=== PATIENT | female | born 1965 | race African-American/Black ===

== ENCOUNTER 2016-07-21 04:23 | Emergency (ER) | payer MEDICAID ==
[2016-07-21 05:51] LABS: VENOUS BLOOD BASE EXCESS 5.7 mmol/L; VENOUS BLOOD HCO3 33.1 mmol/L (20-32); VENOUS BLOOD PCO2 62.7 mmHg (35-63); VENOUS BLOOD PH 7.34 (7.30-7.42)
[2016-07-21 05:55] LABS: ABSOLUTE EOSINOPHILS # (AUTO) 0.2 10^3/uL (0.0-0.6); ABSOLUTE LYMPHOCYTES (AUTO) 1.7 10^3/uL (0.5-4.7); ABSOLUTE MONOCYTES (AUTO) 0.6 10^3/uL (0.1-1.4); ABSOLUTE NEUT (AUTO) 2.7 10^3/uL (1.7-8.2); BASOPHILS % (AUTO) 0.8 % (0-2); EOSINOPHILS % (AUTO) 3.5 % (0-6); HEMATOCRIT 35.4 % (36.0-47.0); HEMOGLOBIN 11.4 g/dL (12.0-15.5); HGB HCT DIFFERENCE -1.2; LYMPHOCYTES % (AUTO) 32.8 % (13-45); MEAN CORPUSCULAR HGB CONC 32.1 g/dL (32.0-36.0); MEAN CORPUSCULAR VOLUME 87 fl (80-97); RED BLOOD COUNT 4.05 10^6/uL (3.72-5.28); RED CELL DISTRIBUTION WIDTH 15.8 % (11.5-14.0); SEGMENTED NEUTROPHILS % (AUTO) 50.9 % (42-78); WHITE BLOOD COUNT 5.3 10^3/uL (4.0-10.5)
[2016-07-21 05:58] LABS: ALANINE AMINOTRANSFERASE 16 U/L (9-52); ALBUMIN 3.9 g/dL (3.5-5.0); ALKALINE PHOSPHATASE 55 U/L (38-126); ANION GAP 12 (5-19); ASPARTATE AMINO TRANSFERASE 29 U/L (14-36); BILIRUBIN,TOTAL 0.4 mg/dL (0.2-1.3); BLOOD UREA NITROGEN 21 mg/dL (7-20); CALCIUM 10.3 mg/dL (8.4-10.2); CARBON DIOXIDE 34 mmol/L (22-30); CHLORIDE 97 mmol/L (98-107); CREATININE RESULT 1.01 mg/dL (0.52-1.25); GLUCOSE 150 mg/dL (75-110); SODIUM 142.6 mmol/L (137-145); TOTAL PROTEIN 7.6 g/dL (6.3-8.2)
[2016-07-21 06:00] LABS: PROTHROMBIN TIME 12.1 SEC (11.4-15.4)
[2016-07-21] MEDS ORDERED: METHYLPREDNISOLONE INJ 125 MG/2 ML SDV IV ONE (06:52)
--- NOTE | 2016-07-21 06:52 | ER Document Report ---
ED Respiratory Problem - General Mode of Arrival: Medic Information source: Patient TRAVEL OUTSIDE OF THE [place] IN LAST 30 DAYS: No - HPI Patient complains to provider of: Cough Associated symptoms: Other - See above <MARCIO STEPHENS - Last Filed: 07/21/16 07:07> <SARITA SCHUMACHER - Last Filed: 07/21/16 09:56> - General Chief Complaint: Cough Stated Complaint: COUGH Notes: Patient is a 51 year old female, with a past medical history including COPD, who presents to the emergency department via EMS complaining of a cough. Patient reports the cough is productive with yellow and green sputum. Patient was seen at this facility around the Holidays and has been on Prednisone, 5mg, which she began tapering last week. Patient also complains of nasal congestion. Patient was given DuoNeb en route. (MARCIO STEPHENS) - Related Data Allergies/Adverse Reactions: codeine [Codeine] Allergy (Severe, Verified 06/23/16 22:20) reacts with invega Penicillins Allergy (Severe, Verified 06/23/16 22:20) Hives Past Medical History - General Information source: Patient - Social History Smoking Status: Unknown if Ever Smoked Family History: Reviewed & Not Pertinent - Past Medical History Cardiac Medical History: Reports: Hx Congestive Heart Failure, Hx Hypercholesterolemia, Hx Hypertension Pulmonary Medical History: Reports: Hx Asthma, Hx COPD, Hx Pneumonia, Hx Sleep Apnea - CPAP of 16. Endocrine Medical History: Reports: Hx Diabetes Mellitus Type 1, Hx Diabetes Mellitus Type 2 GI Medical History: Reports: Hx Gastroesophageal Reflux Disease Musculoskeltal Medical History: Reports Hx Arthritis - rt knee Psychiatric Medical History: Reports: Hx Anxiety, Hx Bipolar Disorder, Hx Depression, Hx Schizoaffective Disorder, Hx Schizophrenia Past Surgical History: Reports: Hx Section - 3, Hx Tubal Ligation - Immunizations Immunizations up to date: Yes Hx Diphtheria, Pertussis, Tetanus Vaccination: Yes Hx Pneumococcal Vaccination: 04/30/14 <MARCIO STEPHENS - Last Filed: 07/21/16 07:07> Review of Systems - Review of Systems Constitutional: No symptoms reported EENT: See HPI, Nose congestion Cardiovascular: No symptoms reported Respiratory: See HPI, Cough Gastrointestinal: No symptoms reported Genitourinary: No symptoms reported Female Genitourinary: No symptoms reported Musculoskeletal: No symptoms reported Skin: No symptoms reported Hematologic/Lymphatic: No symptoms reported Neurological/Psychological: No symptoms reported -: Yes All other systems reviewed and negative <MARCIO STEPHENS - Last Filed: 07/21/16 07:07> Physical Exam - Vital signs Interpretation: Normal - General General appearance: Appears well, Alert - HEENT Head: Normocephalic, Atraumatic Nasal: Other - congested - Respiratory Respiratory status: No respiratory distress Chest status: Nontender Breath sounds: Wheezing - Diffuse expiratory and inspiratory Chest palpation: Normal - Cardiovascular Rhythm: Regular Heart sounds: Normal auscultation Murmur: No - Abdominal Inspection: Morbidly Obese Distension: No distension Bowel sounds: Normal Tenderness: Nontender Organomegaly: No organomegaly - Back Back: Normal, Nontender - Extremities General upper extremity: Normal inspection General lower extremity: Normal inspection - Neurological Neuro grossly intact: Yes Cognition: Normal Orientation: AAOx4 Derrick Coma Scale Eye Opening: Spontaneous Derrick Coma Scale Verbal: Oriented Derrick Coma Scale Motor: Obeys Commands Derrick Coma Scale Total: 15 Speech: Normal - Psychological Associated symptoms: Normal affect, Normal mood - Skin Skin Temperature: Warm Skin Moisture: Dry Skin Color: Normal <MARCIO STEPHENS - Last Filed: 07/21/16 07:07> Course - Laboratory Result Diagrams: 07/21/16 05:25 07/21/16 05:25 <MARCIO STEPHENS - Last Filed: 07/21/16 07:07> - Laboratory Result Diagrams: 07/21/16 05:25 07/21/16 05:25 - Diagnostic Test Radiology reviewed: Image reviewed, Reports reviewed <SARITA SCHUMACHER - Last Filed: 07/21/16 09:56> - Re-evaluation Re-evalutation: 07/21/16 09:52 Patient's wheezes have almost cleared up. She does feel quite better. She is comfortable with going up on the steroid dosing and following up with her pulmonary medicine doctor this week. (SARITA SCHUMACHER) - Vital Signs Vital signs: Temp Pulse Resp BP Pulse Ox 98.9 F 11 L 131/68 H 97 07/21/16 04:51 07/21/16 07:38 07/21/16 08:01 07/21/16 08:01 (MARCIO STEPHENS) (SARITA SCHUMACHER) - Laboratory Laboratory results interpreted by me: 07/21/16 07/21/16 07/21/16 05:25 05:25 05:25 Hgb 11.4 L Hct 35.4 L RDW 15.8 H VBG HCO3 Chloride 97 L Carbon Dioxide 34 H BUN 21 H Est GFR (Non-Af Amer) 58 L Glucose 150 H Lactic Acid 2.6 H Calcium 10.3 H Urine Ketones 07/21/16 07/21/16 05:25 08:49 Hgb Hct RDW VBG HCO3 33.1 H Chloride Carbon Dioxide BUN Est GFR (Non-Af Amer) Glucose Lactic Acid Calcium Urine Ketones TRACE H (MARCIO STEPHENS) (SARITA SCHUMACHER) Discharge <MARCIO STEPHENS - Last Filed: 07/21/16 07:07> <SARITA SCHUMACHER - Last Filed: 07/21/16 09:56> - Discharge Clinical Impression: Viral URI Acute asthma exacerbation Qualifiers: Asthma severity: moderate persistent Qualified Code(s): J45.41 - Moderate persistent asthma with (acute) exacerbation Condition: Stable Disposition: HOME, SELF-CARE Additional Instructions: Increase her prednisone as prescribed. Follow-up with your pulmonary medicine doctor this week. Continue using your nebulizer every 4 hours as needed for wheezing. RETURN TO THE EMERGENCY ROOM IF ANY NEW OR WORSENING SYMPTOMS. Prescriptions: Prednisone [Deltasone 10 mg Tablet] 10 mg PO ASDIR PRN #21 tablet PRN Reason: Scribe Attestation: 07/21/16 09:56 I personally performed the services described in the documentation, reviewed and edited the documentation which was dictated to the scribe in my presence, and it accurately records my words and actions. (SARITA SCHUMACHER) Scribe Documentation - Scribe Written by Elias:: elias Sadler, 07/21/16, 07 acting as scribe for :: Joan <MARCIO STEPHENS - Last Filed: 07/21/16 07:07>
[2016-07-21] MEDS ORDERED: KETOROLAC TROMETHAMINE INJ/PF 30 MG/1 ML SDV IV ONE (07:16)
[2016-07-21] MEDS ORDERED: ACETAMINOPHEN 325 MG TABLET PO ONE (07:16)
[2016-07-21] MEDS ORDERED: ALBUTEROL SULFATE 0.083% NEB 2.5 MG/3 ML AMPUL NEB ONE (07:17)
[2016-07-21 09:39] LABS: APPEARANCE,URINE CLEAR; BILIRUBIN,URINE NEGATIVE (NEGATIVE); GLUCOSE, URINE NEGATIVE (NEGATIVE); KETONES,URINE TRACE mg/dL (NEGATIVE); LEUKOCYTE ESTERASE,URINE NEGATIVE (NEGATIVE); NITRITE,URINE NEGATIVE (NEGATIVE); PROTEIN,URINE NEGATIVE (NEGATIVE); UROBILINOGEN,URINE NEGATIVE mg/dL (<2.0)
[2016-07-21] MEDS ORDERED: PREDNISONE 20 MG TABLET PO ONE (09:56)
[2016-07-21 10:03] VITALS: BP 150/83
--- NOTE | 2016-07-21 10:08 | EKG REPORT ---
SEVERITY:- BORDERLINE ECG - SINUS RHYTHM NONSPECIFIC ST-T CHANGES LATERAL LEADS. : Confirmed by: Reji Casarez MD 21-Jul-2016 10:07:38
== END 2016-07-21 10:07 | disposition home or self-care (01) ==
LOC: ER 04:23
DX: J45.41 Moderate persistent asthma with (acute) exacerbation (principal); J44.9 Chronic obstructive pulmonary disease, unspecified; R05 Cough; R09.81 Nasal congestion; E11.9 Type 2 diabetes mellitus without complications; I10 Essential (primary) hypertension; Z79.52 Long term (current) use of systemic steroids; Z88.0 Allergy status to penicillin; Z88.5 Allergy status to narcotic agent; Z87.01 Personal history of pneumonia (recurrent)
CPT/HCPCS: 93005; 94640; 99284; 96374; 96375; 36415; 87040; 87086; 85025; 85610; 80053; 81001; 82803; 83605; 71020; 93010; J3490; J2930; J1885; J7512

== ENCOUNTER 2016-07-23 15:52 | Inpatient (IN) | payer MEDICAID ==
[2016-07-23] MEDS ORDERED: IPRATROPIUM/ALBUTEROL 0.5-2.5 MG/3 ML AMPUL NEB ONE (16:13)
[2016-07-23] MEDS: ALBUTEROL SULFATE 0.083% NEB 2.5 MG/3 ML AMPUL NEB SCH ×2 (16:25→16:27)
[2016-07-23] MEDS ORDERED: METHYLPREDNISOLONE INJ 125 MG/2 ML SDV IV ONE (16:41)
--- NOTE | 2016-07-23 16:55 | ER Document Report ---
ED Respiratory Problem - General Chief Complaint: Shortness Of Breath Stated Complaint: DIFFICULTY BREATHING Notes: Patient is a 51-year-old female presents emergency Department complaining of suppressant and wheezing. He was seen on Friday for asthma exacerbation and sent home on oral steroids and DuoNeb's. She states that she's been doing DuoNeb nebulizers every 6 hours taking her prednisone 10 mg as prescribed and Symbicort twice a day. She states that she still had wheezing and dyspnea on exertion and shortness of breath for the past 2 days. She does wear oxygen at home 3 L 20/01. Upon EMS assessment she was at 87%. Past medical history significant for diabetes, CHF, COPD/asthma, hypertension, obstructive sleep apnea with home CPAP, bipolar, schizophrenia, depression Past surgical history significant for 3 Social history significant for 20 pack years no longer current smoker, denies any alcohol or drug use Allergies to penicillin she develops a rash, codeine she is no longer allowed to take she's on Invega TRAVEL OUTSIDE OF THE [place] IN LAST 30 DAYS: No - Related Data Allergies/Adverse Reactions: codeine [Codeine] Allergy (Severe, Verified 06/23/16 22:20) reacts with invega Penicillins Allergy (Severe, Verified 06/23/16 22:20) Hives Past Medical History - Social History Smoking Status: Former Smoker Family History: Reviewed & Not Pertinent - Past Medical History Cardiac Medical History: Reports: Hx Congestive Heart Failure, Hx Hypercholesterolemia, Hx Hypertension Denies: Hx DVT, Hx Heart Attack, Hx Pulmonary Embolism Pulmonary Medical History: Reports: Hx Asthma, Hx COPD, Hx Pneumonia, Hx Sleep Apnea - CPAP of 16. Neurological Medical History: Denies: Hx Seizures Endocrine Medical History: Reports: Hx Diabetes Mellitus Type 1, Hx Diabetes Mellitus Type 2. Denies: Hx Hyperthyroidism, Hx Hypothyroidism GI Medical History: Reports: Hx Gastroesophageal Reflux Disease. Denies: Hx Cirrhosis, Hx Hepatitis Musculoskeltal Medical History: Reports Hx Arthritis - rt knee Psychiatric Medical History: Reports: Hx Anxiety, Hx Bipolar Disorder, Hx Depression, Hx Schizoaffective Disorder, Hx Schizophrenia Infectious Medical History: Denies: Hx Hepatitis Past Surgical History: Reports: Hx Section - 3, Hx Tubal Ligation - Immunizations Immunizations up to date: Yes Hx Diphtheria, Pertussis, Tetanus Vaccination: Yes Hx Pneumococcal Vaccination: 04/30/14 Review of Systems - Review of Systems Constitutional: No symptoms reported EENT: No symptoms reported Cardiovascular: No symptoms reported Respiratory: See HPI Gastrointestinal: No symptoms reported Genitourinary: No symptoms reported Female Genitourinary: No symptoms reported Musculoskeletal: No symptoms reported Skin: No symptoms reported Hematologic/Lymphatic: No symptoms reported Neurological/Psychological: No symptoms reported Physical Exam - Vital signs Vitals: Temp Pulse Resp BP Pulse Ox 98.4 F 82 24 H 148/84 H 89 L 07/23/16 15:52 07/23/16 15:52 07/23/16 15:52 07/23/16 15:52 07/23/16 15:52 - Notes Notes: PHYSICAL EXAM GENERAL: Alert, interacts well. HEAD: Normocephalic, atraumatic. EYES: Pupils equal, round, and reactive to light. Extraocular movements intact. ENT: Oral mucosa moist, tongue midline. NECK: Full range of motion. Supple. Trachea midline. LUNGS: audible wheezes and rhonchi. No respiratory distress. able to speak with full sentences but visibly dyspneic HEART: Regular rate and rhythm. No murmurs, gallops, or rubs. ABDOMEN: Soft, nondistended, nontender. No guarding, rebound, or rigidity.. Bowel sounds present in all 4 quadrants. EXTREMITIES: Moves all 4 extremities spontaneously. No edema, radial and dorsalis pedis pulses 2/4 bilaterally. No cyanosis. NEUROLOGICAL: Alert and oriented x3. Normal speech. PSYCH: Normal affect, normal mood. SKIN: Warm, dry, normal turgor. No rashes or lesions noted. Course - Re-evaluation Re-evalutation: 07/23/16 18:30 Patient is a 51-year-old female who presents emergency Department complaining of 5 days of wheezing, productive cough and shortness of breath. She was recently seen here on Friday and discharged home with acute asthma exacerbation. She has been taking her do nebs every 6 hours, prednisone to milligrams and Symbicort twice a day. She states that over the past 2 days she is still had wheezing and shortness of breath that has not improved with any of these modalities. Patient has failed outpatient treatment for COPD exacerbation. Currently she is hemodynamically stable, no acute distress and afebrile. After multiple nebulizer she still has wheezing but improving. Chest x-ray shows evidence of low lung volumes. No evidence of leukocytosis or anemia. Chem panel stable. VBG tests shows elevated HC0# which is consistent with her history. Otherwise patient resting comfortably. Case with hospitalist Dr. Isaias Schulz is been accepted for hypoxemia secondary to COPD exacerbation. She'll be admitted to telemetry. Plan was discussed with patient she is agreeable - Vital Signs Vital signs: Temp Pulse Resp BP Pulse Ox 98.4 F 82 20 156/90 H 98 07/23/16 15:52 07/23/16 15:52 07/23/16 18:01 07/23/16 18:01 07/23/16 18:01 - Laboratory Result Diagrams: 07/23/16 16:45 07/23/16 16:45 Laboratory results interpreted by me: 07/23/16 07/23/16 07/23/16 16:45 16:45 16:45 Hgb 10.9 L Hct 34.2 L MCHC 31.7 L RDW 16.1 H VBG HCO3 32.1 H Chloride 97 L Carbon Dioxide 34 H BUN 23 H Est GFR (Non-Af Amer) 54 L Calcium 10.5 H - Diagnostic Test Radiology reviewed: Image reviewed, Reports reviewed - EKG Interpretation by Me EKG shows normal: Sinus rhythm Rate: Normal Rhythm: NSR When compared to previous EKG there are: No significant change - Consults Dr. Isaias schulz Reason for consultation: 07/23/16 18:53 hospital admission Consulted provider: will come to ER Discharge - Discharge Clinical Impression: COPD exacerbation, Hypoxemia Condition: Stable Disposition: ADMITTED INPATIENT Admitting Provider: Hospitalist - Dr. Isaias Schulz Unit Admitted: Telemetry Referrals: PAULINA FLORES TRANSFER OPERATOR [Primary Care Provider] - Follow up as needed
[2016-07-23 17:00] LABS: VENOUS BLOOD BASE EXCESS 5.9 mmol/L; VENOUS BLOOD HCO3 32.1 mmol/L (20-32); VENOUS BLOOD PCO2 54.7 mmHg (35-63); VENOUS BLOOD PH 7.39 (7.30-7.42)
[2016-07-23 17:04] LABS: ABSOLUTE EOSINOPHILS # (AUTO) 0.1 10^3/uL (0.0-0.6); ABSOLUTE LYMPHOCYTES (AUTO) 2.6 10^3/uL (0.5-4.7); ABSOLUTE MONOCYTES (AUTO) 0.7 10^3/uL (0.1-1.4); ABSOLUTE NEUT (AUTO) 3.7 10^3/uL (1.7-8.2); BASOPHILS % (AUTO) 0.4 % (0-2); EOSINOPHILS % (AUTO) 1.7 % (0-6); HEMATOCRIT 34.2 % (36.0-47.0); HEMOGLOBIN 10.9 g/dL (12.0-15.5); HGB HCT DIFFERENCE -1.5; LYMPHOCYTES % (AUTO) 36.3 % (13-45); MEAN CORPUSCULAR HEMOGLOBIN 27.6 pg (27.0-33.4); MEAN CORPUSCULAR HGB CONC 31.7 g/dL (32.0-36.0); MEAN CORPUSCULAR VOLUME 87 fl (80-97); MONOCYTES % (AUTO) 9.9 % (3-13); RED BLOOD COUNT 3.93 10^6/uL (3.72-5.28); RED CELL DISTRIBUTION WIDTH 16.1 % (11.5-14.0); SEGMENTED NEUTROPHILS % (AUTO) 51.7 % (42-78); WHITE BLOOD COUNT 7.1 10^3/uL (4.0-10.5)
[2016-07-23 17:21] LABS: ALANINE AMINOTRANSFERASE 28 U/L (9-52); ALBUMIN 3.8 g/dL (3.5-5.0); ALKALINE PHOSPHATASE 54 U/L (38-126); ANION GAP 11 (5-19); ASPARTATE AMINO TRANSFERASE 22 U/L (14-36); BILIRUBIN,TOTAL 0.3 mg/dL (0.2-1.3); BLOOD UREA NITROGEN 23 mg/dL (7-20); CALCIUM 10.5 mg/dL (8.4-10.2); CARBON DIOXIDE 34 mmol/L (22-30); CHLORIDE 97 mmol/L (98-107); CREATININE RESULT 1.08 mg/dL (0.52-1.25); GLUCOSE 106 mg/dL (75-110); POTASSIUM 4.1 mmol/L (3.6-5.0); SODIUM 142.2 mmol/L (137-145)
[2016-07-23] MEDS ORDERED: ALBUTEROL SULFATE 0.083% NEB 2.5 MG/3 ML AMPUL NEB PRN (18:34)
[2016-07-23] MEDS ORDERED: DEXTROSE 40% GEL 15 GM TUBE PO PRN ×2 (18:35)
[2016-07-23] MEDS ORDERED: DEXTROSE 50%-WATER 25 GM/50 ML DISP.SYRIN IV PRN ×2 (18:35)
[2016-07-23] MEDS ORDERED: GLUCAGON,HUMAN RECOMB 1 MG INJ IM PRN (18:35)
[2016-07-23] MEDS ORDERED: HYDRALAZINE HCL INJ/PF 20 MG/1 ML SDV IV PRN (18:36)
--- NOTE | 2016-07-23 18:42 | EKG REPORT ---
SEVERITY:- NORMAL ECG - SINUS RHYTHM : Confirmed by: Brisa Cohn MD 23-Jul-2016 18:42:07
--- NOTE | 2016-07-23 18:45 | PDOC H&P ---
History of Present Illness Admission Date/PCP: PALUINA FLORES Patient complains of: Shortness of breath History of Present Illness: LILI HA is a 51 year old female with past medical history of oxygen dependent COPD, obstructive sleep apnea, hypertension, CHF/LVDD presents with several days history of worsening shortness of breath. Patient was recently seen in the emergency department and diagnosed with COPD exacerbation. She was started on prednisone but has Progressively worse. She denies fevers or chills. As mentioned above she is home oxygen dependent on 3 L nasal cannula at baseline. She also uses BiPAP at night. She is followed by Dr. Huber of pulmonary medicine as an outpatient. Medications listed below have not been verified at the time of this documentation. Past Medical History Cardiac Medical History: Reports: Congestive Heart Failure, Hyperlipidema, Hypertension Denies: DVT, Myocardial Infarction, Pulmonary Embolism Pulmonary Medical History: Reports: Asthma, Chronic Obstructive Pulmonary Disease (COPD), Pneumonia, Sleep Apnea - CPAP of 16. Neurological Medical History: Denies: Seizures Endocrine Medical History: Reports: Diabetes Mellitus Type 2 Denies: Hyperthyroidism, Hypothyroidism GI Medical History: Reports: Gastroesophageal Reflux Disease Denies: Cirrhosis, Hepatitis Musculoskeltal Medical History: Reports: Arthritis - rt knee Psychiatric Medical History: Reports: Bipolar Disorder, Depression, Schizoaffective Disorder Hematology: Denies: Anemia Past Surgical History Past Surgical History: Reports: Section - 3, Tubal Ligation Social History Information Source: Patient Lives with: Spouse/Significant other Smoking Status: Former Smoker Frequency of Alcohol Use: None Hx Recreational Drug Use: No Drugs: None Hx Prescription Drug Abuse: No - Advance Directive Resuscitation Status: Full Code Surrogate healthcare decision maker:: Family History Family History: CAD, Other - Asthma Parental Family History Reviewed: Yes Children Family History Reviewed: Yes Sibling(s) Family History Reviewed.: Yes Medication/Allergy Home Medications: Insulin Detemir [Levemir Insulin 100 units/mL] 32 units SQ QPM 04/29/14 Metformin HCl [Glucophage] 1 tab PO BID 04/29/14 Metoprolol Tartrate [Lopressor 25 mg Tablet] 1 tab PO BID 04/29/14 Mirabegron [Myrbetriq] 1 tab PO DAILY 04/29/14 Theophylline Anhydrous 1 tab PO Q12H 04/29/14 Aspirin [Ecotrin 81 mg EC Tablet] 81 mg PO DAILY #0 tabec 04/30/14 Magnesium Oxide [Mag-Ox 400 mg Tablet] 400 mg PO QHS #30 tablet 04/30/14 Cholecalciferol (Vitamin D3) [Vitamin D3] 1 tab PO DAILY 05/13/14 Cyanocobalamin (Vitamin B-12) [Vitamin B-12] 1 tab PO DAILY 05/13/14 Divalproex Sodium [Divalproex Sodium ER] 4 tab PO QHS 05/13/14 Sertraline HCl 2 tab PO DAILY 05/13/14 Paliperidone [Invega 6 mg Tab.er] 6 mg PO DAILY #7 tab.er.24 11/04/14 Diltiazem HCl [Cardizem Cd 180 mg Capsule] 1 cap.sr PO Q12 03/13/15 Lisinopril [Zestril] 20 mg PO BID 03/13/15 Oxycodone HCl/Acetaminophen [Percocet 5-325 mg Tablet] 1 - 2 tab PO Q4H PRN #15 tablet 09/05/15 Carisoprodol [Soma] 250 mg PO PRN PRN 02/11/16 Gabapentin 300 mg PO BID 02/11/16 Ranitidine HCl [Zantac 150 mg Tablet] 150 mg PO BID 02/11/16 Insulin Detemir [Levemir Insulin 100 units/mL] 40 unit SUBCUT QPM #10 insuln.pen 05/23/16 Prednisone [Deltasone 20 mg Tablet] 20 mg PO BID #10 tablet 05/23/16 Prednisone 40 mg PO DAILY #8 tablet 06/24/16 Prednisone [Deltasone 10 mg Tablet] 10 mg PO ASDIR PRN #21 tablet 07/21/16 Allergies/Adverse Reactions: codeine [Codeine] Allergy (Severe, Verified 06/23/16 22:20) reacts with invega Penicillins Allergy (Severe, Verified 06/23/16 22:20) Hives Review of Systems Constitutional: ABSENT: chills, fever(s), headache(s), weight gain, weight loss Eyes: ABSENT: visual disturbances Ears: ABSENT: hearing changes Cardiovascular: PRESENT: dyspnea on exertion. ABSENT: chest pain, edema, orthropnea, palpitations Respiratory: PRESENT: cough, dyspnea. ABSENT: hemoptysis Gastrointestinal: ABSENT: abdominal pain, constipation, diarrhea, hematemesis, hematochezia, nausea, vomiting Genitourinary: ABSENT: dysuria, hematuria Musculoskeletal: ABSENT: joint swelling Integumentary: ABSENT: rash, wounds Neurological: ABSENT: abnormal gait, abnormal speech, confusion, dizziness, focal weakness, syncope Psychiatric: ABSENT: anxiety, depression, homidical ideation, suicidal ideation Endocrine: ABSENT: cold intolerance, heat intolerance, polydipsia, polyuria Hematologic/Lymphatic: ABSENT: easy bleeding, easy bruising Physical Exam Vital Signs: Temp Pulse Resp BP Pulse Ox 98.4 F 82 20 156/90 H 98 07/23/16 15:52 07/23/16 15:52 07/23/16 18:01 07/23/16 18:01 07/23/16 18:01 Intake & Output 07/22/16 07/23/16 07/24/16 06:59 06:59 06:59 Weight 176.901 kg PHYSICAL EXAM: GENERAL: Appears well, no acute distress, morbidly obese HEENT: Normocephalic, no scleral icterus, conjunctiva clear, EOEM intact, PERRLA , moist mucous membranes NECK: trachea midline, no thyromegally RESPIRATORY: Bilateral inspiratory/expiratory wheezes, diminished air excursion CARDIAC: Regular rate and rhythm, no murmur/lenore/rub ABDOMEN: Soft, no distension, no tenderness, no guarding, normal bowel sounds, negative Topete sign RECTAL: deferred : deferred EXTREMITIES: No edema, cyanosis, clubbing MUSCULOSKELETAL: No joint swelling or deformity VASCULAR: normal peripheral pulses NEUROLOGIC: Alert, oriented to person/place/time, normal speech, cranial nerves grossly intact, 5/5 strength in all extremities, tactile sensation intact in all extremities SKIN: No rash, no wounds, no worrisome skin lesions PSYCHIATRIC: Normal mood, normal affect Results Laboratory Results: 07/23/16 16:45 07/23/16 16:45 07/23/16 07/23/16 07/23/16 16:45 16:45 16:45 WBC 7.1 RBC 3.93 Hgb 10.9 L Hct 34.2 L MCV 87 MCH 27.6 MCHC 31.7 L RDW 16.1 H Plt Count 257 Seg Neutrophils % 51.7 Lymphocytes % 36.3 Monocytes % 9.9 Eosinophils % 1.7 Basophils % 0.4 Absolute Neutrophils 3.7 Absolute Lymphocytes 2.6 Absolute Monocytes 0.7 Absolute Eosinophils 0.1 Absolute Basophils 0.0 VBG pH 7.39 VBG pCO2 54.7 VBG HCO3 32.1 H VBG Base Excess 5.9 Sodium 142.2 Potassium 4.1 Chloride 97 L Carbon Dioxide 34 H Anion Gap 11 BUN 23 H Creatinine 1.08 Est GFR ( Amer) > 60 Est GFR (Non-Af Amer) 54 L Glucose 106 Calcium 10.5 H Total Bilirubin 0.3 AST 22 ALT 28 Alkaline Phosphatase 54 Total Protein 7.0 Albumin 3.8 Impressions: Chest X-Ray 07/23/16 00:00 IMPRESSION: NO ACUTE CARDIOPULMONARY PROCESS. NO SIGNIFICANT CHANGE FROM PRIOR STUDY. Assessment & Plan - Diagnosis (1) Acute on chronic respiratory failure with hypoxemia Is this a current diagnosis for this admission?: YesPlan: Continue oxygen supplementation during the daytime and BiPAP nocturnally. Patient is followed by Dr. Huber of pulmonary medicine as an outpatient. She is chronically on 3 L nasal cannula oxygen during the daytime and home BiPAP at night. (2) COPD exacerbation Is this a current diagnosis for this admission?: YesPlan: Start IV Solu-Medrol, IV Levaquin. Scheduled and when necessary albuterol nebulizer treatments. (3) Chronic congestive heart failure with left ventricular diastolic dysfunction Is this a current diagnosis for this admission?: YesPlan: Clinically compensated at this time. Verify home medications and resume. Medications listed above have not been verified at time of this dictation. (4) HTN (hypertension) Qualifiers: Hypertension type: essential hypertension Qualified Code(s): I10 - Essential (primary) hypertension Is this a current diagnosis for this admission?: YesPlan: Verify home medications and resume. When necessary IV hydralazine. (5) Controlled diabetes mellitus type II without complication Qualifiers: Diabetes mellitus oysterman insulin use: with half-way use Qualified Code(s): E11.9 - Type 2 diabetes mellitus without complications Is this a current diagnosis for this admission?: YesPlan: Verify home medications and resume. Cover with sliding scale insulin for now. (6) LORENA (obstructive sleep apnea) Is this a current diagnosis for this admission?: Yes (7) Schizo-affective schizophrenia Is this a current diagnosis for this admission?: Yes - Time Time Spent: Greater than 70 Minutes Anticipated discharge: Home - Inpatient Certification Medical Necessity: Need Close Monitoring Due to Risk of Patient Decompensation, Need For Continuous Telemetry Monitoring, Need for Nebulizer Therapy and Monitoring of Response
[2016-07-23] MEDS ORDERED: LEVOFLOXACIN 750 MG/D5W RTU 750 MG/150 ML RTUPB IV ONE (19:30)
[2016-07-23] MEDS ORDERED: ALBUTEROL SULFATE 0.083% NEB 2.5 MG/3 ML AMPUL NEB SCH (20:00)
[2016-07-23] MEDS ORDERED: METHYLPREDNISOLONE INJ 40 MG/1 ML SDV IV SCH (22:00)
[2016-07-24 00:52] LABS: VENOUS BLOOD BASE EXCESS 3.5 mmol/L; VENOUS BLOOD HCO3 31.2 mmol/L (20-32); VENOUS BLOOD PCO2 62.5 mmHg (35-63); VENOUS BLOOD PH 7.32 (7.30-7.42)
[2016-07-24] MEDS ORDERED: METHYLPREDNISOLONE ACETATE INJ 80 MG/1 ML VIAL IM SCH (02:00)
[2016-07-24] MEDS: METHYLPREDNISOLONE INJ 40 MG/1 ML SDV IV SCH ×3 (02:50→17:25)
[2016-07-24 05:01] LABS: VENOUS BLOOD BASE EXCESS 3.9 mmol/L; VENOUS BLOOD HCO3 32.4 mmol/L (20-32); VENOUS BLOOD PH 7.29 (7.30-7.42)
[2016-07-24 05:05] LABS: VENOUS BLOOD PCO2 69.4 mmHg (35-63)
[2016-07-24] MEDS ORDERED: ALBUTEROL SULFATE 0.083% NEB 2.5 MG/3 ML AMPUL NEB PRN (06:08)
[2016-07-24] MEDS: IPRATROPIUM/ALBUTEROL 0.5-2.5 MG/3 ML AMPUL NEB SCH ×3 (08:56→20:25)
[2016-07-24] MEDS ORDERED: ACETAMINOPHEN 325 MG TABLET PO PRN (10:53)
[2016-07-24] MEDS: LEVOFLOXACIN 750 MG/D5W RTU 750 MG/150 ML RTUPB IV SCH (11:22)
[2016-07-24] MEDS ORDERED: ENOXAPARIN SODIUM INJ 40 MG/0.4 ML DISP.SYRIN SUBCUT ONE (12:00)
--- NOTE | 2016-07-24 14:30 | PDOC PROGRESS REPORT ---
Subjective Progress Note for:: 07/24/16 Subjective:: Patient shortness of breath is much improved today. Patient denies fever, chills , headache, new focal weakness, chest pain, abdominal pain, nausea, vomiting, diarrhea, constipation. Physical Exam Vital Signs: Temp Pulse Resp BP Pulse Ox 97.7 F 84 18 145/94 H 89 L 07/24/16 04:41 07/24/16 08:56 07/24/16 08:56 07/24/16 04:41 07/24/16 04:41 Intake & Output 07/23/16 07/24/16 07/25/16 06:59 06:59 06:59 Intake Total 5 Balance 5 GENERAL: No acute distress, morbidly obese HEENT: Conjunctiva clear, nonicteric, moist mucous membranes, no JVD, midline trachea RESPIRATORY: Faint bilateral wheezes, good air excursion CARDIAC: Regular rate and rhythm, no murmurs/gallops/rubs ABDOMEN: Soft, nondistended, nontender, positive bowel sounds, no rebound, no guarding EXTREMETIES: No edema, cyanosis, clubbing NEUROLOGIC: Alert, oriented to person/place/time, CN's grossly intact, no focal deficits SKIN: No rash, wounds PSYCH: Normal mood, normal affect Results Laboratory Results: 07/24/16 07/24/16 00:42 04:46 VBG pH 7.32 7.29 L VBG pCO2 62.5 69.4 H* VBG HCO3 31.2 32.4 H VBG Base Excess 3.5 3.9 Impressions: Chest X-Ray 07/23/16 00:00 IMPRESSION: NO ACUTE CARDIOPULMONARY PROCESS. NO SIGNIFICANT CHANGE FROM PRIOR STUDY. Assessment & Plan - Diagnosis (1) Acute on chronic respiratory failure with hypoxemia Is this a current diagnosis for this admission?: YesPlan: Continue oxygen supplementation during the daytime and BiPAP nocturnally. Patient is followed by Dr. Huber of pulmonary medicine as an outpatient. She is chronically on 3 L nasal cannula oxygen during the daytime and home BiPAP at night. (2) COPD exacerbation Is this a current diagnosis for this admission?: YesPlan: Continue IV Solu-Medrol, IV Levaquin. Scheduled and when necessary albuterol nebulizer treatments. Continue home medications which include theophylline. (3) Chronic congestive heart failure with left ventricular diastolic dysfunction Is this a current diagnosis for this admission?: YesPlan: Clinically compensated at this time. Continue metoprolol. (4) HTN (hypertension) Qualifiers: Hypertension type: essential hypertension Qualified Code(s): I10 - Essential (primary) hypertension Is this a current diagnosis for this admission?: YesPlan: Continue lisinopril 20 mg twice daily, diltiazem 180 mg twice daily, metoprolol 25 mg twice daily. When necessary IV hydralazine. (5) Controlled diabetes mellitus type II without complication Qualifiers: Diabetes mellitus mcfp insulin use: with mcfp use Qualified Code(s): E11.9 - Type 2 diabetes mellitus without complications Is this a current diagnosis for this admission?: YesPlan: Continue Lantus 40 units subcutaneous nightly. Sliding scale insulin. Patient has some degree of steroid-induced hyperglycemia. (6) LORENA (obstructive sleep apnea) Is this a current diagnosis for this admission?: Yes (7) Schizo-affective schizophrenia Is this a current diagnosis for this admission?: Yes (8) Morbid obesity Qualifiers: Obesity type: due to excess calories Qualified Code(s): E66.01 - Morbid (severe) obesity due to excess calories Is this a current diagnosis for this admission?: YesPlan: Patient has morbid obesity with BMI of 64.9kg/m2. This is certainly contributing to multiple comorbid conditions to include chronic respiratory failure, hypertension, diabetes. - Time Time Spent with patient: 35 or more minutes
[2016-07-24] MEDS: METFORMIN HCL 500 MG TABLET PO SCH (17:24)
[2016-07-24] MEDS: INSULIN LISPRO 100 UNIT/ML 3 ML VIAL SUBCUT PRN ×2 (17:26→21:27)
[2016-07-24] MEDS: OXYCODONE-ACETAMINOPHEN 5-325 MG TABLET PO SCH (17:32)
[2016-07-24] MEDS: FAMOTIDINE 20 MG TABLET PO SCH (17:34)
[2016-07-24] MEDS ORDERED: (PENDING PHARMACY ID) (Lisinopril [Prinivil] 20 MG) PO SCH (18:00)
[2016-07-24] MEDS ORDERED: (PENDING PHARMACY ID) (Ranitidine Hcl [Zantac 150 Mg Tablet] 150 MG) PO SCH (18:00)
[2016-07-24] MEDS ORDERED: (PENDING PHARMACY ID) (Carisoprodol [Soma] 250 MG) PO SCH (18:00)
[2016-07-24] MEDS: DILTIAZEM HCL 180 MG CAPSULE.CR PO SCH (21:10)
[2016-07-24] MEDS: DIVALPROEX SODIUM 500 MG TAB.SR.24H PO SCH (21:10)
[2016-07-24] MEDS: GABAPENTIN 300 MG CAPSULE PO SCH (21:11)
[2016-07-24] MEDS: METOPROLOL TARTRATE 25 MG TABLET PO SCH (21:11)
[2016-07-24] MEDS: MAGNESIUM OXIDE 400 MG TABLET PO SCH (21:11)
[2016-07-24] MEDS: THEOPHYLLINE ANHYDROUS 300 MG TAB.SR.12H PO SCH (21:12)
[2016-07-24] MEDS: INSULIN DETEMIR 100 UNIT/ML 3 ML PEN SUBCUT SCH (21:27)
[2016-07-24] MEDS ORDERED: LISINOPRIL 10 MG TABLET PO SCH ×2 (22:00)
[2016-07-24] MEDS ORDERED: FAMOTIDINE 20 MG TABLET PO SCH (22:00)
[2016-07-25] MEDS: METHYLPREDNISOLONE INJ 40 MG/1 ML SDV IV SCH ×2 (02:47→11:16)
[2016-07-25 05:48] LABS: ABSOLUTE LYMPHOCYTES (AUTO) 1.4 10^3/uL (0.5-4.7); ABSOLUTE MONOCYTES (AUTO) 0.6 10^3/uL (0.1-1.4); ABSOLUTE NEUT (AUTO) 7.8 10^3/uL (1.7-8.2); BASOPHILS % (AUTO) 0.1 % (0-2); HEMATOCRIT 35.4 % (36.0-47.0); HEMOGLOBIN 11.2 g/dL (12.0-15.5); HGB HCT DIFFERENCE -1.8; LYMPHOCYTES % (AUTO) 14.6 % (13-45); MEAN CORPUSCULAR HEMOGLOBIN 27.7 pg (27.0-33.4); MEAN CORPUSCULAR HGB CONC 31.6 g/dL (32.0-36.0); MEAN CORPUSCULAR VOLUME 88 fl (80-97); MONOCYTES % (AUTO) 6.2 % (3-13); RED BLOOD COUNT 4.04 10^6/uL (3.72-5.28); RED CELL DISTRIBUTION WIDTH 16.1 % (11.5-14.0); SEGMENTED NEUTROPHILS % (AUTO) 79.1 % (42-78); WHITE BLOOD COUNT 9.8 10^3/uL (4.0-10.5)
[2016-07-25 06:05] LABS: ANION GAP 11 (5-19); BLOOD UREA NITROGEN 23 mg/dL (7-20); CALCIUM 10.9 mg/dL (8.4-10.2); CARBON DIOXIDE 34 mmol/L (22-30); CHLORIDE 93 mmol/L (98-107); CREATININE RESULT 1.03 mg/dL (0.52-1.25); GLUCOSE 283 mg/dL (75-110); POTASSIUM 5.6 mmol/L (3.6-5.0); SODIUM 137.5 mmol/L (137-145)
[2016-07-25] MEDS: GABAPENTIN 300 MG CAPSULE PO SCH ×3 (06:13→21:43)
[2016-07-25] MEDS: IPRATROPIUM/ALBUTEROL 0.5-2.5 MG/3 ML AMPUL NEB SCH ×3 (07:34→20:06)
[2016-07-25] MEDS: ENOXAPARIN SODIUM INJ 40 MG/0.4 ML DISP.SYRIN SUBCUT SCH (08:00)
[2016-07-25] MEDS: INSULIN LISPRO 100 UNIT/ML 3 ML VIAL SUBCUT PRN ×4 (08:00→21:43)
[2016-07-25] MEDS ORDERED: SERTRALINE HCL 50 MG TABLET PO SCH (10:00)
[2016-07-25] MEDS ORDERED: (PENDING PHARMACY ID) (Mirabegron [Myrbetriq] 50 MG) PO SCH (10:00)
[2016-07-25] MEDS ORDERED: (PENDING PHARMACY ID) (Cholecalciferol (Vitamin D3) [Vitamin D3 2000 Unit Tablet] 2,000 UN PO SCH (10:00)
[2016-07-25] MEDS ORDERED: CHOLECALCIFEROL (D3) 1,000 UNIT TABLET PO SCH (10:00)
[2016-07-25] MEDS ORDERED: (PENDING PHARMACY ID) (Sertraline Hcl [Zoloft] 200 MG) PO SCH (10:00)
[2016-07-25] MEDS: METFORMIN HCL 500 MG TABLET PO SCH ×2 (11:05→17:49)
[2016-07-25] MEDS: ASPIRIN 81 MG TABLET, ENT COATED PO SCH (11:06)
[2016-07-25] MEDS: CYANOCOBALAMIN (VITAMIN B-12) 1,000 MCG TABLET PO SCH (11:07)
[2016-07-25] MEDS: OXYCODONE-ACETAMINOPHEN 5-325 MG TABLET PO SCH ×2 (11:08→17:50)
[2016-07-25] MEDS: FUROSEMIDE 20 MG TABLET PO SCH (11:09)
[2016-07-25] MEDS: METOPROLOL TARTRATE 25 MG TABLET PO SCH ×2 (11:11→21:43)
[2016-07-25] MEDS: SERTRALINE HCL 50 MG TABLET PO SCH (11:11)
[2016-07-25] MEDS: DILTIAZEM HCL 180 MG CAPSULE.CR PO SCH ×2 (11:11→21:43)
[2016-07-25] MEDS: THEOPHYLLINE ANHYDROUS 300 MG TAB.SR.12H PO SCH ×2 (11:12→21:43)
[2016-07-25] MEDS: LEVOFLOXACIN 750 MG/D5W RTU 750 MG/150 ML RTUPB IV SCH (11:12)
[2016-07-25] MEDS: FAMOTIDINE 20 MG TABLET PO SCH ×2 (11:15→17:50)
[2016-07-25] MEDS: CHOLECALCIFEROL (D3) 1,000 UNIT TABLET PO SCH (11:18)
[2016-07-25] MEDS ORDERED: PALIPERIDONE 6 MG TAB.ER.24 PO ONE (12:30)
[2016-07-25] MEDS ORDERED: PREDNISONE 20 MG TABLET PO ONE (12:30)
--- NOTE | 2016-07-25 15:08 | Physician Advisory Note ---
Physician Advisor ProgressNote .: [facility] medical record for this patient. Physician Advisor Statement: Excellent documentation of Chronic Hypoxemic REspiratory Failure with chronic need for 3L O2 24/7 & home BiPAP for LORENA at night. Possible documentation opportunities if attending agrees: 1. "Ac on Chronic Resp Failure with labored breathing/accessory muscle use/ tachypnea/hypoxemia in ED" [info per ED Nsg Assessment] - Were increased work of breathing & hypoxemia both present while on her usual 3L O2, or just when on RA? - Please document this info. 2. "Ac Exac COPD with suspected possible Acute Bronchitis" - Attending ordered IV abx, therefore likely suspecting bacterial infxn. COPD acute exacerbation can involve acute bronchitis or accompany acute PNA, but can also occur due to non-infectious stimuli such as exposure to inhaled chemicals. COPD exacerbation is not in & of itself, at least in the minds of payers, a reason for abx. As always, please document each day the potential clinical problems you are concerned could occur if pt not kept in hospital for tx at this time. Thanks for your help with documentation accuracy/specificity improvement! JOHNATHAN
--- NOTE | 2016-07-25 17:51 | PDOC PROGRESS REPORT ---
Subjective Progress Note for:: 07/25/16 Subjective:: Patient shortness of breath is much improved today. Patient denies fever, chills , headache, new focal weakness, chest pain, abdominal pain, nausea, vomiting, diarrhea, constipation. Physical Exam Vital Signs: Temp Pulse Resp BP Pulse Ox 98.8 F 65 20 120/75 100 07/25/16 15:44 07/25/16 15:44 07/25/16 15:44 07/25/16 15:44 07/25/16 15:44 Intake & Output 07/24/16 07/25/16 07/26/16 06:59 06:59 06:59 Intake Total 5 115 Output Total 700 Balance 5 -585 Weight 178.3 kg 178.3 kg GENERAL: No acute distress, morbidly obese HEENT: Conjunctiva clear, nonicteric, moist mucous membranes, no JVD, midline trachea RESPIRATORY: Clear to auscultation bilaterally CARDIAC: Regular rate and rhythm, no murmurs/gallops/rubs ABDOMEN: Soft, nondistended, nontender, positive bowel sounds, no rebound, no guarding EXTREMETIES: No edema, cyanosis, clubbing NEUROLOGIC: Alert, oriented to person/place/time, CN's grossly intact, no focal deficits SKIN: No rash, wounds PSYCH: Normal mood, normal affect Results Laboratory Results: 07/25/16 05:19 07/25/16 05:19 07/25/16 07/25/16 05:19 05:19 WBC 9.8 RBC 4.04 Hgb 11.2 L Hct 35.4 L MCV 88 MCH 27.7 MCHC 31.6 L RDW 16.1 H Plt Count 264 Seg Neutrophils % 79.1 H Lymphocytes % 14.6 Monocytes % 6.2 Eosinophils % 0.0 Basophils % 0.1 Absolute Neutrophils 7.8 Absolute Lymphocytes 1.4 Absolute Monocytes 0.6 Absolute Eosinophils 0.0 Absolute Basophils 0.0 Sodium 137.5 Potassium 5.6 H Chloride 93 L Carbon Dioxide 34 H Anion Gap 11 BUN 23 H Creatinine 1.03 Est GFR ( Amer) > 60 Est GFR (Non-Af Amer) 57 L Glucose 283 H Calcium 10.9 H Impressions: Chest X-Ray 07/23/16 00:00 IMPRESSION: NO ACUTE CARDIOPULMONARY PROCESS. NO SIGNIFICANT CHANGE FROM PRIOR STUDY. Assessment & Plan - Diagnosis (1) Acute on chronic respiratory failure with hypoxemia Is this a current diagnosis for this admission?: YesPlan: Continue oxygen supplementation during the daytime and BiPAP nocturnally. Patient is followed by Dr. Huber of pulmonary medicine as an outpatient. She is chronically on 3 L nasal cannula oxygen during the daytime and home BiPAP at night. (2) COPD exacerbation Is this a current diagnosis for this admission?: YesPlan: Discontinue IV Solu-Medrol and start prednisone. Continue IV Levaquin. Scheduled and when necessary albuterol nebulizer treatments. Continue home medications which include theophylline. (3) Chronic congestive heart failure with left ventricular diastolic dysfunction Is this a current diagnosis for this admission?: YesPlan: Clinically compensated at this time. Continue metoprolol. Start Lasix 20 mg daily. (4) HTN (hypertension) Qualifiers: Hypertension type: essential hypertension Qualified Code(s): I10 - Essential (primary) hypertension Is this a current diagnosis for this admission?: YesPlan: Discontinue lisinopril secondary to hyperkalemia. Continue Diltiazem 180 mg twice daily, metoprolol 25 mg twice daily. When necessary IV hydralazine. 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 Sliding scale insulin. Patient has some degree of steroid-induced hyperglycemia. (6) LORENA (obstructive sleep apnea) Is this a current diagnosis for this admission?: YesPlan: Patient has home BiPAP in place. (7) Schizo-affective schizophrenia Is this a current diagnosis for this admission?: Yes (8) Morbid obesity Qualifiers: Obesity type: due to excess calories Qualified Code(s): E66.01 - Morbid (severe) obesity due to excess calories Is this a current diagnosis for this admission?: YesPlan: Patient has morbid obesity with BMI of 64.9kg/m2. This is certainly contributing to multiple comorbid conditions to include chronic respiratory failure, hypertension, diabetes. (9) Hyperkalemia Is this a current diagnosis for this admission?: YesPlan: Discontinue lisinopril. Start Lasix 20 mg daily for this as well as CHF. - Time Time Spent with patient: 35 or more minutes Anticipated discharge: Home Within: within 24 hours
[2016-07-25] MEDS: PALIPERIDONE 6 MG TAB.ER.24 PO SCH (20:35)
[2016-07-25] MEDS: DIVALPROEX SODIUM 500 MG TAB.SR.24H PO SCH (21:43)
[2016-07-25] MEDS: INSULIN DETEMIR 100 UNIT/ML 3 ML PEN SUBCUT SCH (21:43)
[2016-07-25] MEDS: FLUTICASONE NASAL SPRAY 50 MCG/SPRY 120 SPRAY/16 GM NASL SCH (21:43)
[2016-07-25] MEDS: MAGNESIUM OXIDE 400 MG TABLET PO SCH (21:43)
[2016-07-26 04:54] LABS: ABSOLUTE BASOPHILS # (AUTO) 0.1 10^3/uL (0.0-0.2); ABSOLUTE LYMPHOCYTES (AUTO) 3.1 10^3/uL (0.5-4.7); ABSOLUTE MONOCYTES (AUTO) 0.7 10^3/uL (0.1-1.4); BASOPHILS % (AUTO) 0.9 % (0-2); EOSINOPHILS % (AUTO) 0.1 % (0-6); HEMATOCRIT 35.4 % (36.0-47.0); HEMOGLOBIN 11.3 g/dL (12.0-15.5); HGB HCT DIFFERENCE -1.5; LYMPHOCYTES % (AUTO) 31.3 % (13-45); MEAN CORPUSCULAR HEMOGLOBIN 27.7 pg (27.0-33.4); MEAN CORPUSCULAR HGB CONC 31.8 g/dL (32.0-36.0); MEAN CORPUSCULAR VOLUME 87 fl (80-97); MONOCYTES % (AUTO) 7.1 % (3-13); RED BLOOD COUNT 4.07 10^6/uL (3.72-5.28); RED CELL DISTRIBUTION WIDTH 15.8 % (11.5-14.0); SEGMENTED NEUTROPHILS % (AUTO) 60.6 % (42-78); WHITE BLOOD COUNT 9.9 10^3/uL (4.0-10.5)
[2016-07-26 05:22] LABS: ANION GAP 9 (5-19); BLOOD UREA NITROGEN 28 mg/dL (7-20); CALCIUM 10.6 mg/dL (8.4-10.2); CARBON DIOXIDE 37 mmol/L (22-30); CHLORIDE 93 mmol/L (98-107); CREATININE RESULT 1.01 mg/dL (0.52-1.25); GLUCOSE 156 mg/dL (75-110); SODIUM 139.4 mmol/L (137-145)
[2016-07-26 05:40] LABS: POTASSIUM 4.5 mmol/L (3.6-5.0)
[2016-07-26] MEDS: GABAPENTIN 300 MG CAPSULE PO SCH (06:52)
[2016-07-26] MEDS: ENOXAPARIN SODIUM INJ 40 MG/0.4 ML DISP.SYRIN SUBCUT SCH (08:13)
[2016-07-26] MEDS: IPRATROPIUM/ALBUTEROL 0.5-2.5 MG/3 ML AMPUL NEB SCH (08:21)
[2016-07-26] MEDS: ASPIRIN 81 MG TABLET, ENT COATED PO SCH (09:30)
[2016-07-26] MEDS: PALIPERIDONE 6 MG TAB.ER.24 PO SCH (09:30)
[2016-07-26] MEDS: THEOPHYLLINE ANHYDROUS 300 MG TAB.SR.12H PO SCH (09:30)
[2016-07-26] MEDS: OXYCODONE-ACETAMINOPHEN 5-325 MG TABLET PO SCH (09:30)
[2016-07-26] MEDS: FAMOTIDINE 20 MG TABLET PO SCH (09:30)
[2016-07-26] MEDS: CYANOCOBALAMIN (VITAMIN B-12) 1,000 MCG TABLET PO SCH (09:31)
[2016-07-26] MEDS: SERTRALINE HCL 50 MG TABLET PO SCH (09:31)
[2016-07-26] MEDS: METFORMIN HCL 500 MG TABLET PO SCH (09:31)
[2016-07-26] MEDS: CHOLECALCIFEROL (D3) 1,000 UNIT TABLET PO SCH (09:32)
[2016-07-26] MEDS: FUROSEMIDE 20 MG TABLET PO SCH (09:32)
[2016-07-26] MEDS: DILTIAZEM HCL 180 MG CAPSULE.CR PO SCH (09:32)
[2016-07-26] MEDS: METOPROLOL TARTRATE 25 MG TABLET PO SCH (09:32)
[2016-07-26] MEDS: FLUTICASONE NASAL SPRAY 50 MCG/SPRY 120 SPRAY/16 GM NASL SCH (09:33)
[2016-07-26] MEDS ORDERED: PREDNISONE 20 MG TABLET PO SCH (10:00)
[2016-07-26] MEDS ORDERED: LEVOFLOXACIN 750 MG TABLET PO SCH (10:00)
[2016-07-26] MEDS: INSULIN LISPRO 100 UNIT/ML 3 ML VIAL SUBCUT PRN (12:07)
[2016-07-26 12:30] VITALS: BP 125/66
--- NOTE | 2016-07-26 15:59 | PDOC DISCHARGE SUMMARY ---
General - Admit/Disc Date/PCP Admission Date/Primary Care Provider: 07/23/16 19:49 PAULINA FLORES NP Discharge Date: 07/26/16 - Discharge Diagnosis (1) Acute on chronic respiratory failure with hypoxemia Is this a current diagnosis for this admission?: Yes (2) COPD exacerbation Is this a current diagnosis for this admission?: Yes (3) Chronic congestive heart failure with left ventricular diastolic dysfunction Is this a current diagnosis for this admission?: Yes (4) HTN (hypertension) Is this a current diagnosis for this admission?: Yes (5) Controlled diabetes mellitus type II without complication Is this a current diagnosis for this admission?: Yes (6) LORENA (obstructive sleep apnea) Is this a current diagnosis for this admission?: Yes (7) Schizo-affective schizophrenia Is this a current diagnosis for this admission?: Yes (8) Morbid obesity Is this a current diagnosis for this admission?: Yes (9) Hyperkalemia Is this a current diagnosis for this admission?: Yes - Additional Information Resuscitation Status: Full Code Discharge Diet: Cardiac, Diabetic Discharge Activity: Activity As Tolerated, Balance Activity w/Rest, Slowly Increase Activity Home Medications: Aspirin [Aspirin EC] 81 mg PO DAILY 07/23/16 Carisoprodol [Soma] 250 mg PO BID 07/23/16 Cholecalciferol (Vitamin D3) [Vitamin D3 2000 unit Tablet] 2,000 unit PO DAILY 07/23/16 Cyanocobalamin (Vitamin B-12) [Vitamin B-12 1000 mcg Tablet] 1 tab PO DAILY Diltiazem HCl [Cardizem Cd 180 mg Capsule] 180 mg PO Q12 07/23/16 Divalproex Sodium [Divalproex Sodium ER] 2,000 mg PO QHS 07/23/16 Gabapentin [Neurontin 300 mg Capsule] 300 mg PO Q8 07/23/16 Insulin Detemir [Levemir Insulin 100 units/mL] 40 unit SUBCUT QHS 07/23/16 Magnesium Oxide [Mag-Ox 400 mg Tablet] 400 mg PO QHS 07/23/16 Metformin HCl [Glucophage] 500 mg PO BID 07/23/16 Metoprolol Tartrate [Lopressor 25 mg Tablet] 25 mg PO Q12 07/23/16 Mirabegron [Myrbetriq] 50 mg PO DAILY 07/23/16 Oxycodone HCl/Acetaminophen [Percocet 5-325 mg Tablet] 1 tab PO BID 07/23/16 Paliperidone [Paliperidone ER] 6 mg PO DAILY 07/23/16 Ranitidine HCl [Zantac 150 mg Tablet] 150 mg PO BID 07/23/16 Sertraline HCl [Zoloft] 200 mg PO DAILY 07/23/16 Theophylline Anhydrous 300 mg PO Q12 07/23/16 Acetaminophen [Tylenol 325 mg Tablet] 650 mg PO Q4HP PRN tablet 07/24/16 Albuterol Sulfate [Ventolin 0.083% Neb 2.5 mg/3 mL Ampul] 2.5 mg NEB RTQ4HP PRN vial.neb 07/24/16 Fluticasone Propionate [Flonase Nasal [place] 50 Mcg/[place] 16 gm] 1 spray NASL Q12 #1 spray.pump 07/26/16 Furosemide [Lasix 20 mg Tablet] 20 mg PO DAILY #30 tablet 07/26/16 Levofloxacin [Levaquin 750 mg Tablet] 750 mg PO DAILY #5 tablet 07/26/16 Prednisone [Deltasone 20 mg Tablet] 40 mg PO DAILY #7 tablet 07/26/16 History of Present Illness Patient complains of: Shortness of breath History of Present Illness: LILI HA is a 51 year old female with past medical history of oxygen dependent COPD, obstructive sleep apnea, hypertension, CHF/LVDD presents with several days history of worsening shortness of breath. Patient was recently seen in the emergency department and diagnosed with COPD exacerbation. She was started on prednisone but has Progressively worse. She denies fevers or chills. As mentioned above she is home oxygen dependent on 3 L nasal cannula at baseline. She also uses BiPAP at night. She is followed by Dr. Huber of pulmonary medicine as an outpatient. Hospital Course Hospital Course: Patient was admitted for acute on chronic hypoxemic respiratory failure as a result of COPD exacerbation. She was treated with IVs a Medrol and IV Levaquin as well as bronchodilators. Her condition improved rather quickly. She has been transitioned to oral prednisone and oral Levaquin. She is discharged home stable on these medications. She is on chronic home oxygen at baseline. She is on chronic nocturnal BiPAP at baseline. She is followed by Dr. Huber of pulmonary medicine as an outpatient. Patient was noted to have hyperkalemia so she was taken off of her DANYA inhibitor. Physical Exam Vital Signs: Temp Pulse Resp BP Pulse Ox 99.1 F 77 18 125/66 99 07/26/16 12:24 07/26/16 12:24 07/26/16 12:24 07/26/16 12:24 07/26/16 12:24 Intake & Output 07/25/16 07/26/16 07/27/16 06:59 06:59 06:59 Intake Total 115 1138 Output Total 700 2600 Balance -585 -1462 Weight 178.3 kg 179.4 kg GENERAL: No acute distress, morbidly obese HEENT: Conjunctiva clear, nonicteric, moist mucous membranes, no JVD, midline trachea RESPIRATORY: Clear to auscultation bilaterally CARDIAC: Regular rate and rhythm, no murmurs/gallops/rubs ABDOMEN: Soft, nondistended, nontender, positive bowel sounds, no rebound, no guarding EXTREMETIES: No edema, cyanosis, clubbing NEUROLOGIC: Alert, oriented to person/place/time, CN's grossly intact, no focal deficits SKIN: No rash, wounds PSYCH: Normal mood, normal affect Results Laboratory Results: 07/26/16 04:11 07/26/16 04:11 07/26/16 07/26/16 04:11 04:11 WBC 9.9 RBC 4.07 Hgb 11.3 L Hct 35.4 L MCV 87 MCH 27.7 MCHC 31.8 L RDW 15.8 H Plt Count 189 Seg Neutrophils % 60.6 Lymphocytes % 31.3 Monocytes % 7.1 Eosinophils % 0.1 Basophils % 0.9 Absolute Neutrophils 6.0 Absolute Lymphocytes 3.1 Absolute Monocytes 0.7 Absolute Eosinophils 0.0 Absolute Basophils 0.1 Sodium 139.4 Potassium 4.5 D Chloride 93 L Carbon Dioxide 37 H Anion Gap 9 BUN 28 H Creatinine 1.01 Est GFR ( Amer) > 60 Est GFR (Non-Af Amer) 58 L Glucose 156 H Calcium 10.6 H Impressions: Chest X-Ray 07/23/16 00:00 IMPRESSION: NO ACUTE CARDIOPULMONARY PROCESS. NO SIGNIFICANT CHANGE FROM PRIOR STUDY. Qualifiers PATEINT BEING DISCHARGED WITH ANY OF THE FOLLOWING DIAGNOSIS?: No Plan Discharge Plan: Follow-up with primary care provider. Follow-up with Dr. Huber of pulmonary medicine. Time Spent: Less than 30 Minutes
== END 2016-07-26 13:19 | disposition home or self-care (01) | DRG 190 ==
LOC: ER 15:52 → EH 19:49 → 4N 07-24 15:46
PROVIDERS: ADMIT Family Medicine; ATTEND Family Medicine
PROC: 5A09457 Assistance with Respiratory Ventilation, 24-96 Consecutive Hours, Continuous Positive Airway Pressure (ICD-10-PCS; principal; 2016-07-23)
DX: J44.1 Chronic obstructive pulmonary disease with (acute) exacerbation (principal); J96.21 Acute and chronic respiratory failure with hypoxia; I50.32 Chronic diastolic (congestive) heart failure; Z68.44 Body mass index [BMI] 60.0-69.9, adult; E78.5 Hyperlipidemia, unspecified; J45.909 Unspecified asthma, uncomplicated; E11.9 Type 2 diabetes mellitus without complications; K21.9 Gastro-esophageal reflux disease without esophagitis; I11.0 Hypertensive heart disease with heart failure; F31.9 Bipolar disorder, unspecified; G47.33 Obstructive sleep apnea (adult) (pediatric); E66.01 Morbid (severe) obesity due to excess calories; E87.5 Hyperkalemia; F25.9 Schizoaffective disorder, unspecified; Z98.51 Tubal ligation status; M17.11 Unilateral primary osteoarthritis, right knee; Z87.891 Personal history of nicotine dependence; Z99.81 Dependence on supplemental oxygen; Z79.4 Long term (current) use of insulin; Z79.899 Other long term (current) drug therapy; Z82.49 Family history of ischemic heart disease and other diseases of the circulatory system; Z88.6 Allergy status to analgesic agent; Z88.0 Allergy status to penicillin; Z79.82 Long term (current) use of aspirin; Z79.52 Long term (current) use of systemic steroids
CPT/HCPCS: 36415; 71020; 80048; 80053; 82803; 82962; 85025; 93005; 93010; 94640; 94660; 96374; 99285; J1650; J1815; J1956; J2920; J2930; J3490; J7512; J7620

== ENCOUNTER 2016-08-16 22:09 | Emergency (ER) | payer MEDICAID | END 2016-08-16 22:32 | disposition left against medical advice (07) | LOC: ER 22:09 | DX: Z53.21 Procedure and treatment not carried out due to patient leaving prior to being seen by health care provider (principal) ==

== ENCOUNTER 2016-08-21 11:04 | Emergency (ER) | payer MEDICAID ==
--- NOTE | 2016-08-21 11:14 | ER Document Report ---
ED Medical Screen (RME) - General Stated Complaint: SINUS PAIN Notes: 51 yo female c/o sinus infection, left ear pain x 2 days. Sat 98% TRAVEL OUTSIDE OF THE [place] IN LAST 30 DAYS: No - Related Data Allergies/Adverse Reactions: codeine [Codeine] Allergy (Severe, Verified 08/21/16 11:10) reacts with invega Penicillins Allergy (Severe, Verified 08/21/16 11:10) Hives Past Medical History - Past Medical History Cardiac Medical History: Reports: Hx Congestive Heart Failure, Hx Hypercholesterolemia, Hx Hypertension Denies: Hx DVT, Hx Heart Attack, Hx Pulmonary Embolism Pulmonary Medical History: Reports: Hx Asthma, Hx COPD, Hx Pneumonia, Hx Sleep Apnea - CPAP of 16. Neurological Medical History: Denies: Hx Seizures Endocrine Medical History: Reports: Hx Diabetes Mellitus Type 1, Hx Diabetes Mellitus Type 2. Denies: Hx Hyperthyroidism, Hx Hypothyroidism GI Medical History: Reports: Hx Gastroesophageal Reflux Disease. Denies: Hx Cirrhosis, Hx Hepatitis Musculoskeltal Medical History: Reports Hx Arthritis - rt knee Psychiatric Medical History: Reports: Hx Anxiety, Hx Bipolar Disorder, Hx Depression, Hx Schizoaffective Disorder, Hx Schizophrenia Infectious Medical History: Denies: Hx Hepatitis Past Surgical History: Reports: Hx Section - 3, Hx Tubal Ligation - Immunizations Immunizations up to date: Yes Hx Diphtheria, Pertussis, Tetanus Vaccination: Yes
[2016-08-21 11:15] VITALS: BP 148/86
--- NOTE | 2016-08-21 12:58 | ER Document Report ---
ED ENT - General Chief Complaint: Nasal Drainage Stated Complaint: SINUS PAIN Mode of Arrival: Medic Information source: Patient Notes: 51 y/o F presents to ED c/o 3 day hx sinus congestion and increasingly worsening left ear pain. Reports pressure to left sinus area but states pain to left ear is worse. Pt has hx of COPD and CHF on 3L home O2 but denies any sob or difficulty breathing. Denies fever, purulent nasal drainage, left ear drainage, chest pain or sob. TRAVEL OUTSIDE OF THE [place] IN LAST 30 DAYS: No - HPI Patient complains to provider of: Ear problem, Nose problem Onset/Duration: Gradual Quality of pain: Achy Severity: Moderate Pain Level: 3 Context: Recent Illness Location of pain: Ears Similar symptoms previously: Yes Recently seen / treated by doctor: No - Related Data Allergies/Adverse Reactions: codeine [Codeine] Allergy (Severe, Verified 08/21/16 11:10) reacts with invega Penicillins Allergy (Severe, Verified 08/21/16 11:10) Hives Past Medical History - General Information source: Patient - Social History Smoking Status: Never Smoker Chew tobacco use (# tins/day): No Frequency of alcohol use: None Drug Abuse: None Lives with: Family Family History: Reviewed & Not Pertinent Patient has suicidal ideation: No Patient has homicidal ideation: No - Past Medical History Cardiac Medical History: Reports: Hx Congestive Heart Failure, Hx Hypercholesterolemia, Hx Hypertension Denies: Hx DVT, Hx Heart Attack, Hx Pulmonary Embolism Pulmonary Medical History: Reports: Hx Asthma, Hx COPD, Hx Pneumonia, Hx Sleep Apnea - CPAP of 16. Neurological Medical History: Denies: Hx Seizures Endocrine Medical History: Reports: Hx Diabetes Mellitus Type 2. Denies: Hx Hyperthyroidism, Hx Hypothyroidism Renal/ Medical History: Denies: Hx Peritoneal Dialysis GI Medical History: Reports: Hx Gastroesophageal Reflux Disease. Denies: Hx Cirrhosis, Hx Hepatitis Musculoskeltal Medical History: Reports Hx Arthritis - rt knee Psychiatric Medical History: Reports: Hx Anxiety, Hx Bipolar Disorder, Hx Depression, Hx Schizoaffective Disorder, Hx Schizophrenia Infectious Medical History: Denies: Hx Hepatitis Past Surgical History: Reports: Hx Section - 3, Hx Tubal Ligation - Immunizations Immunizations up to date: Yes Hx Diphtheria, Pertussis, Tetanus Vaccination: Yes Hx Pneumococcal Vaccination: 04/30/14 Review of Systems - Review of Systems Constitutional: No symptoms reported EENT: See HPI Cardiovascular: No symptoms reported Respiratory: No symptoms reported Gastrointestinal: No symptoms reported Genitourinary: No symptoms reported Female Genitourinary: No symptoms reported Musculoskeletal: No symptoms reported Skin: No symptoms reported Hematologic/Lymphatic: No symptoms reported Neurological/Psychological: No symptoms reported -: Yes All other systems reviewed and negative Physical Exam - Vital signs Vitals: Temp Pulse Resp BP Pulse Ox 97.5 F 85 20 148/86 H 98 08/21/16 11:10 08/21/16 11:10 08/21/16 11:10 08/21/16 11:10 08/21/16 11:10 - General General appearance: Appears well, Alert In distress: None - HEENT Head: Normocephalic, Atraumatic Eyes: Normal Pupils: PERRL Ears: Normal. No: Pinna tenderness, Tragus tenderness External canal: No: Foreign body, Swollen Tympanic membrane: Injected - left, Purulent effusion - left. No: Hemotympanum , Perforation Sinus: Normal. No: Tenderness Nasal: Normal. No: Purulent discharge Mouth/Lips: Normal Mucous membranes: Normal, Moist Pharynx: Normal. No: Blood in hypopharynx, Erythema, Exudate, Peritonsillar abscess, Post nasal drainage, Retropharyngeal abscess, Tonsillar hypertrophy, Uvular edema, Potential airway comprom., Other Neck: Normal. No: Anterior cervical chain, Posterior cervical chain, Lymphadenopathy, Meningismus, Subcutaneous emphysema - Respiratory Respiratory status: No respiratory distress Chest status: Nontender Breath sounds: Normal Chest palpation: Normal - Cardiovascular Rhythm: Regular Pulses: Normal: Radial Normal capillary refill: Yes - Abdominal Inspection: Morbidly Obese Distension: No distension Bowel sounds: Normal Tenderness: Nontender Organomegaly: No organomegaly Course - Re-evaluation Re-evalutation: 08/21/16 12:51 Patient hemodynamically stable, in no distress, afebrile, and appears well- hydrated. Presentation and physical exam findings suggestive of uncomplicated left otitis media at this time without suggestion of of acute bacterial sinusitis. Will prescribe course of azithromycin due to reported allergy to penicillins. Patient appears stable for discharge and agrees with home care, follow-up with PCP, and ED return precautions. - Vital Signs Vital signs: Temp Pulse Resp BP Pulse Ox 97.5 F 86 18 148/86 H 97 08/21/16 11:14 08/21/16 11:14 08/21/16 11:14 08/21/16 11:14 08/21/16 11:14 Discharge - Discharge Clinical Impression: Otitis media Qualifiers: Otitis media type: unspecified Laterality: left Chronicity: acute Condition: Stable Disposition: HOME, SELF-CARE Additional Instructions: OTITIS MEDIA: You have a middle ear infection (otitis media). This is usually a complication of a cold or sore throat. The middle ear cavity becomes filled with infection. Pressure and stretching of the ear drum cause pain. Antibiotics are required. A 10 day course is usually prescribed. A decongestant may be recommended if you have a "runny nose." You may need anesthetic drops or other pain medication. A follow-up exam may be recommended to make sure the infection has completely cleared. If the ear begins to drain, it means the ear drum has ruptured. This will usually heal spontaneously. However, it means you should keep the ear dry until re-examined by a doctor. Call the physician or return for examination at once if there is severe headache, stiff neck, confusion, increasing fever, or dizziness. You should improve significantly within two days. If you're not better, call the doctor. AZITHROMYCIN: Azithromycin (Zithromax) is a broad spectrum antibiotic in the same class as erythromycin. It can treat a variety of bacterial infections, but is most frequently used for respiratory infections. Azithromycin is extremely long-lasting. It accumulates in body tissues and continues to kill bacteria for many days. In order to improve absorption, Azithromycin should be taken at least one hour before or two hours after a meal. It does not have the same strong tendency to upset the stomach as erythromycin and is usually very well tolerated. Patients who have had a rash or other true allergic reactions to erythromycin should not take this medication. Call if you develop gastrointestinal distress, severe diarrhea, rash, hives, itching, or shortness of breath. USE OF ACETAMINOPHEN (Tylenol): Acetaminophen may be taken for pain relief or fever control. It's much safer than aspirin, offering a wider range of "safe" dosages. It is safe during . Some brand names are Tylenol, Panadol, Datril, Anacin 3, Tempra, and Liquiprin. Acetaminophen can be repeated every four hours. The following are maximum recommended dosages: WEIGHT Dose Drops Elixir Chewable( 80mg) (LBS.) drprs=droppers tsp=teaspoon 6 40 mg 0.4 ml (1/2) 6-11 80 mg 0.8 ml (full) tsp 1 tab 12-16 120 mg 1 1/2 drprs 3/4 tsp 1 1/2 tabs 17-23 160 mg 2 drprs 1 tsp 2 tabs 24-30 240 mg 3 drprs 1 1/2 tsp 3 tabs 30-35 320 mg 2 tsp 4 tabs 36-41 360 mg 2 1/4 tsp 4 1/2 tabs 42-47 400 mg 2 1/2 tsp 5 tabs 48-53 480 mg 3 tsp 6 tabs 54-59 520 mg 3 1/4 tsp 6 1/2 tabs 60-64 560 mg 3 1/2 tsp 7 tabs 65-70 600 mg 3 3/4 tsp 7 1/2 tabs 71-76 640 mg 4 tsp 8 tabs 77-82 720 mg 4 1/2 tsp 9 tabs 83-88 800 mg 5 tsp 10 tabs >89 pounds or adults 650 mg to 900 mg Acetaminophen can be repeated every four hours. Maximum dose not to exceed 4000 mg a day. These maximum recommended dosages are slightly higher than the dosages written on the product container, but these dosages are very safe and below the toxic dosage for acetaminophen. Home self care: -Rest, hydration (6-10 glasses/day) -Steamy shower -Apply warm facial packs -Nasal saline irrigation lavage -Sleep with head elevated -Avoid cigarette smoke -Use of humidifier/vaporizer -Balanced nutrition FOLLOW-UP CARE: Follow-up with your primary care provider in the next 1-2 days as discussed. Return to the emergency department for any worsening symptoms or concerns. Prescriptions: Azithromycin [Zithromax 250 mg Tablet] 250 mg PO ASDIR PRN #6 tablet PRN Reason: Forms: Elevated Blood Pressure Referrals: PAULINA FLORES NP [Primary Care Provider] - Follow up tomorrow
== END 2016-08-21 13:11 | disposition home or self-care (01) ==
LOC: ER 11:04
DX: H66.92 Otitis media, unspecified, left ear (principal); H92.02 Otalgia, left ear; E66.01 Morbid (severe) obesity due to excess calories; J44.9 Chronic obstructive pulmonary disease, unspecified; E78.00 Pure hypercholesterolemia, unspecified; I11.0 Hypertensive heart disease with heart failure; I50.9 Heart failure, unspecified; E11.9 Type 2 diabetes mellitus without complications; Z88.6 Allergy status to analgesic agent; Z88.0 Allergy status to penicillin; Z99.81 Dependence on supplemental oxygen; Z98.51 Tubal ligation status
CPT/HCPCS: 99282

== ENCOUNTER 2016-08-25 17:43 | Emergency (ER) | payer MEDICAID ==
--- NOTE | 2016-08-25 18:13 | ER Document Report ---
ED Medical Screen (RME) - General Stated Complaint: ABSCESS Mode of Arrival: Wheelchair Information source: Patient Notes: pt presents to the ED with c/o right breast abscess. ttp. Hx DM1, COPD, CHF, HTN. on home 02, bipolar. Denies breast cancer. Reports some diarrhea denies fever vomiting. I have greeted and performed a rapid initial assessment of this patient. A comprehensive ED assessment and evaluation of the patient, analysis of test results and completion of the medical decision making process will be conducted by additional ED providers. TRAVEL OUTSIDE OF THE [place] IN LAST 30 DAYS: No - Related Data Allergies/Adverse Reactions: codeine [Codeine] Allergy (Severe, Verified 08/21/16 11:10) reacts with invega Penicillins Allergy (Severe, Verified 08/21/16 11:10) Hives Past Medical History - Past Medical History Cardiac Medical History: Reports: Hx Congestive Heart Failure, Hx Hypercholesterolemia, Hx Hypertension Denies: Hx DVT, Hx Heart Attack, Hx Pulmonary Embolism Pulmonary Medical History: Reports: Hx Asthma, Hx COPD, Hx Pneumonia, Hx Sleep Apnea - CPAP of 16. Neurological Medical History: Denies: Hx Seizures Endocrine Medical History: Reports: Hx Diabetes Mellitus Type 1, Hx Diabetes Mellitus Type 2. Denies: Hx Hyperthyroidism, Hx Hypothyroidism Renal/ Medical History: Denies: Hx Peritoneal Dialysis GI Medical History: Reports: Hx Gastroesophageal Reflux Disease. Denies: Hx Cirrhosis, Hx Hepatitis Musculoskeltal Medical History: Reports Hx Arthritis - rt knee Psychiatric Medical History: Reports: Hx Anxiety, Hx Bipolar Disorder, Hx Depression, Hx Schizoaffective Disorder, Hx Schizophrenia Infectious Medical History: Denies: Hx Hepatitis Past Surgical History: Reports: Hx Section - 3, Hx Tubal Ligation - Immunizations Immunizations up to date: Yes Hx Diphtheria, Pertussis, Tetanus Vaccination: Yes
--- NOTE | 2016-08-25 20:07 | ER Document Report ---
ED Skin Rash/Insect Bite/Abscs - General Chief Complaint: Abscess Stated Complaint: ABSCESS Mode of Arrival: Wheelchair Information source: Patient Notes: 51 y/o F presents to ED c/o area of redness and tenderness to right breast. Pt reports 2 days ago noted small area of redness to base of medial right breast which appeared like a small blackhead. States squeezed blackhead out but area of redness and tenderness has increased. Denies fever or drainage, nipple skin changes or discharge. TRAVEL OUTSIDE OF THE [place] IN LAST 30 DAYS: No - HPI Patient complains to provider of: Skin rash/lesion Onset/Duration: Gradual Quality of pain: Achy Severity: Mild Pain Level: 2 Skin Character: Erythema, Tenderness Skin Temperature: Warm Similar symptoms previously: No Recently seen / treated by doctor: No - Related Data Allergies/Adverse Reactions: codeine [Codeine] Allergy (Severe, Verified 08/25/16 18:12) reacts with invega Penicillins Allergy (Severe, Verified 08/25/16 18:12) Hives Past Medical History - General Information source: Patient - Social History Smoking Status: Never Smoker Chew tobacco use (# tins/day): No Frequency of alcohol use: None Drug Abuse: None Lives with: Family Family History: Reviewed & Not Pertinent Patient has suicidal ideation: No Patient has homicidal ideation: No - Past Medical History Cardiac Medical History: Reports: Hx Congestive Heart Failure, Hx Hypercholesterolemia, Hx Hypertension Denies: Hx DVT, Hx Heart Attack, Hx Pulmonary Embolism Pulmonary Medical History: Reports: Hx Asthma, Hx COPD, Hx Pneumonia, Hx Sleep Apnea - CPAP of 16. Neurological Medical History: Denies: Hx Seizures Endocrine Medical History: Reports: Hx Diabetes Mellitus Type 2. Denies: Hx Hyperthyroidism, Hx Hypothyroidism Renal/ Medical History: Denies: Hx Peritoneal Dialysis GI Medical History: Reports: Hx Gastroesophageal Reflux Disease. Denies: Hx Cirrhosis, Hx Hepatitis Musculoskeltal Medical History: Reports Hx Arthritis - rt knee Psychiatric Medical History: Reports: Hx Anxiety, Hx Bipolar Disorder, Hx Depression, Hx Schizoaffective Disorder, Hx Schizophrenia Infectious Medical History: Denies: Hx Hepatitis Past Surgical History: Reports: Hx Section - 3, Hx Tubal Ligation - Immunizations Immunizations up to date: Yes Hx Diphtheria, Pertussis, Tetanus Vaccination: Yes Hx Pneumococcal Vaccination: 04/30/14 Review of Systems - Review of Systems Constitutional: No symptoms reported EENT: No symptoms reported Cardiovascular: No symptoms reported Respiratory: No symptoms reported Gastrointestinal: No symptoms reported Genitourinary: No symptoms reported Female Genitourinary: No symptoms reported Musculoskeletal: No symptoms reported Skin: See HPI Hematologic/Lymphatic: No symptoms reported Neurological/Psychological: No symptoms reported -: Yes All other systems reviewed and negative Physical Exam - Vital signs Vitals: Temp Pulse BP Pulse Ox 98.4 F 79 133/78 H 96 08/25/16 20:23 08/25/16 20:23 08/25/16 20:23 08/25/16 20:23 Interpretation: Normal - General General appearance: Appears well, Alert In distress: None - HEENT Head: Normocephalic, Atraumatic Eyes: Normal Pupils: PERRL - Respiratory Respiratory status: No respiratory distress Chest status: Nontender Breath sounds: Normal Chest palpation: Normal - Cardiovascular Rhythm: Regular Heart sounds: Normal auscultation Murmur: No Pulses: Normal: Radial Normal capillary refill: Yes - Abdominal Inspection: Morbidly Obese Distension: No distension Bowel sounds: Normal Tenderness: Nontender Organomegaly: No organomegaly - Back Back: Normal, Nontender - Extremities General upper extremity: Normal inspection, Nontender, Normal color, Normal ROM , Normal temperature. No: Tender, Edema General lower extremity: Normal inspection, Nontender, Normal color, Normal temperature. No: Tender, Edema - Neurological Neuro grossly intact: Yes Cognition: Normal Orientation: AAOx4 [place] Coma Scale Eye Opening: Spontaneous [place] Coma Scale Verbal: Oriented [place] Coma Scale Motor: Obeys Commands [place] Coma Scale Total: 15 Speech: Normal Motor strength normal: LUE, RUE, LLE, RLE Sensory: Normal - Psychological Associated symptoms: Normal affect, Normal mood - Skin Skin Temperature: Warm Skin Moisture: Dry Skin Color: Normal Skin irregularity: Erythema, Tender indurated area - approximately 2 cm diameter are of erythema, mild induration, and tenderness to upper medial aspect of right breast. no central fluctuance or drainge. Course - Re-evaluation Re-evalutation: 08/25/16 20:06 Pt hemodynamically stable, in no distress, afebrile. Will treat for mild cellulitis with no suggestion of abscess at this time. Will prescribe course of Clindamycin as patient reports allergy to penicillins. Pt appears stable for discharge and agrees with home care, follow-up with pcp, and ED return precautions. - Vital Signs Vital signs: Temp Pulse Resp BP Pulse Ox 98.4 F 79 133/78 H 96 08/25/16 20:23 08/25/16 20:23 08/25/16 20:23 08/25/16 20:23 Discharge - Discharge Clinical Impression: Cellulitis Qualifiers: Site of cellulitis: other site Qualified Code(s): L03.818 - Cellulitis of other sites Condition: Stable Disposition: HOME, SELF-CARE Additional Instructions: CELLULITIS: You have an infection of your skin and underlying soft tissues called cellulitis. This is due to bacteria, which can enter through any break in the skin, or even through an irritated hair follicle. Untreated, cellulitis will usually worsen. Antibiotics are required. Usually, warm packs or warm soaks, and elevation of the infected area are recommended. You should start getting better within 24 to 36 hours. Most infections respond quickly to the right medication. Follow-up care is important, however, to check for abscess (boil) formation, unsuspected foreign body, or resistant infection. If you develop fever, chills, or if the area of infection is becoming rapidly more swollen or painful, call the doctor at once. ANTIBIOTIC THERAPY: You have been given an antibiotic prescription. It's important that you take all the medication, unless instructed otherwise by your physician. Failure to complete the entire course can result in relapse of your condition. Common side effects of antibiotics include nausea, intestinal cramping, or diarrhea. Women may develop vaginal yeast infections, and babies can get yeast (thrush) in the mouth following the use of antibiotics. Contact your physician if you develop significant side effects from this medication. Allergy to this antibiotic can result in hives, wheezing, faintness, or itching. If symptoms of allergy occur, stop the medication and call the doctor. CLINDAMYCIN: You have been given a prescription for the antibiotic clindamycin. It is often prescribed for infections in the mouth, such as dental infections or abscesses, and for skin infections due to MRSA. It's important that you take all the medication, unless instructed otherwise by your physician. Failure to complete the entire course can result in relapse of your condition. Common side effects of antibiotics include nausea, intestinal cramping, or diarrhea. Women may develop vaginal yeast infections, and babies can get yeast (thrush) in the mouth following the use of antibiotics. Contact your physician if you develop significant side effects from this medication. Allergy to this antibiotic can result in hives, wheezing, faintness, or itching. If symptoms of allergy occur, stop the medication and call the doctor. Acetaminophen Acetaminophen may be taken for pain relief or fever control. It's much safer than aspirin, offering a wider range of "safe" dosages. It is safe during . Some brand names are Tylenol, Panadol, Datril, Anacin 3, Tempra, and Liquiprin. Acetaminophen can be repeated every four hours. The following are maximum recommended dosages: WEIGHT Dose Drops Elixir Chewable( 80mg) (LBS.) drprs=droppers tsp=teaspoon 6 40 mg .4 ml (1/2) 6-11 80 mg .8 ml (full) 1/2 tsp 1 tab 12-16 120 mg 1 1/2 drprs 3/4 tsp 1 1/2 tabs 17-23 160 mg 2 drprs 1 tsp 2 tabs 24-30 240 mg 3 drprs 1 1/2 tsp 3 tabs 30-35 320 mg 2 tsp 4 tabs 36-41 360 mg 2 1/4 tsp 4 1 /2 tabs 42-47 400 mg 2 1/2 tsp 5 tabs 48-53 480 mg 3 tsp 6 tabs 54-59 520 mg 3 1/4 tsp 6 1 /2 tabs 60-64 560 mg 3 1/2 tsp 7 tabs 65-70 600 mg 3 3/4 tsp 7 1 /2 tabs 71-76 640 mg 4 tsp 8 tabs 77-82 720 mg 4 1/2 tsp 9 tabs 83-88 800 mg 5 tsp 10 tabs >89 pounds or adults 650 mg to 900 mg Acetaminophen can be repeated every four hours. Maximum daily dose not to exceed 4000 mg. These maximum recommended dosages are slightly higher than the dosages written on the product container, but these dosages are very safe and well below the toxic dosage for acetaminophen. FOLLOW-UP CARE: Follow-up with your primary care provider in 24-48 hours as discussed. If you experience worsening or a significant change in your symptoms, notify the physician immediately or return to the Emergency Department at any time for re-evaluation. Prescriptions: Clindamycin HCl 300 mg PO Q6H #20 capsule Referrals: PAULINA FLORES NP [[facility]ED STAFF] - Follow up tomorrow
[2016-08-25 20:26] VITALS: BP 133/78
== END 2016-08-25 20:26 | disposition home or self-care (01) ==
LOC: ER 17:43
DX: L03.818 Cellulitis of other sites (principal); N64.4 Mastodynia; I50.9 Heart failure, unspecified; E78.00 Pure hypercholesterolemia, unspecified; I11.0 Hypertensive heart disease with heart failure; J44.9 Chronic obstructive pulmonary disease, unspecified; E11.9 Type 2 diabetes mellitus without complications; K21.9 Gastro-esophageal reflux disease without esophagitis; Z98.51 Tubal ligation status; Z88.6 Allergy status to analgesic agent; Z88.0 Allergy status to penicillin
CPT/HCPCS: 99283

== ENCOUNTER 2016-08-28 14:08 | Emergency (ER) | payer MEDICAID ==
--- NOTE | 2016-08-28 14:23 | ER Document Report ---
ED Medical Screen (RME) - General Stated Complaint: ABSCESS Notes: 51 yo female c/o tender swollen area to anterior chest, possible abscess. taking antibiotic for cellulitis. + hx/o IDDM no fever TRAVEL OUTSIDE OF THE [place] IN LAST 30 DAYS: No - Related Data Allergies/Adverse Reactions: codeine [Codeine] Allergy (Severe, Verified 08/25/16 18:12) reacts with invega Penicillins Allergy (Severe, Verified 08/25/16 18:12) Hives Past Medical History - Past Medical History Cardiac Medical History: Reports: Hx Congestive Heart Failure, Hx Hypercholesterolemia, Hx Hypertension Denies: Hx DVT, Hx Heart Attack, Hx Pulmonary Embolism Pulmonary Medical History: Reports: Hx Asthma, Hx COPD, Hx Pneumonia, Hx Sleep Apnea - CPAP of 16. Neurological Medical History: Denies: Hx Seizures Endocrine Medical History: Reports: Hx Diabetes Mellitus Type 1, Hx Diabetes Mellitus Type 2. Denies: Hx Hyperthyroidism, Hx Hypothyroidism Renal/ Medical History: Denies: Hx Peritoneal Dialysis GI Medical History: Reports: Hx Gastroesophageal Reflux Disease. Denies: Hx Cirrhosis, Hx Hepatitis Musculoskeltal Medical History: Reports Hx Arthritis - rt knee Psychiatric Medical History: Reports: Hx Anxiety, Hx Bipolar Disorder, Hx Depression, Hx Schizoaffective Disorder, Hx Schizophrenia Infectious Medical History: Denies: Hx Hepatitis Past Surgical History: Reports: Hx Section - 3, Hx Tubal Ligation - Immunizations Immunizations up to date: Yes Hx Diphtheria, Pertussis, Tetanus Vaccination: Yes Physical Exam - Vital signs Vitals: Temp Pulse Resp BP Pulse Ox 98.0 F 97 24 H 154/91 H 96 08/28/16 14:13 08/28/16 14:13 08/28/16 14:13 08/28/16 14:13 08/28/16 14:13 Course - Vital Signs Vital signs: Temp Pulse Resp BP Pulse Ox 98.0 F 97 24 H 154/91 H 96 08/28/16 14:13 08/28/16 14:13 08/28/16 14:13 08/28/16 14:13 08/28/16 14:13
[2016-08-28] MEDS ORDERED: OXYCODONE-ACETAMINOPHEN 5-325 MG TABLET PO ONE (17:24)
[2016-08-28] MEDS ORDERED: LIDOCAINE 1% INJ-PF (10 MG/ML) 30 ML SDV INJ ONE (17:25)
--- NOTE | 2016-08-28 18:31 | ER Document Report ---
ED Skin Rash/Insect Bite/Abscs - General Chief Complaint: Abscess Stated Complaint: ABSCESS Notes: Patient is a 51-year-old female who was sent to the emergency department by her primary care doctor for evaluation for questionable abscess. Patient was seen here on August 25 and sent home on by mouth antibiotics for cellulitis of an anterior chest swelling. She's been taking her antibiotics as prescribed. The swelling and erythema has grown in size and severity of pain. She went to her PCP who referred her over here today for I&D. She denies any fevers or chills states she has pain to the area with drainage from the small hole that is present from where she had previously popped of blackout out of. Past medical history significant for hypertension, hyperlipidemia, diabetes, COPD TRAVEL OUTSIDE OF THE [place] IN LAST 30 DAYS: No - Related Data Allergies/Adverse Reactions: codeine [Codeine] Allergy (Severe, Verified 08/28/16 14:21) reacts with invega Penicillins Allergy (Severe, Verified 08/28/16 14:21) Hives Past Medical History - Social History Smoking Status: Never Smoker Chew tobacco use (# tins/day): No Frequency of alcohol use: None Drug Abuse: None Family History: Reviewed & Not Pertinent Patient has suicidal ideation: No Patient has homicidal ideation: No - Past Medical History Cardiac Medical History: Reports: Hx Congestive Heart Failure, Hx Hypercholesterolemia, Hx Hypertension Denies: Hx DVT, Hx Heart Attack, Hx Pulmonary Embolism Pulmonary Medical History: Reports: Hx Asthma, Hx COPD, Hx Pneumonia, Hx Sleep Apnea - CPAP of 16. Neurological Medical History: Denies: Hx Seizures Endocrine Medical History: Reports: Hx Diabetes Mellitus Type 1, Hx Diabetes Mellitus Type 2. Denies: Hx Hyperthyroidism, Hx Hypothyroidism Renal/ Medical History: Denies: Hx Peritoneal Dialysis GI Medical History: Reports: Hx Gastroesophageal Reflux Disease. Denies: Hx Cirrhosis, Hx Hepatitis Musculoskeltal Medical History: Reports Hx Arthritis - rt knee Psychiatric Medical History: Reports: Hx Anxiety, Hx Bipolar Disorder, Hx Depression, Hx Schizoaffective Disorder, Hx Schizophrenia Infectious Medical History: Denies: Hx Hepatitis Past Surgical History: Reports: Hx Section - 3, Hx Tubal Ligation - Immunizations Immunizations up to date: Yes Hx Diphtheria, Pertussis, Tetanus Vaccination: Yes Hx Pneumococcal Vaccination: 04/30/14 Review of Systems - Review of Systems Constitutional: No symptoms reported EENT: No symptoms reported Cardiovascular: No symptoms reported Respiratory: No symptoms reported Gastrointestinal: No symptoms reported Genitourinary: No symptoms reported Female Genitourinary: No symptoms reported Musculoskeletal: No symptoms reported Skin: See HPI Hematologic/Lymphatic: No symptoms reported Neurological/Psychological: No symptoms reported Physical Exam - Vital signs Vitals: Temp Pulse Resp BP Pulse Ox 98.0 F 97 24 H 154/91 H 96 08/28/16 14:13 08/28/16 14:13 08/28/16 14:13 08/28/16 14:13 08/28/16 14:13 - General General appearance: Appears well, Alert In distress: None - Respiratory Respiratory status: No respiratory distress Chest status: Nontender Breath sounds: Normal Chest palpation: Normal - Cardiovascular Rhythm: Regular Heart sounds: Normal auscultation, S1 appreciated, S2 appreciated Gallop: None auscultated Pulses: Normal: Radial - Neurological Neuro grossly intact: Yes Cognition: Normal Orientation: AAOx4 Early Coma Scale Eye Opening: Spontaneous Early Coma Scale Verbal: Oriented Early Coma Scale Motor: Obeys Commands Early Coma Scale Total: 15 - Skin Skin Temperature: Warm Skin Moisture: Dry Skin Color: Normal Skin Turgor: Elastic Skin irregularity: Abscess Location of irregularity: Chest Character of irregularity: Erythematous Irregularity with: Swelling, Tenderness, Warmth, Induration Course - Re-evaluation Re-evalutation: 08/28/16 18:34 Patient is a 51-year-old female who presents with cellulitis with concern for abscess. Physical exam does reveal a 4 cm x 3 cm area of induration with central fluctuance. This was drained at the bedside and wound culture sent to the lab. Patient tolerated the procedure well will discharge home on by mouth pain medications and continue to take her prescribed antibiotic. The site was packed and is instructed to return either here or her primary care office on Friday for reevaluation - Vital Signs Vital signs: Temp Pulse Resp BP Pulse Ox 98.0 F 97 24 H 154/91 H 96 08/28/16 14:13 08/28/16 14:13 08/28/16 14:13 08/28/16 14:13 08/28/16 14:13 Procedures - Incision and Drainage Chest Type: Simple Anesthetic type: 1% Lidocaine mL's of anesthetic: 10 Blade size: 11 I&D procedure: Betadine prep applied Incision Method: Incision made by scalpel Amount/type of drainage: 10 Notes: 08/28/16 18:36 Purulent drainage with odor Adult Front & Back picture: 1 - abscess Discharge - Discharge Clinical Impression: Abscess Condition: Good Disposition: HOME, SELF-CARE Instructions: Abscess ([facility]), Oral Narcotic Medication ([facility]), Post Incision and Drainage Additional Instructions: Please continue to take your previous antibiotic as prescribed. He'll need to follow up for wound evaluation on Friday with your primary care provider or emergency department Prescriptions: Oxycodone HCl/Acetaminophen [Percocet 5-325 mg Tablet] 1 - 2 tab PO Q4HP PRN # 25 tablet PRN Reason: Referrals: JASMEET CASTILLO DO [Primary Care Provider] - Follow up in 3-5 days (Friday )
[2016-08-28 18:59] VITALS: BP 154/87
== END 2016-08-28 19:00 | disposition home or self-care (01) ==
LOC: ER 14:08
PROC: 0H95XZZ Drainage of Chest Skin, External Approach (ICD-10-PCS; principal; 2016-08-28)
DX: J86.9 Pyothorax without fistula (principal)
CPT/HCPCS: 99283; 87070; 87205; 87075; 87077; 10060; J3490

== ENCOUNTER 2016-08-30 11:13 | Emergency (ER) | payer MEDICAID ==
--- NOTE | 2016-08-30 11:23 | ER Document Report ---
ED Medical Screen (RME) - General Stated Complaint: BREAST PAIN Time seen by provider: 11:21 Notes: Patient here for recheck on right breast abscess. States it is doing better, the redness has gone down. Patient is diabetic. I have greeted and performed a rapid initial assessment of this patient. A comprehensive ED assessment and evaluation of the patient, analysis of test results and completion of the medical decision making process will be conducted by additional ED providers. TRAVEL OUTSIDE OF THE [place] IN LAST 30 DAYS: No - Related Data Allergies/Adverse Reactions: codeine [Codeine] Allergy (Severe, Verified 08/28/16 14:21) reacts with invega Penicillins Allergy (Severe, Verified 08/28/16 14:21) Hives Past Medical History - Past Medical History Cardiac Medical History: Reports: Hx Congestive Heart Failure, Hx Hypercholesterolemia, Hx Hypertension Denies: Hx DVT, Hx Heart Attack, Hx Pulmonary Embolism Pulmonary Medical History: Reports: Hx Asthma, Hx COPD, Hx Pneumonia, Hx Sleep Apnea - CPAP of 16. Neurological Medical History: Denies: Hx Seizures Endocrine Medical History: Reports: Hx Diabetes Mellitus Type 1, Hx Diabetes Mellitus Type 2. Denies: Hx Hyperthyroidism, Hx Hypothyroidism Renal/ Medical History: Denies: Hx Peritoneal Dialysis GI Medical History: Reports: Hx Gastroesophageal Reflux Disease. Denies: Hx Cirrhosis, Hx Hepatitis Musculoskeltal Medical History: Reports Hx Arthritis - rt knee Psychiatric Medical History: Reports: Hx Anxiety, Hx Bipolar Disorder, Hx Depression, Hx Schizoaffective Disorder, Hx Schizophrenia Infectious Medical History: Denies: Hx Hepatitis Past Surgical History: Reports: Hx Section - 3, Hx Tubal Ligation - Immunizations Immunizations up to date: Yes Hx Diphtheria, Pertussis, Tetanus Vaccination: Yes Physical Exam - Skin Notes: Outer marking of previous redness to breast noted. Redness is much decreased. No drainage noted to dressing.
[2016-08-30] MEDS ORDERED: LIDOCAINE 2% INJ (20 MG/ML) 20 ML MDV INJ ONE (11:34)
[2016-08-30] MEDS ORDERED: BUPIVACAINE HCL 0.5 % INJ/PF 30 ML SDV INJ ONE (11:34)
--- NOTE | 2016-08-30 12:36 | ER Document Report ---
ED General - General Chief Complaint: Wound Recheck Stated Complaint: BREAST PAIN TRAVEL OUTSIDE OF THE [place] IN LAST 30 DAYS: No - HPI Patient complains to provider of: wound evaluation Notes: Patient was seen recently for breast abscess underwent IND is on antibiotics at extensive saline as that time. Patient was told to come back for wound check. Denies fevers chills nausea vomiting states the wound has greatly improved since last being seen here in the ER. States that she has been compliant with her medications. Evaluate patient no obvious distress - Related Data Allergies/Adverse Reactions: codeine [Codeine] Allergy (Severe, Verified 08/30/16 11:21) reacts with invega Penicillins Allergy (Severe, Verified 08/30/16 11:21) Hives Past Medical History - Social History Smoking Status: Unknown if Ever Smoked Chew tobacco use (# tins/day): No Frequency of alcohol use: None Drug Abuse: None Family History: Reviewed & Not Pertinent Patient has suicidal ideation: No Patient has homicidal ideation: No - Past Medical History Cardiac Medical History: Reports: Hx Congestive Heart Failure, Hx Hypercholesterolemia, Hx Hypertension Denies: Hx DVT, Hx Heart Attack, Hx Pulmonary Embolism Pulmonary Medical History: Reports: Hx Asthma, Hx COPD, Hx Pneumonia, Hx Sleep Apnea - CPAP of 16. Neurological Medical History: Denies: Hx Seizures Endocrine Medical History: Reports: Hx Diabetes Mellitus Type 1, Hx Diabetes Mellitus Type 2. Denies: Hx Hyperthyroidism, Hx Hypothyroidism Renal/ Medical History: Denies: Hx Peritoneal Dialysis GI Medical History: Reports: Hx Gastroesophageal Reflux Disease. Denies: Hx Cirrhosis, Hx Hepatitis Musculoskeltal Medical History: Reports Hx Arthritis - rt knee Psychiatric Medical History: Reports: Hx Anxiety, Hx Bipolar Disorder, Hx Depression, Hx Schizoaffective Disorder, Hx Schizophrenia Infectious Medical History: Denies: Hx Hepatitis Past Surgical History: Reports: Hx Section - 3, Hx Tubal Ligation - Immunizations Immunizations up to date: Yes Hx Diphtheria, Pertussis, Tetanus Vaccination: Yes Hx Pneumococcal Vaccination: 04/30/14 Review of Systems - Review of Systems Constitutional: No symptoms reported EENT: No symptoms reported Cardiovascular: No symptoms reported Respiratory: No symptoms reported Gastrointestinal: No symptoms reported Genitourinary: No symptoms reported Female Genitourinary: No symptoms reported Musculoskeletal: No symptoms reported Skin: Other - Wound care Hematologic/Lymphatic: No symptoms reported Neurological/Psychological: No symptoms reported Physical Exam - Vital signs Vitals: Temp Pulse Resp BP Pulse Ox 99.2 F 87 20 137/75 H 93 08/30/16 11:19 08/30/16 11:19 08/30/16 11:19 08/30/16 11:19 08/30/16 11:19 Interpretation: Normal - General General appearance: Appears well, Alert - HEENT Head: Normocephalic, Atraumatic Eyes: Normal Pupils: PERRL - Respiratory Respiratory status: No respiratory distress Chest status: Other - Evaluation the patient's chest shows skin marker from previous I and D and marking the cellulitis erythema has greatly decreased from last visit on localized erythema around the I and D site. Patient does have packing in place that was removed approximate 12 inches the packing did have some purulent drainage on it. The wound was irrigated with approximately 30 mL of normal saline plus to clear initially there was low but appear material and bloody material expressed from the wound. Approximate no 12 inches of packing were a was reestablished within the wound cavity. Breath sounds: Normal Chest palpation: Normal - Cardiovascular Rhythm: Regular Heart sounds: Normal auscultation Murmur: No - Abdominal Inspection: Normal Distension: No distension Bowel sounds: Normal Tenderness: Nontender Organomegaly: No organomegaly - Back Back: Normal, Nontender - Extremities General upper extremity: Normal inspection, Nontender, Normal color, Normal ROM , Normal temperature General lower extremity: Normal inspection, Nontender, Normal color, Normal ROM , Normal temperature, Normal weight bearing. No: Marianne's sign - Neurological Neuro grossly intact: Yes Cognition: Normal Orientation: AAOx4 [place] Coma Scale Eye Opening: Spontaneous [place] Coma Scale Verbal: Oriented Derrick Coma Scale Motor: Obeys Commands Derrick Coma Scale Total: 15 Speech: Normal Motor strength normal: LUE, RUE, LLE, RLE Sensory: Normal - Psychological Associated symptoms: Normal affect, Normal mood - Skin Skin Temperature: Warm Skin Moisture: Dry Skin Color: Normal Course - Re-evaluation Re-evalutation: 08/30/16 17:11 Wound was redressed patient was encouraged follow-up in the ER her PCP or the surgical clinic for further evaluation. Microbiology was examined no growth at this time no need to change antibiotics - Vital Signs Vital signs: Temp Pulse Resp BP Pulse Ox 98.4 F 89 16 158/96 H 94 08/30/16 12:50 08/30/16 12:50 08/30/16 12:50 08/30/16 12:50 08/30/16 12:50 Discharge - Discharge Clinical Impression: Wound check, abscess Condition: Good Disposition: HOME, SELF-CARE Additional Instructions: We were able to repack her wound today. Please keep the wound dressed. Please monitor any feeds start noticing any increased redness please return to the ER or see her physician. Please continue your antibiotics. You can follow-up with your primary care physician on Friday next week return to the ER or call the wound clinic today to schedule an appointment for next week. Referrals: W[facility] Care [Provider Group] - Follow up as needed
[2016-08-30 12:51] VITALS: BP 158/96
== END 2016-08-30 12:50 | disposition home or self-care (01) ==
LOC: ER 11:13
DX: N61.1 Abscess of the breast and nipple (principal); E78.00 Pure hypercholesterolemia, unspecified; I50.9 Heart failure, unspecified; I11.0 Hypertensive heart disease with heart failure; J44.9 Chronic obstructive pulmonary disease, unspecified; E11.9 Type 2 diabetes mellitus without complications; K21.9 Gastro-esophageal reflux disease without esophagitis; Z98.51 Tubal ligation status; Z88.0 Allergy status to penicillin; Z88.6 Allergy status to analgesic agent
CPT/HCPCS: 99282; J3490

== ENCOUNTER 2016-09-02 07:44 | Emergency (ER) | payer MEDICAID ==
[2016-09-02] MEDS ORDERED: NORMAL SALINE 500 ML IV ONE (08:36)
[2016-09-02] MEDS ORDERED: ONDANSETRON HCL INJ/PF 4 MG/2 ML SDV IV ONE (08:37)
--- NOTE | 2016-09-02 09:00 | ER Document Report ---
ED GI/ - General Chief Complaint: Nausea/Vomiting/Diarrhea Stated Complaint: CRAMPING AND VOMITING Notes: patient is a 51 year old female who presents c/o vomiting, diarrhea for the past 2 days. She admits to stomach cramping that improves with emesis. No hematochezia or hematemesis. States shes having diarrhea approximately twice and hour that became this frequent last evening. She denies any BRBPR or black stools. Denies any lower abdominal pain. She has been taking clindamycin since for cellulitis of the chest which developed into an abscess. Was drained on 08/28 and packed. She returned on 08/30, which showed that it was healing well and repacked. She states she has noticied some draiange and odor but much less pain. Taking her abx as prescribed PMH: HTN, DM, COPD on 2L O2 PSH:c section PCP: Elvira Vicente TRAVEL OUTSIDE OF THE [place] IN LAST 30 DAYS: No - Related Data Allergies/Adverse Reactions: codeine [Codeine] Allergy (Severe, Verified 09/02/16 07:54) reacts with invega Penicillins Allergy (Severe, Verified 09/02/16 07:54) Hives Past Medical History - Social History Smoking Status: Former Smoker Chew tobacco use (# tins/day): No Frequency of alcohol use: None Drug Abuse: None Family History: Reviewed & Not Pertinent Patient has suicidal ideation: No Patient has homicidal ideation: No - Past Medical History Cardiac Medical History: Reports: Hx Congestive Heart Failure, Hx Hypercholesterolemia, Hx Hypertension Denies: Hx DVT, Hx Heart Attack, Hx Pulmonary Embolism Pulmonary Medical History: Reports: Hx Asthma, Hx COPD, Hx Pneumonia, Hx Sleep Apnea - CPAP of 16. Neurological Medical History: Denies: Hx Seizures Endocrine Medical History: Reports: Hx Diabetes Mellitus Type 1, Hx Diabetes Mellitus Type 2. Denies: Hx Hyperthyroidism, Hx Hypothyroidism Renal/ Medical History: Denies: Hx Peritoneal Dialysis GI Medical History: Reports: Hx Gastroesophageal Reflux Disease. Denies: Hx Cirrhosis, Hx Hepatitis Musculoskeltal Medical History: Reports Hx Arthritis - rt knee Psychiatric Medical History: Reports: Hx Anxiety, Hx Bipolar Disorder, Hx Depression, Hx Schizoaffective Disorder, Hx Schizophrenia Infectious Medical History: Denies: Hx Hepatitis Past Surgical History: Reports: Hx Section - 3, Hx Tubal Ligation - Immunizations Immunizations up to date: Yes Hx Diphtheria, Pertussis, Tetanus Vaccination: Yes Hx Pneumococcal Vaccination: 04/30/14 Review of Systems - Review of Systems Constitutional: No symptoms reported EENT: No symptoms reported Cardiovascular: No symptoms reported Respiratory: No symptoms reported Gastrointestinal: See HPI Genitourinary: No symptoms reported Female Genitourinary: No symptoms reported Musculoskeletal: No symptoms reported Skin: See HPI Hematologic/Lymphatic: No symptoms reported Neurological/Psychological: No symptoms reported Physical Exam - Vital signs Vitals: Temp Pulse Resp BP Pulse Ox 99.1 F 113 H 20 165/79 H 95 09/02/16 07:52 09/02/16 07:52 09/02/16 07:52 09/02/16 07:52 09/02/16 07:52 - Notes Notes: PHYSICAL EXAM GENERAL: Alert, interacts well. HEAD: Normocephalic, atraumatic. EYES: Pupils equal, round, and reactive to light. Extraocular movements intact. ENT: Oral mucosa moist, tongue midline. NECK: Full range of motion. Supple. Trachea midline. LUNGS: Clear to auscultation bilaterally, no wheezes, rales, or rhonchi. No respiratory distress. HEART: Regular rate and rhythm. No murmurs, gallops, or rubs. ABDOMEN: Soft, nondistended, nontender. No guarding, rebound, or rigidity.. Bowel sounds present in all 4 quadrants. EXTREMITIES: Moves all 4 extremities spontaneously. No edema, radial and dorsalis pedis pulses 2/4 bilaterally. No cyanosis. NEUROLOGICAL: Alert and oriented x3. Normal speech. PSYCH: Normal affect, normal mood. SKIN: Warm, dry, normal turgor. No rashes or lesions noted. Area on chest is healing well. No visible erythema surrounding incision. Approx. 10 inches packing removed with some blood and drainage with odor. Cavity was irrigated with 20cc normal saline without pus or material. Repacked with 10inches 1/4" packing and DSD applied. Still evidence of induration around the incision Course - Re-evaluation Re-evalutation: 09/02/16 14:53 patient is a 51 year old female presents complaing of epigastric discomfort and to have her wound evaluated. CBC and CMP WNL, no concern for infection, anemia, electrolyte abnl, altered liver or pancreas function. UA clean. Epigastric discomfort resolved with GI cocktail. Dressing has been changed and healing well. D/c home with GERD medications and instruction to continue abx and f/u with PCP on friday for dressing change - Vital Signs Vital signs: Temp Pulse Resp BP Pulse Ox 98.3 F 102 H 22 H 141/95 H 93 09/02/16 12:55 09/02/16 12:55 09/02/16 12:55 09/02/16 12:55 09/02/16 12:55 - Laboratory Result Diagrams: 09/02/16 09:40 09/02/16 09:40 Laboratory results interpreted by me: 09/02/16 09/02/16 09:40 09:40 Hgb 11.6 L Hct 35.6 L RDW 15.2 H Chloride 93 L Carbon Dioxide 36 H Est GFR (Non-Af Amer) 50 L Calcium 10.4 H Discharge - Discharge Clinical Impression: Encounter for evaluation of wound GERD (gastroesophageal reflux disease) Qualifiers: Esophagitis presence: esophagitis presence not specified Qualified Code(s): K21.9 - Gastro-esophageal reflux disease without esophagitis Condition: Good Disposition: HOME, SELF-CARE Additional Instructions: Esophagitis Your evaluation has resulted in a diagnosis of esophagitis. This is an inflammation of the lower esophagus due to stomach acid. It causes symptoms such as chest pain, heartburn, or food "sticking." This is common in persons with a hiatal hernia. Certain foods, alcohol, and aspirin contribute to esophagitis. Treatment depends on the severity. Usually, antacids or acid-suppressing medicines are used. The physician will often prescribe membrane-protective drugs (such as Carafate). Some patients benefit from medication that tightens the valve at the top of the stomach (such as Reglan). Avoid alcohol, aspirin, caffeine, tobacco, and foods that cause heartburn ( such as chocolate). Elevate the head of your bed about four inches. Call the doctor if you develop severe chest pain, inability to swallow fluids, fever, or worsening symptoms. Prescriptions: Ondansetron [Zofran Odt 4 mg Tablet] 1 - 2 tab PO Q4H PRN #15 tab.rapdis PRN Reason: For Nausea/Vomiting Pantoprazole Sodium [Protonix] 20 mg PO DAILY #30 tablet.dr Forms: Elevated Blood Pressure Referrals: ELVIRA VICENTE NP [Primary Care Provider] - Follow up in 3-5 days
[2016-09-02 09:16] LABS: APPEARANCE,URINE CLEAR; BILIRUBIN,URINE NEGATIVE (NEGATIVE); GLUCOSE, URINE NEGATIVE (NEGATIVE); KETONES,URINE NEGATIVE (NEGATIVE); LEUKOCYTE ESTERASE,URINE NEGATIVE (NEGATIVE); NITRITE,URINE NEGATIVE (NEGATIVE); PROTEIN,URINE NEGATIVE (NEGATIVE); URINE SPECIFIC GRAVITY 1.026; UROBILINOGEN,URINE NEGATIVE mg/dL (<2.0)
[2016-09-02 09:56] LABS: ABSOLUTE EOSINOPHILS # (AUTO) 0.1 10^3/uL (0.0-0.6); ABSOLUTE LYMPHOCYTES (AUTO) 0.9 10^3/uL (0.5-4.7); ABSOLUTE MONOCYTES (AUTO) 0.5 10^3/uL (0.1-1.4); ABSOLUTE NEUT (AUTO) 3.7 10^3/uL (1.7-8.2); BASOPHILS % (AUTO) 0.4 % (0-2); EOSINOPHILS % (AUTO) 1.6 % (0-6); HEMATOCRIT 35.6 % (36.0-47.0); HEMOGLOBIN 11.6 g/dL (12.0-15.5); HGB HCT DIFFERENCE -0.8; LYMPHOCYTES % (AUTO) 17.3 % (13-45); MEAN CORPUSCULAR HEMOGLOBIN 28.5 pg (27.0-33.4); MEAN CORPUSCULAR HGB CONC 32.6 g/dL (32.0-36.0); MEAN CORPUSCULAR VOLUME 88 fl (80-97); MONOCYTES % (AUTO) 9.1 % (3-13); RED BLOOD COUNT 4.07 10^6/uL (3.72-5.28); RED CELL DISTRIBUTION WIDTH 15.2 % (11.5-14.0); SEGMENTED NEUTROPHILS % (AUTO) 71.6 % (42-78); WHITE BLOOD COUNT 5.2 10^3/uL (4.0-10.5)
[2016-09-02 10:17] LABS: ALANINE AMINOTRANSFERASE 24 U/L (9-52); ALBUMIN 3.9 g/dL (3.5-5.0); ALKALINE PHOSPHATASE 56 U/L (38-126); ANION GAP 10 (5-19); ASPARTATE AMINO TRANSFERASE 17 U/L (14-36); BILIRUBIN,TOTAL 0.5 mg/dL (0.2-1.3); BLOOD UREA NITROGEN 19 mg/dL (7-20); CALCIUM 10.4 mg/dL (8.4-10.2); CARBON DIOXIDE 36 mmol/L (22-30); CHLORIDE 93 mmol/L (98-107); CREATININE RESULT 1.14 mg/dL (0.52-1.25); GLUCOSE 105 mg/dL (75-110); LIPASE 42.8 U/L (23-300); POTASSIUM 4.6 mmol/L (3.6-5.0); SODIUM 139.4 mmol/L (137-145)
[2016-09-02] MEDS ORDERED: LIDOCAINE 2% VISCOUS SOLN 20 ML UDCUP PO ONE (11:14)
[2016-09-02] MEDS ORDERED: MAG HYDROX/AL HYDROX/SIMETH SUSP 30 ML UDCUP PO ONE (11:14)
[2016-09-02] MEDS ORDERED: METOCLOPRAMIDE HCL 10 MG TABLET PO ONE (11:14)
[2016-09-02 13:12] VITALS: BP 141/95
== END 2016-09-02 13:12 | disposition home or self-care (01) ==
LOC: ER 07:44
DX: L02.213 Cutaneous abscess of chest wall (principal); K21.9 Gastro-esophageal reflux disease without esophagitis; R11.2 Nausea with vomiting, unspecified; R19.7 Diarrhea, unspecified; I11.0 Hypertensive heart disease with heart failure; I50.9 Heart failure, unspecified; E11.9 Type 2 diabetes mellitus without complications; J44.9 Chronic obstructive pulmonary disease, unspecified; J45.909 Unspecified asthma, uncomplicated; Z98.51 Tubal ligation status
CPT/HCPCS: 99284; 96374; 36415; 83690; 85025; 81025; 80053; 81001; 74022; J3490 ×3; J2405; J7040

== ENCOUNTER 2016-10-18 19:08 | Emergency (ER) | payer MEDICAID ==
[2016-10-18 19:27] VITALS: BP 132/75
--- NOTE | 2016-10-18 22:42 | ER Document Report ---
ED Medical Screen (RME) - General Chief Complaint: Leg Swelling Stated Complaint: LEG SWELLING Mode of Arrival: Wheelchair Information source: Patient Notes: Patient presents complaining of bilateral calf pain and swelling for the past 4 days. Patient does have a history of CHF. Patient does report shortness of breath with exertion for the past week. Patient reports an episode of mild chest pain earlier but states that it is currently resolved. hx: Asthma, hypertension, depression, bipolar, sleep apnea, CHF, diabetes, COPD TRAVEL OUTSIDE OF THE [place] IN LAST 30 DAYS: No - Related Data Allergies/Adverse Reactions: codeine [Codeine] Allergy (Severe, Verified 09/02/16 07:54) reacts with invega Penicillins Allergy (Severe, Verified 09/02/16 07:54) Hives Past Medical History - Past Medical History Cardiac Medical History: Reports: Hx Congestive Heart Failure, Hx Hypercholesterolemia, Hx Hypertension Denies: Hx DVT, Hx Heart Attack, Hx Pulmonary Embolism Pulmonary Medical History: Reports: Hx Asthma, Hx COPD, Hx Pneumonia, Hx Sleep Apnea - CPAP of 16. Neurological Medical History: Denies: Hx Seizures Endocrine Medical History: Reports: Hx Diabetes Mellitus Type 1, Hx Diabetes Mellitus Type 2. Denies: Hx Hyperthyroidism, Hx Hypothyroidism Renal/ Medical History: Denies: Hx Peritoneal Dialysis GI Medical History: Reports: Hx Gastroesophageal Reflux Disease. Denies: Hx Cirrhosis, Hx Hepatitis Musculoskeltal Medical History: Reports Hx Arthritis - rt knee Psychiatric Medical History: Reports: Hx Anxiety, Hx Bipolar Disorder, Hx Depression, Hx Schizoaffective Disorder, Hx Schizophrenia Infectious Medical History: Denies: Hx Hepatitis Past Surgical History: Reports: Hx Section - 3, Hx Tubal Ligation - Immunizations Immunizations up to date: Yes Hx Diphtheria, Pertussis, Tetanus Vaccination: Yes Physical Exam - Vital signs Vitals: Temp Pulse Resp BP Pulse Ox 98.6 F 76 20 132/75 H 95 10/18/16 19:22 10/18/16 19:22 10/18/16 19:22 10/18/16 19:22 10/18/16 19:22 - Respiratory Respiratory status: No respiratory distress Breath sounds: Other - Diminished bilateral bases - Extremities General lower extremity: Edema - Peripheral 1-2+ Course - Vital Signs Vital signs: Temp Pulse Resp BP Pulse Ox 98.6 F 76 20 132/75 H 95 10/18/16 19:22 10/18/16 19:22 10/18/16 19:22 10/18/16 19:22 10/18/16 19:22
[2016-10-18 23:33] LABS: APPEARANCE,URINE SLIGHTLY-CLOUDY; BILIRUBIN,URINE NEGATIVE (NEGATIVE); GLUCOSE, URINE NEGATIVE (NEGATIVE); KETONES,URINE TRACE mg/dL (NEGATIVE); LEUKOCYTE ESTERASE,URINE NEGATIVE (NEGATIVE); NITRITE,URINE NEGATIVE (NEGATIVE); PROTEIN,URINE NEGATIVE (NEGATIVE); UROBILINOGEN,URINE NEGATIVE mg/dL (<2.0)
[2016-10-18 23:38] LABS: ABSOLUTE EOSINOPHILS # (AUTO) 0.1 10^3/uL (0.0-0.6); ABSOLUTE LYMPHOCYTES (AUTO) 2.6 10^3/uL (0.5-4.7); ABSOLUTE MONOCYTES (AUTO) 0.5 10^3/uL (0.1-1.4); ABSOLUTE NEUT (AUTO) 2.7 10^3/uL (1.7-8.2); BASOPHILS % (AUTO) 0.4 % (0-2); EOSINOPHILS % (AUTO) 1.5 % (0-6); HEMATOCRIT 35.8 % (36.0-47.0); HEMOGLOBIN 11.6 g/dL (12.0-15.5); MEAN CORPUSCULAR HEMOGLOBIN 28.8 pg (27.0-33.4); MEAN CORPUSCULAR HGB CONC 32.5 g/dL (32.0-36.0); MEAN CORPUSCULAR VOLUME 89 fl (80-97); MONOCYTES % (AUTO) 8.6 % (3-13); RED BLOOD COUNT 4.03 10^6/uL (3.72-5.28); RED CELL DISTRIBUTION WIDTH 14.1 % (11.5-14.0); SEGMENTED NEUTROPHILS % (AUTO) 45.5 % (42-78); WHITE BLOOD COUNT 5.9 10^3/uL (4.0-10.5)
[2016-10-18 23:47] LABS: ALANINE AMINOTRANSFERASE 31 U/L (9-52); ALBUMIN 4.3 g/dL (3.5-5.0); ALKALINE PHOSPHATASE 58 U/L (38-126); ANION GAP 14 (5-19); ASPARTATE AMINO TRANSFERASE 25 U/L (14-36); BILIRUBIN,DIRECT 0.2 mg/dL (0.0-0.4); BILIRUBIN,TOTAL 0.3 mg/dL (0.2-1.3); BLOOD UREA NITROGEN 11 mg/dL (7-20); CALCIUM 10.8 mg/dL (8.4-10.2); CARBON DIOXIDE 35 mmol/L (22-30); CHLORIDE 92 mmol/L (98-107); CREATINE KINASE 421 U/L (30-135); CREATININE RESULT 1.02 mg/dL (0.52-1.25); GLUCOSE 118 mg/dL (75-110); MAGNESIUM 1.7 mg/dL (1.6-2.3); POTASSIUM 4.1 mmol/L (3.6-5.0); SODIUM 140.9 mmol/L (137-145); TOTAL PROTEIN 7.5 g/dL (6.3-8.2)
[2016-10-18 23:57] LABS: CREATINE KINASE MB 2.22 ng/mL (<4.55)
[2016-10-18 23:58] LABS: TROPONIN I < 0.012 ng/mL
--- NOTE | 2016-10-19 01:04 | ER Document Report ---
ED General - General Chief Complaint: Leg Swelling Stated Complaint: LEG SWELLING Mode of Arrival: Wheelchair Notes: Patient is a 51-year-old female who presents with concerns of bilateral lower extremity edema has been present for the past several weeks but it has not improved after her furosemide was increased to 20 mg daily to 40 mg daily. She has seen her primary care doctor and this medication change was made due to her complaints. Says she has intermittent shortness of breath but that she chronically has the same amount of shortness of breath and nothing is new or different today. Denies any chest pain although in triage she had made a comment that she had an episode of chest pain approximately 24 hours ago. She denies any ongoing chest pain at this time. She has not noted anything symptoms improve or worsen her symptoms. She has not worn compression stockings. Patient is morbidly obese over 400 pounds and does admit to minimal ambulation. TRAVEL OUTSIDE OF THE [place] IN LAST 30 DAYS: No - Related Data Allergies/Adverse Reactions: codeine [Codeine] Allergy (Severe, Verified 09/02/16 07:54) reacts with invega Penicillins Allergy (Severe, Verified 09/02/16 07:54) Hives Past Medical History - General Information source: Patient - Social History Smoking Status: Never Smoker Frequency of alcohol use: None Drug Abuse: None Lives with: Spouse/Significant other Family History: Reviewed & Not Pertinent Patient has suicidal ideation: No Patient has homicidal ideation: No - Past Medical History Cardiac Medical History: Reports: Hx Congestive Heart Failure, Hx Hypercholesterolemia, Hx Hypertension Denies: Hx DVT, Hx Heart Attack, Hx Pulmonary Embolism Pulmonary Medical History: Reports: Hx Asthma, Hx COPD, Hx Pneumonia, Hx Sleep Apnea - CPAP of 16. Neurological Medical History: Denies: Hx Seizures Endocrine Medical History: Reports: Hx Diabetes Mellitus Type 1, Hx Diabetes Mellitus Type 2. Denies: Hx Hyperthyroidism, Hx Hypothyroidism Renal/ Medical History: Denies: Hx Peritoneal Dialysis GI Medical History: Reports: Hx Gastroesophageal Reflux Disease. Denies: Hx Cirrhosis, Hx Hepatitis Musculoskeltal Medical History: Reports Hx Arthritis - rt knee Psychiatric Medical History: Reports: Hx Anxiety, Hx Bipolar Disorder, Hx Depression, Hx Schizoaffective Disorder, Hx Schizophrenia Infectious Medical History: Denies: Hx Hepatitis Past Surgical History: Reports: Hx Section - 3, Hx Tubal Ligation - Immunizations Immunizations up to date: Yes Hx Diphtheria, Pertussis, Tetanus Vaccination: Yes Hx Pneumococcal Vaccination: 04/30/14 Review of Systems - Review of Systems Notes: Constitutional: Negative for fever. HENT: Negative for sore throat. Eyes: Negative for visual changes. Cardiovascular: Negative for chest pain. Respiratory: Positive for intermittent shortness of breath Gastrointestinal: Negative for abdominal pain, vomiting or diarrhea. Genitourinary: Negative for dysuria. Musculoskeletal: Positive for bilateral lower extremity edema Skin: Negative for rash. Neurological: Negative for headaches, weakness or numbness. 10 point ROS negative except as marked above and in HPI. Physical Exam - Vital signs Vitals: Temp Pulse Resp BP Pulse Ox 98.6 F 76 20 132/75 H 95 10/18/16 19:22 10/18/16 19:22 10/18/16 19:22 10/18/16 19:22 10/18/16 19:22 Interpretation: Normal Notes: PHYSICAL EXAMINATION: GENERAL: Morbidly obese female in no distress. Well-appearing, well-nourished and in no acute distress. HEAD: Atraumatic, normocephalic. EYES: Pupils equal round and reactive to light, extraocular movements intact, sclera anicteric, conjunctiva are normal. ENT: nares patent, oropharynx clear without exudates. Moist mucous membranes. NECK: Normal range of motion, supple without lymphadenopathy LUNGS: Breath sounds clear to auscultation bilaterally and equal. No wheezes rales or rhonchi. HEART: Regular rate and rhythm without murmurs ABDOMEN: The obese abdomen. Soft, nontender, normoactive bowel sounds. No guarding, no rebound. No masses appreciated. EXTREMITIES: Normal range of motion, 4+ pitting edema in the bilateral lower extremities. NEUROLOGICAL: No focal neurological deficits. Moves all extremities spontaneously and on command. PSYCH: Normal mood, normal affect. SKIN: Warm, Dry, normal turgor, no rashes or lesions noted. Course - Re-evaluation Re-evalutation: 10/19/16 01:02 Patient presents bilateral lower extremity edema without any other additional concerning findings on exam or labs. Lungs are clear, chest x-ray with vascular congestion without evidence of overt pulmonary edema. She is not hypoxemic or tachypneic at time of my assessment. She does have 4+ pitting edema in the bilateral lower extremities is equal and symmetric and I do not suspect an acute DVT as the etiology of her swelling today. Will start on compression stockings and recommend close outpatient follow-up. Patient apparently in triage complain of some mild chest pain shortness of breath but denies this at the time of my assessment. Again EKG is without ischemic changes , chest x-ray without pneumothorax or overt pulmonary edema, and a troponin is negative. She has not had chest pain for over 24 hours at time of my assessment per her own report. Will therefore not pursue serial troponins at this time as I do not suspect acute ACS and she has not had pain for more than 24 hours at this time. At this time will discharge with return precautions and follow-up recommendations. Verbal discharge instructions given a the bedside and opportunity for questions given. Medication warnings reviewed. Patient is in agreement with this plan and has verbalized understanding of return precautions and the need for primary care follow-up in the next 24-72 hours. - Vital Signs Vital signs: Temp Pulse Resp BP Pulse Ox 98.6 F 76 20 132/75 H 95 10/18/16 19:22 10/18/16 19:22 10/18/16 19:22 10/18/16 19:22 10/18/16 19:22 - Laboratory Result Diagrams: 10/18/16 22:58 10/18/16 22:58 Laboratory results interpreted by me: 10/18/16 10/18/16 10/18/16 22:58 22:58 22:58 Hgb 11.6 L Hct 35.8 L RDW 14.1 H Chloride 92 L Carbon Dioxide 35 H Est GFR (Non-Af Amer) 57 L Glucose 118 H Calcium 10.8 H Creatine Kinase 421 H Urine Ketones TRACE H - Diagnostic Test Radiology reviewed: Image reviewed, Reports reviewed Radiology results interpreted by me: 10/19/16 01:03 Chest x-ray: Vascular congestion without pulmonary edema - EKG Interpretation by Me Additional EKG results interpreted by me: 10/19/16 03:29 Normal sinus rhythm. Rate 72. No ST elevations or depressions. QTC is 416. Discharge - Discharge Clinical Impression: Bilateral lower extremity edema Condition: Good Disposition: HOME, SELF-CARE Additional Instructions: Please wear compression stockings every day. Follow up with your primary care doctor for additional concerns and possible adjustments of your furosemide dosing. Return if you develop chest pain, shortness of breath, persistent vomiting, or any other symptoms that are worrisome to you. Referrals: PAULINA FLORES NP [Primary Care Provider] - Follow up as needed
--- NOTE | 2016-10-20 17:11 | EKG REPORT ---
SEVERITY:- NORMAL ECG - SINUS RHYTHM : Confirmed by: Brisa Cohn MD 20-Oct-2016 17:10:09
== END 2016-10-19 01:39 | disposition home or self-care (01) ==
LOC: ER 19:08
DX: R60.9 Edema, unspecified (principal); R06.02 Shortness of breath; E66.01 Morbid (severe) obesity due to excess calories; I50.9 Heart failure, unspecified; E78.00 Pure hypercholesterolemia, unspecified; I11.0 Hypertensive heart disease with heart failure; Z88.6 Allergy status to analgesic agent; Z88.0 Allergy status to penicillin; Z98.51 Tubal ligation status
CPT/HCPCS: 36415; 71010; 80053; 81001; 82550; 82553; 83735; 83880; 84484; 85025; 93005; 93010; 99284

== ENCOUNTER 2016-10-23 20:35 | Emergency (ER) | payer MEDICAID ==
[2016-10-23] MEDS ORDERED: ASPIRIN 81 MG TABLET, CHEWABLE PO ONE (20:53)
--- NOTE | 2016-10-23 20:56 | ER Document Report ---
ED General - General Chief Complaint: Shortness Of Breath Stated Complaint: DIFFICULTY BREATHING Time seen by provider: 20:50 Notes: Patient is a 51-year-old female that comes emergency department for chief complaint of an episode tonight where she was lying flat and she suddenly felt short of breath, a vague tightness in her chest, she states she broke out into a sweat as she was hustling to the bathroom where she had an episode of diarrhea. She states that afterwards symptoms completely resolved. Patient does state that she has also been having increased swelling in her lower extremities and increased intermittent shortness of breath from usual, increased over the past couple of weeks, she had her Lasix increased from 20 mg to 40 mg over the weekend, she was evaluated for this about 5 days ago. She states her legs are painful and keeping her from sleeping. Past medical history of COPD, O2 dependence, LORENA using BiPAP at night, hypertension, CHF, type II diabetes, morbid obesity. TRAVEL OUTSIDE OF THE [place] IN LAST 30 DAYS: No - Related Data Allergies/Adverse Reactions: codeine [Codeine] Allergy (Severe, Verified 09/02/16 07:54) reacts with invega Penicillins Allergy (Severe, Verified 09/02/16 07:54) Hives Past Medical History - General Information source: Patient - Social History Smoking Status: Former Smoker Frequency of alcohol use: None Drug Abuse: None Lives with: Family Family History: Reviewed & Not Pertinent - Past Medical History Cardiac Medical History: Reports: Hx Congestive Heart Failure, Hx Hypercholesterolemia, Hx Hypertension Denies: Hx DVT, Hx Heart Attack, Hx Pulmonary Embolism Pulmonary Medical History: Reports: Hx Asthma, Hx COPD, Hx Pneumonia, Hx Sleep Apnea - CPAP of 16. Neurological Medical History: Denies: Hx Seizures Endocrine Medical History: Reports: Hx Diabetes Mellitus Type 2. Denies: Hx Hyperthyroidism, Hx Hypothyroidism Renal/ Medical History: Denies: Hx Peritoneal Dialysis GI Medical History: Reports: Hx Gastroesophageal Reflux Disease. Denies: Hx Cirrhosis, Hx Hepatitis Musculoskeltal Medical History: Reports Hx Arthritis - rt knee Psychiatric Medical History: Reports: Hx Anxiety, Hx Bipolar Disorder, Hx Depression, Hx Schizoaffective Disorder, Hx Schizophrenia Infectious Medical History: Denies: Hx Hepatitis Past Surgical History: Reports: Hx Section - 3, Hx Tubal Ligation - Immunizations Immunizations up to date: Yes Hx Diphtheria, Pertussis, Tetanus Vaccination: Yes Hx Pneumococcal Vaccination: 04/30/14 Review of Systems - Review of Systems Constitutional: No symptoms reported EENT: No symptoms reported Cardiovascular: See HPI Respiratory: See HPI Gastrointestinal: See HPI Genitourinary: No symptoms reported Female Genitourinary: No symptoms reported Musculoskeletal: See HPI Skin: No symptoms reported Hematologic/Lymphatic: No symptoms reported Neurological/Psychological: No symptoms reported Physical Exam - Vital signs Vitals: Resp Pulse Ox 21 H 97 10/23/16 21:25 10/23/16 21:25 Interpretation: Normal - General General appearance: Appears well, Alert - HEENT Head: Normocephalic, Atraumatic Eyes: Normal Pupils: PERRL - Respiratory Respiratory status: No respiratory distress Chest status: Nontender Breath sounds: Normal Chest palpation: Normal - Cardiovascular Rhythm: Regular Heart sounds: Normal auscultation Murmur: No - Abdominal Inspection: Normal Distension: No distension Bowel sounds: Normal Tenderness: Nontender Organomegaly: No organomegaly - Back Back: Normal, Nontender - Extremities General upper extremity: Normal inspection, Nontender, Normal color, Normal ROM , Normal temperature General lower extremity: Normal inspection, Nontender, Edema - 2+ edema bilaterally, stockings in place, Normal color, Normal ROM, Normal temperature, Normal weight bearing. No: Marianne's sign - Neurological Neuro grossly intact: Yes Cognition: Normal Orientation: AAOx4 [place] Coma Scale Eye Opening: Spontaneous [place] Coma Scale Verbal: Oriented [place] Coma Scale Motor: Obeys Commands Derrick Coma Scale Total: 15 Speech: Normal Motor strength normal: LUE, RUE, LLE, RLE Sensory: Normal - Psychological Associated symptoms: Normal affect, Normal mood - Skin Skin Temperature: Warm Skin Moisture: Dry Skin Color: Normal Course - Re-evaluation Re-evalutation: Patient has bilateral swollen lower extremities with stockings in place, reports these are painful in keeping her from sleeping, she states this is her only current complaint. Vague symptoms of shortness of breath and chest tightness that she heard the bathroom, this completely resolved, EKG with no acute abnormalities or changes compared to prior. Chest x-ray is clear, lungs clear to auscultation, BNP is normal. Cardiac enzymes cycled and negative. CBC and chemistry generally unremarkable otherwise. Patient was given pain medication for her legs, after this patient slept, when she woke she was smiling and states she feels "amazing". She is asking to go home now. Patient does agree to follow-up with cardiology for additional management of her symptoms and lower extremity swelling along with adjustment of her medications, she agrees to return if she develops any shortness breath, chest pain, or any other concerning symptoms. Low suspicion of PE or ACS based on presentation and workup. I did agree to provide patient with symptom management for her swollen legs to help her sleep. - Vital Signs Vital signs: Temp Pulse Resp BP Pulse Ox 21 H 111/68 96 10/23/16 21:36 10/23/16 21:36 10/23/16 21:36 - Laboratory Result Diagrams: 10/23/16 21:34 10/23/16 21:34 Laboratory results interpreted by me: 10/23/16 10/23/16 21:34 21:34 Hgb 10.9 L Hct 33.6 L Chloride 94 L Carbon Dioxide 38 H Est GFR (Non-Af Amer) 58 L Glucose 120 H Calcium 10.6 H Creatine Kinase 258 H Discharge - Discharge Clinical Impression: Swelling of lower extremity, Chest tightness, Shortness of breath Lower extremity pain Qualifiers: Laterality: bilateral Qualified Code(s): M79.604 - Pain in right leg Condition: Stable Disposition: HOME, SELF-CARE Additional Instructions: The workup today shows no acute abnormalities. Please follow-up with the cardiology referral closely for additional management including for swelling of the lower extremities. Continue to elevate your feet and wear the compression stockings. Take the pain medication if needed for your legs especially to help you sleep. Return to emergency department for any concerning or worsening symptoms including chest pain, difficulty breathing, or any other concerning symptoms. Prescriptions: Oxycodone HCl/Acetaminophen [Percocet 5-325 mg Tablet] 1 - 2 tab PO Q4H PRN #15 tablet PRN Reason: Referrals: GERARDO GARRIDO MD [ACTIVE STAFF] - 10/25/16 WHITNEY PARIKH MD [ACTIVE STAFF] - 10/25/16
--- NOTE | 2016-10-23 21:18 | EKG REPORT ---
SEVERITY:- BORDERLINE ECG - SINUS RHYTHM CONSIDER ANTERIOR INFARCT : Confirmed by: Travis Marie 23-Oct-2016 21:17:50
[2016-10-23 21:46] LABS: ABSOLUTE EOSINOPHILS # (AUTO) 0.1 10^3/uL (0.0-0.6); ABSOLUTE LYMPHOCYTES (AUTO) 2.1 10^3/uL (0.5-4.7); ABSOLUTE MONOCYTES (AUTO) 0.5 10^3/uL (0.1-1.4); ABSOLUTE NEUT (AUTO) 2.8 10^3/uL (1.7-8.2); BASOPHILS % (AUTO) 0.4 % (0-2); EOSINOPHILS % (AUTO) 1.1 % (0-6); HEMATOCRIT 33.6 % (36.0-47.0); HEMOGLOBIN 10.9 g/dL (12.0-15.5); HGB HCT DIFFERENCE -0.9; LYMPHOCYTES % (AUTO) 38.5 % (13-45); MEAN CORPUSCULAR HEMOGLOBIN 28.5 pg (27.0-33.4); MEAN CORPUSCULAR HGB CONC 32.5 g/dL (32.0-36.0); MEAN CORPUSCULAR VOLUME 88 fl (80-97); MONOCYTES % (AUTO) 9.3 % (3-13); RED BLOOD COUNT 3.83 10^6/uL (3.72-5.28); RED CELL DISTRIBUTION WIDTH 13.9 % (11.5-14.0); SEGMENTED NEUTROPHILS % (AUTO) 50.7 % (42-78); WHITE BLOOD COUNT 5.4 10^3/uL (4.0-10.5)
[2016-10-23 22:06] LABS: ALANINE AMINOTRANSFERASE 27 U/L (9-52); ALBUMIN 3.8 g/dL (3.5-5.0); ALKALINE PHOSPHATASE 50 U/L (38-126); ANION GAP 10 (5-19); ASPARTATE AMINO TRANSFERASE 24 U/L (14-36); BILIRUBIN,DIRECT 0.4 mg/dL (0.0-0.4); BILIRUBIN,TOTAL 0.5 mg/dL (0.2-1.3); BLOOD UREA NITROGEN 15 mg/dL (7-20); CALCIUM 10.6 mg/dL (8.4-10.2); CARBON DIOXIDE 38 mmol/L (22-30); CHLORIDE 94 mmol/L (98-107); CREATINE KINASE 258 U/L (30-135); CREATININE RESULT 1.01 mg/dL (0.52-1.25); GLUCOSE 120 mg/dL (75-110); POTASSIUM 4.3 mmol/L (3.6-5.0); SODIUM 141.7 mmol/L (137-145); TOTAL PROTEIN 7.4 g/dL (6.3-8.2)
[2016-10-23 22:15] LABS: CREATINE KINASE MB 1.71 ng/mL (<4.55); TROPONIN I < 0.012 ng/mL
[2016-10-23] MEDS ORDERED: OXYCODONE-ACETAMINOPHEN 5-325 MG TABLET PO ONE (22:32)
[2016-10-23] MEDS ORDERED: MORPHINE SULFATE 10 MG/ML INJ IV ONE (22:38)
[2016-10-24] MEDS ORDERED: OXYCODONE-ACETAMINOPHEN 5-325 MG TABLET PO ONE (02:24)
[2016-10-24 03:35] VITALS: BP 124/82
== END 2016-10-24 03:30 | disposition home or self-care (01) ==
LOC: ER 20:35
DX: M79.604 Pain in right leg (principal); R06.02 Shortness of breath; R06.00 Dyspnea, unspecified; R22.43 Localized swelling, mass and lump, lower limb, bilateral; Z88.6 Allergy status to analgesic agent; Z88.0 Allergy status to penicillin; Z87.891 Personal history of nicotine dependence
CPT/HCPCS: 93005; 99285; 96374; 36415; 82553; 82550; 85025; 80053; 84484; 83880; 71010; 93010; J2270

== ENCOUNTER 2016-10-28 12:39 | Emergency (ER) | payer MEDICAID ==
--- NOTE | 2016-10-28 13:36 | EKG REPORT ---
SEVERITY:- BORDERLINE ECG - SINUS RHYTHM BORDERLINE R WAVE PROGRESSION, ANTERIOR LEADS : Confirmed by: Reji Casarez MD 28-Oct-2016 13:35:25
[2016-10-28 14:19] LABS: ABSOLUTE EOSINOPHILS # (AUTO) 0.1 10^3/uL (0.0-0.6); ABSOLUTE LYMPHOCYTES (AUTO) 1.8 10^3/uL (0.5-4.7); ABSOLUTE MONOCYTES (AUTO) 0.5 10^3/uL (0.1-1.4); ABSOLUTE NEUT (AUTO) 2.6 10^3/uL (1.7-8.2); BASOPHILS % (AUTO) 0.3 % (0-2); EOSINOPHILS % (AUTO) 1.1 % (0-6); HEMATOCRIT 34.8 % (36.0-47.0); HEMOGLOBIN 11.3 g/dL (12.0-15.5); HGB HCT DIFFERENCE -0.9; LYMPHOCYTES % (AUTO) 36.1 % (13-45); MEAN CORPUSCULAR HEMOGLOBIN 28.3 pg (27.0-33.4); MEAN CORPUSCULAR HGB CONC 32.4 g/dL (32.0-36.0); MEAN CORPUSCULAR VOLUME 87 fl (80-97); RED BLOOD COUNT 3.98 10^6/uL (3.72-5.28); RED CELL DISTRIBUTION WIDTH 14.1 % (11.5-14.0); SEGMENTED NEUTROPHILS % (AUTO) 52.5 % (42-78); WHITE BLOOD COUNT 4.9 10^3/uL (4.0-10.5)
[2016-10-28 14:22] LABS: APPEARANCE,URINE CLEAR; BILIRUBIN,URINE NEGATIVE (NEGATIVE); GLUCOSE, URINE NEGATIVE (NEGATIVE); KETONES,URINE TRACE mg/dL (NEGATIVE); LEUKOCYTE ESTERASE,URINE NEGATIVE (NEGATIVE); NITRITE,URINE NEGATIVE (NEGATIVE); PROTEIN,URINE NEGATIVE (NEGATIVE); UROBILINOGEN,URINE NEGATIVE mg/dL (<2.0)
[2016-10-28 14:46] LABS: ALANINE AMINOTRANSFERASE 28 U/L (9-52); ALBUMIN 4.1 g/dL (3.5-5.0); ALKALINE PHOSPHATASE 54 U/L (38-126); ANION GAP 12 (5-19); ASPARTATE AMINO TRANSFERASE 24 U/L (14-36); BILIRUBIN,DIRECT 0.2 mg/dL (0.0-0.4); BILIRUBIN,TOTAL 0.5 mg/dL (0.2-1.3); BLOOD UREA NITROGEN 11 mg/dL (7-20); CALCIUM 10.5 mg/dL (8.4-10.2); CARBON DIOXIDE 35 mmol/L (22-30); CHLORIDE 95 mmol/L (98-107); GLUCOSE 108 mg/dL (75-110); POTASSIUM 4.4 mmol/L (3.6-5.0); SODIUM 142.1 mmol/L (137-145); TOTAL PROTEIN 7.5 g/dL (6.3-8.2)
--- NOTE | 2016-10-28 15:06 | ER Document Report ---
ED General - General Mode of Arrival: Medic Information source: Patient TRAVEL OUTSIDE OF THE [place] IN LAST 30 DAYS: No - HPI Patient complains to provider of: Bilateral leg swelling Onset: Other - 3 weeks ago Associated symptoms: Other - see notes above <TIMOTEO BLAS - Last Filed: 10/28/16 20:06> <SINAI LÓPEZ - Last Filed: 10/28/16 20:36> - General Chief Complaint: Shortness Of Breath Stated Complaint: SHORTNESS OF BREATH Notes: 51-year-old female with history of CHF, COPD (3L oxygen dependent), and asthma presents to the ED complaining of bilateral leg swelling which started 3 weeks ago. Patient reports that she first noticed the leg swelling 3 weeks ago and was concerned because she has been taking 20 mg of Lasix daily for 20 years. Patient proceeded to keep an eye on the leg swelling for a week, but noticed that it was still swollen the second week so she came to the ED (10/18/2016). Patient reports that her primary care provider was informed of the leg swelling and her Lasix was doubled to 40 mg. Patient reports that despite the increase in her medication she was still urinating at her normal frequency. Patient again came to the ED on 10/24/2016 complaining of bilateral leg swelling and was told to follow-up with her primary care provider, Elvira Vicente. Patient reports that she was taken off of Lasix and put on Demadex. Patient additionally complains of a decreased appetite, abdominal swelling, chest heaviness, diarrhea, urinary urgency (past 3 days), and shortness of breath ( increased oxygen from 3L to 3.5L). (TIMOTEO BLAS) - Related Data Allergies/Adverse Reactions: codeine [Codeine] Allergy (Severe, Verified 09/02/16 07:54) reacts with invega Penicillins Allergy (Severe, Verified 09/02/16 07:54) Hives Past Medical History - General Information source: Patient - Social History Smoking Status: Never Smoker Chew tobacco use (# tins/day): No Frequency of alcohol use: None Drug Abuse: None Family History: Reviewed & Not Pertinent - Past Medical History Cardiac Medical History: Reports: Hx Congestive Heart Failure, Hx Hypercholesterolemia, Hx Hypertension Pulmonary Medical History: Reports: Hx Asthma, Hx COPD, Hx Pneumonia, Hx Sleep Apnea - CPAP of 16. Endocrine Medical History: Reports: Hx Diabetes Mellitus Type 2 GI Medical History: Reports: Hx Gastroesophageal Reflux Disease Musculoskeltal Medical History: Reports Hx Arthritis - rt knee Psychiatric Medical History: Reports: Hx Anxiety, Hx Bipolar Disorder, Hx Depression, Hx Schizoaffective Disorder, Hx Schizophrenia Past Surgical History: Reports: Hx Section - 3, Hx Tubal Ligation - Immunizations Immunizations up to date: Yes Hx Diphtheria, Pertussis, Tetanus Vaccination: Yes Hx Pneumococcal Vaccination: 04/30/14 <TIMOTEO BLAS - Last Filed: 10/28/16 20:06> Review of Systems - Review of Systems Constitutional: No symptoms reported EENT: No symptoms reported Cardiovascular: See HPI, Chest pain - "Chest heaviness" Respiratory: See HPI, Short of breath Gastrointestinal: See HPI, Diarrhea, Poor appetite, Other - Abdominal swelling Genitourinary: See HPI, Urgency Female Genitourinary: No symptoms reported Musculoskeletal: See HPI, Leg swelling - Bilateral Skin: No symptoms reported Hematologic/Lymphatic: No symptoms reported Neurological/Psychological: No symptoms reported -: Yes All other systems reviewed and negative <TIMOTEO BLAS - Last Filed: 10/28/16 20:06> Physical Exam <TIMOTEO BLAS - Last Filed: 10/28/16 20:06> <SINAI LÓPEZ - Last Filed: 10/28/16 20:36> - Vital signs Vitals: Pulse Ox 99 10/28/16 13:21 Temp Pulse Resp BP Pulse Ox 100 10/28/16 18:00 Temp Pulse Resp BP Pulse Ox 100 10/28/16 18:00 10/28/16 15:00 Pulse: 84 bpm (TIMOTEO BLAS) - Notes Notes: GENERAL: Alert, interacts well. No acute distress. HEAD: Normocephalic, atraumatic. EYES: Pupils equal, round, and reactive to light. Extraocular movements intact. ENT: Oral mucosa moist, tongue midline. NECK: Full range of motion. Supple. Trachea midline. LUNGS: Left lower lobe trace crackles, otherwise clear to auscultation bilaterally, no wheezes, rales, or rhonchi. She is short of breath with minimal exertion. HEART: Regular rate and rhythm. No murmurs, gallops, or rubs. ABDOMEN: Soft, non-tender. Non-distended. Bowel sounds present in all 4 quadrants. Morbidly obese. EXTREMITIES: Moves all 4 extremities spontaneously. Dorsalis pedis pulses 2/4 bilaterally. No cyanosis. 1+ pitting edema to the level of the thigh bilaterally. NEUROLOGICAL: Alert and oriented x3. Normal speech. Patellar DTRs 2+ bilaterally. PSYCH: Normal affect, normal mood. SKIN: Warm, dry, normal turgor. No rashes or lesions noted. (TIMOTEO BLAS) Course - Laboratory Result Diagrams: 10/28/16 14:08 10/28/16 14:08 - Diagnostic Test Radiology reviewed: Image reviewed, Reports reviewed - Chest x-ray impression: No acute radiographic finding in the chest. - EKG Interpretation by [facility] EKG shows normal: Sinus rhythm, [place], Intervals, ST-T Waves - No ST elevation or depression or T-wave inversion.. abnormal: QRS Complexes - No significant Q waves. Poor R-wave progression. Rate: Normal - 77 bpm <TIMOTEO BLAS - Last Filed: 10/28/16 20:06> - Laboratory Result Diagrams: 10/28/16 14:08 10/28/16 14:08 <SINAI LÓPEZ - Last Filed: 10/28/16 20:36> - Re-evaluation Re-evalutation: 10/28/16 19:08 Patient was continuing complaints of intermittent chest heaviness as well as swelling that has been going on for the past week. Chest heaviness has not worsened. Patient's cardiac enzymes continue to be negative, EKG continues to show no ischemic changes and is unchanged from prior EKGs. Cardiac enzymes are negative again, BNP is normal, chest x-ray does not show any signs of congestive heart failure. Patient has trace ketones, no signs DKA. There is absolute no evidence of congestive heart failure or acute coronary syndrome. 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 Patient will be given a dose of Lasix here, informed that if IV Lasix does not improve her symptoms whatsoever that the etiology of her symptoms is not congestive heart failure. Patient understands and will follow up with her primary care physician as an outpatient. (SINAI LÓPEZ) - Vital Signs Vital signs: Temp Pulse Resp BP Pulse Ox 100 10/28/16 18:00 - Laboratory Laboratory results interpreted by me: 10/28/16 10/28/16 10/28/16 14:00 14:08 14:08 Hgb 11.3 L Hct 34.8 L RDW 14.1 H Chloride 95 L Carbon Dioxide 35 H Est GFR (Non-Af Amer) 59 L Calcium 10.5 H Creatine Kinase Urine Ketones TRACE H 10/28/16 16:04 Hgb Hct RDW Chloride Carbon Dioxide Est GFR (Non-Af Amer) Calcium Creatine Kinase 311 H Urine Ketones Discharge <TIMOTEO BLAS - Last Filed: 10/28/16 20:06> <SINAI LÓPEZ - Last Filed: 10/28/16 20:36> - Discharge Clinical Impression: Swelling of lower extremity, LORENA (obstructive sleep apnea) Morbid obesity Qualifiers: Obesity type: due to excess calories Qualified Code(s): E66.01 - Morbid (severe ) obesity due to excess calories Controlled diabetes mellitus type II without complication Qualifiers: Diabetes mellitus prison insulin use: with prison use Qualified Code(s): E11.9 - Type 2 diabetes mellitus without complications Condition: Stable Disposition: HOME, SELF-CARE Additional Instructions: Please follow up with her solar photovoltaic systems engineer as an outpatient. Today we have not seen any signs of worsening congestive heart failure. Please continue to follow up with her primary care physician as well. Anishaibe Attestation: 10/28/16 20:36 I personally performed the services described in the documentation, reviewed and edited the documentation which was dictated to the scribe in my presence, and it accurately records my words and actions. (SINAI LÓPEZ) Scribe Documentation - Scribe Written by Mer:: Mer Townsend, 10/28/2016 1722 acting as scribe for :: Parth <TIMOTEO BLAS - Last Filed: 10/28/16 20:06>
[2016-10-28 17:19] LABS: TROPONIN I < 0.012 ng/mL
[2016-10-28] MEDS ORDERED: FUROSEMIDE INJ/PF 40 MG/4 ML SDV IV ONE (18:38)
[2016-10-28] MEDS ORDERED: OXYCODONE-ACETAMINOPHEN 5-325 MG TABLET PO ONE (18:49)
[2016-10-28 20:46] VITALS: BP 153/81
== END 2016-10-28 20:00 | disposition home or self-care (01) ==
LOC: ER 12:39
DX: M79.89 Other specified soft tissue disorders (principal); R60.0 Localized edema; G47.33 Obstructive sleep apnea (adult) (pediatric); E11.9 Type 2 diabetes mellitus without complications; J44.9 Chronic obstructive pulmonary disease, unspecified; Z99.81 Dependence on supplemental oxygen; E66.01 Morbid (severe) obesity due to excess calories; R63.0 Anorexia; R19.7 Diarrhea, unspecified; R39.15 Urgency of urination; R09.89 Other specified symptoms and signs involving the circulatory and respiratory systems; I10 Essential (primary) hypertension; Z79.899 Other long term (current) drug therapy; Z88.5 Allergy status to narcotic agent; Z88.0 Allergy status to penicillin; Z87.01 Personal history of pneumonia (recurrent)
CPT/HCPCS: 93005; 99285; 96374; 36415; 82553; 82550; 85025; 80053; 81001; 84484; 83880; 71010; 93010; J1940

== ENCOUNTER 2016-11-24 17:14 | Emergency (ER) | payer MEDICAID ==
[2016-11-24 17:26] VITALS: BP 144/85
--- NOTE | 2016-11-24 19:16 | RADIOLOGY REPORT (SQ) ---
EXAM DESCRIPTION: KNEE LEFT 3 VIEWS COMPLETED DATE/TIME: 11/24/2016 7:00 pm REASON FOR STUDY: pain COMPARISON: None. NUMBER OF VIEWS: Three views TECHNIQUE: AP, lateral, and sunrise patella radiographic images acquired of the left knee. LIMITATIONS: None. FINDINGS: MINERALIZATION: Normal. BONES: No acute fracture or dislocation. No worrisome bone lesions. JOINT: No effusion. SOFT TISSUES: No soft tissue swelling. No radio-opaque foreign body. OTHER: No other significant finding. IMPRESSION: NEGATIVE STUDY OF THE LEFT KNEE. NO RADIOGRAPHIC EVIDENCE OF ACUTE INJURY. TECHNICAL DOCUMENTATION: JOB ID: [id number] [employer]- All Rights Reserved
--- NOTE | 2016-11-24 19:17 | RADIOLOGY REPORT (SQ) ---
EXAM DESCRIPTION: ANKLE LEFT AP/LATERAL COMPLETED DATE/TIME: 11/24/2016 7:00 pm REASON FOR STUDY: pain COMPARISON: None. NUMBER OF VIEWS: Two views TECHNIQUE: AP and lateral radiographic images acquired of the left ankle. LIMITATIONS: None. FINDINGS: MINERALIZATION: Normal. BONES: No acute fracture or dislocation. No worrisome bone lesions. JOINTS: No effusions. SOFT TISSUES: Soft tissue swelling is identified. OTHER: Osteophytic lipping is identified at the level of the distal talus. IMPRESSION: Soft tissue swelling without evidence for fracture. Other findings as noted above TECHNICAL DOCUMENTATION: JOB ID: [id number] [employer]- All Rights Reserved
--- NOTE | 2016-11-24 19:28 | ER Document Report ---
ED Fall - General Chief Complaint: Fall Stated Complaint: FALL KNEE PAIN Time Seen by Provider: 11/24/16 18:01 Mode of Arrival: Ambulatory Information source: Patient TRAVEL OUTSIDE OF THE [place] IN LAST 30 DAYS: No - HPI Occurred: Just prior to arrival Where: Home Context: Tripped - This is a 51-year-old morbidly obese female presented to the emergency room today stating that she fell has discomfort to her left knee and left ankle. - Related data Allergies/Adverse Reactions: codeine [Codeine] Allergy (Severe, Verified 09/02/16 07:54) reacts with invega Penicillins Allergy (Severe, Verified 09/02/16 07:54) Hives Past Medical History - General Information source: Patient - Social History Smoking Status: Unknown if Ever Smoked Family History: Reviewed & Not Pertinent - Past Medical History Cardiac Medical History: Reports: Hx Congestive Heart Failure, Hx Hypercholesterolemia, Hx Hypertension Denies: Hx DVT, Hx Heart Attack, Hx Pulmonary Embolism Pulmonary Medical History: Reports: Hx Asthma, Hx COPD, Hx Pneumonia, Hx Sleep Apnea - CPAP of 16. Neurological Medical History: Denies: Hx Seizures Endocrine Medical History: Reports: Hx Diabetes Mellitus Type 1, Hx Diabetes Mellitus Type 2. Denies: Hx Hyperthyroidism, Hx Hypothyroidism Renal/ Medical History: Denies: Hx Peritoneal Dialysis GI Medical History: Reports: Hx Gastroesophageal Reflux Disease. Denies: Hx Cirrhosis, Hx Hepatitis Musculoskeltal Medical History: Reports Hx Arthritis - rt knee Psychiatric Medical History: Reports: Hx Anxiety, Hx Bipolar Disorder, Hx Depression, Hx Schizoaffective Disorder, Hx Schizophrenia Infectious Medical History: Denies: Hx Hepatitis Past Surgical History: Reports: Hx Section - 3, Hx Tubal Ligation - Immunizations Immunizations up to date: Yes Hx Diphtheria, Pertussis, Tetanus Vaccination: Yes Hx Pneumococcal Vaccination: 04/30/14 Review of Systems - Review of Systems Constitutional: No symptoms reported EENT: No symptoms reported Cardiovascular: No symptoms reported Respiratory: No symptoms reported Gastrointestinal: No symptoms reported Genitourinary: No symptoms reported Female Genitourinary: No symptoms reported Musculoskeletal: No symptoms reported Skin: No symptoms reported Hematologic/Lymphatic: No symptoms reported Neurological/Psychological: No symptoms reported Physical Exam - Vital signs Vitals: Temp Pulse Resp BP Pulse Ox 98.4 F 81 20 144/85 H 99 11/24/16 17:24 11/24/16 17:24 11/24/16 17:24 11/24/16 17:24 11/24/16 17:24 Interpretation: Normal - General General appearance: Appears well, Alert - HEENT Head: Normocephalic, Atraumatic Eyes: Normal Pupils: PERRL - Respiratory Respiratory status: No respiratory distress Chest status: Nontender Breath sounds: Normal Chest palpation: Normal - Cardiovascular Rhythm: Regular Heart sounds: Normal auscultation Murmur: No - Abdominal Inspection: Normal Distension: No distension Bowel sounds: Normal Tenderness: Nontender Organomegaly: No organomegaly - Back Back: Normal, Nontender - Extremities General upper extremity: Normal inspection, Nontender, Normal color, Normal ROM , Normal temperature General lower extremity: Normal inspection, Nontender, Normal color, Normal ROM , Normal temperature, Normal weight bearing. No: Marianne's sign - Neurological Neuro grossly intact: Yes Cognition: Normal Orientation: AAOx4 Derrick Coma Scale Eye Opening: Spontaneous [place] Coma Scale Verbal: Oriented [place] Coma Scale Motor: Obeys Commands Derrick Coma Scale Total: 15 Speech: Normal Motor strength normal: LUE, RUE, LLE, RLE Sensory: Normal - Psychological Associated symptoms: Normal affect, Normal mood - Skin Skin Temperature: Warm Skin Moisture: Dry Skin Color: Normal Course - Re-evaluation Re-evalutation: 11/24/16 19:24 Left knee left ankle no abrasion no contusion no ballottement neurovascular status distal to the affected area intact. - Vital Signs Vital signs: Temp Pulse Resp BP Pulse Ox 98.4 F 81 20 144/85 H 99 11/24/16 17:24 11/24/16 17:24 11/24/16 17:24 11/24/16 17:24 11/24/16 17:24 - Diagnostic Test Radiology reviewed: Image reviewed, Reports reviewed Discharge - Discharge Clinical Impression: Strain of left knee, HTN (hypertension) Disposition: HOME, SELF-CARE Instructions: Sprained Knee ([facility]) Additional Instructions: Knee Effusion You have a fluid collection in the knee joint, called an effusion. This fluid build up can occur from irritation of the synovial membrane lining the knee joint or from a more serious injury to the knee. Irritation of the membrane can occur from excessive, repetitive knee activitiy, like kneeling or squatting for extended periods or even just excessive walking, jogging, or skiing. Effusions also can occur with infections in the joint and with some arthritic conditions, especially gout. Fluid collections in these situations are usually yellow in color and either clear or cloudy in appearance. Significant injury to the knee can result in fluid collection which is partly or entirely blood and this condition is known as a hemarthrosis of the knee joint. If the fluid collection is not too large and/or painful, it can be managed conservatively with rest, ice packs, and anti-inflammatory and pain medications as needed. If the fluid collection is large and very painful, the knee joint can be drained (aspirated) by a relatively minor procedure of inserting a needle in the joint and removing some or all of the fluid present. If your knee was aspirated, you should rest it as much as possible for a few days, keep a pressure dressing around the knee and apply ice packs for at least 48 - 72 hours. If there are signs of developing infection such as heat and redness of the knee, fever, etc. you should return immediately for a recheck. Prescriptions: Tramadol HCl [Ultram 50 mg Tablet] 50 mg PO Q4HP PRN #60 tab PRN Reason:
[2016-11-24] MEDS ORDERED: HYDROCODONE/ACETAMINOPHEN 5-325 MG TABLET PO ONE (19:39)
== END 2016-11-24 19:58 | disposition home or self-care (01) ==
LOC: ER 17:14
DX: S86.812A Strain of other muscle(s) and tendon(s) at lower leg level, left leg, initial encounter (principal); I11.0 Hypertensive heart disease with heart failure; W19.XXXA Unspecified fall, initial encounter; E66.01 Morbid (severe) obesity due to excess calories; Z68.45 Body mass index [BMI] 70 or greater, adult; I50.9 Heart failure, unspecified; E78.00 Pure hypercholesterolemia, unspecified; E11.9 Type 2 diabetes mellitus without complications; J44.9 Chronic obstructive pulmonary disease, unspecified; K21.9 Gastro-esophageal reflux disease without esophagitis; Z88.6 Allergy status to analgesic agent; Z88.0 Allergy status to penicillin; Z98.51 Tubal ligation status
CPT/HCPCS: 99283

== ENCOUNTER 2017-02-04 20:31 | Emergency (ER) | payer MEDICAID ==
--- NOTE | 2017-02-04 21:51 | RADIOLOGY REPORT (SQ) ---
EXAM DESCRIPTION: CHEST PA/LAT COMPLETED DATE/TIME: 02/04/2017 9:41 pm REASON FOR STUDY: cough and congestion COMPARISON: 07/23/2016 EXAM PARAMETERS: NUMBER OF VIEWS: two views TECHNIQUE: Digital Frontal and Lateral radiographic views of the chest acquired. RADIATION DOSE: NA LIMITATIONS: none FINDINGS: LUNGS AND PLEURA: No opacities, masses or pneumothorax. No pleural effusion. MEDIASTINUM AND HILAR STRUCTURES: No masses or contour abnormalities. HEART AND VASCULAR STRUCTURES: Heart normal size. No evidence for failure. BONES: No acute findings. HARDWARE: None in the chest. OTHER: No other significant finding. IMPRESSION: NO SIGNIFICANT RADIOGRAPHIC FINDING IN THE CHEST. TECHNICAL DOCUMENTATION: JOB ID: [id number]- All Rights Reserved
[2017-02-04] MEDS ORDERED: ACETAMINOPHEN 325 MG TABLET PO ONE (21:56)
--- NOTE | 2017-02-04 22:00 | ER Document Report ---
ED Respiratory Problem - General Mode of Arrival: Wheelchair Information source: Patient TRAVEL OUTSIDE OF THE [place] IN LAST 30 DAYS: No - HPI Patient complains to provider of: Asthma, CHF, COPD, Cough Onset: Yesterday Duration: Continuous Initiating Event: URI Quality of pain: Achy - Body aches Severity: Mild Pain Level: 1 Cough: Productive Sputum amount: Small Sputum color: Green - Same color is her nasal drainage At home treatment: Oxygen Associated symptoms: Chills, Congestion, Cough, PND, Runny nose, Other - Body aches Similar symptoms previously: Yes Recently seen / treated by doctor: No - General Chief Complaint: Cough Stated Complaint: COUGH Time Seen by Provider: 02/04/17 21:28 Notes: 52-year-old female presents to ED for cough and cold since yesterday with a sore throat. Patient is on 3 L nasal cannula continuously as she has CHF and COPD. She also has a history of diabetes type 1 high blood pressure asthma bipolar and anxiety. ([place]) - Related Data Allergies/Adverse Reactions: codeine [Codeine] Allergy (Severe, Verified 09/02/16 07:54) reacts with invega Penicillins Allergy (Severe, Verified 09/02/16 07:54) Hives Past Medical History - General Information source: Patient - Social History Smoking Status: Former Smoker Cigarette use (# per day): No Chew tobacco use (# tins/day): No Smoking Education Provided: No Frequency of alcohol use: None Drug Abuse: None Lives with: Family Family History: Arthritis, CAD, CVA, DM, Hyperlipidemia, Hypertension, Malignancy Patient has suicidal ideation: No Patient has homicidal ideation: No - Past Medical History Cardiac Medical History: Reports: Hx Congestive Heart Failure, Hx Hypercholesterolemia, Hx Hypertension Pulmonary Medical History: Reports: Hx Asthma, Hx COPD, Hx Pneumonia, Hx Sleep Apnea - CPAP of 16. EENT Medical History: Reports: None Neurological Medical History: Reports: None Endocrine Medical History: Reports: Hx Diabetes Mellitus Type 1 Renal/ Medical History: Reports: None Malignancy Medical History: Reports: None GI Medical History: Reports: Hx Gastroesophageal Reflux Disease Musculoskeltal Medical History: Reports Hx Arthritis - rt knee, Reports Hx Musculoskeletal Trauma Skin Medical History: Reports None Psychiatric Medical History: Reports: Hx Anxiety, Hx Bipolar Disorder, Hx Depression, Hx Schizoaffective Disorder, Hx Schizophrenia Traumatic Medical History: Reports: Hx Fractures - Ankle right Infectious Medical History: Reports: None Past Surgical History: Reports: Hx Section - 3, Hx Tubal Ligation - Immunizations Immunizations up to date: Yes Hx Diphtheria, Pertussis, Tetanus Vaccination: Yes Hx Pneumococcal Vaccination: 04/30/14 Review of Systems - Review of Systems Constitutional: Recent illness EENT: Nose discharge, Sinus discharge, Throat pain Cardiovascular: No symptoms reported Respiratory: Cough, Sputum Gastrointestinal: No symptoms reported Genitourinary: No symptoms reported Female Genitourinary: No symptoms reported Musculoskeletal: No symptoms reported Skin: No symptoms reported Hematologic/Lymphatic: No symptoms reported Neurological/Psychological: No symptoms reported Physical Exam - Vital signs Interpretation: Normal - General General appearance: Appears well, Alert - HEENT Head: Normocephalic, Atraumatic Eyes: Normal Pupils: PERRL Ears: Normal External canal: Normal Tympanic membrane: Normal Nasal: Purulent discharge, Swelling Mouth/Lips: Normal Mucous membranes: Normal Pharynx: Post nasal drainage Neck: Normal - Respiratory Respiratory status: No respiratory distress Chest status: Nontender Breath sounds: Productive cough Chest palpation: Normal - Cardiovascular Rhythm: Regular Heart sounds: Normal auscultation Murmur: No - Abdominal Inspection: Normal Distension: No distension Bowel sounds: Normal Tenderness: Nontender Organomegaly: No organomegaly - Back Back: Normal, Nontender - Extremities General upper extremity: Normal inspection, Nontender, Normal color, Normal ROM , Normal temperature General lower extremity: Normal inspection, Nontender, Normal color, Normal ROM , Normal temperature, Normal weight bearing. No: Marianne's sign - Neurological Neuro grossly intact: Yes Cognition: Normal Orientation: AAOx4 Derrick Coma Scale Eye Opening: Spontaneous [place] Coma Scale Verbal: Oriented [place] Coma Scale Motor: Obeys Commands [place] Coma Scale Total: 15 Speech: Normal Motor strength normal: LUE, RUE, LLE, RLE Sensory: Normal - Psychological Associated symptoms: Normal affect, Normal mood - Skin Skin Temperature: Warm Skin Moisture: Dry Skin Color: Normal Course - Diagnostic Test Radiology reviewed: Image reviewed, Reports reviewed - Re-evaluation Re-evalutation: 02/04/17 22:05 Chest x-ray with patient and family and written report given to patient to follow-up with her primary doctor. Assessment consistent with upper respiratory infection. Lungs are clear no wheezing, rales, or rhonchi noted. ( [place],TATE) - Vital Signs Vital signs: Temp Pulse Resp BP Pulse Ox 98.8 F 82 17 162/84 H 100 02/04/17 22:42 02/04/17 22:42 02/04/17 22:42 02/04/17 22:42 02/04/17 22:42 Discharge - Discharge Clinical Impression: URI (upper respiratory infection) Qualifiers: URI type: unspecified URI Qualified Code(s): J06.9 - Acute upper respiratory infection, unspecified Condition: Stable Disposition: HOME, SELF-CARE Additional Instructions: UPPER RESPIRATORY ILLNESS: You have a viral infection of the respiratory passages -- a "cold." This common infection causes nasal congestion, drainage, and often sore throat and cough. It is highly contagious. The disease usually lasts about 10 to 14 days. There is no "cure" for the viral infection -- it must run its course. If there is a complication, such as bacterial infection in the nose, sinuses, middle ear, or bronchial tubes, antibiotics may be required. The antibiotics won't affect the virus. Drink plenty of fluids. A humidifier may help. An expectorant medication or decongestant may make you more comfortable. Use acetaminophen or ibuprofen for fever or aches. See the doctor if fever persists over two days, if there is any significant worsening of your symptoms, or if you simply fail to improve as expected. COUGH-SUPPRESSANT & EXPECTORANT MEDICATION: You are to use a cough medication as needed for relief of symptoms. This medicine is a combination of an expectorant (to make the mucous thinner and more easily "coughed up") and a cough suppressant (to reduce the frequency of coughing). The cough-suppressant medicine is related to narcotics. You may experience mild nausea and sleepiness. Some patients who are very sensitive to narcotics may have stomach pain from this medicine. Taking the medicine with food reduces these side effects. Do not drive or work with machinery until you know how this medicine affects you. The expectorant should have no side effects. Iodine-containing expectorants (such as organidin) should not be taken by persons with active thyroid disease unless approved by your doctor. Call the doctor if you develop shortness of breath, hives, rash, itching, lightheadedness, or severe nausea and vomiting. USE OF ACETAMINOPHEN (Tylenol): Acetaminophen may be taken for pain relief or fever control. It's much safer than aspirin, offering a wider range of "safe" dosages. It is safe during . Some brand names are Tylenol, Panadol, Datril, Anacin 3, Tempra, and Liquiprin. Acetaminophen can be repeated every four hours. The following are maximum recommended dosages: >89 pounds or adults 650 mg to 900 mg Acetaminophen can be repeated every four hours. Maximum dose not to exceed 4000 mg a day. FOLLOW-UP CARE: If you have been referred to a physician for follow-up care, call the physician s office for an appointment as you were instructed or within the next two days. If you experience worsening or a significant change in your symptoms, notify the physician immediately or return to the Emergency Department at any time for re-evaluation. Forms: Elevated Blood Pressure Referrals: PAULINA FLORES NP [Primary Care Provider] - Follow up as needed
[2017-02-04 22:45] VITALS: BP 162/84
== END 2017-02-04 22:42 | disposition home or self-care (01) ==
LOC: ER 20:31
DX: J06.9 Acute upper respiratory infection, unspecified (principal); I50.9 Heart failure, unspecified; E78.00 Pure hypercholesterolemia, unspecified; I11.0 Hypertensive heart disease with heart failure; E10.9 Type 1 diabetes mellitus without complications; K21.9 Gastro-esophageal reflux disease without esophagitis; Z87.891 Personal history of nicotine dependence; Z98.51 Tubal ligation status
CPT/HCPCS: 99283; 71020; J3490

== ENCOUNTER 2017-02-16 19:08 | Inpatient (IN) | payer MEDICAID ==
[2017-02-16] MEDS ORDERED: METHYLPREDNISOLONE INJ 125 MG/2 ML SDV IV ONE (20:30)
[2017-02-16] MEDS ORDERED: IPRATROPIUM/ALBUTEROL 0.5-2.5 MG/3 ML AMPUL NEB ONE (20:30)
[2017-02-16] MEDS ORDERED: LEVOFLOXACIN 750 MG/D5W RTU 750 MG/150 ML RTUPB IV ONE (20:30)
--- NOTE | 2017-02-16 20:32 | ER Document Report ---
ED General - General Chief Complaint: Cold Symptoms Stated Complaint: COLD/FLU SYMPTOMS Time Seen by Provider: 02/16/17 20:05 Mode of Arrival: Stretcher Information source: Patient Notes: This is a 52-year-old female with multiple medical problems including COPD (3 L) , obstructive sleep apnea (CPAP), CHF, insulin requiring diabetes, hypertension , morbid obesity. The patient presents to the emergency room with progressively worsening shortness of breath over the past week. Patient was initially seen for URI in the beginning of the month. She was started on doxycycline by her primary care physician 5 days ago. She states that she is progressively gotten worse and shortening of breath. TRAVEL OUTSIDE OF THE [place] IN LAST 30 DAYS: No - HPI Onset: Last week Onset/Duration: Gradual Quality of pain: Achy Severity: Moderate Pain Level: 2 Associated symptoms: Chills, Fever, Shortness of breath Exacerbated by: Denies Relieved by: Denies Similar symptoms previously: Yes Recently seen / treated by doctor: Yes - Related Data Allergies/Adverse Reactions: codeine [Codeine] Allergy (Severe, Verified 09/02/16 07:54) reacts with invega Penicillins Allergy (Severe, Verified 09/02/16 07:54) Hives Past Medical History - General Information source: Patient - Social History Smoking Status: Former Smoker Cigarette use (# per day): No Chew tobacco use (# tins/day): No Frequency of alcohol use: None Drug Abuse: None Lives with: Family Family History: Arthritis, CAD, CVA, DM, Hyperlipidemia, Hypertension, Malignancy Patient has suicidal ideation: No Patient has homicidal ideation: No - Past Medical History Cardiac Medical History: Reports: Hx Congestive Heart Failure, Hx Hypercholesterolemia, Hx Hypertension Denies: Hx DVT, Hx Heart Attack, Hx Pulmonary Embolism Pulmonary Medical History: Reports: Hx Asthma, Hx COPD, Hx Pneumonia, Hx Sleep Apnea - CPAP of 16. Neurological Medical History: Denies: Hx Seizures Endocrine Medical History: Reports: Hx Diabetes Mellitus Type 1, Hx Diabetes Mellitus Type 2. Denies: Hx Hyperthyroidism, Hx Hypothyroidism Renal/ Medical History: Denies: Hx Peritoneal Dialysis GI Medical History: Reports: Hx Gastroesophageal Reflux Disease. Denies: Hx Cirrhosis, Hx Hepatitis Musculoskeltal Medical History: Reports Hx Arthritis - rt knee, Reports Hx Musculoskeletal Trauma Psychiatric Medical History: Reports: Hx Anxiety, Hx Bipolar Disorder, Hx Depression, Hx Schizoaffective Disorder, Hx Schizophrenia Traumatic Medical History: Reports: Hx Fractures - Ankle right Infectious Medical History: Denies: Hx Hepatitis Past Surgical History: Reports: Hx Section - 3, Hx Tubal Ligation - Immunizations Immunizations up to date: Yes Hx Diphtheria, Pertussis, Tetanus Vaccination: Yes Hx Pneumococcal Vaccination: 04/30/14 Review of Systems - Review of Systems Constitutional: denies: Chills, Fever EENT: No symptoms reported Cardiovascular: No symptoms reported Respiratory: See HPI Gastrointestinal: No symptoms reported Genitourinary: No symptoms reported Female Genitourinary: No symptoms reported Musculoskeletal: No symptoms reported Skin: No symptoms reported Hematologic/Lymphatic: No symptoms reported Neurological/Psychological: No symptoms reported Physical Exam - Vital signs Vitals: Temp Pulse Resp BP Pulse Ox 98.0 F 72 14 112/60 97 02/16/17 19:38 02/16/17 19:38 02/16/17 19:38 02/16/17 19:38 02/16/17 19:38 Notes: Physical exam: GENERAL: 52-year-old female, alert and oriented 3, tachypneic HEAD: Atraumatic, normocephalic. EYES: Pupils equal round and reactive to light, extraocular movements intact, sclera anicteric, conjunctiva are normal. ENT: TMs normal, nares patent, oropharynx clear without exudates. Moist mucous membranes. NECK: Normal range of motion, supple without lymphadenopathy or JVD. LUNGS: Diffuse wheezing bilaterally HEART: Regular rate and rhythm without murmurs, rubs or gallops. ABDOMEN: Soft, normoactive bowel sounds. No tenderness to palpation. No guarding, no rebound. No masses appreciated. EXTREMITIES: Normal range of motion, no pitting or edema. No clubbing or cyanosis. NEUROLOGICAL: Cranial nerves II through XII grossly intact. Normal speech, normal gait. PSYCH: Normal mood, normal affect. SKIN: Warm, Dry, normal turgor, no rashes or lesions noted. Course - Vital Signs Vital signs: Temp Pulse Resp BP Pulse Ox 98.0 F 72 14 112/60 94 02/16/17 19:38 02/16/17 19:38 02/16/17 19:38 02/16/17 19:38 02/16/17 21:21 - Laboratory Result Diagrams: 02/16/17 21:14 02/16/17 21:14 Laboratory results interpreted by me: 02/16/17 02/16/17 02/16/17 21:14 21:14 21:46 RBC 3.68 L Hgb 10.4 L Hct 31.8 L RDW 14.5 H Lymphocytes % 45.2 H VBG pCO2 74.8 H* VBG HCO3 38.2 H Chloride 93 L Carbon Dioxide 37 H Glucose 122 H Calcium 10.8 H Direct Bilirubin 0.5 H Creatine Kinase 236 H - Diagnostic Test Radiology reviewed: Image reviewed, Reports reviewed - Chest x-ray shows some atelectasis in the right mid lung, no obvious infiltrate. - EKG Interpretation by Me Rate: Normal Rhythm: NSR - EKG shows normal sinus rhythm with a ventricular rate of 71, no acute ST-T wave changes Critical Care Note - Critical Care Note Total time excluding time spent on procedures (mins): 90 Discharge - Discharge Clinical Impression: COPD exacerbation Condition: Stable Disposition: ADMITTED INPATIENT Admitting Provider: Hospitalist - Dr. Stern Unit Admitted: Telemetry
--- NOTE | 2017-02-16 21:14 | EKG REPORT ---
SEVERITY:- BORDERLINE ECG - SINUS RHYTHM BORDERLINE T WAVE ABNORMALITIES : Confirmed by: Reji Casarez MD 16-Feb-2017 21:13:36
[2017-02-16 21:29] LABS: ABSOLUTE EOSINOPHILS # (AUTO) 0.1 10^3/uL (0.0-0.6); ABSOLUTE LYMPHOCYTES (AUTO) 2.8 10^3/uL (0.5-4.7); ABSOLUTE MONOCYTES (AUTO) 0.3 10^3/uL (0.1-1.4); ABSOLUTE NEUT (AUTO) 2.9 10^3/uL (1.7-8.2); BASOPHILS % (AUTO) 0.4 % (0-2); EOSINOPHILS % (AUTO) 1.6 % (0-6); HEMATOCRIT 31.8 % (36.0-47.0); HEMOGLOBIN 10.4 g/dL (12.0-15.5); HGB HCT DIFFERENCE -0.6; LYMPHOCYTES % (AUTO) 45.2 % (13-45); MEAN CORPUSCULAR HEMOGLOBIN 28.3 pg (27.0-33.4); MEAN CORPUSCULAR HGB CONC 32.8 g/dL (32.0-36.0); MEAN CORPUSCULAR VOLUME 86 fl (80-97); MONOCYTES % (AUTO) 5.5 % (3-13); RED BLOOD COUNT 3.68 10^6/uL (3.72-5.28); RED CELL DISTRIBUTION WIDTH 14.5 % (11.5-14.0); SEGMENTED NEUTROPHILS % (AUTO) 47.3 % (42-78); WHITE BLOOD COUNT 6.1 10^3/uL (4.0-10.5)
[2017-02-16 21:38] LABS: ALANINE AMINOTRANSFERASE 20 U/L (9-52); ALBUMIN 3.9 g/dL (3.5-5.0); ALKALINE PHOSPHATASE 51 U/L (38-126); ANION GAP 10 (5-19); ASPARTATE AMINO TRANSFERASE 15 U/L (14-36); BILIRUBIN,DIRECT 0.5 mg/dL (0.0-0.4); BILIRUBIN,TOTAL 0.5 mg/dL (0.2-1.3); BLOOD UREA NITROGEN 12 mg/dL (7-20); CALCIUM 10.8 mg/dL (8.4-10.2); CARBON DIOXIDE 37 mmol/L (22-30); CHLORIDE 93 mmol/L (98-107); CREATINE KINASE 236 U/L (30-135); CREATININE RESULT 0.94 mg/dL (0.52-1.25); GLUCOSE 122 mg/dL (75-110); POTASSIUM 4.3 mmol/L (3.6-5.0); SODIUM 139.9 mmol/L (137-145); TOTAL PROTEIN 7.4 g/dL (6.3-8.2)
[2017-02-16] MEDS ORDERED: OXYCODONE-ACETAMINOPHEN 5-325 MG TABLET PO ONE (21:48)
[2017-02-16] MEDS ORDERED: ALBUTEROL SULFATE 0.083% NEB 2.5 MG/3 ML AMPUL NEB ONE ×2 (21:48→21:52)
[2017-02-16 21:49] LABS: CREATINE KINASE MB 1.92 ng/mL (<4.55); TROPONIN I < 0.012 ng/mL
[2017-02-16 22:02] LABS: VENOUS BLOOD BASE EXCESS 9.6 mmol/L; VENOUS BLOOD HCO3 38.2 mmol/L (20-32); VENOUS BLOOD PH 7.33 (7.30-7.42)
[2017-02-16 22:10] LABS: VENOUS BLOOD PCO2 74.8 mmHg (35-63)
[2017-02-16] MEDS ORDERED: ACETAMINOPHEN 325 MG TABLET PO PRN (23:32)
[2017-02-16] MEDS ORDERED: CHLORPHENIRAMINE MALEATE 4 MG TABLET PO ONE (23:35)
[2017-02-16] MEDS ORDERED: DEXTROSE 50%-WATER 25 GM/50 ML DISP.SYRIN IV PRN ×2 (23:40)
[2017-02-16] MEDS ORDERED: DEXTROSE 40% GEL 15 GM TUBE PO PRN ×2 (23:40)
[2017-02-16] MEDS ORDERED: GLUCAGON,HUMAN RECOMB 1 MG INJ IM PRN (23:40)
[2017-02-16] MEDS ORDERED: DILTIAZEM HCL 180 MG CAPSULE.CR PO SCH (23:45)
--- NOTE | 2017-02-17 01:00 | RADIOLOGY REPORT (SQ) ---
EXAM DESCRIPTION: CHEST SINGLE VIEW COMPLETED DATE/TIME: 02/17/2017 12:01 am REASON FOR STUDY: sob COMPARISON: 8.8.17 EXAM PARAMETERS: NUMBER OF VIEWS: One view. TECHNIQUE: Single frontal radiographic view of the chest acquired. RADIATION DOSE: NA LIMITATIONS: None. FINDINGS: LUNGS AND PLEURA: No opacities, masses or pneumothorax. No pleural effusion. Prominent in terstitium, chronic. MEDIASTINUM AND HILAR STRUCTURES: No masses. Contour normal. HEART AND VASCULAR STRUCTURES: Heart normal in size. Normal vasculature. BONES: No acute findings. HARDWARE: None in the chest. OTHER: No other significant finding. IMPRESSION: No acute cardiopulmonary findings. TECHNICAL DOCUMENTATION: JOB ID: [id number]
[2017-02-17] MEDS ORDERED: CHLORPHENIRAMINE MALEATE 4 MG TABLET ONE (01:08)
[2017-02-17] MEDS ORDERED: INSULIN DETEMIR 100 UNIT/ML 3 ML PEN SUBCUT ONE (01:08)
--- NOTE | 2017-02-17 02:02 | PDOC H&P ---
History of Present Illness Admission Date/PCP: 02/16/17 23:35 PAULINA FLORES NP Patient complains of: Shortness of breath, uncontrolled GERD. History of Present Illness: LILI HA is a 52 year old female with a past medical history of severe morbid obesity with a BMI of 64, obstructive sleep apnea, GERD, diabetes and oxygen dependent COPD. Patient been her usual state of health until approximately 4 days ago with symptoms of upper respiratory infection rhinorrhea postnasal drip and a nonproductive cough. She was treated with doxycycline without significant improvement. In addition she has had exceptional uncontrolled GERD over the last 3-4 days. In the emergency room she is found to be short of breath with hypoxia, global wheeze and tachypnea. Labs suggest chronic hypercapnia with a bicarb of 38. She started on empiric antibiotics, albuterol and Atrovent and BiPAP referred to the hospitalist for admission. Past Medical History Cardiac Medical History: Reports: Congestive Heart Failure, Hyperlipidema, Hypertension Denies: DVT, Myocardial Infarction, Pulmonary Embolism Pulmonary Medical History: Reports: Asthma, Chronic Obstructive Pulmonary Disease (COPD), Pneumonia, Sleep Apnea - CPAP of 16. Neurological Medical History: Denies: Seizures Endocrine Medical History: Reports: Diabetes Mellitus Type 1, Diabetes Mellitus Type 2 Denies: Hyperthyroidism, Hypothyroidism GI Medical History: Reports: Gastroesophageal Reflux Disease Denies: Cirrhosis, Hepatitis Musculoskeltal Medical History: Reports: Arthritis - rt knee Psychiatric Medical History: Reports: Bipolar Disorder, Depression, Schizoaffective Disorder Hematology: Denies: Anemia Past Surgical History Past Surgical History: Reports: Section - 3, Tubal Ligation Social History Information Source: Patient Lives with: Family Smoking Status: Former Smoker Frequency of Alcohol Use: None Hx Recreational Drug Use: No Drugs: None Hx Prescription Drug Abuse: No - Advance Directive Resuscitation Status: Full Code Family History Family History: Arthritis, CAD, CVA, DM, Hyperlipidemia, Hypertension, Malignancy Parental Family History Reviewed: Yes Children Family History Reviewed: Yes Sibling(s) Family History Reviewed.: Yes Medication/Allergy Home Medications: Aspirin [Aspirin EC] 81 mg PO DAILY 07/23/16 Carisoprodol [Soma] 250 mg PO BID 07/23/16 Cholecalciferol (Vitamin D3) [Vitamin D3 2000 unit Tablet] 2,000 unit PO DAILY 07/23/16 Cyanocobalamin (Vitamin B-12) [Vitamin B-12 1000 mcg Tablet] 1 tab PO DAILY Diltiazem HCl [Cardizem Cd 180 mg Capsule] 180 mg PO Q12 07/23/16 Divalproex Sodium [Divalproex Sodium ER] 2,000 mg PO QHS 07/23/16 Gabapentin [Neurontin 300 mg Capsule] 300 mg PO Q8 07/23/16 Insulin Detemir [Levemir Insulin 100 units/mL] 40 unit SUBCUT QHS 07/23/16 Magnesium Oxide [Mag-Ox 400 mg Tablet] 400 mg PO QHS 07/23/16 Metformin HCl [Glucophage] 500 mg PO BID 07/23/16 Metoprolol Tartrate [Lopressor 25 mg Tablet] 25 mg PO Q12 07/23/16 Mirabegron [Myrbetriq] 50 mg PO DAILY 07/23/16 Oxycodone HCl/Acetaminophen [Percocet 5-325 mg Tablet] 1 tab PO BID 07/23/16 Paliperidone [Paliperidone ER] 6 mg PO DAILY 07/23/16 Ranitidine HCl [Zantac 150 mg Tablet] 150 mg PO BID 07/23/16 Sertraline HCl [Zoloft] 200 mg PO DAILY 07/23/16 Theophylline Anhydrous 300 mg PO Q12 07/23/16 Acetaminophen [Tylenol 325 mg Tablet] 650 mg PO Q4HP PRN tablet 07/24/16 Albuterol Sulfate [Ventolin 0.083% Neb 2.5 mg/3 mL Ampul] 2.5 mg NEB RTQ4HP PRN vial.neb 07/24/16 Fluticasone Propionate [Flonase Nasal [place] 50 Mcg/[place] 16 gm] 1 spray NASL Q12 #1 spray.pump 07/26/16 Furosemide [Lasix 20 mg Tablet] 20 mg PO DAILY #30 tablet 07/26/16 Levofloxacin [Levaquin 750 mg Tablet] 750 mg PO DAILY #5 tablet 07/26/16 Prednisone [Deltasone 20 mg Tablet] 40 mg PO DAILY #7 tablet 07/26/16 Azithromycin [Zithromax 250 mg Tablet] 250 mg PO ASDIR PRN #6 tablet 08/21/16 Clindamycin HCl 300 mg PO Q6H #20 capsule 08/25/16 Oxycodone HCl/Acetaminophen [Percocet 5-325 mg Tablet] 1 - 2 tab PO Q4HP PRN # 25 tablet 08/28/16 Ondansetron [Zofran Odt 4 mg Tablet] 1 - 2 tab PO Q4H PRN #15 tab.neil Pantoprazole Sodium [Protonix] 20 mg PO DAILY #30 tablet. 09/02/16 Oxycodone HCl/Acetaminophen [Percocet 5-325 mg Tablet] 1 - 2 tab PO Q4H PRN #15 tablet 10/24/16 Tramadol HCl [Ultram 50 mg Tablet] 50 mg PO Q4HP PRN #60 tab 11/24/16 Allergies/Adverse Reactions: codeine [Codeine] Allergy (Severe, Verified 09/02/16 07:54) reacts with invega Penicillins Allergy (Severe, Verified 09/02/16 07:54) Hives Review of Systems Constitutional: PRESENT: as per HPI, fatigue. ABSENT: anorexia, chills, fever(s ) Eyes: ABSENT: visual disturbances Ears: ABSENT: hearing changes Cardiovascular: ABSENT: chest pain, dyspnea on exertion, edema, orthropnea, palpitations Respiratory: PRESENT: cough, dyspnea. ABSENT: hemoptysis, sputum Gastrointestinal: PRESENT: heartburn, nausea. ABSENT: abdominal pain, constipation, diarrhea, hematemesis, hematochezia, vomiting Genitourinary: ABSENT: dysuria, hematuria Musculoskeletal: ABSENT: joint swelling Integumentary: ABSENT: rash, wounds Neurological: ABSENT: abnormal gait, abnormal speech, confusion, dizziness, focal weakness, syncope Psychiatric: ABSENT: anxiety, depression, homidical ideation, suicidal ideation Endocrine: ABSENT: cold intolerance, heat intolerance, polydipsia, polyuria Hematologic/Lymphatic: ABSENT: easy bleeding, easy bruising Physical Exam Vital Signs: Temp Pulse Resp BP Pulse Ox 98.0 F 72 31 H 112/60 93 02/16/17 19:38 02/16/17 19:38 02/17/17 00:17 02/16/17 19:38 02/17/17 00:17 General appearance: PRESENT: cooperative, morbidly obese, severe distress Head exam: PRESENT: atraumatic, normocephalic Eye exam: PRESENT: conjunctival injection, EOMI, PERRLA. ABSENT: nystagmus, periorbital swelling Ear exam: PRESENT: normal external ear exam Mouth exam: PRESENT: moist, tongue midline Neck exam: ABSENT: carotid bruit, JVD, lymphadenopathy, thyromegaly Respiratory exam: PRESENT: accessory muscle use, crackles, decreased breath sounds, prolonged expiratory phas, rales, rhonchi, symmetrical, tachypnea, wheezes. ABSENT: chest wall tenderness, clear to auscultation jacek Cardiovascular exam: PRESENT: RRR. ABSENT: diastolic murmur, rubs, systolic murmur Pulses: PRESENT: normal dorsalis pedis pul Vascular exam: PRESENT: normal capillary refill GI/Abdominal exam: PRESENT: normal bowel sounds, soft. ABSENT: distended, guarding, mass, organolmegaly, rebound, tenderness Rectal exam: PRESENT: deferred Extremities exam: PRESENT: full ROM. ABSENT: calf tenderness, clubbing, pedal edema Neurological exam: PRESENT: alert, awake, oriented to person, oriented to place , oriented to time, oriented to situation, CN II-XII grossly intact. ABSENT: motor sensory deficit Psychiatric exam: PRESENT: appropriate affect, normal mood. ABSENT: homicidal ideation, suicidal ideation Skin exam: PRESENT: dry, intact, warm. ABSENT: cyanosis, rash Results Impressions: Chest X-Ray 02/16/17 23:20 IMPRESSION: No acute cardiopulmonary findings. Assessment & Plan - Diagnosis (1) Acute on chronic respiratory failure with hypoxemia Is this a current diagnosis for this admission?: Yes Plan: Acute on chronic respiratory failure with hypoxia and hypercapnia secondary to multifactorial issues including URI and GERD, She is admitted with a pneumonia care set empiric antibiotics, albuterol and Atrovent, Flonase, chlorpheniramine, Pepcid and BiPAP support (2) Bronchitis Is this a current diagnosis for this admission?: Yes Plan: Empiric antibiotics, Flonase and supplemental oxygen. (3) GERD (gastroesophageal reflux disease) Is this a current diagnosis for this admission?: Yes Plan: Prevacid twice daily (4) Diabetes Is this a current diagnosis for this admission?: Yes Plan: Home regiment in addition to sliding scale insulin. (5) Schizo-affective schizophrenia Is this a current diagnosis for this admission?: Yes Plan: Avoid sedating meds reducing respiratory drive. - Time Time Spent: 50 to 70 Minutes - Inpatient Certification Medical Necessity: Need Close Monitoring Due to Risk of Patient Decompensation
[2017-02-17] MEDS: IPRATROPIUM/ALBUTEROL 0.5-2.5 MG/3 ML AMPUL NEB SCH ×4 (02:34→19:39)
[2017-02-17] MEDS: HEPARIN SOD (PORCINE) 5,000 UNIT/ML 1 ML SYRINGE SUBCUT SCH ×3 (06:20→22:57)
[2017-02-17] MEDS: GABAPENTIN 300 MG CAPSULE PO SCH ×3 (06:20→22:57)
[2017-02-17 06:45] LABS: ABSOLUTE LYMPHOCYTES (AUTO) 1.4 10^3/uL (0.5-4.7); ABSOLUTE MONOCYTES (AUTO) 0.1 10^3/uL (0.1-1.4); ABSOLUTE NEUT (AUTO) 5.2 10^3/uL (1.7-8.2); BASOPHILS % (AUTO) 0.2 % (0-2); EOSINOPHILS % (AUTO) 0.2 % (0-6); HEMATOCRIT 34.3 % (36.0-47.0); HEMOGLOBIN 11.2 g/dL (12.0-15.5); HGB HCT DIFFERENCE -0.7; LYMPHOCYTES % (AUTO) 20.6 % (13-45); MEAN CORPUSCULAR HEMOGLOBIN 27.9 pg (27.0-33.4); MEAN CORPUSCULAR HGB CONC 32.8 g/dL (32.0-36.0); MEAN CORPUSCULAR VOLUME 85 fl (80-97); MONOCYTES % (AUTO) 1.4 % (3-13); RED BLOOD COUNT 4.03 10^6/uL (3.72-5.28); RED CELL DISTRIBUTION WIDTH 14.6 % (11.5-14.0); SEGMENTED NEUTROPHILS % (AUTO) 77.6 % (42-78); WHITE BLOOD COUNT 6.8 10^3/uL (4.0-10.5)
[2017-02-17 07:07] LABS: ANION GAP 17 (5-19); BLOOD UREA NITROGEN 12 mg/dL (7-20); CALCIUM 10.6 mg/dL (8.4-10.2); CARBON DIOXIDE 30 mmol/L (22-30); CHLORIDE 93 mmol/L (98-107); CREATININE RESULT 0.83 mg/dL (0.52-1.25); GLUCOSE 249 mg/dL (75-110); POTASSIUM 4.3 mmol/L (3.6-5.0); SODIUM 139.8 mmol/L (137-145)
[2017-02-17] MEDS ORDERED: (PENDING PHARMACY ID) (Pantoprazole Sodium [Protonix] 20 MG) PO SCH (10:00)
[2017-02-17] MEDS: CYANOCOBALAMIN (VITAMIN B-12) 1,000 MCG TABLET PO SCH (10:17)
[2017-02-17] MEDS: CHOLECALCIFEROL (D3) 1,000 UNIT TABLET PO SCH (10:18)
[2017-02-17] MEDS: ASPIRIN 81 MG TABLET, ENT COATED PO SCH (10:19)
[2017-02-17] MEDS: METOPROLOL TARTRATE 25 MG TABLET PO SCH ×2 (10:19→22:56)
[2017-02-17] MEDS: DILTIAZEM HCL 180 MG CAPSULE.CR PO SCH ×2 (10:20→22:56)
[2017-02-17] MEDS: LANSOPRAZOLE 15 MG TAB.RAP.DR PO SCH (10:21)
[2017-02-17] MEDS: FUROSEMIDE 20 MG TABLET PO SCH (10:22)
[2017-02-17] MEDS: FLUTICASONE NASAL SPRAY 50 MCG/SPRY 120 SPRAY/16 GM NASL SCH ×2 (11:54→22:57)
--- NOTE | 2017-02-17 13:03 | PDOC PROGRESS REPORT ---
Subjective Progress Note for:: 02/17/17 Subjective:: Patient reports that her breathing is doing better. Physical Exam Vital Signs: Temp Pulse Resp BP Pulse Ox 98.7 F 106 H 20 147/78 H 90 L 02/17/17 11:04 02/17/17 11:04 02/17/17 11:04 02/17/17 11:04 02/17/17 11:04 Intake & Output 02/16/17 02/17/17 02/18/17 06:59 06:59 06:59 Intake Total 700 Balance 700 Weight 175.3 kg General appearance: PRESENT: no acute distress, morbidly obese Eye exam: PRESENT: conjunctiva pink. ABSENT: scleral icterus Ear exam: PRESENT: normal external ear exam Mouth exam: PRESENT: moist, tongue midline Neck exam: ABSENT: JVD Respiratory exam: PRESENT: wheezes - Few scattered expiratory wheezes on the left. ABSENT: rales, rhonchi Cardiovascular exam: PRESENT: RRR. ABSENT: diastolic murmur, rubs, systolic murmur Vascular exam: PRESENT: normal capillary refill GI/Abdominal exam: PRESENT: normal bowel sounds, soft. ABSENT: distended, guarding, mass, organolmegaly, rebound, tenderness Extremities exam: ABSENT: calf tenderness, clubbing, pedal edema Neurological exam: PRESENT: alert, awake, oriented to person, oriented to place , oriented to time, oriented to situation, CN II-XII grossly intact. ABSENT: motor sensory deficit Psychiatric exam: PRESENT: appropriate affect Skin exam: PRESENT: dry, intact, warm. ABSENT: cyanosis, rash Results Laboratory Results: 02/17/17 06:30 02/17/17 06:30 02/17/17 02/17/17 06:30 06:30 WBC 6.8 RBC 4.03 Hgb 11.2 L Hct 34.3 L MCV 85 MCH 27.9 MCHC 32.8 RDW 14.6 H Plt Count 273 Seg Neutrophils % 77.6 Lymphocytes % 20.6 Monocytes % 1.4 L Eosinophils % 0.2 Basophils % 0.2 Absolute Neutrophils 5.2 Absolute Lymphocytes 1.4 Absolute Monocytes 0.1 Absolute Eosinophils 0.0 Absolute Basophils 0.0 Sodium 139.8 Potassium 4.3 Chloride 93 L Carbon Dioxide 30 Anion Gap 17 BUN 12 Creatinine 0.83 Est GFR ( Amer) > 60 Est GFR (Non-Af Amer) > 60 Glucose 249 H Calcium 10.6 H Impressions: Chest X-Ray 02/16/17 23:20 IMPRESSION: No acute cardiopulmonary findings. Assessment & Plan - Diagnosis (1) Acute on chronic respiratory failure with hypoxemia Is this a current diagnosis for this admission?: Yes Plan: This is secondary to the COPD and bronchitis. Will treat with IV steroids, IV antibiotics, nebulizers. (2) COPD exacerbation Is this a current diagnosis for this admission?: Yes Plan: We will continue with IV steroids and nebulizers. (3) Bronchitis Is this a current diagnosis for this admission?: Yes Plan: Continue with Levaquin. (4) Diabetes Is this a current diagnosis for this admission?: Yes Plan: Continue with Levemir and sliding scale insulin. (5) GERD (gastroesophageal reflux disease) Is this a current diagnosis for this admission?: Yes (6) Diastolic dysfunction Is this a current diagnosis for this admission?: Yes (7) Schizo-affective schizophrenia Is this a current diagnosis for this admission?: Yes Plan: Continue invega, Zoloft, Depakote (8) Chronic congestive heart failure with left ventricular diastolic dysfunction Is this a current diagnosis for this admission?: Yes Plan: Continue with Lasix and antihypertensives. (9) Hypertension Is this a current diagnosis for this admission?: Yes Plan: Continue with Lopressor and diltiazem. - Time Time Spent with patient: 25-34 minutes - Inpatient Certification Medical Necessity: Need Close Monitoring Due to Risk of Patient Decompensation, Need for IV Antibiotics
[2017-02-17] MEDS ORDERED: SERTRALINE HCL 50 MG TABLET PO ONE ×2 (14:00→17:30)
[2017-02-17] MEDS: METHYLPREDNISOLONE INJ 40 MG/1 ML SDV IV SCH ×2 (14:33→22:56)
[2017-02-17] MEDS: OXYCODONE HCL IR 5 MG TABLET PO PRN ×2 (14:35→23:08)
[2017-02-17] MEDS: INSULIN LISPRO 100 UNIT/ML 3 ML VIAL SUBCUT PRN ×2 (18:28→22:58)
[2017-02-17] MEDS ORDERED: MAGNESIUM OXIDE 400 MG TABLET PO SCH (22:00)
[2017-02-17] MEDS ORDERED: DILTIAZEM HCL 180 MG CAPSULE.CR PO SCH (22:00)
[2017-02-17] MEDS ORDERED: METOPROLOL TARTRATE 25 MG TABLET PO SCH (22:00)
[2017-02-17] MEDS ORDERED: (PENDING PHARMACY ID) (Ranitidine Hcl [Ranitidine Hcl] 150 MG) PO SCH (22:00)
[2017-02-17] MEDS ORDERED: (PENDING PHARMACY ID) (Diltiazem Hcl [Cardizem Cd] 180 MG) PO SCH (22:00)
[2017-02-17] MEDS: ROPINIROLE HCL 0.25 MG TABLET PO SCH (22:56)
[2017-02-17] MEDS: THEOPHYLLINE ANHYDROUS 300 MG TAB.SR.12H PO SCH (22:56)
[2017-02-17] MEDS: DIVALPROEX SODIUM 500 MG TAB.SR.24H PO SCH (22:56)
[2017-02-17] MEDS: INSULIN DETEMIR 100 UNIT/ML 3 ML PEN SUBCUT SCH (22:57)
[2017-02-17] MEDS: FAMOTIDINE 20 MG TABLET PO SCH (22:57)
[2017-02-17] MEDS: LEVOFLOXACIN 750 MG/D5W RTU 750 MG/150 ML RTUPB IV SCH (22:58)
[2017-02-18] MEDS: IPRATROPIUM/ALBUTEROL 0.5-2.5 MG/3 ML AMPUL NEB SCH ×3 (02:00→13:30)
[2017-02-18 05:23] LABS: ABSOLUTE BASOPHILS # (AUTO) 0.1 10^3/uL (0.0-0.2); ABSOLUTE LYMPHOCYTES (AUTO) 1.4 10^3/uL (0.5-4.7); ABSOLUTE MONOCYTES (AUTO) 0.5 10^3/uL (0.1-1.4); ABSOLUTE NEUT (AUTO) 8.8 10^3/uL (1.7-8.2); BASOPHILS % (AUTO) 0.6 % (0-2); HEMATOCRIT 34.5 % (36.0-47.0); HEMOGLOBIN 11.2 g/dL (12.0-15.5); HGB HCT DIFFERENCE -0.9; LYMPHOCYTES % (AUTO) 12.7 % (13-45); MEAN CORPUSCULAR HEMOGLOBIN 27.9 pg (27.0-33.4); MEAN CORPUSCULAR HGB CONC 32.4 g/dL (32.0-36.0); MEAN CORPUSCULAR VOLUME 86 fl (80-97); MONOCYTES % (AUTO) 4.5 % (3-13); RED BLOOD COUNT 4.01 10^6/uL (3.72-5.28); RED CELL DISTRIBUTION WIDTH 14.6 % (11.5-14.0); SEGMENTED NEUTROPHILS % (AUTO) 82.2 % (42-78); WHITE BLOOD COUNT 10.7 10^3/uL (4.0-10.5)
[2017-02-18] MEDS: METHYLPREDNISOLONE INJ 40 MG/1 ML SDV IV SCH (05:53)
[2017-02-18] MEDS: HEPARIN SOD (PORCINE) 5,000 UNIT/ML 1 ML SYRINGE SUBCUT SCH ×3 (05:53→21:59)
[2017-02-18] MEDS: GABAPENTIN 300 MG CAPSULE PO SCH ×3 (05:53→21:59)
[2017-02-18 06:33] LABS: ANION GAP 13 (5-19); BLOOD UREA NITROGEN 18 mg/dL (7-20); CALCIUM 11.2 mg/dL (8.4-10.2); CARBON DIOXIDE 32 mmol/L (22-30); CHLORIDE 93 mmol/L (98-107); CREATININE RESULT 0.81 mg/dL (0.52-1.25); GLUCOSE 351 mg/dL (75-110); SODIUM 137.7 mmol/L (137-145)
[2017-02-18 06:39] LABS: POTASSIUM 5.8 mmol/L (3.6-5.0)
[2017-02-18] MEDS: SERTRALINE HCL 50 MG TABLET PO SCH (09:21)
[2017-02-18] MEDS: CHOLECALCIFEROL (D3) 1,000 UNIT TABLET PO SCH (09:22)
[2017-02-18] MEDS: FUROSEMIDE 20 MG TABLET PO SCH (09:23)
[2017-02-18] MEDS: ASPIRIN 81 MG TABLET, ENT COATED PO SCH (09:23)
[2017-02-18] MEDS: DILTIAZEM HCL 180 MG CAPSULE.CR PO SCH ×2 (09:23→21:59)
[2017-02-18] MEDS: FAMOTIDINE 20 MG TABLET PO SCH ×2 (09:23→21:59)
[2017-02-18] MEDS: CYANOCOBALAMIN (VITAMIN B-12) 1,000 MCG TABLET PO SCH (09:24)
[2017-02-18] MEDS: METOPROLOL TARTRATE 25 MG TABLET PO SCH ×2 (09:24→21:59)
[2017-02-18] MEDS: LANSOPRAZOLE 15 MG TAB.RAP.DR PO SCH (09:24)
[2017-02-18] MEDS: FLUTICASONE NASAL SPRAY 50 MCG/SPRY 120 SPRAY/16 GM NASL SCH ×2 (09:24→22:00)
[2017-02-18] MEDS: PALIPERIDONE 6 MG TAB.ER.24 PO SCH (09:25)
[2017-02-18] MEDS: THEOPHYLLINE ANHYDROUS 300 MG TAB.SR.12H PO SCH ×2 (09:26→22:00)
[2017-02-18] MEDS ORDERED: (PENDING PHARMACY ID) (Cholecalciferol (Vitamin D3) [D3-2000] 2,000 UNIT) PO SCH (10:00)
[2017-02-18] MEDS ORDERED: CHOLECALCIFEROL (D3) 1,000 UNIT TABLET PO SCH (10:00)
[2017-02-18] MEDS ORDERED: ASPIRIN 81 MG TABLET, CHEWABLE PO SCH (10:00)
[2017-02-18] MEDS ORDERED: (PENDING PHARMACY ID) (Sertraline Hcl [Zoloft] 200 MG) PO SCH (10:00)
[2017-02-18] MEDS ORDERED: (PENDING PHARMACY ID) (Mirabegron [Myrbetriq] 50 MG) PO SCH (10:00)
[2017-02-18] MEDS ORDERED: SODIUM POLYSTYRENE SULFONATE 15 GM/60 ML PO ONE ×3 (10:30→16:00)
[2017-02-18] MEDS ORDERED: NORMAL SALINE 1000 ML 1,000 ML IV PRN (11:08)
--- NOTE | 2017-02-18 11:15 | PDOC PROGRESS REPORT ---
Subjective Progress Note for:: 02/18/17 Subjective:: SOB is much better. No BM. No N/V/chills nor fever. No CP, no PND/orthopnea. Physical Exam Vital Signs: Temp Pulse Resp BP Pulse Ox 97.8 F 78 21 H 136/74 H 98 02/18/17 07:22 02/18/17 07:56 02/18/17 07:56 02/18/17 07:22 02/18/17 07:56 Intake & Output 02/17/17 02/18/17 02/19/17 06:59 06:59 06:59 Intake Total 700 2470 Output Total 2550 Balance 700 -80 Weight 175.3 kg 147.6 kg General appearance: PRESENT: no acute distress, cooperative, morbidly obese, other - nasal canula oxugen. Head exam: PRESENT: normocephalic Eye exam: PRESENT: EOMI Mouth exam: PRESENT: dry mucosa Neck exam: ABSENT: JVD Respiratory exam: PRESENT: clear to auscultation jacek. ABSENT: rhonchi, wheezes Cardiovascular exam: PRESENT: RRR. ABSENT: gallop GI/Abdominal exam: PRESENT: normal bowel sounds, soft. ABSENT: distended - obese Extremities exam: PRESENT: other - trace edema B/L. Neurological exam: PRESENT: alert, awake, oriented to situation Skin exam: PRESENT: dry, warm. ABSENT: cyanosis Results Laboratory Results: 02/18/17 04:53 02/18/17 06:11 02/18/17 02/18/17 02/18/17 04:53 04:53 06:11 WBC 10.7 H RBC 4.01 Hgb 11.2 L Hct 34.5 L MCV 86 MCH 27.9 MCHC 32.4 RDW 14.6 H Plt Count 304 Seg Neutrophils % 82.2 H Lymphocytes % 12.7 L Monocytes % 4.5 Eosinophils % 0.0 Basophils % 0.6 Absolute Neutrophils 8.8 H Absolute Lymphocytes 1.4 Absolute Monocytes 0.5 Absolute Eosinophils 0.0 Absolute Basophils 0.1 Sodium Cancelled 137.7 Potassium Cancelled 5.8 H D Chloride Cancelled 93 L Carbon Dioxide Cancelled 32 H Anion Gap Cancelled 13 BUN Cancelled 18 Creatinine Cancelled 0.81 Est GFR ( Amer) Cancelled > 60 Est GFR (Non-Af Amer) Cancelled > 60 Glucose Cancelled 351 H Calcium Cancelled 11.2 H Impressions: Chest X-Ray 02/16/17 23:20 IMPRESSION: No acute cardiopulmonary findings. 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 status Qualified Code(s): E11.8 - Type 2 diabetes mellitus with unspecified complications Is this a current diagnosis for this admission?: Yes (7) GERD (gastroesophageal reflux disease) Qualifiers: Esophagitis presence: without esophagitis Qualified Code(s): K21.9 - Gastro -esophageal reflux disease without esophagitis Is this a current diagnosis for this admission?: Yes (8) Hypertension Qualifiers: Hypertension type: essential hypertension Qualified Code(s): I10 - Essential (primary) hypertension Is this a current diagnosis for this admission?: Yes (9) Chronic congestive heart failure with left ventricular diastolic dysfunction Is this a current diagnosis for this admission?: Yes (10) Schizo-affective schizophrenia Is this a current diagnosis for this admission?: Yes - Time Time Spent with patient: 25-34 minutes - Plan Summary Plan Summary: D/C steroids. Begin Kayexalate. D/C magnesium. Begin IVF w/ NS. Recheck electrolytes in am. Continue nebulizers.
[2017-02-18] MEDS: INSULIN LISPRO 100 UNIT/ML 3 ML VIAL SUBCUT PRN ×2 (15:40→22:00)
[2017-02-18] MEDS: OXYCODONE HCL IR 5 MG TABLET PO PRN ×2 (15:46→22:00)
[2017-02-18] MEDS: LEVALBUTEROL HCL NEB 1.25 MG/3 ML AMPUL NEB SCH (20:25)
[2017-02-18] MEDS: IPRATROPIUM BROMIDE 0.02% NEB 0.5 MG/2.5 ML AMPUL NEB SCH (20:25)
[2017-02-18] MEDS: DIVALPROEX SODIUM 500 MG TAB.SR.24H PO SCH (21:59)
[2017-02-18] MEDS: ROPINIROLE HCL 0.25 MG TABLET PO SCH (22:00)
[2017-02-18] MEDS: LEVOFLOXACIN 750 MG/D5W RTU 750 MG/150 ML RTUPB IV SCH (22:00)
[2017-02-18] MEDS: INSULIN DETEMIR 100 UNIT/ML 3 ML PEN SUBCUT SCH (22:00)
[2017-02-19] MEDS: LEVALBUTEROL HCL NEB 1.25 MG/3 ML AMPUL NEB SCH ×2 (01:47→08:03)
[2017-02-19] MEDS: IPRATROPIUM BROMIDE 0.02% NEB 0.5 MG/2.5 ML AMPUL NEB SCH ×2 (01:47→08:03)
[2017-02-19] MEDS: GABAPENTIN 300 MG CAPSULE PO SCH (05:28)
[2017-02-19] MEDS: HEPARIN SOD (PORCINE) 5,000 UNIT/ML 1 ML SYRINGE SUBCUT SCH (05:28)
[2017-02-19] MEDS: OXYCODONE HCL IR 5 MG TABLET PO PRN (05:28)
[2017-02-19 05:38] LABS: ANION GAP 11 (5-19); BLOOD UREA NITROGEN 20 mg/dL (7-20); CALCIUM 10.5 mg/dL (8.4-10.2); CARBON DIOXIDE 36 mmol/L (22-30); CHLORIDE 92 mmol/L (98-107); CREATININE RESULT 0.81 mg/dL (0.52-1.25); GLUCOSE 244 mg/dL (75-110); POTASSIUM 4.6 mmol/L (3.6-5.0); SODIUM 138.5 mmol/L (137-145)
[2017-02-19] MEDS: METOPROLOL TARTRATE 25 MG TABLET PO SCH (09:16)
[2017-02-19] MEDS: FAMOTIDINE 20 MG TABLET PO SCH (09:16)
[2017-02-19] MEDS: CHOLECALCIFEROL (D3) 1,000 UNIT TABLET PO SCH (09:16)
[2017-02-19] MEDS: DILTIAZEM HCL 180 MG CAPSULE.CR PO SCH (09:16)
[2017-02-19] MEDS: CYANOCOBALAMIN (VITAMIN B-12) 1,000 MCG TABLET PO SCH (09:16)
[2017-02-19] MEDS: ASPIRIN 81 MG TABLET, ENT COATED PO SCH (09:16)
[2017-02-19] MEDS: LANSOPRAZOLE 15 MG TAB.RAP.DR PO SCH (09:16)
[2017-02-19] MEDS: THEOPHYLLINE ANHYDROUS 300 MG TAB.SR.12H PO SCH (09:17)
[2017-02-19] MEDS: PALIPERIDONE 6 MG TAB.ER.24 PO SCH (09:17)
[2017-02-19] MEDS: FLUTICASONE NASAL SPRAY 50 MCG/SPRY 120 SPRAY/16 GM NASL SCH (09:17)
[2017-02-19] MEDS: SERTRALINE HCL 50 MG TABLET PO SCH (09:17)
--- NOTE | 2017-02-19 09:37 | PDOC DISCHARGE SUMMARY ---
General - Admit/Disc Date/PCP Admission Date/Primary Care Provider: 02/16/17 23:35 PAULINA FLORES NP Discharge Date: 02/19/17 - Discharge Diagnosis (1) Acute on chronic respiratory failure with hypoxemia Is this a current diagnosis for this admission?: Yes (2) COPD exacerbation Is this a current diagnosis for this admission?: Yes (3) Hyperkalemia Is this a current diagnosis for this admission?: Yes (4) Hypercalcemia Is this a current diagnosis for this admission?: Yes (5) Bronchitis Is this a current diagnosis for this admission?: Yes (6) Diabetes Is this a current diagnosis for this admission?: Yes (7) GERD (gastroesophageal reflux disease) Is this a current diagnosis for this admission?: Yes (8) Hypertension Is this a current diagnosis for this admission?: Yes (9) Chronic congestive heart failure with left ventricular diastolic dysfunction Is this a current diagnosis for this admission?: Yes (10) Schizo-affective schizophrenia Is this a current diagnosis for this admission?: Yes - Additional Information Resuscitation Status: Full Code Discharge Diet: Cardiac - Low-fat low-salt, Diabetic - No concentrated sweets, Other (Comments) - Increase oral fluids Discharge Activity: Activity As Tolerated, Balance Activity w/Rest, Slowly Increase Activity Home Medications: Aspirin 81 mg PO DAILY 02/17/17 Cholecalciferol (Vitamin D3) [D3-2000] 2,000 unit PO DAILY 02/17/17 Cyanocobalamin (Vitamin B-12) [Vitamin B-12] 1,000 mcg PO DAILY 02/17/17 Diltiazem HCl [Cardizem Cd] 180 mg PO Q12 02/17/17 Divalproex Sodium [Divalproex Sodium ER] 2,500 mg PO QHS 02/17/17 Gabapentin [Neurontin 300 mg Capsule] 300 mg PO Q8 02/17/17 Insulin Detemir [Levemir Flextouch] 40 unit SQ QHS 02/17/17 Metformin HCl [Glucophage 500 mg Tablet] 500 mg PO Q12 02/17/17 Metoprolol Tartrate [Lopressor 25 mg Tablet] 25 mg PO Q12 02/17/17 Mirabegron [Myrbetriq] 50 mg PO DAILY 02/17/17 Paliperidone [Invega 6 mg Tab.er] 6 mg PO DAILY 02/17/17 Ranitidine HCl 150 mg PO Q12 02/17/17 Ropinirole HCl [Requip 0.25 mg Tablet] 0.25 mg PO QHS 02/17/17 Sertraline HCl [Zoloft] 200 mg PO DAILY 02/17/17 Theophylline Anhydrous 300 mg PO Q12 02/17/17 Levalbuterol HCl [Xopenex Neb 1.25 mg/3 ml Ampul] 1.25 mg NEB RTQ6 #120 vial.neb 02/19/17 Levofloxacin [Levaquin 750 mg Tablet] 750 mg PO DAILY #5 tablet 02/19/17 Prednisone [Sterapred Ds] 1 pkg PO ASDIR PRN 12 Days tab.ds.pk 02/19/17 Torsemide [Demadex 20 mg Tablet] 10 mg PO DAILY #0 02/19/17 Additional Information: Increase oral fluid intake, recheck a metabolic panel and calcium outpatient with primary care physician in 1 week. History of Present Illness Patient complains of: Shortness of breath History of Present Illness: LILI HA is a 52 year old female with a past medical history of severe morbid obesity with a BMI of 64, obstructive sleep apnea, GERD, diabetes and oxygen dependent COPD. Patient been her usual state of health until approximately 4 days ago with symptoms of upper respiratory infection rhinorrhea postnasal drip and a nonproductive cough. She was treated with doxycycline without significant improvement. In addition she has had exceptional uncontrolled GERD over the last 3-4 days. In the emergency room she is found to be short of breath with hypoxia, global wheeze and tachypnea. Labs suggest chronic hypercapnia with a bicarb of 38. She started on empiric antibiotics, albuterol and Atrovent and BiPAP referred to the hospitalist for admission. Hospital Course Hospital Course: The patient was admitted to telemetry. The patient was begun on IV fluids. Steroids were started as well as [id number] nebulizers and oral antibiotic. Electrolytes were monitored. Course was noted for constipation and likewise hyperkalemia requiring Kayexalate. With above measures patient had a good bowel movement and potassium level normalized. Her serum calcium level trended down with hydration. She was advised to decrease her diuretic intake and likewise to increase oral fluid intake and avoid getting dehydrated. With nebulizers and steroids the patient's wheezing and shortness of breath significantly improved. She requested to be discharged and continue treatment on an outpatient basis. Patient reports she is close to her baseline and she is on 3 L of nasal cannula at home constantly. The rest of the hospital stay is unremarkable. Patient felt better and improved on discharge. Physical Exam Vital Signs: Temp Pulse Resp BP Pulse Ox 97.9 F 79 16 139/83 H 97 02/19/17 05:21 02/19/17 08:07 02/19/17 08:07 02/19/17 05:21 02/19/17 08:07 Intake & Output 02/18/17 02/19/17 02/20/17 06:59 06:59 06:59 Intake Total 2470 2670 Output Total 2550 Balance -80 2670 Weight 147.6 kg 146.7 kg General appearance: PRESENT: no acute distress, cooperative, morbidly obese Head exam: PRESENT: normocephalic Eye exam: PRESENT: EOMI Mouth exam: PRESENT: moist, neck supple Neck exam: ABSENT: JVD Respiratory exam: PRESENT: decreased breath sounds, unlabored. ABSENT: rhonchi , wheezes Cardiovascular exam: PRESENT: RRR. ABSENT: gallop GI/Abdominal exam: PRESENT: soft. ABSENT: distended - Obese Extremities exam: PRESENT: other - Trace lower extremity edema pretibial Neurological exam: PRESENT: alert, awake, oriented to person, oriented to place , oriented to time, oriented to situation Skin exam: PRESENT: dry, warm. ABSENT: cyanosis Results Laboratory Results: 02/18/17 04:53 02/19/17 04:52 02/18/17 02/19/17 15:06 04:52 Sodium 138.5 Potassium 5.1 H 4.6 Chloride 92 L Carbon Dioxide 36 H Anion Gap 11 BUN 20 Creatinine 0.81 Est GFR ( Amer) > 60 Est GFR (Non-Af Amer) > 60 Glucose 244 H Calcium 10.5 H Impressions: Chest X-Ray 02/16/17 23:20 IMPRESSION: No acute cardiopulmonary findings. Qualifiers PATEINT BEING DISCHARGED WITH ANY OF THE FOLLOWING DIAGNOSIS?: No Plan Discharge Plan: Follow-up with primary care physician in 1 week. Time Spent: Less than 30 Minutes
[2017-02-19 12:47] VITALS: BP 148/76
== END 2017-02-19 13:30 | disposition home or self-care (01) | DRG 190 ==
LOC: ER 19:08 → EH 23:35 → UNDOADMIN 23:43 → 4N 02-17 00:48
PROVIDERS: ADMIT Internal Medicine; ATTEND Internal Medicine
PROC: 5A09457 Assistance with Respiratory Ventilation, 24-96 Consecutive Hours, Continuous Positive Airway Pressure (ICD-10-PCS; principal; 2017-02-17)
DX: J44.1 Chronic obstructive pulmonary disease with (acute) exacerbation (principal); J96.21 Acute and chronic respiratory failure with hypoxia; J96.22 Acute and chronic respiratory failure with hypercapnia; I50.32 Chronic diastolic (congestive) heart failure; Z68.44 Body mass index [BMI] 60.0-69.9, adult; E66.01 Morbid (severe) obesity due to excess calories; K21.9 Gastro-esophageal reflux disease without esophagitis; G47.33 Obstructive sleep apnea (adult) (pediatric); F31.9 Bipolar disorder, unspecified; J40 Bronchitis, not specified as acute or chronic; E11.9 Type 2 diabetes mellitus without complications; E78.5 Hyperlipidemia, unspecified; M17.11 Unilateral primary osteoarthritis, right knee; I11.0 Hypertensive heart disease with heart failure; E87.5 Hyperkalemia; E83.52 Hypercalcemia; F25.9 Schizoaffective disorder, unspecified; K59.00 Constipation, unspecified; Z99.81 Dependence on supplemental oxygen; Z98.51 Tubal ligation status; Z79.899 Other long term (current) drug therapy; Z80.9 Family history of malignant neoplasm, unspecified; Z82.49 Family history of ischemic heart disease and other diseases of the circulatory system; Z83.3 Family history of diabetes mellitus; Z88.0 Allergy status to penicillin; Z88.6 Allergy status to analgesic agent; Z87.891 Personal history of nicotine dependence; Z82.61 Family history of arthritis
CPT/HCPCS: 36415; 71010; 80048; 80053; 82550; 82553; 82803; 82962; 83036; 83880; 84132; 84484; 85025; 87040; 93005; 93010; 94640; 94660; 96365; 96366; 96375; 99291; 99292; J1644; J1815; J1956; J2920; J2930; J3490; J7620

== ENCOUNTER 2017-02-22 11:32 | Emergency (ER) | payer MEDICAID ==
--- NOTE | 2017-02-22 12:02 | ER Document Report ---
ED General - General Information source: Patient TRAVEL OUTSIDE OF THE [place] IN LAST 30 DAYS: No - HPI Associated symptoms: Other - General Chief Complaint: Knee Pain Stated Complaint: KNEE PAIN Time Seen by Provider: 02/22/17 11:44 Notes: Patient is a 52 year old female who presents to the ED with complaint of sudden onset left calf pain with onset 0400 this morning. Patient denies any known injury. Patient was just discharged from the hospital on 02/19/17 and had been laying around during admission. She was given injections of blood thinners while admitted. Patient denies any worse sob. (MABEL GONZALEZ) - Related Data Allergies/Adverse Reactions: codeine [Codeine] Allergy (Severe, Verified 09/02/16 07:54) reacts with invega Penicillins Allergy (Severe, Verified 09/02/16 07:54) Hives Past Medical History - General Information source: Patient - Social History Smoking Status: Unknown if Ever Smoked Family History: Arthritis, CAD, CVA, DM, Hyperlipidemia, Hypertension, Malignancy - Past Medical History Cardiac Medical History: Reports: Hx Congestive Heart Failure, Hx Hypercholesterolemia, Hx Hypertension Pulmonary Medical History: Reports: Hx Asthma, Hx COPD, Hx Pneumonia, Hx Sleep Apnea - CPAP of 16. Endocrine Medical History: Reports: Hx Diabetes Mellitus Type 1, Hx Diabetes Mellitus Type 2 Renal/ Medical History: Denies: Hx Peritoneal Dialysis GI Medical History: Reports: Hx Gastroesophageal Reflux Disease Musculoskeltal Medical History: Reports Hx Arthritis - rt knee, Reports Hx Musculoskeletal Trauma Psychiatric Medical History: Reports: Hx Anxiety, Hx Bipolar Disorder, Hx Depression, Hx Schizoaffective Disorder, Hx Schizophrenia Traumatic Medical History: Reports: Hx Fractures - Ankle right Infectious Medical History: Denies: Hx Hepatitis Past Surgical History: Reports: Hx Section - 3, Hx Tubal Ligation - Immunizations Immunizations up to date: Yes Hx Diphtheria, Pertussis, Tetanus Vaccination: Yes Hx Pneumococcal Vaccination: 04/30/16 Review of Systems - Review of Systems Constitutional: No symptoms reported EENT: No symptoms reported Cardiovascular: No symptoms reported Respiratory: No symptoms reported Gastrointestinal: No symptoms reported Genitourinary: No symptoms reported Female Genitourinary: No symptoms reported Musculoskeletal: See HPI, Other - left leg pain Skin: No symptoms reported Hematologic/Lymphatic: No symptoms reported Neurological/Psychological: No symptoms reported Physical Exam - General General appearance: Appears well, Alert In distress: None - HEENT Head: Normocephalic, Atraumatic Eyes: Normal Extraocular movements intact: Yes Pupils: PERRL - Respiratory Respiratory status: No respiratory distress Breath sounds: Normal - Cardiovascular Rhythm: Regular Heart sounds: Normal auscultation Murmur: No - Abdominal Inspection: Morbidly Obese Tenderness: Nontender - Back Back: Normal - Extremities General upper extremity: Normal inspection, Normal strength General lower extremity: Other - left calf tenderness to palpation, good pulses and profusion, left calf is not obviously larger than the right - Neurological Neuro grossly intact: Yes - Psychological Associated symptoms: Normal affect, Normal mood - Skin Skin Temperature: Warm Skin Moisture: Dry Skin Color: Normal - Vital signs Vitals: Temp Pulse Resp BP Pulse Ox 99.0 F 84 18 151/82 H 96 02/22/17 11:45 02/22/17 11:45 02/22/17 11:45 02/22/17 11:45 02/22/17 11:45 Course - Re-evaluation Re-evalutation: 02/22/17 14:34 Morbidly obese female woke up this morning with left leg pain. On examination his left calf. It is not significantly swollen but is tender with a positive Homans sign good pulses and perfusion denies any injury there is no bony tenderness at the hip thigh knee or ankle. Good pulses and perfusion DVT ultrasound is ordered. No signs of infection or cellulitis 02/22/17 15:39 Patient has been very upset at the bedside they want to go home I have contacted Dr. Dodge left voicemail the radiophone operator try to get a hold of my call over to the radiology department. Patient wants to leave regardless. At the tech came in preliminary read but I cannot bases up on that. I am going to discharge her and call her with the ultrasound report. (INES SEPULVEDA) - Vital Signs Vital signs: Temp Pulse Resp BP Pulse Ox 98.7 F 65 18 118/72 95 02/22/17 15:49 02/22/17 15:49 02/22/17 15:49 02/22/17 15:49 02/22/17 15:49 Discharge - Discharge Clinical Impression: Leg pain Qualifiers: Laterality: left Qualified Code(s): M79.605 - Pain in left leg Condition: Stable Disposition: HOME, SELF-CARE Additional Instructions: Leg Pain, Nonspecific We did not find an obvious cause for your leg pain. There's no sign of blood clot, infection, or other serious disease. Possible causes of vague leg pain include muscle or joint inflammation, disc disease in the lower back, pressure on the nerves in the back, or reduced blood flow through the arteries of the leg. Rest the leg. Pain can be eased with an antiinflammatory pain medicine such as ibuprofen. If the pain involves a small area, a heating pad might help. Call the doctor or return if the leg becomes swollen, weak, discolored, or increasingly painful, or if you develop any other significant change in your health. Follow-up with your primary care physician on Friday we will contact you with the results of the ultrasound return for increasing worsening or new symptoms Elias Attestation: 02/22/17 15:41 I personally performed the services described in the documentation reviewed the documentation recorded by my scribe in my presence and it accurately and completely records my words and actions (INES SEPULVEDA) Anishaibe Documentation - Scribe Written by Elias:: elias Gonzalez, 02/22/2017, 1204 acting as scribe for :: Antoine
[2017-02-22 13:02] LABS: PROTHROMBIN TIME 12.7 SEC (11.4-15.4)
[2017-02-22] MEDS ORDERED: ACETAMINOPHEN 325 MG TABLET PO ONE (14:27)
[2017-02-22 15:58] VITALS: BP 118/72
--- NOTE | 2017-02-23 14:56 | XCELERA REPORT ---
[address] [address] Lower Extremity Venous Evaluation Name: LILI HA Age: 52 yrs Gender: Female : 1965 Patient Status: Emergency Patient Location: ER Study Date: 02/22/2017 01:05 PM Procedure: Color flow and duplex imaging of the veins of the left lower extremity as well as the right Common Femoral vein. Reason For Study: left calf pain swelling r/o dvt Ordering Physician: INES SEPULVEDA Performed By: Ольга Sparrow Right Sided Venous Evaluation The right common femoral vein is fully compressible. Spontaneous and phasic flow is present in the right common femoral vein. Left Sided Venous Evaluation Normal vessel filling wall to wall, compression and augmentation as well as Colour flow down to the infrageniculate veins. Interpretation Summary No duplex evidence of DVT or obstruction in the left lower extremity nor in the right Common Femoral vein. : INES SEPULVEDA > Beck Dodge
== END 2017-02-22 15:58 | disposition home or self-care (01) ==
LOC: ER 11:32
DX: M79.605 Pain in left leg (principal); M79.662 Pain in left lower leg; I50.9 Heart failure, unspecified; E78.00 Pure hypercholesterolemia, unspecified; I11.0 Hypertensive heart disease with heart failure; J44.9 Chronic obstructive pulmonary disease, unspecified; K21.9 Gastro-esophageal reflux disease without esophagitis; Z88.6 Allergy status to analgesic agent; Z88.0 Allergy status to penicillin; Z98.51 Tubal ligation status
CPT/HCPCS: 99284; 36415; 85610; 93971 ×2; J3490

== ENCOUNTER → 2017-03-21 | Outpatient (CLI) | payer MEDICAID ==
[2017-03-21 17:58] LABS: ABSOLUTE EOSINOPHILS # (AUTO) 0.1 10^3/uL (0.0-0.6); ABSOLUTE LYMPHOCYTES (AUTO) 3.4 10^3/uL (0.5-4.7); ABSOLUTE MONOCYTES (AUTO) 0.7 10^3/uL (0.1-1.4); ABSOLUTE NEUT (AUTO) 3.8 10^3/uL (1.7-8.2); BASOPHILS % (AUTO) 0.4 % (0-2); EOSINOPHILS % (AUTO) 1.5 % (0-6); HEMATOCRIT 34.5 % (36.0-47.0); HEMOGLOBIN 11.5 g/dL (12.0-15.5); LYMPHOCYTES % (AUTO) 42.1 % (13-45); MEAN CORPUSCULAR HEMOGLOBIN 28.1 pg (27.0-33.4); MEAN CORPUSCULAR HGB CONC 33.5 g/dL (32.0-36.0); MEAN CORPUSCULAR VOLUME 84 fl (80-97); MONOCYTES % (AUTO) 9.2 % (3-13); RED CELL DISTRIBUTION WIDTH 14.8 % (11.5-14.0); SEGMENTED NEUTROPHILS % (AUTO) 46.8 % (42-78); WHITE BLOOD COUNT 8.1 10^3/uL (4.0-10.5)
[2017-03-24 07:54] LABS: THEOPHYLLINE 10.7 ug/mL (10.0-20.0)
== END ==
LOC: OD 16:29
PROVIDERS: ATTEND Psychiatry & Neurology Psychiatry
DX: J45.50 Severe persistent asthma, uncomplicated (principal); F25.1 Schizoaffective disorder, depressive type; Z79.899 Other long term (current) drug therapy
CPT/HCPCS: 36415; 80164; 80198; 82785; 85025; 86003

== ENCOUNTER 2017-05-12 22:38 | Emergency (ER) | payer MEDICAID ==
[2017-05-12] MEDS ORDERED: METHYLPREDNISOLONE INJ 125 MG/2 ML SDV IV ONE (22:52)
[2017-05-12] MEDS ORDERED: IPRATROPIUM/ALBUTEROL 0.5-2.5 MG/3 ML AMPUL NEB ONE (22:52)
--- NOTE | 2017-05-12 22:54 | ER Document Report ---
ED General - General Chief Complaint: Shortness Of Breath Stated Complaint: BREATHING DIFFICULTY Time Seen by Provider: 05/12/17 22:42 Notes: Patient is a 52-year-old female presents emergency department complaining of shortness of breath for 1 week but worse this evening. Patient states that she felt short of breath and try to go to sleep tonight. Otherwise she admits to runny nose and sinus congestion over the past week. Otherwise denies any fever , chills, chest pain, nausea, vomiting, abdominal pain. Past medical history significant for diabetes, CHF, COPD on 3 L at home. TRAVEL OUTSIDE OF THE [place] IN LAST 30 DAYS: No - Related Data Allergies/Adverse Reactions: codeine [Codeine] Allergy (Severe, Verified 09/02/16 07:54) reacts with invega Penicillins Allergy (Severe, Verified 09/02/16 07:54) Hives Past Medical History - Social History Smoking Status: Former Smoker Family History: Arthritis, CAD, CVA, DM, Hyperlipidemia, Hypertension, Malignancy - Past Medical History Cardiac Medical History: Reports: Hx Congestive Heart Failure, Hx Hypercholesterolemia, Hx Hypertension Denies: Hx DVT, Hx Heart Attack, Hx Pulmonary Embolism Pulmonary Medical History: Reports: Hx Asthma, Hx COPD, Hx Pneumonia, Hx Sleep Apnea - CPAP of 16. Neurological Medical History: Denies: Hx Seizures Endocrine Medical History: Reports: Hx Diabetes Mellitus Type 1, Hx Diabetes Mellitus Type 2. Denies: Hx Hyperthyroidism, Hx Hypothyroidism Renal/ Medical History: Denies: Hx Peritoneal Dialysis GI Medical History: Reports: Hx Gastroesophageal Reflux Disease. Denies: Hx Cirrhosis, Hx Hepatitis Musculoskeltal Medical History: Reports Hx Arthritis - rt knee, Reports Hx Musculoskeletal Trauma Psychiatric Medical History: Reports: Hx Anxiety, Hx Bipolar Disorder, Hx Depression, Hx Schizoaffective Disorder, Hx Schizophrenia Traumatic Medical History: Reports: Hx Fractures - Ankle right Infectious Medical History: Denies: Hx Hepatitis Past Surgical History: Reports: Hx Section - 3, Hx Tubal Ligation - Immunizations Immunizations up to date: Yes Hx Diphtheria, Pertussis, Tetanus Vaccination: Yes Hx Pneumococcal Vaccination: 04/30/16 Review of Systems - Review of Systems Constitutional: No symptoms reported EENT: See HPI Cardiovascular: See HPI Respiratory: See HPI Gastrointestinal: No symptoms reported -: Yes All other systems reviewed and negative Physical Exam - Vital signs Vitals: Pulse Ox 93 05/12/17 22:44 - Notes Notes: PHYSICAL EXAM GENERAL: Alert, interacts well. Speaking in clear in complete sentences HEAD: Normocephalic, atraumatic. EYES: Pupils equal, round, and reactive to light. Extraocular movements intact. ENT: Oral mucosa moist, tongue midline. NECK: Full range of motion. Supple. Trachea midline. LUNGS: Decreased air movement noted bilaterally without wheezes, rales, or rhonchi. No respiratory distress. HEART: Regular rate and rhythm. No murmurs, gallops, or rubs. ABDOMEN: Soft, nondistended, nontender. No guarding, rebound, or rigidity.. Bowel sounds present in all 4 quadrants. EXTREMITIES: Moves all 4 extremities spontaneously. No edema, radial and dorsalis pedis pulses 2/4 bilaterally. No cyanosis. NEUROLOGICAL: Alert and oriented x4. Normal speech. PSYCH: Normal affect, normal mood. SKIN: Warm, dry, normal turgor. No rashes or lesions noted. Course - Re-evaluation Re-evalutation: 05/13/17 01:00 Patient is a 52-year-old female is hemodynamically stable, no acute distress afebrile. Chest x-ray without evidence of acute CHF, infiltrate. No evidence of leukocytosis or anemia. Cardiac enzymes are negative. Patient is PERC negative, heart score less than 3. Presentation is consistent with COPD exacerbation. Patient did clinically improve after receiving nebulizers and steroid here in the department. Labs without evidence of acute kidney injury. Patient states that she feels at baseline and stable to return home. Discussed with her to follow-up with her primary care provider tomorrow. Patient agrees with plan. States she has plenty of her nebulizers at home. Low clinical suspicion for PE, ACS, pneumothorax or dissection. Discussed strict return precautions. Verbal discharge instructions given a the bedside and opportunity for questions given. Medication warnings reviewed. Patient is in agreement with this plan and has verbalized understanding of return precautions and the need for primary care follow-up in the next 24-72 hours. - Vital Signs Vital signs: Temp Pulse Resp BP Pulse Ox 98.7 F 88 20 155/75 H 96 05/13/17 01:21 05/13/17 01:21 05/13/17 01:21 05/13/17 01:21 05/13/17 00:01 - Laboratory Result Diagrams: 05/12/17 23:10 05/12/17 23:10 Laboratory results interpreted by me: 05/12/17 05/12/17 05/12/17 23:10 23:10 23:10 Hgb 11.2 L Hct 34.1 L RDW 14.1 H Lymphocytes % 45.2 H Carbonic Acid 1.90 H ABG pCO2 63.0 H ABG pO2 110.2 H ABG HCO3 39.4 H ABG Total CO2 41.3 H Chloride 94 L Carbon Dioxide 35 H Glucose 160 H Creatine Kinase 290 H Discharge - Discharge Clinical Impression: COPD exacerbation Condition: Good Disposition: HOME, SELF-CARE Additional Instructions: You were seen for a COPD exacerbation. Your symptoms improved with treatment here in the emergency department. However, it is very important that you return to the emergency department immediately if you began to have worsening difficulty breathing that does not respond to your normal home nebulizers. You are also being sent home on a five-day course of steroids that you should start taking tomorrow. Please also take the antibiotics as prescribed. Please also follow closely with your primary care physician. You should return to emergency department if you develop fever greater than 101, persistent cough, persistent vomiting, pass out, or any other symptoms that are concerning to you. Prescriptions: Prednisone [Deltasone 20 mg Tablet] 3 tab PO DAILY 5 Days tablet Referrals: APULINA FLORES NP [[facility] STAFF] - Follow up tomorrow
--- NOTE | 2017-05-12 23:20 | RADIOLOGY REPORT (SQ) ---
EXAM DESCRIPTION: CHEST SINGLE VIEW COMPLETED DATE/TIME: 05/12/2017 11:07 pm REASON FOR STUDY: shortness of breath, orthopnea COMPARISON: 02/16/2017 NUMBER OF VIEWS: One view. TECHNIQUE: Single frontal radiographic view of the chest acquired. LIMITATIONS: None. FINDINGS: LUNGS AND PLEURA: No opacities, masses or pneumothorax. No pleural effusion. MEDIASTINUM AND HILAR STRUCTURES: No masses. Contour normal. HEART AND VASCULAR STRUCTURES: Heart enlarged without failure. Normal vasculature. BONES: No acute findings. HARDWARE: None in the chest. OTHER: No other significant finding. IMPRESSION: HEART ENLARGED WITHOUT FAILURE. NO OTHER SIGNIFICANT RADIOGRAPHIC FINDING IN THE CHEST. TECHNICAL DOCUMENTATION: JOB ID: [id number] [employer]- All Rights Reserved
[2017-05-12] MEDS: ALBUTEROL SULFATE 0.083% NEB 2.5 MG/3 ML AMPUL NEB SCH (23:37)
[2017-05-12 23:42] LABS: ABSOLUTE EOSINOPHILS # (AUTO) 0.1 10^3/uL (0.0-0.6); ABSOLUTE LYMPHOCYTES (AUTO) 2.3 10^3/uL (0.5-4.7); ABSOLUTE MONOCYTES (AUTO) 0.4 10^3/uL (0.1-1.4); ABSOLUTE NEUT (AUTO) 2.3 10^3/uL (1.7-8.2); BASOPHILS % (AUTO) 0.3 % (0-2); EOSINOPHILS % (AUTO) 1.5 % (0-6); HEMATOCRIT 34.1 % (36.0-47.0); HEMOGLOBIN 11.2 g/dL (12.0-15.5); HGB HCT DIFFERENCE -0.5; LYMPHOCYTES % (AUTO) 45.2 % (13-45); MEAN CORPUSCULAR HEMOGLOBIN 28.3 pg (27.0-33.4); MEAN CORPUSCULAR HGB CONC 32.7 g/dL (32.0-36.0); MEAN CORPUSCULAR VOLUME 87 fl (80-97); MONOCYTES % (AUTO) 8.4 % (3-13); RED BLOOD COUNT 3.94 10^6/uL (3.72-5.28); RED CELL DISTRIBUTION WIDTH 14.1 % (11.5-14.0); SEGMENTED NEUTROPHILS % (AUTO) 44.6 % (42-78); WHITE BLOOD COUNT 5.2 10^3/uL (4.0-10.5)
[2017-05-12 23:43] LABS: ARTERIAL BLOOD BASE EXCESS 12.5 mmol/L; ARTERIAL BLOOD O2 SATURATION 97.9 % (94-98)
[2017-05-13 00:03] LABS: ALANINE AMINOTRANSFERASE 27 U/L (9-52); ALBUMIN 3.8 g/dL (3.5-5.0); ALKALINE PHOSPHATASE 46 U/L (38-126); ANION GAP 13 (5-19); ASPARTATE AMINO TRANSFERASE 19 U/L (14-36); BILIRUBIN,DIRECT 0.3 mg/dL (0.0-0.4); BILIRUBIN,TOTAL 0.3 mg/dL (0.2-1.3); BLOOD UREA NITROGEN 9 mg/dL (7-20); CALCIUM 10.2 mg/dL (8.4-10.2); CARBON DIOXIDE 35 mmol/L (22-30); CHLORIDE 94 mmol/L (98-107); CREATINE KINASE 290 U/L (30-135); CREATININE RESULT 0.94 mg/dL (0.52-1.25); GLUCOSE 160 mg/dL (75-110); POTASSIUM 3.9 mmol/L (3.6-5.0); SODIUM 141.7 mmol/L (137-145)
[2017-05-13] MEDS: ALBUTEROL SULFATE 0.083% NEB 2.5 MG/3 ML AMPUL NEB SCH (00:11)
[2017-05-13 00:14] LABS: CREATINE KINASE MB 1.88 ng/mL (<4.55)
[2017-05-13 00:15] LABS: TROPONIN I < 0.012 ng/mL
[2017-05-13 01:22] VITALS: BP 155/75
--- NOTE | 2017-05-13 09:46 | EKG REPORT ---
SEVERITY:- BORDERLINE ECG - SINUS RHYTHM BORDERLINE R WAVE PROGRESSION, ANTERIOR LEADS : Confirmed by: Travis Marie 13-May-2017 09:45:38
== END 2017-05-13 01:22 | disposition home or self-care (01) ==
LOC: ER 22:38
DX: J44.1 Chronic obstructive pulmonary disease with (acute) exacerbation (principal); I50.9 Heart failure, unspecified; E11.9 Type 2 diabetes mellitus without complications; J44.9 Chronic obstructive pulmonary disease, unspecified; Z88.6 Allergy status to analgesic agent; Z88.0 Allergy status to penicillin; Z87.891 Personal history of nicotine dependence; Z98.51 Tubal ligation status
CPT/HCPCS: 93005; 94640 ×2; 99285; 96374; 36415; 82553; 82803; 82550; 85025; 80053; 84484; 83880; 71010; 93010; J2930; J7620

== ENCOUNTER 2017-07-18 22:09 | Emergency (ER) | payer MEDICAID ==
[2017-07-18] MEDS ORDERED: ONDANSETRON HCL INJ/PF 4 MG/2 ML SDV IV ONE (22:16)
--- NOTE | 2017-07-18 22:17 | ER Document Report ---
ED General - General Chief Complaint: Shortness Of Breath Stated Complaint: VOMITING/SHORTNESS OF BREATH Time Seen by Provider: 07/18/17 22:14 Notes: The patient is a 52-year-old female, past medical history CHF, COPD (on home 4L O2), hypertension, presents with 1 day of nausea, vomiting and shortness of breath. She tried her albuterol inhaler at home just prior to EMS arrival with some relief her symptoms. EMS gave her 8 mg Zofran ODT and she her nausea has improved. She denies fevers, hemoptysis, increased leg swelling, chest pain, abdominal pain, back pain, urinary symptoms, headache, numbness, tingling or rash. TRAVEL OUTSIDE OF THE [place] IN LAST 30 DAYS: No - Related Data Allergies/Adverse Reactions: codeine [Codeine] Allergy (Severe, Verified 09/02/16 07:54) reacts with invega Penicillins Allergy (Severe, Verified 09/02/16 07:54) Hives Past Medical History - General Information source: Patient - Social History Smoking Status: Unknown if Ever Smoked Family History: Arthritis, CAD, CVA, DM, Hyperlipidemia, Hypertension, Malignancy - Past Medical History Cardiac Medical History: Reports: Hx Congestive Heart Failure, Hx Hypercholesterolemia, Hx Hypertension Denies: Hx DVT, Hx Heart Attack, Hx Pulmonary Embolism Pulmonary Medical History: Reports: Hx Asthma, Hx COPD, Hx Pneumonia, Hx Sleep Apnea - CPAP of 16. Neurological Medical History: Denies: Hx Seizures Endocrine Medical History: Reports: Hx Diabetes Mellitus Type 1, Hx Diabetes Mellitus Type 2. Denies: Hx Hyperthyroidism, Hx Hypothyroidism Renal/ Medical History: Denies: Hx Peritoneal Dialysis GI Medical History: Reports: Hx Gastroesophageal Reflux Disease. Denies: Hx Cirrhosis, Hx Hepatitis Musculoskeltal Medical History: Reports Hx Arthritis - rt knee, Reports Hx Musculoskeletal Trauma Psychiatric Medical History: Reports: Hx Anxiety, Hx Bipolar Disorder, Hx Depression, Hx Schizoaffective Disorder, Hx Schizophrenia Traumatic Medical History: Reports: Hx Fractures - Ankle right Infectious Medical History: Denies: Hx Hepatitis Past Surgical History: Reports: Hx Section - 3, Hx Tubal Ligation - Immunizations Immunizations up to date: Yes Hx Diphtheria, Pertussis, Tetanus Vaccination: Yes Hx Pneumococcal Vaccination: 04/30/16 Review of Systems - Review of Systems Notes: REVIEW OF SYSTEMS: CONSTITUTIONAL: -fevers, -chills EENT: -eye pain, -difficulty swallowing, -nasal congestion CARDIOVASCULAR: -chest pain, -syncope. RESPIRATORY: -cough, +SOB GASTROINTESTINAL: -abdominal pain, +nausea, +vomiting, -diarrhea GENITOURINARY: -dysuria, -hematuria MUSCULOSKELETAL: -back pain, -neck pain SKIN: -rash or skin lesions. HEMATOLOGIC: -easy bruising or bleeding. LYMPHATIC: -swollen, enlarged glands. NEUROLOGICAL: -altered mental status or loss of consciousness, -headache, - neurologic symptoms PSYCHIATRIC: -anxiety, -depression. ALL OTHER SYSTEMS REVIEWED AND NEGATIVE. Physical Exam - Vital signs Vitals: Pulse Ox 95 07/18/17 22:17 - Notes Notes: PHYSICAL EXAMINATION: GENERAL: Well-appearing, well-nourished and in no acute distress. HEAD: Atraumatic, normocephalic. EYES: Pupils equal round and reactive to light, extraocular movements intact, sclera anicteric, conjunctiva are normal. ENT: nares patent, oropharynx clear without exudates. Moist mucous membranes. NECK: Normal range of motion, supple without lymphadenopathy LUNGS: No respiratory distress. End-expiratory wheezing in all lung [place]. HEART: Tachycardia, regular rhythm. ABDOMEN: Soft, nontender, normoactive bowel sounds. No guarding, no rebound. No masses appreciated. EXTREMITIES: 1+ pitting edema. Normal range of motion. No cyanosis. NEUROLOGICAL: Cranial nerves grossly intact. Normal speech, normal gait. Normal sensory and motor exams. PSYCH: Normal mood, normal affect. SKIN: Warm, Dry, normal turgor, no rashes or lesions noted. Course - Re-evaluation Re-evalutation: Patient appears well and is in no acute respiratory distress. She is not hypoxic using her home 4 L oxygen and she is afebrile. Chest x-ray does not show any focal infiltrates or pulmonary edema. She does not appear to be fluid overloaded. After duonebs and steroids, she feels much better and her wheezing has resolved. After Zofran, she is no longer feeling nauseous and is able to take her home medications that she missed today. She has absolutely no abdominal pain or tenderness. Blood work is unremarkable. Patient remains mildly tachycardic after her breathing treatments. This did not improve after normal saline. With her shortness of breath and tachycardia, CTA chest was ordered to assess for PE. The CTA chest did not show any evidence of PE or any other acute abnormalities. Her EKG does not show any active ischemia and her troponin is negative. Will provide patient with 4 more days of prednisone, refill of her albuterol and follow-up at her primary care physician. Given very strict return precautions and she understands. - Vital Signs Vital signs: Temp Pulse Resp BP Pulse Ox 20 165/87 H 94 07/18/17 22:32 07/18/17 22:32 07/18/17 22:32 - Laboratory Result Diagrams: 07/18/17 22:46 07/18/17 22:46 Laboratory results interpreted by me: 07/18/17 07/18/17 07/18/17 22:46 22:46 22:46 Hgb 10.7 L Hct 33.4 L VBG pCO2 75.4 H* VBG HCO3 42.3 H Chloride 90 L Carbon Dioxide 39 H Glucose 136 H Creatine Kinase 164 H - Diagnostic Test Radiology reviewed: Image reviewed, Reports reviewed Radiology results interpreted by me: CXR: NAD CTA Chest: NAD - EKG Interpretation by Me EKG shows normal: Sinus rhythm, [place], Intervals, QRS Complexes, ST-T Waves Rate: Tachycardia Discharge - Discharge Clinical Impression: COPD exacerbation Vomiting Qualifiers: Vomiting type: unspecified Vomiting Intractability: unspecified Nausea presence : with nausea Qualified Code(s): R11.2 - Nausea with vomiting, unspecified Condition: Stable Disposition: HOME, SELF-CARE Additional Instructions: BRONCHITIS WITH BRONCHOSPASM (WHEEZING): You have bronchitis with bronchospasm (wheezing). Sometimes people develop wheezing with a chest cold. This occurs either because of an underlying tendency toward asthma or because the virus itself irritates the bronchial tubes. This irritation causes cough, shortness of breath, and wheezing. Emergency treatment of bronchospasm may include adrenaline shots or bronchodilator aerosol. You may feel lightheaded and have a rapid pulse for an hour or two. Rest and get plenty of fluids. At home, we'll treat you with a bronchodilator inhaler. Corticosteroids may be required for some patients. Until you recover, avoid chemical fumes, dusts, pollens, and exercising in very cold or dry air. If you smoke, stop now! Most cases of bronchitis get better without antibiotics. We prescribe antibiotics when we believe bacteria are damaging your airways, or if there's high risk the bronchitis will worsen into pneumonia. Increase your fluid intake. A cool mist humidifier may make your lungs more comfortable. An expectorant (cough medicine that loosens phlegm) can help. Repeated episodes of bronchitis and bronchospasm may result in lung damage -- for example, chronic bronchitis, recurrent pneumonias, or emphysema. If you develop a fever, increased wheezing, chest pain, or severe shortness of breath, you should contact the doctor immediately. INHALED BRONCHODILATORS: You have received a treatment of and/or prescription for an inhaled bronchodilator -- a medication which stimulates the airways in the lung to dilate. This improves the flow of air in asthma, bronchitis, and emphysema. These medicines have some similarity to adrenaline, and can cause similar side effects: shakiness, racing heart, and a sense of nervousness. These side effects decrease with time. Contact your doctor if these side effects are severe. Do not over-use the medicine. Too-frequent use of the inhaler may make it ineffective. Call your doctor if the inhaler is not controlling your symptoms at the prescribed doses. STEROID MEDICATION: You have been given an injection of or oral medicine of the cortisone/ steroid class. This medication is used to control inflammation or allergy. Beltran t is usually only given for a short period of time, until the acute process subsides. There are usually no side effects from short-term use of cortisone-like medications. Some persons feel an increased sense of well-being and are not sleepy at bedtime. Long-term use of cortisone medications is best avoided, unless required for a severe condition. If your condition does not remit, or relapses after the course of corticosteroid medication, you should consult your physician. USE OF ACETAMINOPHEN (Tylenol): Acetaminophen may be taken for pain relief or fever control. It's much safer than aspirin, offering a wider range of "safe" dosages. It is safe during . Some brand names are Tylenol, Panadol, Datril, Anacin 3, Tempra, and Liquiprin. Acetaminophen can be repeated every four hours. The following are maximum recommended dosages: >89 pounds or adults 650 mg to 900 mg Acetaminophen can be repeated every four hours. Maximum dose not to exceed 4000 mg a day. SMOKING: If you smoke, you should stop smoking. The tar and chemicals in cigarette smoke are harmful. Smoking has been shown to cause: emphysema chronic bronchitis lung cancer mouth and throat cancer stomach and pancreas cancer premature aging defects In addition, smoking increases ear and lung infections in children of smokers. FOLLOW-UP CARE: If you have been referred to a physician for follow-up care, call the physician s office for an appointment as you were instructed or within the next two days. If you experience worsening or a significant change in your symptoms, notify the physician immediately or return to the Emergency Department at any time for re-evaluation. VOMITING: Vomiting (or nausea without vomiting) can be caused by many other different problems. It can mean that something's wrong with the stomach, such as ulcers or inflammation or the intestinal tract, such as appendicitis. But it can also be a symptom of a problem that has nothing to do with the stomach or intestines. Vomiting is common with severe headaches, earaches, tonsillitis, and kidney infections, etc. We see it with pneumonia or heart attacks. Drugs can cause nausea and vomiting. Many abdominal problems cause vomiting; for example, gallstones, kidney stones, pancreatitis, and intestinal obstruction ( blocked bowels). In most cases, curing the vomiting depends on fixing the problem that caused it. For temporary relief, we may use an anti-nausea medicine. For home use, we can prescribe suppositories, chewable pills, pills that dissolve in the mouth, or liquid anti-nausea drugs. If the vomiting seems to be caused by a problem in the stomach, acid-suppressing drugs may be prescribed as well. It's important to avoid dehydration. Sip small amounts of clear liquids ( soft drinks, tea, broth, etc) . Try to take fluids frequently even if you are vomiting to prevent dehydration. Take increasing amounts of fluid and when liquids are being consumed successfully, advance to small amounts of bland food (toast, soups, mashed potatoes, etc.) until you are able to resume a regular diet. Avoid aspirin, tobacco, and alcohol. If the vomiting worsens, if the problem that's making you vomit worsens, or if there's evidence of bleeding in the stomach (such as black, tarry stool, or bloody or black vomit), you should return immediately. Also, return if abdominal pain worsens or becomes localized to one area or you develop high fever. Call your doctor if you aren't improved in 24 hours. VIRAL SYNDROME: The physician has diagnosed a viral infection. Viruses not only cause "colds," but can cause many different symptoms including generalized aching, fever, headache, cough, diarrhea, nausea, vomiting, and fatigue. The treatment, for the most part, is simply relief of symptoms. This means that antibiotics are usually not given. Rest, fluids, pain medications and, occasionally, medication for the specific symptoms that are most bothersome will be prescribed. Use good handwashing to avoid passing the virus to others. Shared toys should be cleaned with disinfectant. Clean the toilets, sinks, and counter surfaces in bathrooms. Launder clothing in hot water. Contact the physician if you develop any new or unusual symptoms such as severe headache, stiff neck, high fever, chest pain, productive cough, or shortness of breath. You should be rechecked if you don't see marked improvement within seven to 10 days. ANTINAUSEA MEDICATION: You have been given a medication to suppress nausea and vomiting. This type of medication can be given as a shot, pill, or suppository. It will usually last for many hours. Pills and shots usually last six to eight hours. For the typical illness, only one or two doses of the medication may be necessary. Mild lightheadedness may occur. This type of medicine can cause drowsiness. Do not drive or operate dangerous machinery while under its influence. Do not mix with alcohol. See your doctor at once if you have muscle spasms or tightness, or uncontrollable motions (particularly of the neck, mouth, or jaw). Persistent vomiting or severe lightheadedness should also be evaluated by the physician. FOLLOW-UP CARE: If you have been referred to a physician for follow-up care, call the physician s office for an appointment as you were instructed or within the next two days. If you experience worsening or a significant change in your symptoms, notify the physician immediately or return to the Emergency Department at any time for re-evaluation. Prescriptions: Ondansetron [Zofran Odt 4 mg Tablet] 1 - 2 tab PO Q4H PRN #15 tab.rapdis PRN Reason: For Nausea/Vomiting Prednisone [Deltasone 20 mg Tablet] 3 tab PO DAILY 4 Days tablet Forms: Elevated Blood Pressure Referrals: PAULINA FLORES NP [Primary Care Provider] - Follow up as needed
[2017-07-18] MEDS ORDERED: IPRATROPIUM/ALBUTEROL 0.5-2.5 MG/3 ML AMPUL NEB ONE (22:27)
[2017-07-18 23:01] LABS: ABSOLUTE EOSINOPHILS # (AUTO) 0.1 10^3/uL (0.0-0.6); ABSOLUTE LYMPHOCYTES (AUTO) 2.5 10^3/uL (0.5-4.7); ABSOLUTE MONOCYTES (AUTO) 0.5 10^3/uL (0.1-1.4); ABSOLUTE NEUT (AUTO) 3.8 10^3/uL (1.7-8.2); BASOPHILS % (AUTO) 0.4 % (0-2); HEMATOCRIT 33.4 % (36.0-47.0); HEMOGLOBIN 10.7 g/dL (12.0-15.5); LYMPHOCYTES % (AUTO) 36.7 % (13-45); MEAN CORPUSCULAR HEMOGLOBIN 27.3 pg (27.0-33.4); MEAN CORPUSCULAR HGB CONC 32.2 g/dL (32.0-36.0); MEAN CORPUSCULAR VOLUME 85 fl (80-97); MONOCYTES % (AUTO) 7.5 % (3-13); PLATELET COUNT 244 10^3/uL (150-450); RED BLOOD COUNT 3.94 10^6/uL (3.72-5.28); RED CELL DISTRIBUTION WIDTH 13.6 % (11.5-14.0); SEGMENTED NEUTROPHILS % (AUTO) 54.4 % (42-78); TOTAL CELLS COUNTED % (AUTO) 100 %; WHITE BLOOD COUNT 6.9 10^3/uL (4.0-10.5)
[2017-07-18 23:11] LABS: VENOUS BLOOD BASE EXCESS 13.1 mmol/L; VENOUS BLOOD HCO3 42.3 mmol/L (20-32); VENOUS BLOOD PH 7.37 (7.30-7.42)
[2017-07-18 23:14] LABS: VENOUS BLOOD PCO2 75.4 mmHg (35-63)
[2017-07-18 23:25] LABS: ALANINE AMINOTRANSFERASE 15 U/L (9-52); ALBUMIN 4.3 g/dL (3.5-5.0); ALKALINE PHOSPHATASE 52 U/L (38-126); ASPARTATE AMINO TRANSFERASE 17 U/L (14-36); BILIRUBIN,DIRECT 0.3 mg/dL (0.0-0.4); BILIRUBIN,TOTAL 0.3 mg/dL (0.2-1.3); BLOOD UREA NITROGEN 7 mg/dL (7-20); CHLORIDE 90 mmol/L (98-107); CREATINE KINASE 164 U/L (30-135); GLUCOSE 136 mg/dL (75-110); LIPASE 62.3 U/L (23-300); SODIUM 138.4 mmol/L (137-145); TOTAL PROTEIN 8.2 g/dL (6.3-8.2)
[2017-07-18 23:55] LABS: ANION GAP 9 (5-19)
[2017-07-18 23:56] LABS: CARBON DIOXIDE 39 mmol/L (22-30)
[2017-07-18 23:58] LABS: A TYPE INFLUENZA AG NEGATIVE (NEGATIVE); B INFLUENZA AG NEGATIVE (NEGATIVE)
[2017-07-19] MEDS ORDERED: PREDNISONE 20 MG TABLET PO ONE (00:02)
[2017-07-19] MEDS ORDERED: NORMAL SALINE 500 ML IV ONE (00:18)
--- NOTE | 2017-07-19 00:36 | RADIOLOGY REPORT (SQ) ---
EXAM DESCRIPTION: CHEST SINGLE VIEW CLINICAL HISTORY: 52 years, Female, SOB COMPARISON: EXAM DESCRIPTION: CHEST SINGLE VIEW CLINICAL HISTORY: 52 years Female SOB COMPARISON: 05/12/2017 FINDINGS: Cardial mediastinal silhouette is stable. There is a linear area overlying the lower chest which appears to be from the patient's subcutaneous soft tissues. No acute consolidation or evidence of edema is noted. No pleural fluid. Multilevel degenerative change in the spine. IMPRESSION: Stable appearance of the chest without evidence of acute process NUMBER OF VIEWS: TECHNIQUE: LIMITATIONS: None. FINDINGS: IMPRESSION: 2010 [employer]- All Rights Reserved
--- NOTE | 2017-07-19 02:08 | RADIOLOGY REPORT (SQ) ---
EXAM DESCRIPTION: CTA CHEST CLINICAL HISTORY: 52 years Female, SOB, tachycardia, tachypnea COMPARISON: None. TECHNIQUE: 90 mL Isovue-370 IV contrast. Multiplanar reformat. This exam was performed according to our departmental dose-optimization program, which includes automated exposure control, adjustment of the mA and/or kV according to patient size and/or use of iterative reconstruction technique. Limitation: As below. FINDINGS: No acute cardiopulmonary findings. No evidence of pulmonary embolus. Streak artifact somewhat decreases sensitivity- specificity. No right ventricular strain. Likely benign 0.4 cm pulmonary nodule right middle lobe; no routine follow-up recommended. Moderate lung volume. Mild hepatic steatosis. Moderate disc desiccation. Inferior neck, axillae, mediastinum, lungs, airway, lymphatics, heart, vasculature, upper abdomen, and musculoskeleton appear otherwise unremarkable. IMPRESSION: No acute cardiopulmonary findings. No evidence of pulmonary embolus.
[2017-07-19] MEDS ORDERED: ONDANSETRON ODT 4 MG TAB (6 TAB/ER DISP) PO PRN (02:15)
[2017-07-19 02:27] VITALS: BP 152/90
--- NOTE | 2017-07-19 10:26 | EKG REPORT ---
SEVERITY:- BORDERLINE ECG - SINUS TACHYCARDIA CONSIDER ANTERIOR INFARCT BORDERLINE T ABNORMALITIES, ANTERIOR LEADS : Confirmed by: Travis Marie 19-Jul-2017 10:25:50
== END 2017-07-19 02:29 | disposition home or self-care (01) ==
LOC: ER 22:09
DX: J44.1 Chronic obstructive pulmonary disease with (acute) exacerbation (principal); R11.2 Nausea with vomiting, unspecified; R06.02 Shortness of breath; I50.9 Heart failure, unspecified; I10 Essential (primary) hypertension
CPT/HCPCS: 93005; 94640; 99285; 36415; 82550; 83690; 85025; 80053; 84484; 82803; 87804; 71045; 71275; 93010; J7512; J7040; J7620

== ENCOUNTER 2017-08-04 20:48 | Emergency (ER) | payer MEDICAID ==
--- NOTE | 2017-08-04 23:43 | ER Document Report ---
ED Medical Screen (RME) - General Chief Complaint: Shortness Of Breath Stated Complaint: SHORTNESS OF BREATH Time Seen by Provider: 08/04/17 23:41 Mode of Arrival: Ambulatory Information source: Patient Notes: 52-year-old female presents to ED D for cough congestion shortness of breath with nausea and vomiting since Friday states she vomited once Friday once Friday 1 Friday and had 2 diarrheal stools on Friday. She states she had a temperature of 100. She has a history of CHF COPD diabetes type 1 blood pressure asthma and bipolar depression schizophrenia. She is on 3 L of oxygen nasal cannula at home. She also sleeps with a CPAP. Lungs are only diminished bilaterally. Respirations are about 24. O2 sats 94 on her 3 L. She states she has been getting more more sick and congestion since Friday. I have greeted and performed a rapid initial assessment of this patient. A comprehensive ED assessment and evaluation of the patient, analysis of test results and completion of medical decision making process will be conducted by an additional ED providers. TRAVEL OUTSIDE OF THE [place] IN LAST 30 DAYS: No - Related Data Allergies/Adverse Reactions: codeine [Codeine] Allergy (Severe, Verified 09/02/16 07:54) reacts with invega Penicillins Allergy (Severe, Verified 09/02/16 07:54) Hives Past Medical History - Past Medical History Cardiac Medical History: Reports: Hx Congestive Heart Failure, Hx Hypercholesterolemia, Hx Hypertension Denies: Hx DVT, Hx Heart Attack, Hx Pulmonary Embolism Pulmonary Medical History: Reports: Hx Asthma, Hx COPD, Hx Pneumonia, Hx Sleep Apnea - CPAP of 16. Neurological Medical History: Denies: Hx Seizures Endocrine Medical History: Reports: Hx Diabetes Mellitus Type 1, Hx Diabetes Mellitus Type 2. Denies: Hx Hyperthyroidism, Hx Hypothyroidism Renal/ Medical History: Denies: Hx Peritoneal Dialysis GI Medical History: Reports: Hx Gastroesophageal Reflux Disease. Denies: Hx Cirrhosis, Hx Hepatitis Musculoskeltal Medical History: Reports Hx Arthritis - rt knee, Reports Hx Musculoskeletal Trauma Psychiatric Medical History: Reports: Hx Anxiety, Hx Bipolar Disorder, Hx Depression, Hx Schizoaffective Disorder, Hx Schizophrenia Traumatic Medical History: Reports: Hx Fractures - Ankle right Infectious Medical History: Denies: Hx Hepatitis Past Surgical History: Reports: Hx Section - 3, Hx Tubal Ligation - Immunizations Immunizations up to date: Yes Hx Diphtheria, Pertussis, Tetanus Vaccination: Yes
[2017-08-04] MEDS ORDERED: ONDANSETRON 4 MG TAB.RAPDIS PO ONE (23:44)
[2017-08-04] MEDS ORDERED: ALBUTEROL SULFATE 0.083% NEB 2.5 MG/3 ML AMPUL NEB SCH (23:45)
[2017-08-05 00:17] LABS: ABSOLUTE EOSINOPHILS # (AUTO) 0.2 10^3/uL (0.0-0.6); ABSOLUTE LYMPHOCYTES (AUTO) 1.8 10^3/uL (0.5-4.7); ABSOLUTE MONOCYTES (AUTO) 0.5 10^3/uL (0.1-1.4); BASOPHILS % (AUTO) 0.4 % (0-2); EOSINOPHILS % (AUTO) 5.2 % (0-6); HEMATOCRIT 33.1 % (36.0-47.0); HEMOGLOBIN 10.6 g/dL (12.0-15.5); LYMPHOCYTES % (AUTO) 39.4 % (13-45); MEAN CORPUSCULAR HEMOGLOBIN 27.4 pg (27.0-33.4); MEAN CORPUSCULAR VOLUME 86 fl (80-97); MONOCYTES % (AUTO) 11.3 % (3-13); PLATELET COUNT 200 10^3/uL (150-450); RED BLOOD COUNT 3.87 10^6/uL (3.72-5.28); RED CELL DISTRIBUTION WIDTH 14.6 % (11.5-14.0); SEGMENTED NEUTROPHILS % (AUTO) 43.7 % (42-78); TOTAL CELLS COUNTED % (AUTO) 100 %; WHITE BLOOD COUNT 4.6 10^3/uL (4.0-10.5)
[2017-08-05 00:39] LABS: ALANINE AMINOTRANSFERASE 23 U/L (9-52); ALBUMIN 4.2 g/dL (3.5-5.0); ALKALINE PHOSPHATASE 53 U/L (38-126); ANION GAP 10 (5-19); ASPARTATE AMINO TRANSFERASE 19 U/L (14-36); BILIRUBIN,DIRECT 0.2 mg/dL (0.0-0.4); BILIRUBIN,TOTAL 0.2 mg/dL (0.2-1.3); BLOOD UREA NITROGEN 10 mg/dL (7-20); CALCIUM 10.1 mg/dL (8.4-10.2); CARBON DIOXIDE 38 mmol/L (22-30); CHLORIDE 93 mmol/L (98-107); CREATINE KINASE 115 U/L (30-135); GLUCOSE 224 mg/dL (75-110); POTASSIUM 4.2 mmol/L (3.6-5.0); SODIUM 140.5 mmol/L (137-145); TOTAL PROTEIN 7.2 g/dL (6.3-8.2)
[2017-08-05 00:51] LABS: CREATINE KINASE MB 1.07 ng/mL (<4.55)
[2017-08-05 00:54] LABS: TROPONIN I < 0.012 ng/mL
[2017-08-05] MEDS ORDERED: AZITHROMYCIN 250 MG TABLET PO ONE (01:47)
--- NOTE | 2017-08-05 01:51 | ER Document Report ---
ED General - General Chief Complaint: Shortness Of Breath Stated Complaint: SHORTNESS OF BREATH Time Seen by Provider: 08/04/17 23:41 Mode of Arrival: Ambulatory Information source: Patient Notes: 52-year-old female history of congestive heart failure diabetes hypertension asthma COPD presents with complaints of nasal congestion difficulty breathing from her nose. Patient states it is not from her lungs she notes that she feels her lungs are oxygenating well and that is all in her nose. She is having sinus tenderness drainage and pressure and this has been going on for a couple weeks. Patient is on 3 L nasal cannula at baseline and is satting 100% here and states this is the best she is ever felt TRAVEL OUTSIDE OF THE [place] IN LAST 30 DAYS: No - HPI Onset: Other Onset/Duration: Persistent Quality of pain: Achy Severity: Mild Pain Level: 1 Associated symptoms: Sinus pain/drainage Exacerbated by: Denies Relieved by: Denies Similar symptoms previously: No Recently seen / treated by doctor: No - Related Data Allergies/Adverse Reactions: codeine [Codeine] Allergy (Severe, Verified 09/02/16 07:54) reacts with invega Penicillins Allergy (Severe, Verified 09/02/16 07:54) Hives Past Medical History - General Information source: Patient - Social History Smoking Status: Former Smoker Cigarette use (# per day): No Chew tobacco use (# tins/day): No Smoking Education Provided: No Frequency of alcohol use: None Drug Abuse: None Family History: Arthritis, CAD, CVA, DM, Hyperlipidemia, Hypertension, Malignancy Patient has suicidal ideation: No Patient has homicidal ideation: No - Past Medical History Cardiac Medical History: Reports: Hx Congestive Heart Failure, Hx Hypercholesterolemia, Hx Hypertension Denies: Hx DVT, Hx Heart Attack, Hx Pulmonary Embolism Pulmonary Medical History: Reports: Hx Asthma, Hx COPD, Hx Pneumonia, Hx Sleep Apnea - CPAP of 16. Neurological Medical History: Denies: Hx Seizures Endocrine Medical History: Reports: Hx Diabetes Mellitus Type 1, Hx Diabetes Mellitus Type 2. Denies: Hx Hyperthyroidism, Hx Hypothyroidism Renal/ Medical History: Denies: Hx Peritoneal Dialysis GI Medical History: Reports: Hx Gastroesophageal Reflux Disease. Denies: Hx Cirrhosis, Hx Hepatitis Musculoskeltal Medical History: Reports Hx Arthritis - rt knee, Reports Hx Musculoskeletal Trauma Psychiatric Medical History: Reports: Hx Anxiety, Hx Bipolar Disorder, Hx Depression, Hx Schizoaffective Disorder, Hx Schizophrenia Traumatic Medical History: Reports: Hx Fractures - Ankle right Infectious Medical History: Denies: Hx Hepatitis Past Surgical History: Reports: Hx Section - 3, Hx Tubal Ligation - Immunizations Immunizations up to date: Yes Hx Diphtheria, Pertussis, Tetanus Vaccination: Yes Hx Pneumococcal Vaccination: 04/30/16 Review of Systems - Review of Systems Notes: REVIEW OF SYSTEMS: CONSTITUTIONAL : Denies fever, chills, or sweats. Denies recent illness. EENT: Nasal congestion CARDIOVASCULAR: Denies chest pain. Denies palpitations or racing or irregular heart beat. Denies ankle edema. RESPIRATORY: Denies cough, cold, or chest congestion. Denies shortness of breath, difficulty breathing, or wheezing. GASTROINTESTINAL: Denies abdominal pain or distention. Denies nausea, vomiting , or diarrhea. Denies blood in vomitus, stools, or per rectum. Denies black, tarry stools. Denies constipation. GENITOURINARY: Denies difficulty urinating, painful urination, burning, frequency, blood in urine, or discharge. FEMALE GENITOURINARY: Denies vaginal bleeding, heavy or abnormal periods, irregular periods. Denies vaginal discharge or odor. MUSCULOSKELETAL: Denies back or neck pain or stiffness. Denies joint pain or swelling. SKIN: Denies rash, lesions or sores. HEMATOLOGIC : Denies easy bruising or bleeding. LYMPHATIC: Denies swollen, enlarged glands. NEUROLOGICAL: Denies confusion or altered mental status. Denies passing out or loss of consciousness. Denies dizziness or lightheadedness. Denies headache. Denies weakness or paralysis or loss of use of either side. Denies problems with gait or speech. Denies sensory loss, numbness, or tingling. Denies seizures. PSYCHIATRIC: Denies anxiety or stress. Denies depression, suicidal ideation, or homicidal ideation. ALL OTHER SYSTEMS REVIEWED AND NEGATIVE. PHYSICAL EXAMINATION: GENERAL: Well-appearing, well-nourished and in no acute distress. HEAD: Atraumatic, normocephalic. EYES: Pupils equal round and reactive to light, extraocular movements intact, conjunctiva are normal. ENT: nasal congestion, sinus tenderness NECK: Normal range of motion, supple without lymphadenopathy LUNGS: Breath sounds clear to auscultation bilaterally and equal. No wheezes rales or rhonchi. HEART: Regular rate and rhythm without murmurs ABDOMEN: Soft, nontender, nondistended abdomen. No guarding, no rebound. No masses appreciated. Female : deferred Musculoskeletal: Normal range of motion, no pitting or edema. No cyanosis. NEUROLOGICAL: Cranial nerves grossly intact. Normal speech, normal gait. Normal sensory, motor exams PSYCH: Normal mood, normal affect. SKIN: Warm, Dry, normal turgor, no rashes or lesions noted. Dictation was performed using [employer] voice recognition software Course - Re-evaluation Re-evalutation: 08/05/17 01:49 Patient's examination is quite benign, she has no difficulty breathing is satting 100% on her baseline oxygenation, she states it is all in the nose and is noted that there is definitely some nasal congestion, she is tender on the sinuses, lab work was completely benign, patient will be treated for sinusitis and is otherwise extremely well-appearing given her significant comorbidities Patient is very happy with this plan After performing a Medical Screening Examination, I estimate there is LOW risk for RUPTURED ESOPHAGUS, PNEUMOTHORAX, PULMONARY EMBOLISM, ACUTE CORONARY SYNDROME, OR THORACIC AORTIC DISSECTION, thus I consider the discharge disposition reasonable. I have reevaluated this patient multiple times and no significant life threatening changes are noted. The patient and I have discussed the diagnosis and risks, and we agree with discharging home with close follow-up. We also discussed returning to the Emergency Department immediately if new or worsening symptoms occur. We have discussed the symptoms which are most concerning (e.g., bloody sputum, worsening pain or shortness of breath) that necessitate immediate return. - Laboratory Result Diagrams: 08/04/17 23:59 08/04/17 23:59 Laboratory results interpreted by me: 08/04/17 08/04/17 23:59 23:59 Hgb 10.6 L Hct 33.1 L RDW 14.6 H Chloride 93 L Carbon Dioxide 38 H Glucose 224 H - Diagnostic Test Radiology reviewed: Image reviewed, Reports reviewed Discharge - Discharge Clinical Impression: Nasal congestion Acute sinusitis Qualifiers: Sinusitis location: frontal Recurrence: non-recurrent Qualified Code(s): J01.10 - Acute frontal sinusitis, unspecified Diabetes Qualifiers: Diabetes mellitus type: type 2 Diabetes mellitus complication status: without complication Diabetes mellitus care home insulin use: with care home use Qualified Code(s): E11.9 - Type 2 diabetes mellitus without complications; Z79.4 - terminal carman (current) use of insulin; Z79.4 - terminal carman (current) use of insulin; Z79.4 - [facility] (current) use of insulin; Z79.4 - [facility] (current ) use of insulin Condition: Stable Disposition: HOME, SELF-CARE Instructions: Sinusitis ([facility]) Prescriptions: Azithromycin 250 mg PO DAILY #4 tablet Referrals: PAULINA FLORES NP [Primary Care Provider] - 08/06/17
--- NOTE | 2017-08-05 02:06 | RADIOLOGY REPORT (SQ) ---
EXAM DESCRIPTION: CHEST SINGLE VIEW CLINICAL HISTORY: cough congestion COMPARISON: 07/19/2017 FINDINGS: Single frontal view of the chest. The cardiomediastinal silhouette is stable. No consolidation, pneumothorax, or pleural effusion. Degenerative change of the thoracic spine. Upper abdominal soft tissues are unremarkable. IMPRESSION: 1. No acute pulmonary process identified.
[2017-08-05 02:23] VITALS: BP 138/77
--- NOTE | 2017-08-05 08:39 | EKG REPORT ---
SEVERITY:- BORDERLINE ECG - SINUS RHYTHM BORDERLINE R WAVE PROGRESSION, ANTERIOR LEADS : Confirmed by: Travis Marie 05-Aug-2017 08:37:11
== END 2017-08-05 02:31 | disposition home or self-care (01) ==
LOC: ER 20:48
DX: J01.10 Acute frontal sinusitis, unspecified (principal); R09.81 Nasal congestion; R06.02 Shortness of breath; E11.9 Type 2 diabetes mellitus without complications; Z79.4 Long term (current) use of insulin; I50.9 Heart failure, unspecified; I10 Essential (primary) hypertension; J45.909 Unspecified asthma, uncomplicated; J44.9 Chronic obstructive pulmonary disease, unspecified; Z87.891 Personal history of nicotine dependence
CPT/HCPCS: 93005; 99284; 36415; 82553; 82550; 85025; 80053; 84484; 85379; 71045; 93010; S0119

== ENCOUNTER 2017-08-08 12:43 | Emergency (ER) | payer MEDICAID ==
--- NOTE | 2017-08-08 14:08 | ER Document Report ---
ED Medical Screen (RME) - General Chief Complaint: Flank Pain Stated Complaint: FLANK PAIN Time Seen by Provider: 08/08/17 13:54 Mode of Arrival: Ambulatory Information source: Patient Notes: 52-year-old female extensive medical history presents with complaints of right flank pain. Patient admits to low-grade temperature Patient recently seen for sinus infection which is improved I have greeted and performed a rapid initial assessment of this patient. A comprehensive ED assessment and evaluation of the patient, analysis of test results and completion of the medical decision making process will be conducted by additional ED providers. PHYSICAL EXAMINATION: GENERAL: Obese female HEAD: Atraumatic, normocephalic. EYES: Pupils equal round extraocular movements intact, conjunctiva are normal. ENT: Nares patent NECK: Normal range of motion LUNGS: No respiratory distress on baseline O2 Musculoskeletal: Normal range of motion NEUROLOGICAL: Normal speech, normal gait. PSYCH: Normal mood, normal affect. SKIN: Warm, Dry, normal turgor, no rashes or lesions noted. TRAVEL OUTSIDE OF THE [place] IN LAST 30 DAYS: No - Related Data Allergies/Adverse Reactions: codeine [Codeine] Allergy (Severe, Verified 09/02/16 07:54) reacts with invega Penicillins Allergy (Severe, Verified 09/02/16 07:54) Hives Past Medical History - Social History Frequency of alcohol use: None Drug Abuse: None - Past Medical History Cardiac Medical History: Reports: Hx Congestive Heart Failure, Hx Hypercholesterolemia, Hx Hypertension Denies: Hx DVT, Hx Heart Attack, Hx Pulmonary Embolism Pulmonary Medical History: Reports: Hx Asthma, Hx COPD, Hx Pneumonia, Hx Sleep Apnea - CPAP of 16. Neurological Medical History: Denies: Hx Seizures Endocrine Medical History: Reports: Hx Diabetes Mellitus Type 1, Hx Diabetes Mellitus Type 2. Denies: Hx Hyperthyroidism, Hx Hypothyroidism Renal/ Medical History: Denies: Hx Peritoneal Dialysis GI Medical History: Reports: Hx Gastroesophageal Reflux Disease. Denies: Hx Cirrhosis, Hx Hepatitis Musculoskeltal Medical History: Reports Hx Arthritis - rt knee, Reports Hx Musculoskeletal Trauma Psychiatric Medical History: Reports: Hx Anxiety, Hx Bipolar Disorder, Hx Depression, Hx Schizoaffective Disorder, Hx Schizophrenia Traumatic Medical History: Reports: Hx Fractures - Ankle right Infectious Medical History: Denies: Hx Hepatitis Past Surgical History: Reports: Hx Section - 3, Hx Tubal Ligation - Immunizations Immunizations up to date: Yes Hx Diphtheria, Pertussis, Tetanus Vaccination: Yes Physical Exam - Vital signs Vitals: Temp Pulse Resp BP Pulse Ox 99.5 F 85 16 142/92 H 95 08/08/17 12:47 08/08/17 12:47 08/08/17 12:47 08/08/17 12:47 08/08/17 12:47 Course - Vital Signs Vital signs: Temp Pulse Resp BP Pulse Ox 99.5 F 85 16 142/92 H 95 08/08/17 12:47 08/08/17 12:47 08/08/17 12:47 08/08/17 12:47 08/08/17 12:47
--- NOTE | 2017-08-08 14:25 | ER Document Report ---
ED GI/ - General Chief Complaint: Flank Pain Stated Complaint: FLANK PAIN Time Seen by Provider: 08/08/17 13:54 Mode of Arrival: Ambulatory Notes: The patient is a 52-year-old female history of congestive heart failure, diabetes, hypertension, asthma, COPD, presents with 3 days of right flank pain that is worse when she moves or presses on the area. She had some constipation over the past 3 days and the pain was slightly improved after bowel movement yesterday. She denies rash, hematuria, dysuria, nausea, vomiting, fevers, abdominal pain, chest pain, shortness of breath, diarrhea or current constipation. TRAVEL OUTSIDE OF THE [place] IN LAST 30 DAYS: No - Related Data Allergies/Adverse Reactions: codeine [Codeine] Allergy (Severe, Verified 09/02/16 07:54) reacts with invega Penicillins Allergy (Severe, Verified 09/02/16 07:54) Hives Past Medical History - General Information source: Patient - Social History Smoking Status: Former Smoker Frequency of alcohol use: None Drug Abuse: None Family History: Arthritis, CAD, CVA, DM, Hyperlipidemia, Hypertension, Malignancy Patient has suicidal ideation: No Patient has homicidal ideation: No - Past Medical History Cardiac Medical History: Reports: Hx Congestive Heart Failure, Hx Hypercholesterolemia, Hx Hypertension Denies: Hx DVT, Hx Heart Attack, Hx Pulmonary Embolism Pulmonary Medical History: Reports: Hx Asthma, Hx COPD, Hx Pneumonia, Hx Sleep Apnea - CPAP of 16. Neurological Medical History: Denies: Hx Seizures Endocrine Medical History: Reports: Hx Diabetes Mellitus Type 1, Hx Diabetes Mellitus Type 2. Denies: Hx Hyperthyroidism, Hx Hypothyroidism Renal/ Medical History: Denies: Hx Peritoneal Dialysis GI Medical History: Reports: Hx Gastroesophageal Reflux Disease. Denies: Hx Cirrhosis, Hx Hepatitis Musculoskeltal Medical History: Reports Hx Arthritis - rt knee, Reports Hx Musculoskeletal Trauma Psychiatric Medical History: Reports: Hx Anxiety, Hx Bipolar Disorder, Hx Depression, Hx Schizoaffective Disorder, Hx Schizophrenia Traumatic Medical History: Reports: Hx Fractures - Ankle right Infectious Medical History: Denies: Hx Hepatitis Past Surgical History: Reports: Hx Section - 3, Hx Tubal Ligation - Immunizations Immunizations up to date: Yes Hx Diphtheria, Pertussis, Tetanus Vaccination: Yes Hx Pneumococcal Vaccination: 04/30/16 Review of Systems - Review of Systems Notes: REVIEW OF SYSTEMS: CONSTITUTIONAL: -fevers, -chills EENT: -eye pain, -difficulty swallowing, -nasal congestion CARDIOVASCULAR: -chest pain, -syncope. RESPIRATORY: -cough, -SOB GASTROINTESTINAL: -abdominal pain, -nausea, -vomiting, -diarrhea GENITOURINARY: -dysuria, -hematuria MUSCULOSKELETAL: +right flank pain, -neck pain SKIN: -rash or skin lesions. HEMATOLOGIC: -easy bruising or bleeding. LYMPHATIC: -swollen, enlarged glands. NEUROLOGICAL: -altered mental status or loss of consciousness, -headache, - neurologic symptoms PSYCHIATRIC: -anxiety, -depression. ALL OTHER SYSTEMS REVIEWED AND NEGATIVE. Physical Exam - Vital signs Vitals: Temp Pulse Resp BP Pulse Ox 99.5 F 85 16 142/92 H 95 08/08/17 12:47 08/08/17 12:47 08/08/17 12:47 08/08/17 12:47 08/08/17 12:47 - Notes Notes: PHYSICAL EXAMINATION: GENERAL: Well-appearing, well-nourished and in no acute distress. HEAD: Atraumatic, normocephalic. EYES: Pupils equal round and reactive to light, extraocular movements intact, sclera anicteric, conjunctiva are normal. ENT: nares patent, oropharynx clear without exudates. Moist mucous membranes. NECK: Normal range of motion, supple without lymphadenopathy LUNGS: Breath sounds clear to auscultation bilaterally and equal. No wheezes rales or rhonchi. HEART: Regular rate and rhythm without murmurs ABDOMEN: Soft, nontender, normoactive bowel sounds. No guarding, no rebound. No masses appreciated. BACK: Mild tenderness over right flank that reproduces symptoms, no rashes or lesions EXTREMITIES: Normal range of motion, no pitting or edema. No cyanosis. NEUROLOGICAL: Cranial nerves grossly intact. Normal speech, normal gait. Normal sensory and motor exams. PSYCH: Normal mood, normal affect. SKIN: Warm, Dry, normal turgor, no rashes or lesions noted. Course - Re-evaluation Re-evalutation: Patient's urine is clean it does not show any signs of pyelonephritis or hematuria to suggest kidney stones. Her symptoms are reproducible on palpation and movement. No lesions to suggest shingles, but this is a possibility as it may be early shingles. Symptoms are atypical for AAA. Instructed her about using Lidoderm patches, anti-inflammatories and following up with her primary care physician for recheck of her symptoms. - Vital Signs Vital signs: Temp Pulse Resp BP Pulse Ox 99.5 F 85 16 142/92 H 95 08/08/17 12:47 08/08/17 12:47 08/08/17 12:47 08/08/17 12:47 08/08/17 12:47 Discharge - Discharge Clinical Impression: Right flank pain Back pain Qualifiers: Back pain location: back pain in other location Chronicity: acute Qualified Code(s): M54.9 - Dorsalgia, unspecified Condition: Stable Disposition: HOME, SELF-CARE Additional Instructions: Flank Pain We weren't able to prove an exact cause for your flank pain. Pain in the flank can be caused by a muscle strain or spasm. Sometimes a kidney stone causes pain, but can't be found on our tests. Infection in the kidney should be evident on a urine test. Early shingles can occasionally cause flank pain, without the rash that proves the diagnosis. On rare occasions, disease of the pancreas, aorta, spleen, or colon can create pain in the flank. At this time, there's no evidence of a dangerous condition, and it seems safe for you to be at home. If the pain goes away and does not come back, no further testing will be needed. If pain persists, or becomes more severe, we may need to repeat some tests or order additional new testing. Blood in the urine, urgency to urinate frequently, and pain that radiates to the groin can indicate a kidney stone. Fever may mean that the pain is due to infection, either of the kidney or the colon (diverticulitis). If your pain is early shingles, you should develop an eruption of blisters in the painful area within a few days. Call the doctor or return if you have pain that is spreading or becoming more severe, pain that does not resolve with time, fever, or any other new symptoms. BACK PAIN: Three out of every four people will have an episode of disabling back pain during their lifetime. Most commonly the pain is due to straining of the muscles and ligaments in the low back. Usual treatment includes: (1) Rest on a firm surface. Avoid lying on your stomach. (2) Ice pack the painful area. After a few days, gentle heat may be used intermittently to relax the area, or ice packs can be continued. (3) Medication may be needed -- muscle relaxers and antiinflammatory medicines are commonly used. (4) As the back improves, exercises are prescribed to strengthen the back and abdominal muscles. Your doctor will advise you on the proper care for your back at each stage in your recovery. You may be better in a few days -- or healing may take several weeks. If new symptoms of a "herniated disc" (radiation of pain, numbness, or tingling down the back of the leg or weakness in the leg) occur, you should be re-examined. Further testing may be necessary. ICE PACKS: Apply ice packs frequently against the painful area. Many different schedules are recommended, such as "20 minutes on, 20 minutes off" or "one hour ice, two hours rest." If you need to work, you may need to go longer between ice treatments. You should plan to have the area ice packed AT LEAST one fourth of the time. The ice should be applied over the wrap, tape, or splint, or over a layer of cloth -- not directly against the skin. Some ice bags have a built-in cloth and can be put directly on the skin. WARM PACKS: After approximately two days, apply gentle heat (such as a heating pad or hot water bottle) for about 20 to 30 minutes about every two hours -- at least four times daily. Warmth and elevation will help you make a more rapid recovery , and will ease the pain considerably. Do not use HOT heat, and never apply heat for longer than 30 minutes. The continuous heat can invisibly damage skin and muscles -- even when no burn is seen on the surface. Damaged muscles can make you MORE sore. FOLLOW-UP CARE: If you have been referred to a physician for follow-up care, call the physician s office for an appointment as you were instructed or within the next two days. If you experience worsening or a significant change in your symptoms, notify the physician immediately or return to the Emergency Department at any time for re-evaluation. Prescriptions: Lidocaine [Lidoderm 5% (700 mg) Transdermal Patch] 1 patch TP DAILY #10 adh..patch Naproxen [Naprosyn 250 mg Tablet] 500 mg PO Q12H PRN #14 tablet PRN Reason: Referrals: PAULINA FLORES NP [Primary Care Provider] - Follow up as needed
[2017-08-08 14:45] LABS: APPEARANCE,URINE SLIGHTLY-CLOUDY; BILIRUBIN,URINE NEGATIVE (NEGATIVE); COLOR,URINE YELLOW; GLUCOSE, URINE NEGATIVE (NEGATIVE); KETONES,URINE NEGATIVE (NEGATIVE); LEUKOCYTE ESTERASE,URINE NEGATIVE (NEGATIVE); NITRITE,URINE NEGATIVE (NEGATIVE); PROTEIN,URINE NEGATIVE (NEGATIVE); URINE SPECIFIC GRAVITY 1.012; UROBILINOGEN,URINE NEGATIVE mg/dL (<2.0)
[2017-08-08] MEDS ORDERED: LIDOCAINE 5% (700 MG) TRANSDERMAL ADH..PATCH TP ONE (14:59)
[2017-08-08] MEDS ORDERED: NAPROXEN 250 MG TABLET PO ONE (14:59)
[2017-08-08 16:06] VITALS: BP 150/90
== END 2017-08-08 16:04 | disposition home or self-care (01) ==
LOC: ER 12:43
DX: R10.9 Unspecified abdominal pain (principal); M54.9 Dorsalgia, unspecified; I50.9 Heart failure, unspecified; E11.9 Type 2 diabetes mellitus without complications; I10 Essential (primary) hypertension; J44.9 Chronic obstructive pulmonary disease, unspecified; K59.00 Constipation, unspecified; Z87.891 Personal history of nicotine dependence
CPT/HCPCS: 99284; 81025; 81001; J3490 ×2

== ENCOUNTER 2018-02-03 09:50 | Emergency (ER) | payer MEDICAID ==
[2018-02-03 10:36] VITALS: BP 144/81
--- NOTE | 2018-02-03 10:36 | RADIOLOGY REPORT (SQ) ---
EXAM DESCRIPTION: HAND RIGHT 3 VIEWS COMPLETED DATE/TIME: 02/03/2018 10:21 am REASON FOR STUDY: unable to move pointer finger COMPARISON: None. EXAM PARAMETERS: NUMBER OF VIEWS: Three views. TECHNIQUE: AP, lateral and oblique radiographic images acquired of the right hand. LIMITATIONS: None. FINDINGS: MINERALIZATION: Normal. BONES: No acute fracture or dislocation. No worrisome bone lesions. No significant osteophytes. JOINTS: No erosions. Mild DJD MCP joints of the 1st and 2nd digits. SOFT TISSUES: No swelling. No calcifications. OTHER: No other significant finding. IMPRESSION: Mild degenerative change of MCP joints of the 1st and 2nd digits. Study is otherwise no rmal. TECHNICAL DOCUMENTATION: JOB ID: [id number] [employer]- All Rights Reserved Reading location - IP/workstation name: [email or web address]
--- NOTE | 2018-02-03 14:10 | ER Document Report ---
ED Hand/Wrist Injury - General Chief Complaint: Finger Injury Stated Complaint: FINGER INJURY Time Seen by Provider: 02/03/18 13:44 Mode of Arrival: Ambulatory Information source: Patient Notes: 53-year-old female presented ED for complaint of pain to the right index finger. She states she does not remember any injury to it but it has been swollen and painful for the last 3 days. She states she is on pain management so she is not looking for narcotics she just wants to know what is wrong with her finger. She is alert and oriented she is on oxygen for COPD respirations regular and unlabored and there is mild swelling to the right index finger. TRAVEL OUTSIDE OF THE [place] IN LAST 30 DAYS: No - HPI Injury to: Index finger Onset: Other - 3 days Where: Home Timing: Constant Quality of pain: Achy, Sharp Severity: Moderate Pain Level: 4 - Related Data Allergies/Adverse Reactions: codeine [Codeine] Allergy (Severe, Verified 09/02/16 07:54) reacts with invega Penicillins Allergy (Severe, Verified 09/02/16 07:54) Hives Past Medical History - General Information source: Patient - Social History Smoking Status: Never Smoker Cigarette use (# per day): No Chew tobacco use (# tins/day): No Smoking Education Provided: No Frequency of alcohol use: None Drug Abuse: None Lives with: Family Family History: Arthritis, CAD, CVA, DM, Hyperlipidemia, Hypertension, Malignancy Patient has suicidal ideation: No Patient has homicidal ideation: No - Past Medical History Cardiac Medical History: Reports: Hx Congestive Heart Failure, Hx Hypercholesterolemia, Hx Hypertension Pulmonary Medical History: Reports: Hx Asthma, Hx COPD, Hx Pneumonia, Hx Sleep Apnea - CPAP of 16. EENT Medical History: Reports: None Neurological Medical History: Reports: None Endocrine Medical History: Reports: Hx Diabetes Mellitus Type 2 Renal/ Medical History: Reports: None Malignancy Medical History: Reports: None GI Medical History: Reports: Hx Gastroesophageal Reflux Disease Musculoskeletal Medical History: Reports Hx Arthritis - rt knee, Reports Hx Musculoskeletal Trauma Skin Medical History: Reports None Psychiatric Medical History: Reports: Hx Anxiety, Hx Bipolar Disorder, Hx Depression, Hx Schizoaffective Disorder, Hx Schizophrenia Traumatic Medical History: Reports: Hx Fractures - Ankle right Infectious Medical History: Reports: None Past Surgical History: Reports: Hx Section - 3, Hx Tubal Ligation - Immunizations Immunizations up to date: Yes Hx Diphtheria, Pertussis, Tetanus Vaccination: Yes Hx Pneumococcal Vaccination: 04/30/16 Review of Systems - Review of Systems Constitutional: No symptoms reported EENT: No symptoms reported Cardiovascular: No symptoms reported Respiratory: No symptoms reported Gastrointestinal: No symptoms reported Genitourinary: No symptoms reported Female Genitourinary: No symptoms reported Musculoskeletal: Other - Pain swelling to the right index finger for 3 days Skin: No symptoms reported Hematologic/Lymphatic: No symptoms reported Neurological/Psychological: No symptoms reported -: Yes All other systems reviewed and negative Physical Exam - Vital signs Vitals: Temp Pulse Resp BP Pulse Ox 98.0 F 83 14 144/81 H 95 02/03/18 10:34 02/03/18 10:34 02/03/18 10:34 02/03/18 10:34 02/03/18 10:34 Interpretation: Normal - General General appearance: Appears well, Alert - HEENT Head: Normocephalic, Atraumatic Eyes: Normal Pupils: PERRL - Respiratory Respiratory status: No respiratory distress Chest status: Nontender Breath sounds: Normal Chest palpation: Normal - Cardiovascular Rhythm: Regular Heart sounds: Normal auscultation Murmur: No - Abdominal Inspection: Normal Distension: No distension Bowel sounds: Normal Tenderness: Nontender Organomegaly: No organomegaly - Back Back: Normal, Nontender - Extremities General upper extremity: Normal inspection, Normal color, Normal ROM, Normal temperature General lower extremity: Normal inspection, Nontender, Normal color, Normal ROM , Normal temperature, Normal weight bearing Hand: Tender - Right index finger, Swelling - Right index finger. No: No evidence of human bite, No evidence of FB - Neurological Neuro grossly intact: Yes Cognition: Normal Orientation: AAOx4 Hanahan Coma Scale Eye Opening: Spontaneous Hanahan Coma Scale Verbal: Oriented Hanahan Coma Scale Motor: Obeys Commands Derrick Coma Scale Total: 15 Speech: Normal Motor strength normal: LUE, RUE, LLE, RLE Sensory: Normal - Psychological Associated symptoms: Normal affect, Normal mood - Skin Skin Temperature: Warm Skin Moisture: Dry Skin Color: Normal Course - Re-evaluation Re-evalutation: 02/03/18 16:02 X-ray discussed with patient. Patient has arthritis to the right first and second digit. Patient was given instructions on Aspercreme warm soaks and follow-up with her primary doctor. Patient states she is on pain management she just was concerned that she may have a broken finger. The finger is not broken. - Vital Signs Vital signs: Temp Pulse Resp BP Pulse Ox 98.0 F 83 14 144/81 H 95 02/03/18 10:34 02/03/18 10:34 02/03/18 10:34 02/03/18 10:34 02/03/18 10:34 - Diagnostic Test Radiology reviewed: Image reviewed, Reports reviewed Discharge - Discharge Clinical Impression: Degenerative joint disease Qualifiers: Osteoarthritis location: unspecified site Osteoarthritis type: unspecified Qualified Code(s): M19.90 - Unspecified osteoarthritis, unspecified site Condition: Stable Disposition: HOME, SELF-CARE Additional Instructions: Arthritis Your symptoms are due to arthritis. Arthritis is an inflammation of the joints. There are many types -- osteoarthritis (due to "wear and tear"), auto- immmune arthritis (such as rheumatoid, lupus, Jennifer's, and others), and crystal -induced arthritis (such as gout and pseudogout). The physician's examination, combined with laboratory tests, will determine the cause of your arthritis. All types of arthritis are treated with antiinflammatory medications. Other medication may be required for special types of arthritis, or if your problem does not respond to the antiinflammatory medicine. Local warmth may be helpful. Move the involved joints through the full range of motion daily. Mild exercise is usually still possible for most persons with arthritis (ask your physician). Swimming provides good exercise without damaging the joints. Contact the physician if you are worsening in any way. You can use Aspercreme to the your arthritis in the left hand. Elevation & Warmth The area should be elevated as much as possible over the next 48 hours. Try to keep it above the level of your heart. Apply gentle heat (such as a heating pad or hot water bottle) for about 20 to 30 minutes about every two hours -- at least four times daily. Warmth and elevation will help you make a more rapid recovery, and will ease the pain considerably. FOLLOW-UP CARE: If you have been referred to a physician for follow-up care, call the physician s office for an appointment as you were instructed or within the next two days. If you experience worsening or a significant change in your symptoms, notify the physician immediately or return to the Emergency Department at any time for re-evaluation. Forms: Elevated Blood Pressure Referrals: PAULINA FLORES NP [Primary Care Provider] - Follow up in 3-5 days
== END 2018-02-03 14:10 | disposition home or self-care (01) ==
LOC: ER 09:50
DX: M19.90 Unspecified osteoarthritis, unspecified site (principal); M79.644 Pain in right finger(s); M79.89 Other specified soft tissue disorders; J44.9 Chronic obstructive pulmonary disease, unspecified; Z99.81 Dependence on supplemental oxygen; I10 Essential (primary) hypertension; E11.9 Type 2 diabetes mellitus without complications
CPT/HCPCS: 99283

== ENCOUNTER 2018-02-10 11:12 | Emergency (ER) | payer MEDICAID ==
[2018-02-10] MEDS ORDERED: ASPIRIN 81 MG TABLET, CHEWABLE PO ONE (12:23)
[2018-02-10] MEDS ORDERED: IPRATROPIUM/ALBUTEROL 0.5-2.5 MG/3 ML AMPUL NEB ONE (12:24)
--- NOTE | 2018-02-10 12:25 | ER Document Report ---
ED Medical Screen (RME) - General Chief Complaint: Cold Symptoms Stated Complaint: COLD SYMPTOMS Time Seen by Provider: 02/10/18 12:10 TRAVEL OUTSIDE OF THE [place] IN LAST 30 DAYS: No - HPI Notes: 02/10/18 12:24 History of COPD with CPAP BiPAP at home states compliance with her medication regimen shortness of breath for the last 2-3 days with yellow sputum production. - Related Data Allergies/Adverse Reactions: codeine [Codeine] Allergy (Severe, Verified 02/10/18 11:30) reacts with invega Penicillins Allergy (Severe, Verified 02/10/18 11:30) Hives Past Medical History - Past Medical History Cardiac Medical History: Reports: Hx Congestive Heart Failure, Hx Hypercholesterolemia, Hx Hypertension Denies: Hx DVT, Hx Heart Attack, Hx Pulmonary Embolism Pulmonary Medical History: Reports: Hx Asthma, Hx COPD, Hx Pneumonia, Hx Sleep Apnea - CPAP of 16. Neurological Medical History: Denies: Hx Seizures Endocrine Medical History: Reports: Hx Diabetes Mellitus Type 1, Hx Diabetes Mellitus Type 2. Denies: Hx Hyperthyroidism, Hx Hypothyroidism Renal/ Medical History: Denies: Hx Peritoneal Dialysis GI Medical History: Reports: Hx Gastroesophageal Reflux Disease. Denies: Hx Cirrhosis, Hx Hepatitis Musculoskeltal Medical History: Reports Hx Arthritis - rt knee, Reports Hx Musculoskeletal Trauma Psychiatric Medical History: Reports: Hx Anxiety, Hx Bipolar Disorder, Hx Depression, Hx Schizoaffective Disorder, Hx Schizophrenia Traumatic Medical History: Reports: Hx Fractures - Ankle right Infectious Medical History: Denies: Hx Hepatitis Past Surgical History: Reports: Hx Section - 3, Hx Tubal Ligation - Immunizations Immunizations up to date: Yes Hx Diphtheria, Pertussis, Tetanus Vaccination: Yes Review of Systems - Review of Systems Respiratory: Cough, Short of breath Physical Exam - Vital signs Vitals: Temp Pulse BP Pulse Ox 99.7 F 90 159/86 H 91 L 02/10/18 11:26 02/10/18 11:26 02/10/18 11:26 02/10/18 11:26 - Respiratory Breath sounds: Rales, Wheezing Course - Vital Signs Vital signs: Temp Pulse Resp BP Pulse Ox 99.7 F 90 159/86 H 91 L 02/10/18 11:26 02/10/18 11:26 02/10/18 11:26 02/10/18 11:26 Doctor's Discharge - Discharge Referrals: PAULINA FLORES, OCEANIC SCIENCES PROFESSOR [Primary Care Provider] - Follow up as needed
--- NOTE | 2018-02-10 12:59 | RADIOLOGY REPORT (SQ) ---
EXAM DESCRIPTION: CHEST 2 VIEWS COMPLETED DATE/TIME: 02/10/2018 12:48 pm REASON FOR STUDY: sob COMPARISON: None. EXAM PARAMETERS: NUMBER OF VIEWS: two views TECHNIQUE: Digital Frontal and Lateral radiographic views of the chest acquired. RADIATION DOSE: NA LIMITATIONS: none FINDINGS: LUNGS AND PLEURA: No opacities, masses or pneumothorax. No pleural effusion. MEDIASTINUM AND HILAR STRUCTURES: No masses or contour abnormalities. HEART AND VASCULAR STRUCTURES: Heart normal size. No evidence for failure. BONES: No acute findings. HARDWARE: None in the chest. OTHER: No other significant finding. IMPRESSION: NO ACUTE RADIOGRAPHIC FINDING IN THE CHEST. TECHNICAL DOCUMENTATION: JOB ID: [id number] [employer]- All Rights Reserved Reading location - IP/workstation name: [email or web address]
[2018-02-10 13:06] LABS: ABSOLUTE EOSINOPHILS # (AUTO) 0.3 10^3/uL (0.0-0.6); ABSOLUTE LYMPHOCYTES (AUTO) 2.1 10^3/uL (0.5-4.7); ABSOLUTE MONOCYTES (AUTO) 0.5 10^3/uL (0.1-1.4); ABSOLUTE NEUT (AUTO) 3.4 10^3/uL (1.7-8.2); BASOPHILS % (AUTO) 0.4 % (0-2); EOSINOPHILS % (AUTO) 4.6 % (0-6); HEMATOCRIT 34.9 % (36.0-47.0); HEMOGLOBIN 11.3 g/dL (12.0-15.5); LYMPHOCYTES % (AUTO) 33.2 % (13-45); MEAN CORPUSCULAR HEMOGLOBIN 28.2 pg (27.0-33.4); MEAN CORPUSCULAR HGB CONC 32.5 g/dL (32.0-36.0); MEAN CORPUSCULAR VOLUME 87 fl (80-97); PLATELET COUNT 236 10^3/uL (150-450); RED BLOOD COUNT 4.03 10^6/uL (3.72-5.28); RED CELL DISTRIBUTION WIDTH 13.3 % (11.5-14.0); SEGMENTED NEUTROPHILS % (AUTO) 53.8 % (42-78); TOTAL CELLS COUNTED % (AUTO) 100 %; WHITE BLOOD COUNT 6.3 10^3/uL (4.0-10.5)
--- NOTE | 2018-02-10 13:23 | ER Document Report ---
ED Respiratory Problem - General Mode of Arrival: Ambulatory Information source: Patient TRAVEL OUTSIDE OF THE [place] IN LAST 30 DAYS: No <FRANCOISE GUTIERREZ - Last Filed: 02/10/18 14:05> <SARITA SCHUMACHER - Last Filed: 02/10/18 15:35> - General Chief Complaint: Cold Symptoms Stated Complaint: COLD SYMPTOMS Time Seen by Provider: 02/10/18 12:10 Notes: 53-year-old morbidly obese female that presents to the emergency department today with complaints of a cough for the last 2 days. Patient states that her cough is somewhat productive, stating she brings up sputum approximately twice a day. Patient states she has used breathing treatments at home without much relief. (FRANCOISE GUTIERREZ) - Related Data Allergies/Adverse Reactions: codeine [Codeine] Allergy (Severe, Verified 02/10/18 11:30) reacts with invega Penicillins Allergy (Severe, Verified 02/10/18 11:30) Hives Past Medical History - General Information source: Patient - Social History Smoking Status: Current Every Day Smoker Cigarette use (# per day): Yes Chew tobacco use (# tins/day): No Frequency of alcohol use: None Drug Abuse: None Lives with: Family Family History: Arthritis, CAD, CVA, DM, Hyperlipidemia, Hypertension, Malignancy Patient has suicidal ideation: No Patient has homicidal ideation: No - Past Medical History Cardiac Medical History: Reports: Hx Congestive Heart Failure, Hx Hypercholesterolemia, Hx Hypertension Pulmonary Medical History: Reports: Hx Asthma, Hx COPD, Hx Pneumonia, Hx Sleep Apnea - CPAP of 16. Endocrine Medical History: Reports: Hx Diabetes Mellitus Type 2 GI Medical History: Reports: Hx Gastroesophageal Reflux Disease Musculoskeletal Medical History: Reports Hx Arthritis - rt knee, Reports Hx Musculoskeletal Trauma Psychiatric Medical History: Reports: Hx Anxiety, Hx Bipolar Disorder, Hx Depression, Hx Schizoaffective Disorder, Hx Schizophrenia Traumatic Medical History: Reports: Hx Fractures - Ankle right Past Surgical History: Reports: Hx Section - 3, Hx Tubal Ligation - Immunizations Immunizations up to date: Yes Hx Diphtheria, Pertussis, Tetanus Vaccination: Yes Hx Pneumococcal Vaccination: 04/30/16 <FRANCOISE GUTIERREZ - Last Filed: 02/10/18 14:05> Review of Systems - Review of Systems Constitutional: No symptoms reported EENT: No symptoms reported Cardiovascular: No symptoms reported Respiratory: See HPI, Cough, Short of breath, Wheezing Gastrointestinal: No symptoms reported Genitourinary: No symptoms reported Female Genitourinary: No symptoms reported Musculoskeletal: No symptoms reported Skin: No symptoms reported Hematologic/Lymphatic: No symptoms reported Neurological/Psychological: No symptoms reported -: Yes All other systems reviewed and negative <FRANCOISE GUTIERREZ - Last Filed: 02/10/18 14:05> Physical Exam <FRANCOISE GUTIERREZ - Last Filed: 02/10/18 14:05> <SARITA SCHUMACHER - Last Filed: 02/10/18 15:35> - Vital signs Vitals: Temp Pulse BP Pulse Ox 99.7 F 90 159/86 H 91 L 02/10/18 11:26 02/10/18 11:26 02/10/18 11:26 02/10/18 11:26 - Notes Notes: Physical Exam: General: Alert, morbidly obese. HEENT: Normocephalic. Atraumatic. PERRL. Extraocular movements intact. Oropharynx clear. Neck: Supple. Non-tender. Respiratory: No respiratory distress. Rales, rhonchi, and wheezing bilaterally. Minimally tachypneic. Saturating at 100% on 3L nasal cannula. Cardiovascular: Regular rate and rhythm. Abdominal: Morbidly ovese. Non-tender. No distension. Normal Bowel Sounds. Back: Non-tender. No deformity or step off. Extremities: Moves all four extremities. Upper extremities: Normal inspection. Normal ROM. Lower extremities: Normal inspection. No edema. Normal ROM. Neurological: Normal cognition. AAOx4. Normal speech. Psychological: Normal affect. Normal Mood. Skin: Warm. Dry. Normal color. (FRANCOISE GUTIERREZ) Course - Laboratory Result Diagrams: 02/10/18 12:47 02/10/18 12:47 <FRANCOISE GUTIERREZ - Last Filed: 02/10/18 14:05> - Laboratory Result Diagrams: 02/10/18 12:47 02/10/18 12:47 - Diagnostic Test Radiology reviewed: Reports reviewed - Chest x-ray does not show any acute cardiopulmonary process. - EKG Interpretation by Mi EKG shows normal: Sinus rhythm, [place], Intervals, QRS Complexes, ST-T Waves Rate: Normal - 86 Rhythm: NSR When compared to previous EKG there are: No significant change <SARITA SCHUMACHER - Last Filed: 02/10/18 15:35> - Re-evaluation Re-evalutation: 02/10/18 15:29 The patient is maintaining oxygen saturations of 98 200% on 3 L nasal cannula which is what she uses at home. She does have some faint wheezes but sounds better than when she first got here. She does not use Atrovent or similar drugs such as Spiriva, only Xopenex and Symbicort. I will prescribe doxycycline for her thick yellow sputum, a culture was done. I will prescribe Atrovent to use in her nebulizer, and place her on a course of prednisone. 02/10/18 15:34 The patient states she needs a note to allow her home health worker to stay the night with her to provide her with her medications and drinking water during the night tonight. Her spouse sleeps in a different bedroom and is either unable or unwilling to provide for her care. (SARITA SCHUMACHER) - Vital Signs Vital signs: Temp Pulse Resp BP Pulse Ox 99.7 F 90 16 129/82 H 95 02/10/18 11:26 02/10/18 11:26 02/10/18 14:01 02/10/18 14:01 02/10/18 14:01 - Laboratory Laboratory results interpreted by me: 02/10/18 02/10/18 12:47 12:47 Hgb 11.3 L Hct 34.9 L Chloride 94 L Carbon Dioxide 39 H Creatine Kinase 247 H Total Protein 8.7 H Discharge <FRANCOISE GUTIERREZ - Last Filed: 02/10/18 14:05> <SARITA SCHUMACHER - Last Filed: 02/10/18 15:35> - Discharge Clinical Impression: COPD exacerbation Condition: Stable Disposition: HOME, SELF-CARE Additional Instructions: Take the medications as prescribed. Start the prednisone tomorrow, you have had today's dose here in the emergency room. Use the ipratropium bromide continue nebulizer every 6 hours, you can mix it with the Xopenex when you do those treatments. Be sure to drink plenty of fluids. Try Robitussin-DM to help suppress cough and loosen the sputum so he can cough it up. Follow-up with your doctor if not improving. RETURN TO THE EMERGENCY ROOM IF ANY NEW OR WORSENING SYMPTOMS. Prescriptions: Doxycycline Hyclate 100 mg PO BID #14 tablet Ipratropium [place] [Atrovent 0.02% Neb 0.5 mg/2.5 ml Ampul] 0.5 mg NEB Q6 #30 vial.neb Prednisone [Deltasone 10 mg Tablet] 10 mg PO ASDIR PRN #21 tablet PRN Reason: Forms: Special Work Note Referrals: PAULINA FLORES, MARKET RISK ANALYST [Primary Care Provider] - Follow up in 3-5 days Scribe Attestation: 02/10/18 13:39 I personally performed the services described in the documentation, reviewed and edited the documentation which was dictated to the scribe in my presence, and it accurately records my words and actions. (SARITA SCHUMACHER) Scribe Documentation - Scribe Written by Mer:: Mer Thomas, 02/10/2018 1414 acting as scribe for :: Joan <FRANCOISE GUTIERREZ - Last Filed: 02/10/18 14:05>
[2018-02-10] MEDS ORDERED: ALBUTEROL SULFATE 0.083% NEB 2.5 MG/3 ML AMPUL NEB ONE ×2 (13:25→15:22)
[2018-02-10 13:33] LABS: CREATINE KINASE MB 1.69 ng/mL (<4.55); NT PRO BNP 41 pg/mL (5-900)
[2018-02-10 13:36] LABS: TROPONIN I < 0.012 ng/mL
[2018-02-10] MEDS ORDERED: METHYLPREDNISOLONE INJ 125 MG/2 ML SDV IV ONE (13:40)
[2018-02-10 13:48] LABS: ALANINE AMINOTRANSFERASE 22 U/L (9-52); ALBUMIN 4.3 g/dL (3.5-5.0); ALKALINE PHOSPHATASE 53 U/L (38-126); ANION GAP 11 (5-19); ASPARTATE AMINO TRANSFERASE 35 U/L (14-36); BILIRUBIN,DIRECT 0.3 mg/dL (0.0-0.4); BILIRUBIN,TOTAL 0.3 mg/dL (0.2-1.3); BLOOD UREA NITROGEN 10 mg/dL (7-20); CARBON DIOXIDE 39 mmol/L (22-30); CHLORIDE 94 mmol/L (98-107); CREATINE KINASE 247 U/L (30-135); GLUCOSE 103 mg/dL (75-110); TOTAL PROTEIN 8.7 g/dL (6.3-8.2)
--- NOTE | 2018-02-10 14:03 | EKG REPORT ---
SEVERITY:- BORDERLINE ECG - SINUS RHYTHM CONSIDER ANTERIOR INFARCT : Confirmed by: Reji Casarez MD 10-Feb-2018 14:02:47
[2018-02-10] MEDS ORDERED: DOXYCYCLINE HYCLATE 100 MG TABLET PO ONE (15:21)
[2018-02-10] MEDS ORDERED: PREDNISONE 20 MG TABLET PO ONE (15:21)
[2018-02-10 15:55] VITALS: BP 129/73
== END 2018-02-10 16:05 | disposition home or self-care (01) ==
LOC: ER 11:12
DX: J44.1 Chronic obstructive pulmonary disease with (acute) exacerbation (principal); Z99.81 Dependence on supplemental oxygen; Z79.899 Other long term (current) drug therapy; Z79.51 Long term (current) use of inhaled steroids; R06.02 Shortness of breath; R05 Cough; E66.01 Morbid (severe) obesity due to excess calories; Z68.44 Body mass index [BMI] 60.0-69.9, adult; F17.210 Nicotine dependence, cigarettes, uncomplicated; E11.9 Type 2 diabetes mellitus without complications; Z87.01 Personal history of pneumonia (recurrent); Z88.5 Allergy status to narcotic agent; Z88.0 Allergy status to penicillin
CPT/HCPCS: 93005; 94640 ×2; 99284; 96374; 36415; 87070; 87205; 82553; 82550; 85025; 87077; 80053; 84484; 83880; 71046; 93010; J2930; J7512; J7620

== ENCOUNTER 2018-10-07 00:09 | Emergency (ER) | payer MEDICAID ==
[2018-10-07] MEDS ORDERED: IPRATROPIUM/ALBUTEROL 0.5-2.5 MG/3 ML AMPUL NEB ONE ×2 (00:55→05:54)
[2018-10-07] MEDS ORDERED: METHYLPREDNISOLONE INJ 125 MG/2 ML SDV IV ONE (00:55)
--- NOTE | 2018-10-07 01:02 | ER Document Report ---
Addendum entered and electronically signed by LARRY BOYLE FNP 10/07/18 05:52: Physical Exam - Vital signs Vitals: Temp Pulse Resp BP Pulse Ox 98.7 F 97 20 155/87 H 99 10/07/18 00:11 10/07/18 00:11 10/07/18 00:11 10/07/18 00:11 10/07/18 00:11 - Respiratory Respiratory status: Labored Breath sounds: Decreased air movement, Nonproductive cough, Wheezing Chest palpation: Normal Original Note: ED Medical Screen (RME) - General Chief Complaint: Breathing Difficulty Stated Complaint: TROUBLE BREATHING Primary Care Provider: PAULINA FLORES NP [Primary Care Provider] - Follow up as needed TRAVEL OUTSIDE OF THE [place] IN LAST 30 DAYS: No - HPI Notes: 10/07/18 00:58 Patient is a 53-year-old female who arrives to the emergency department via EMS with a chief complaint shortness of breath. She reports a history of COPD, asthma, sleep apnea and congestive heart failure. Recently just finished prednisone and a Z-Home that her primary care physician prescribed for possible bronchitis. She reports that her shortness of breath and cough have gotten worse. Patient complaint of chills and left-sided chest pressure. Patient states that her oxygen level at home was 85% on 3 L. Here in triage she is on 4 L nasal cannula and her oxygen is 99%. EMS did administer 125 mg of Solu-Medrol and gave patient DuoNeb. She reports that the DuoNeb helped initially but is now wearing off. 10/07/18 01:02 - Related Data Allergies/Adverse Reactions: codeine [Codeine] Allergy (Severe, Verified 02/10/18 11:30) reacts with invega Penicillins Allergy (Severe, Verified 02/10/18 11:30) Hives Past Medical History - Past Medical History Cardiac Medical History: Reports: Hx Congestive Heart Failure, Hx Hypercholesterolemia, Hx Hypertension Denies: Hx DVT, Hx Heart Attack, Hx Pulmonary Embolism Pulmonary Medical History: Reports: Hx Asthma, Hx COPD, Hx Pneumonia, Hx Sleep Apnea - CPAP of 16. Neurological Medical History: Denies: Hx Seizures Endocrine Medical History: Reports: Hx Diabetes Mellitus Type 1, Hx Diabetes Mellitus Type 2. Denies: Hx Hyperthyroidism, Hx Hypothyroidism Renal/ Medical History: Denies: Hx Peritoneal Dialysis GI Medical History: Reports: Hx Gastroesophageal Reflux Disease. Denies: Hx Cirrhosis, Hx Hepatitis Musculoskeltal Medical History: Reports Hx Arthritis - rt knee, Reports Hx Musculoskeletal Trauma Psychiatric Medical History: Reports: Hx Anxiety, Hx Bipolar Disorder, Hx Depression, Hx Schizoaffective Disorder, Hx Schizophrenia Traumatic Medical History: Reports: Hx Fractures - Ankle right Infectious Medical History: Denies: Hx Hepatitis Past Surgical History: Reports: Hx Section - 3, Hx Tubal Ligation - Immunizations Immunizations up to date: Yes Hx Diphtheria, Pertussis, Tetanus Vaccination: Yes Physical Exam - Vital signs Vitals: Temp Pulse Resp BP Pulse Ox 98.7 F 97 20 155/87 H 99 10/07/18 00:11 10/07/18 00:11 10/07/18 00:11 10/07/18 00:11 10/07/18 00:11 Course - Re-evaluation Re-evalutation: 10/07/18 01:02 I have greeted and performed a rapid initial assessment of this patient. A comprehensive ED assessment and evaluation of the patient, analysis of test results and completion of the medical decision making process will be conducted by additional ED providers. - Vital Signs Vital signs: Temp Pulse Resp BP Pulse Ox 98.7 F 97 20 155/87 H 99 10/07/18 00:11 10/07/18 00:11 10/07/18 00:11 10/07/18 00:11 10/07/18 00:11 Doctor's Discharge - Discharge Referrals: PAULINA FLORES, PIECE WORK CHECKER [Primary Care Provider] - Follow up as needed
[2018-10-07 01:56] LABS: VENOUS BLOOD BASE EXCESS 7.1 mmol/L; VENOUS BLOOD HCO3 34.5 mmol/L (20-32); VENOUS BLOOD PCO2 63.4 mmHg (35-63); VENOUS BLOOD PH 7.35 (7.30-7.42)
[2018-10-07 02:05] LABS: ABSOLUTE EOSINOPHILS # (AUTO) 0.1 10^3/uL (0.0-0.6); ABSOLUTE LYMPHOCYTES (AUTO) 1.7 10^3/uL (0.5-4.7); ABSOLUTE MONOCYTES (AUTO) 0.4 10^3/uL (0.1-1.4); BASOPHILS % (AUTO) 0.7 % (0-2); EOSINOPHILS % (AUTO) 1.9 % (0-6); HEMATOCRIT 35.4 % (36.0-47.0); HEMOGLOBIN 11.7 g/dL (12.0-15.5); LYMPHOCYTES % (AUTO) 32.8 % (13-45); MEAN CORPUSCULAR HEMOGLOBIN 28.8 pg (27.0-33.4); MEAN CORPUSCULAR VOLUME 87 fl (80-97); MONOCYTES % (AUTO) 7.2 % (3-13); PLATELET COUNT 241 10^3/uL (150-450); RED BLOOD COUNT 4.05 10^6/uL (3.72-5.28); RED CELL DISTRIBUTION WIDTH 13.7 % (11.5-14.0); SEGMENTED NEUTROPHILS % (AUTO) 57.4 % (42-78); TOTAL CELLS COUNTED % (AUTO) 100 %; WHITE BLOOD COUNT 5.2 10^3/uL (4.0-10.5)
[2018-10-07 02:13] LABS: ALANINE AMINOTRANSFERASE 19 U/L (9-52); ALBUMIN 4.4 g/dL (3.5-5.0); ALKALINE PHOSPHATASE 59 U/L (38-126); ANION GAP 10 (5-19); ASPARTATE AMINO TRANSFERASE 27 U/L (14-36); BILIRUBIN,DIRECT 0.4 mg/dL (0.0-0.4); BILIRUBIN,TOTAL 0.4 mg/dL (0.2-1.3); BLOOD UREA NITROGEN 17 mg/dL (7-20); CALCIUM 10.8 mg/dL (8.4-10.2); CARBON DIOXIDE 35 mmol/L (22-30); CHLORIDE 94 mmol/L (98-107); CREATINE KINASE 150 U/L (30-135); GLUCOSE 187 mg/dL (75-110); POTASSIUM 4.9 mmol/L (3.6-5.0); SODIUM 138.5 mmol/L (137-145); TOTAL PROTEIN 8.2 g/dL (6.3-8.2)
[2018-10-07 02:25] LABS: CREATINE KINASE MB 2.64 ng/mL (<4.55)
[2018-10-07 02:26] LABS: TROPONIN I < 0.012 ng/mL
--- NOTE | 2018-10-07 03:24 | RADIOLOGY REPORT (SQ) ---
EXAM DESCRIPTION: XR CHEST 1 VIEW COMPLETED DATE/TME: 10/07/2018 00:53 CLINICAL HISTORY: 53 years, Female, shortness of breath COMPARISON: 02/10/2018 NUMBER OF VIEWS: One TECHNIQUE: AP view of the chest LIMITATIONS: None. FINDINGS: The lungs are clear. The heart is enlarged. There is no pneumothorax or pleural effusion. There is no acute fracture. IMPRESSION: No acute cardiopulmonary abnormality copyright 2010 [employer]- All Rights Reserved
--- NOTE | 2018-10-07 05:51 | ER Document Report ---
ED Medical Screen (RME) - General Chief Complaint: Breathing Difficulty Stated Complaint: TROUBLE BREATHING Primary Care Provider: PAULINA FLORES NP [Primary Care Provider] - Follow up as needed Mode of Arrival: Wheelchair TRAVEL OUTSIDE OF THE [place] IN LAST 30 DAYS: No - HPI Notes: 10/07/18 05:50 10/07/18 00:58 Patient is a 53-year-old female who arrives to the emergency department via EMS with a chief complaint shortness of breath. She reports a history of COPD, asthma, sleep apnea and congestive heart failure. Recently just finished prednisone and a Z-Home that her primary care physician prescribed for possible bronchitis. She reports that her shortness of breath and cough have gotten worse. Patient complaint of chills and left-sided chest pressure. Patient stat es that her oxygen level at home was 85% on 3 L. Here in triage she is on 4 L nasal cannula and her oxygen is 99%. EMS did administer 125 mg of Solu-Medrol and gave patient DuoNeb. She reports that the DuoNeb helped initially but is now wearing off. - Related Data Allergies/Adverse Reactions: codeine [Codeine] Allergy (Severe, Verified 02/10/18 11:30) reacts with invega Penicillins Allergy (Severe, Verified 02/10/18 11:30) Hives Past Medical History - Past Medical History Cardiac Medical History: Reports: Hx Congestive Heart Failure, Hx Hypercholesterolemia, Hx Hypertension Denies: Hx DVT, Hx Heart Attack, Hx Pulmonary Embolism Pulmonary Medical History: Reports: Hx Asthma, Hx COPD, Hx Pneumonia, Hx Sleep Apnea - CPAP of 16. Neurological Medical History: Denies: Hx Seizures Endocrine Medical History: Reports: Hx Diabetes Mellitus Type 1, Hx Diabetes Mellitus Type 2. Denies: Hx Hyperthyroidism, Hx Hypothyroidism Renal/ Medical History: Denies: Hx Peritoneal Dialysis GI Medical History: Reports: Hx Gastroesophageal Reflux Disease. Denies: Hx Cirrhosis, Hx Hepatitis Musculoskeltal Medical History: Reports Hx Arthritis - rt knee, Reports Hx Musculoskeletal Trauma Psychiatric Medical History: Reports: Hx Anxiety, Hx Bipolar Disorder, Hx Depression, Hx Schizoaffective Disorder, Hx Schizophrenia Traumatic Medical History: Reports: Hx Fractures - Ankle right Infectious Medical History: Denies: Hx Hepatitis Past Surgical History: Reports: Hx Section - 3, Hx Tubal Ligation - Immunizations Immunizations up to date: Yes Hx Diphtheria, Pertussis, Tetanus Vaccination: Yes Physical Exam - Vital signs Vitals: Temp Pulse Resp BP Pulse Ox 98.7 F 97 20 155/87 H 99 10/07/18 00:11 10/07/18 00:11 10/07/18 00:11 10/07/18 00:11 10/07/18 00:11 Interpretation: Hypertensive - General General appearance: Alert In distress: Mild - Respiratory Chest status: Nontender Breath sounds: Decreased air movement, Nonproductive cough, Wheezing Course - Vital Signs Vital signs: Temp Pulse Resp BP Pulse Ox 98.7 F 97 20 155/87 H 99 10/07/18 00:11 10/07/18 00:11 10/07/18 00:11 10/07/18 00:11 10/07/18 00:11 - Laboratory Result Diagrams: 10/07/18 01:35 10/07/18 01:35 Laboratory results interpreted by me: 10/07/18 10/07/18 10/07/18 01:35 01:35 01:35 Hgb 11.7 L Hct 35.4 L VBG pCO2 63.4 H VBG HCO3 34.5 H Chloride 94 L Carbon Dioxide 35 H Glucose 187 H Calcium 10.8 H Creatine Kinase 150 H Doctor's Discharge - Discharge Referrals: PAULINA FLORES NP [Primary Care Provider] - Follow up as needed
--- NOTE | 2018-10-07 06:30 | ER Document Report ---
ED Respiratory Problem - General Chief Complaint: Breathing Difficulty Stated Complaint: TROUBLE BREATHING Time Seen by Provider: 10/07/18 06:06 Primary Care Provider: CHERY HUBER MD [ACTIVE STAFF] - Follow up in 3-5 days PAULINA FLROES NP [Primary Care Provider] - Follow up as needed Notes: 53-year-old female patient emergency department chief complaint of wheezing. Patient was seen here yesterday. Returns second time via EMS. Long-standing history of COPD and CHF. Followed by Dr. Huber with pulmonology. Patient has finished a complete course of antibiotics as well as steroids but continues to have wheezing. Denies any chest pain at this time. Denies any fever. No leg pain. No prior history of DVT or pulmonary embolism. TRAVEL OUTSIDE OF THE [place] IN LAST 30 DAYS: No - HPI Patient complains to provider of: COPD, Cough, Short of breath Onset: Last week Duration: Continuous Quality of pain: No pain Severity: Moderate Pain Level: Denies Short of Breath: Moderate Cough: Nonproductive - Related Data Allergies/Adverse Reactions: codeine [Codeine] Allergy (Severe, Verified 02/10/18 11:30) reacts with invega Penicillins Allergy (Severe, Verified 02/10/18 11:30) Hives Past Medical History - General Information source: Patient - Social History Smoking Status: Former Smoker Frequency of alcohol use: None Drug Abuse: None Lives with: Family Family History: Arthritis, CAD, CVA, DM, Hyperlipidemia, Hypertension, Malignancy - Past Medical History Cardiac Medical History: Reports: Hx Congestive Heart Failure, Hx Hypercholesterolemia, Hx Hypertension Denies: Hx DVT, Hx Heart Attack, Hx Pulmonary Embolism Pulmonary Medical History: Reports: Hx Asthma, Hx COPD, Hx Pneumonia, Hx Sleep Apnea - CPAP of 16. Neurological Medical History: Denies: Hx Seizures Endocrine Medical History: Reports: Hx Diabetes Mellitus Type 1, Hx Diabetes Mellitus Type 2. Denies: Hx Hyperthyroidism, Hx Hypothyroidism Renal/ Medical History: Denies: Hx Peritoneal Dialysis GI Medical History: Reports: Hx Gastroesophageal Reflux Disease. Denies: Hx Cirrhosis, Hx Hepatitis Musculoskeletal Medical History: Reports Hx Arthritis - rt knee, Reports Hx Musculoskeletal Trauma Psychiatric Medical History: Reports: Hx Anxiety, Hx Bipolar Disorder, Hx Depression, Hx Schizoaffective Disorder, Hx Schizophrenia Traumatic Medical History: Reports: Hx Fractures - Ankle right Infectious Medical History: Denies: Hx Hepatitis Past Surgical History: Reports: Hx Section - 3, Hx Tubal Ligation - Immunizations Immunizations up to date: Yes Hx Diphtheria, Pertussis, Tetanus Vaccination: Yes Hx Pneumococcal Vaccination: 04/30/16 Review of Systems - Review of Systems Notes: Constitutional: denies: Chills, Diaphoresis, Fever, Malaise, Weakness EENT: denies: Eye discharge, Blurred vision, Tearing, Double vision, Nose congestion, Nose discharge, Throat swelling, Mouth pain Cardiovascular: denies: Palpitations, Heart racing, Orthopnea, Dyspnea, Chest pain Respiratory: denies: Cough, Hurts to breathe, Wheezing,+ Shortness of breath Gastrointestinal: denies: Abdominal pain, Diarrhea, Nausea, Vomiting, Black stools, bright red blood in stool Genitourinary: denies: Burning, Dysuria, Discharge, Frequency, Flank pain, Hematuria Musculoskeletal: denies: Joint pain, Joint swelling, Muscle pain, Muscle stiffness, back pain Hematologic/Lymphatic: denies: Anemia, Easy bleeding, Easy bruising, Blood clots Neurological/Psychological: denies: Confusion, Dementia, Depression, Loss of consciousness Skin: No lesions, no masses, no skin breakdown, no abscesses Physical Exam - Vital signs Vitals: Temp Pulse Resp BP Pulse Ox 98.7 F 97 20 155/87 H 99 10/07/18 00:11 10/07/18 00:11 10/07/18 00:11 10/07/18 00:11 10/07/18 00:11 Interpretation: Normal - Notes Notes: Morbidly obese - General General appearance: Appears well, Alert - HEENT Head: Normocephalic, Atraumatic Eyes: Normal Pupils: PERRL - Respiratory Respiratory status: No respiratory distress Chest status: Nontender Breath sounds: Wheezing Chest palpation: Normal - Cardiovascular Rhythm: Regular Heart sounds: Normal auscultation Murmur: No - Abdominal Inspection: Normal Distension: No distension Bowel sounds: Normal Tenderness: Nontender Organomegaly: No organomegaly - Back Back: Normal, Nontender - Extremities General upper extremity: Normal inspection, Nontender, Normal color, Normal ROM, Normal temperature General lower extremity: Normal inspection, Nontender, Edema, Normal color, Normal ROM, Normal temperature, Normal weight bearing. No: Marianne's sign - Neurological Neuro grossly intact: Yes Cognition: Normal Orientation: AAOx4 [place] Coma Scale Eye Opening: Spontaneous Derrick Coma Scale Verbal: Oriented Derrick Coma Scale Motor: Obeys Commands [place] Coma Scale Total: 15 Speech: Normal Motor strength normal: LUE, RUE, LLE, RLE Sensory: Normal - Psychological Associated symptoms: Normal affect, Normal mood - Skin Skin Temperature: Warm Skin Moisture: Dry Skin Color: Normal Course - Re-evaluation Re-evalutation: 10/07/18 08:51 Long and lengthy discussion had with patient's engineering agent, Dr. Huber. He wants to see patient as an outpatient. Currently a comprehensive review of her labs show that she is not having a heart attack, is not in heart failure and unlikely to have a PE based on a negative d-dimer. More likely patient has worsening pulmonary hypertension. An echocardiogram 5 years ago did show moderate pulmonary hypertension and this is something that has not necessarily been addressed. Patient has been versed on these findings. At this time I do believe she remained stable for DC. Will DC at this time in stable condition. Laboratory 10/07/18 10/07/18 10/07/18 01:35 01:35 01:35 WBC 5.2 RBC 4.05 Hgb 11.7 L Hct 35.4 L MCV 87 MCH 28.8 MCHC 33.0 RDW 13.7 Plt Count 241 Seg Neutrophils % 57.4 Lymphocytes % 32.8 Monocytes % 7.2 Eosinophils % 1.9 Basophils % 0.7 Absolute Neutrophils 3.0 Absolute Lymphocytes 1.7 Absolute Monocytes 0.4 Absolute Eosinophils 0.1 Absolute Basophils 0.0 D-Dimer VBG pH VBG pCO2 VBG HCO3 VBG Base Excess Sodium 138.5 Potassium 4.9 Chloride 94 L Carbon Dioxide 35 H Anion Gap 10 BUN 17 Creatinine 0.74 Est GFR ( Amer) > 60 Est GFR (Non-Af Amer) > 60 Glucose 187 H Calcium 10.8 H Total Bilirubin 0.4 Direct Bilirubin 0.4 Neonat Total Bilirubin Not Reportable Neonat Direct Bilirubin Not Reportable Neonat Indirect Bili Not Reportable AST 27 ALT 19 Alkaline Phosphatase 59 Creatine Kinase 150 H CK-MB (CK-2) 2.64 Troponin I < 0.012 NT-Pro-B Natriuret Pep Total Protein 8.2 Albumin 4.4 10/07/18 10/07/18 10/07/18 01:35 01:35 01:35 WBC RBC Hgb Hct MCV MCH MCHC RDW Plt Count Seg Neutrophils % Lymphocytes % Monocytes % Eosinophils % Basophils % Absolute Neutrophils Absolute Lymphocytes Absolute Monocytes Absolute Eosinophils Absolute Basophils D-Dimer 0.40 VBG pH 7.35 VBG pCO2 63.4 H VBG HCO3 34.5 H VBG Base Excess 7.1 Sodium Potassium Chloride Carbon Dioxide Anion Gap BUN Creatinine Est GFR ( Amer) Est GFR (Non-Af Amer) Glucose Calcium Total Bilirubin Direct Bilirubin Neonat Total Bilirubin Neonat Direct Bilirubin Neonat Indirect Bili AST ALT Alkaline Phosphatase Creatine Kinase CK-MB (CK-2) Troponin I NT-Pro-B Natriuret Pep 39 Total Protein Albumin 10/07/18 06:35 WBC RBC Hgb Hct MCV MCH MCHC RDW Plt Count Seg Neutrophils % Lymphocytes % Monocytes % Eosinophils % Basophils % Absolute Neutrophils Absolute Lymphocytes Absolute Monocytes Absolute Eosinophils Absolute Basophils D-Dimer VBG pH VBG pCO2 VBG HCO3 VBG Base Excess Sodium Potassium Chloride Carbon Dioxide Anion Gap BUN Creatinine Est GFR ( Amer) Est GFR (Non-Af Amer) Glucose Calcium Total Bilirubin Direct Bilirubin Neonat Total Bilirubin Neonat Direct Bilirubin Neonat Indirect Bili AST ALT Alkaline Phosphatase Creatine Kinase CK-MB (CK-2) Troponin I < 0.012 NT-Pro-B Natriuret Pep Total Protein Albumin Chest X-Ray 10/07/18 00:53 IMPRESSION: No acute cardiopulmonary abnormality copyright 2011 [employer]- All Rights Reserved - Vital Signs Vital signs: Temp Pulse Resp BP Pulse Ox 98.2 F 95 22 H 158/87 H 98 10/07/18 09:00 10/07/18 09:00 10/07/18 09:00 10/07/18 09:00 10/07/18 09:00 - Laboratory Result Diagrams: 10/07/18 01:35 10/07/18 01:35 Laboratory results interpreted by me: 10/07/18 10/07/18 10/07/18 01:35 01:35 01:35 Hgb 11.7 L Hct 35.4 L VBG pCO2 63.4 H VBG HCO3 34.5 H Chloride 94 L Carbon Dioxide 35 H Glucose 187 H Calcium 10.8 H Creatine Kinase 150 H - EKG Interpretation by Ar EKG shows normal: Sinus rhythm, [place], Intervals, QRS Complexes, ST-T Waves When compared to previous EKG there are: No significant change Discharge - Discharge Clinical Impression: Dyspnea, unspecified Qualifiers: Dyspnea type: dyspnea on exertion Qualified Code(s): R06.09 - Other forms of dyspnea Condition: Good Disposition: HOME, SELF-CARE Instructions: Dyspnea, Nonspecific ([facility]) Additional Instructions: Your labs look unremarkable today. Please follow-up with the engineering agent as instructed. In the event that your symptoms get worse or do not hesitate to return. Referrals: PAULINA FLORES NP [Primary Care Provider] - Follow up as needed CHERY HUBER MD [ACTIVE STAFF] - Follow up in 3-5 days
[2018-10-07] MEDS ORDERED: ALBUTEROL SULFATE 0.083% NEB 2.5 MG/3 ML AMPUL NEB ONE (07:54)
[2018-10-07 09:26] VITALS: BP 158/87
--- NOTE | 2018-10-08 11:08 | EKG REPORT ---
SEVERITY:- BORDERLINE ECG - SINUS RHYTHM BORDERLINE R WAVE PROGRESSION, ANTERIOR LEADS : Confirmed by: Travis Marie 08-Oct-2018 11:07:44
== END 2018-10-07 09:26 | disposition home or self-care (01) ==
LOC: ER 00:09
DX: J44.9 Chronic obstructive pulmonary disease, unspecified (principal); I27.20 Pulmonary hypertension, unspecified; R06.09 Other forms of dyspnea; R05 Cough; R06.02 Shortness of breath; E66.01 Morbid (severe) obesity due to excess calories; E11.9 Type 2 diabetes mellitus without complications; Z88.5 Allergy status to narcotic agent; Z88.0 Allergy status to penicillin; Z87.891 Personal history of nicotine dependence; Z87.01 Personal history of pneumonia (recurrent)
CPT/HCPCS: 93005; 99284; 36415; 82553; 82550; 85025; 80053; 84484; 85379; 82803; 83880; 71045; 93010; J7620

== ENCOUNTER 2019-04-06 21:00 | Emergency (ER) | payer MEDICAID ==
--- NOTE | 2019-04-06 21:19 | ER Document Report ---
ED Blood Sugar Problem - General Stated Complaint: BLOOD SUGAR PROBLEMS Time Seen by Provider: 04/06/19 21:18 Primary Care Provider: PAULINA FLORES NP [Primary Care Provider] - Follow up as needed Mode of Arrival: Stretcher Information source: Patient, Relative, Emergency Med Personnel Notes: HISTORY OF PRESENT ILLNESS: Patient is a 54-year-old female with a past medical history of multiple chronic conditions including diabetes who presents with hyperglycemia. Patient reports that she takes Levemir and metformin, recently was seen by her primary physician after her blood sugars have been greater than 400 for several weeks, reports she had a hemoglobin A1c of 15. Location: Global Onset: Several weeks ago Provocation: "I am taking my medications like I was told" Quality: Weakness, increased thirst, increased urination Radiation: None Severity: Moderate Timing: Constant Last seen normal: Today, no changes according to family Associated symptoms: Denies nausea or vomiting, no fevers or chills, no cough or congestion REVIEW OF SYSTEMS: CONSTITUTIONAL : Positive for general malaise and weakness. Denies fever or chills, no sweats. Denies recent illness. EENT: Denies eye, ear, throat, or mouth pain or symptoms. Denies nasal or sinus congestion. CARDIOVASCULAR: Denies chest pain. RESPIRATORY: Denies cough, cold, or chest congestion. Denies shortness of breath, difficulty breathing, or wheezing. GASTROINTESTINAL: Denies abdominal pain. Denies nausea, vomiting, or diarrhea. Denies constipation. GENITOURINARY: Denies difficulty urinating, painful urination, burning, frequency, or blood in urine. FEMALE GENITOURINARY: Denies vaginal bleeding, abnormal or irregular periods. Last menstrual period MUSCULOSKELETAL: Denies neck or back pain or joint pain or swelling. SKIN: Denies rash or skin lesions. HEMATOLOGIC : Positive for polyuria and polydipsia. Denies easy bruising or bleeding. LYMPHATIC: Denies swollen, enlarged glands. NEUROLOGICAL: Denies altered mental status or loss of consciousness. Denies headache. Denies weakness or paralysis or loss of use of either side. Denies problems with gait or speech. Denies sensory or motor loss. PSYCHIATRIC: Denies anxiety or stress or depression. All other systems reviewed and negative. PHYSICAL EXAMINATION: GENERAL: Obese-appearing, well-nourished and in no acute distress. HEAD: Atraumatic, normocephalic. No scalp deformity, depression, or crepitance. EYES: Pupils are 3 mm and equal/round/reactive to light, extraocular movements intact, sclera anicteric, conjunctiva are normal. ENT: Nares patent bilaterally, oropharynx clear without exudates or palatal petechia. Moist mucous membranes. No tonsil hypertrophy. NECK: Normal range of motion, supple without lymphadenopathy. LUNGS: Breath sounds present, equal, and clear to auscultation bilaterally. No wheezes, rales, or rhonchi. HEART: Regular rate and rhythm without murmurs, rubs, or gallops. 2+ peripheral pulses. Normal capillary refill. ABDOMEN: Soft, nontender, nondistended. Normoactive bowel sounds. No guarding, no rebound. No masses appreciated. BACK: Normal contour, no midline tenderness. Rectal exam deferred. GENITAL/PELVC: Deferred. EXTREMITIES: Normal range of motion, no pitting or edema. No cyanosis. NEUROLOGICAL: No focal neurological deficits. Cranial nerves II-XII intact. Moves all extremities spontaneously and on command. No facial droop, no ptosis or slurred speech, tongue is midline, no pronator drift, no dysarthria or dysmetria. PSYCH: Normal mood, normal affect. No suicidal thoughts/ideations. No homicidal thoughts/ideations. No hallucinations. SKIN: Warm, dry, normal turgor, no rashes or lesions noted. ASSESSMENT AND PLAN: This patient is a 54-year-old female who presents with hyperglycemia, concern for DKA. 1. Will obtain labs, urine, VBG, lactic acid, and cardiac enzymes. 2. Will give IV fluids with regular insulin and reassess. TRAVEL OUTSIDE OF THE [place] IN LAST 30 DAYS: No - HPI Onset: This afternoon Onset/Duration: Gradual Quality of pain: No pain Severity: Mild Pain Level: Denies D-stick result: >500 Insulin taken: Yes Associated symptoms: Increased thirst, Frequent urination, Weakness Similar symptoms previously: Yes Recently seen / treated by doctor: Yes - Related Data Allergies/Adverse Reactions: codeine [Codeine] Allergy (Severe, Verified 02/10/18 11:30) reacts with invega Penicillins Allergy (Severe, Verified 02/10/18 11:30) Hives Past Medical History - General Information source: Patient, Relative - Social History Smoking Status: Never Smoker Chew tobacco use (# tins/day): No Frequency of alcohol use: None Drug Abuse: None Lives with: Family Family History: Arthritis, CAD, CVA, DM, Hyperlipidemia, Hypertension, Malignancy - Past Medical History Cardiac Medical History: Reports: Hx Congestive Heart Failure, Hx Hypercholesterolemia, Hx Hypertension Denies: Hx DVT, Hx Heart Attack, Hx Pulmonary Embolism Pulmonary Medical History: Reports: Hx Asthma, Hx COPD, Hx Pneumonia, Hx Sleep Apnea - CPAP of 16. EENT Medical History: Reports: None Neurological Medical History: Reports: None. Denies: Hx Seizures Endocrine Medical History: Reports: Hx Diabetes Mellitus Type 1, Hx Diabetes Mellitus Type 2. Denies: Hx Hyperthyroidism, Hx Hypothyroidism Renal/ Medical History: Reports: None. Denies: Hx Peritoneal Dialysis Malignancy Medical History: Reports: None GI Medical History: Reports: Hx Gastroesophageal Reflux Disease. Denies: Hx Cirrhosis, Hx Hepatitis Musculoskeletal Medical History: Reports Hx Arthritis - rt knee, Reports Hx Musculoskeletal Trauma Skin Medical History: Reports None Psychiatric Medical History: Reports: Hx Anxiety, Hx Bipolar Disorder, Hx Depression, Hx Schizoaffective Disorder, Hx Schizophrenia Traumatic Medical History: Reports: Hx Fractures - Ankle right Infectious Medical History: Reports: None. Denies: Hx Hepatitis Past Surgical History: Reports: Hx Section - 3, Hx Tubal Ligation - Immunizations Immunizations up to date: Yes Hx Diphtheria, Pertussis, Tetanus Vaccination: Yes Hx Pneumococcal Vaccination: 04/30/16 Review of Systems - Review of Systems Constitutional: See HPI, Malaise, Weakness EENT: No symptoms reported Cardiovascular: No symptoms reported Respiratory: No symptoms reported Gastrointestinal: No symptoms reported Genitourinary: No symptoms reported Female Genitourinary: No symptoms reported Musculoskeletal: No symptoms reported Skin: No symptoms reported Hematologic/Lymphatic: No symptoms reported Neurological/Psychological: No symptoms reported -: Yes All other systems reviewed and negative Physical Exam - Vital signs Vitals: Temp Pulse Resp BP Pulse Ox 98.1 F 80 23 H 140/81 H 100 04/06/19 21:00 04/06/19 21:00 04/06/19 21:00 04/06/19 21:00 04/06/19 21:00 Interpretation: Normal Course - Re-evaluation Re-evalutation: 04/07/19 01:06 Patient has no evidence of diabetic ketoacidosis. Blood sugar has dramatically improved after IV insulin and fluids. Will discharge the patient home with strict return precautions and follow-up with primary care. All results were explained to and discussed with the patient, and all questions addressed and answered. The patient voices both understanding and agreeing with the plan. - Vital Signs Vital signs: Temp Pulse Resp BP Pulse Ox 98.6 F 82 18 139/91 H 100 04/07/19 01:16 04/07/19 01:16 04/07/19 01:16 04/07/19 01:16 04/07/19 01:16 - Laboratory Result Diagrams: 04/06/19 21:22 04/06/19 21:22 Laboratory results interpreted by me: 04/06/19 04/06/19 04/06/19 21:16 21:22 21:22 Hgb 11.2 L Hct 34.7 L Lymph % (Auto) 55.8 H Seg Neutrophils % 35.2 L Sodium 133.0 L Chloride 90 L Carbon Dioxide 34 H Glucose 443 H* POC Glucose 449 H* AST 12 L Urine Glucose (UA) Urine Ketones 04/06/19 04/06/19 04/06/19 21:26 22:25 23:13 Hgb Hct Lymph % (Auto) Seg Neutrophils % Sodium Chloride Carbon Dioxide Glucose POC Glucose 425 H* 346 H AST Urine Glucose (UA) >=500 H Urine Ketones TRACE H Discharge - Discharge Clinical Impression: Hyperglycemia without ketosis Condition: Good Disposition: HOME, SELF-CARE Instructions: Hyperglycemia ([facility]) Additional Instructions: You have been evaluated in the Emergency Department for an elevated blood sugar. While here, you had no evidence of diabetic ketoacidosis so we given IV fluids with insulin. It is now safe to be discharged home. Please follow-up with your primary physician as instructed in one week to be rechecked. Return to the Emergency Department if you experience increased weakness, chest pain, d ifficulty breathing, or any other concerning symptoms. Prescriptions: Glipizide [Glucotrol] 10 mg PO DAILY #30 tablet Referrals: PAULINA FLORES, SPECIAL WARFARE OPERATOR [Primary Care Provider] - Follow up as needed Print Language: Ukrainian
[2019-04-06] MEDS ORDERED: NORMAL SALINE 1000 ML 1,000 ML IV ONE (21:42)
[2019-04-06] MEDS ORDERED: INSULIN REG, HUMAN 100 UNIT/ML 3 ML VIAL (PYX) IV ONE (21:45)
[2019-04-06] MEDS ORDERED: RINGERS SOLUTION,LACTATED 1,000 ML IV ONE (21:45)
[2019-04-06 21:55] LABS: ABSOLUTE LYMPHOCYTES (AUTO) 2.7 10^3/uL (0.5-4.7); ABSOLUTE MONOCYTES (AUTO) 0.4 10^3/uL (0.1-1.4); ABSOLUTE NEUT (AUTO) 1.7 10^3/uL (1.7-8.2); BASOPHILS % (AUTO) 0.3 % (0-2); EOSINOPHILS % (AUTO) 0.8 % (0-6); HEMATOCRIT 34.7 % (36.0-47.0); HEMOGLOBIN 11.2 g/dL (12.0-15.5); LYMPHOCYTES % (AUTO) 55.8 % (13-45); MEAN CORPUSCULAR HEMOGLOBIN 27.8 pg (27.0-33.4); MEAN CORPUSCULAR HGB CONC 32.3 g/dL (32.0-36.0); MEAN CORPUSCULAR VOLUME 86 fl (80-97); MONOCYTES % (AUTO) 7.9 % (3-13); PLATELET COUNT 195 10^3/uL (150-450); RED BLOOD COUNT 4.03 10^6/uL (3.72-5.28); SEGMENTED NEUTROPHILS % (AUTO) 35.2 % (42-78); TOTAL CELLS COUNTED % (AUTO) 100 %; WHITE BLOOD COUNT 4.8 10^3/uL (4.0-10.5)
[2019-04-06 22:07] LABS: ALBUMIN 3.6 g/dL (3.5-5.0); ALKALINE PHOSPHATASE 54 U/L (38-126); ANION GAP 9 (5-19); ASPARTATE AMINO TRANSFERASE 12 U/L (14-36); BILIRUBIN,DIRECT 0.2 mg/dL (0.0-0.4); BILIRUBIN,TOTAL 0.2 mg/dL (0.2-1.3); BLOOD UREA NITROGEN 10 mg/dL (7-20); CALCIUM 10.2 mg/dL (8.4-10.2); CARBON DIOXIDE 34 mmol/L (22-30); CHLORIDE 90 mmol/L (98-107); POTASSIUM 4.2 mmol/L (3.6-5.0); TOTAL PROTEIN 6.7 g/dL (6.3-8.2)
[2019-04-06 22:18] LABS: GLUCOSE 443 mg/dL (75-110)
[2019-04-06 22:22] LABS: NT PRO BNP 38 pg/mL (5-900); TROPONIN I < 0.012 ng/mL
[2019-04-06 22:44] LABS: APPEARANCE,URINE CLEAR; BILIRUBIN,URINE NEGATIVE (NEGATIVE); COLOR,URINE STRAW; GLUCOSE, URINE >=500 mg/dL (NEGATIVE); KETONES,URINE TRACE mg/dL (NEGATIVE); LEUKOCYTE ESTERASE,URINE NEGATIVE (NEGATIVE); NITRITE,URINE NEGATIVE (NEGATIVE); PROTEIN,URINE NEGATIVE (NEGATIVE); URINE SPECIFIC GRAVITY 1.028; UROBILINOGEN,URINE NEGATIVE mg/dL (<2.0)
--- NOTE | 2019-04-06 22:57 | RADIOLOGY REPORT (SQ) ---
EXAM DESCRIPTION: XR CHEST 1 VIEW COMPLETED DATE/TME: 04/06/2019 21:39 CLINICAL HISTORY: 54 years Female, Weakness COMPARISON:Oct 07 2018 NUMBER OF VIEWS/TECHNIQUE: 1/AP FINDINGS: Adequate lung volume, clear parenchyma, normal cardiac silhouette, and intact bony thorax. IMPRESSION: No acute cardiopulmonary findings.
[2019-04-07 01:17] VITALS: BP 139/91
== END 2019-04-07 01:17 | disposition home or self-care (01) ==
LOC: ER 21:00
DX: E11.65 Type 2 diabetes mellitus with hyperglycemia (principal); Z79.84 Long term (current) use of oral hypoglycemic drugs; Z79.4 Long term (current) use of insulin; R53.1 Weakness; R53.81 Other malaise; R35.8 Other polyuria; R63.1 Polydipsia; I10 Essential (primary) hypertension; J44.9 Chronic obstructive pulmonary disease, unspecified; Z88.5 Allergy status to narcotic agent; Z88.0 Allergy status to penicillin
CPT/HCPCS: 99284; 96360; 96361; 36415; 82962; 85025; 80053; 81001; 84484; 83880; 71045; J1815; J7030; J7120

== ENCOUNTER 2019-05-19 19:27 | Emergency (ER) | payer MEDICAID ==
[2019-05-19] MEDS ORDERED: ONDANSETRON HCL INJ/PF 4 MG/2 ML SDV IV ONE (20:42)
[2019-05-19] MEDS ORDERED: NORMAL SALINE 500 ML IV PRN (20:42)
--- NOTE | 2019-05-19 20:52 | ER Document Report ---
ED Medical Screen (RME) - General Chief Complaint: Shortness Of Breath Stated Complaint: NAUSEA Time Seen by Provider: 05/19/19 20:33 Primary Care Provider: PAULINA FLORES NP [Primary Care Provider] - Follow up as needed Notes: Patient is a 54-year-old female who presents to the emergency department with a chief complaint of shortness of breath. Patient states that she started have shortness of breath about 4 days ago. Her grandchild was sick and she had been with them. Her grandchild was diagnosed with a bacterial infection. Patient states that she also has had some nausea, vomiting, and diarrhea. Patient also states that she is got a sore throat. She can feel some "congestion" on the left side of her lung. Reports feeling feverish. Patient has been taking ibuprofen and Tylenol [id number] for fever and pain. Exam: Diminished breath sounds in the bases. I have greeted and performed a rapid initial assessment of this patient. A comprehensive ED assessment and evaluation of the patient, analysis of test results and completion of medical decision making process will be conducted by an additional ED providers. TRAVEL OUTSIDE OF THE [place] IN LAST 30 DAYS: No - Related Data Allergies/Adverse Reactions: codeine [Codeine] Allergy (Severe, Verified 02/10/18 11:30) reacts with invega Penicillins Allergy (Severe, Verified 02/10/18 11:30) Hives Home Medications: 02 @3 1/2-4 l/min asa ec qday; vit b12 1000 mg qday; diltiazem er 180 mg bid, divalproex er 500 mg qhs, gabapentin 300 mg 1 qam, 2 qpm,. glipizide 10 mg qday, metoprolole 50 mg bid, myrbetriq er 50 mg qday,. invega er 6 mg qday, requip 0.5 mg qpm, levemir 55u qpm, oxycodone. 5mg prn, crestor 5 mg qday; zoloft 100 mg 2 tab qam,theophylline er 300mg bid, ranitidine 150 mg bid, zanaflex 4 mg prn; demadex 20 mg qday; vit d 2000iu qday Past Medical History - Social History Frequency of alcohol use: None Drug Abuse: None - Past Medical History Cardiac Medical History: Reports: Hx Congestive Heart Failure, Hx Hypercholesterolemia, Hx Hypertension Denies: Hx DVT, Hx Heart Attack, Hx Pulmonary Embolism Pulmonary Medical History: Reports: Hx Asthma, Hx COPD, Hx Pneumonia, Hx Sleep Apnea - CPAP of 16. Neurological Medical History: Denies: Hx Seizures Endocrine Medical History: Reports: Hx Diabetes Mellitus Type 1, Hx Diabetes Mellitus Type 2. Denies: Hx Hyperthyroidism, Hx Hypothyroidism Renal/ Medical History: Denies: Hx Peritoneal Dialysis GI Medical History: Reports: Hx Gastroesophageal Reflux Disease. Denies: Hx Cirrhosis, Hx Hepatitis Musculoskeltal Medical History: Reports Hx Arthritis - rt knee, Reports Hx Musculoskeletal Trauma Psychiatric Medical History: Reports: Hx Anxiety, Hx Bipolar Disorder, Hx Depression, Hx Schizoaffective Disorder, Hx Schizophrenia Traumatic Medical History: Reports: Hx Fractures - Ankle right Infectious Medical History: Denies: Hx Hepatitis Past Surgical History: Reports: Hx Section - 3, Hx Tubal Ligation - Immunizations Immunizations up to date: Yes Hx Diphtheria, Pertussis, Tetanus Vaccination: Yes Physical Exam - Vital signs Vitals: Temp Pulse Resp BP Pulse Ox 98.1 F 86 18 128/74 H 99 05/19/19 20:00 05/19/19 20:00 05/19/19 20:00 05/19/19 20:00 05/19/19 20:00 Course - Vital Signs Vital signs: Temp Pulse Resp BP Pulse Ox 98.1 F 86 18 128/74 H 99 05/19/19 20:00 05/19/19 20:00 05/19/19 20:00 05/19/19 20:00 05/19/19 20:00 Doctor's Discharge - Discharge Referrals: PAULINA FLORES [employer] [Primary Care Provider] - Follow up as needed
--- NOTE | 2019-05-19 21:25 | RADIOLOGY REPORT (SQ) ---
EXAM DESCRIPTION: [facility]: XR CHEST 1 VIEW CLINICAL HISTORY: 54 years Female, shortness of breath; congestion COMPARISON: 04/06/2019 FINDINGS: Vascular markings are slightly prominent. There is no focal infiltrate. No pneumothorax or pleural effusion. Mediastinum is within normal limits for this positioning. Bony structures are unremarkable. IMPRESSION: 1. Mild pulmonary vascular congestion. 2. No focal acute infiltrates.
--- NOTE | 2019-05-19 21:38 | ER Document Report ---
ED General - General Chief Complaint: Shortness Of Breath Stated Complaint: NAUSEA Time Seen by Provider: 05/19/19 20:33 Primary Care Provider: PAULINA FLORES NP [Primary Care Provider] - Follow up as needed Notes: 54-year-old diabetic female presents emergency department complaining of 4 days of symptoms. Patient states she is had vomiting, diarrhea, abdominal cramping, sore throat, sweats and chills, nonproductive cough, myalgias, frontal headache and insomnia. States that she has had to use her Symbicort and Xopenex more than usual and use her BiPAP for longer than usual. Patient states that she has a grandchild with similar symptoms that was diagnosed with a bacterial infection approximately a week ago given antibiotics and has started to get better. She does not know exactly what bacterial infection he was diagnosed with. TRAVEL OUTSIDE OF THE [place] IN LAST 30 DAYS: No - Related Data Allergies/Adverse Reactions: codeine [Codeine] Allergy (Severe, Verified 02/10/18 11:30) reacts with invega Penicillins Allergy (Severe, Verified 02/10/18 11:30) Hives Home Medications: 02 @3 1/2-4 l/min asa ec qday; vit b12 1000 mg qday; diltiazem er 180 mg bid, divalproex er 500 mg qhs, gabapentin 300 mg 1 qam, 2 qpm,. glipizide 10 mg qday, metoprolole 50 mg bid, myrbetriq er 50 mg qday,. invega er 6 mg qday, requip 0.5 mg qpm, levemir 55u qpm, oxycodone. 5mg prn, crestor 5 mg qday; zoloft 100 mg 2 tab qam,theophylline er 300mg bid, ranitidine 150 mg bid, zanaflex 4 mg prn; demadex 20 mg qday; vit d 2000iu qday Past Medical History - General Information source: Patient - Social History Smoking Status: Former Smoker Frequency of alcohol use: None Drug Abuse: None Family History: Arthritis, CAD, CVA, DM, Hyperlipidemia, Hypertension, Malignancy Patient has suicidal ideation: No Patient has homicidal ideation: No - Past Medical History Cardiac Medical History: Reports: Hx Congestive Heart Failure, Hx Hypercholesterolemia, Hx Hypertension Denies: Hx DVT, Hx Heart Attack, Hx Pulmonary Embolism Pulmonary Medical History: Reports: Hx Asthma, Hx COPD, Hx Pneumonia, Hx Sleep Apnea - CPAP of 16. Neurological Medical History: Denies: Hx Seizures Endocrine Medical History: Reports: Hx Diabetes Mellitus Type 1, Hx Diabetes Mellitus Type 2. Denies: Hx Hyperthyroidism, Hx Hypothyroidism Renal/ Medical History: Denies: Hx Peritoneal Dialysis GI Medical History: Reports: Hx Gastroesophageal Reflux Disease. Denies: Hx Cirrhosis, Hx Hepatitis Musculoskeletal Medical History: Reports Hx Arthritis - rt knee, Reports Hx Musculoskeletal Trauma Psychiatric Medical History: Reports: Hx Anxiety, Hx Bipolar Disorder, Hx Depression, Hx Schizoaffective Disorder, Hx Schizophrenia Traumatic Medical History: Reports: Hx Fractures - Ankle right Infectious Medical History: Denies: Hx Hepatitis Past Surgical History: Reports: Hx Section - 3, Hx Tubal Ligation - Immunizations Immunizations up to date: Yes Hx Diphtheria, Pertussis, Tetanus Vaccination: Yes Hx Pneumococcal Vaccination: 04/30/16 Review of Systems - Review of Systems Constitutional: See HPI EENT: See HPI Cardiovascular: No symptoms reported Respiratory: See HPI Gastrointestinal: See HPI Musculoskeletal: See HPI -: Yes All other systems reviewed and negative Physical Exam - Vital signs Vitals: Temp Pulse Resp BP Pulse Ox 98.1 F 86 18 128/74 H 99 05/19/19 20:00 05/19/19 20:00 05/19/19 20:00 05/19/19 20:00 05/19/19 20:00 Interpretation: Normal - Notes Notes: GENERAL: Alert, interacts well. No acute distress. HEAD: Normocephalic, atraumatic EYES: Pupils equal, round and reactive to light, extraocular movements intact. ENT: Oral mucosa moist, tongue midline. Clear rhinorrhea, postnasal drip, tonsillar hypertrophy, no patches on the tonsils. NECK: Full range of motion, supple, trachea midline. LUNGS: Clear to auscultation bilaterally, no wheezes, rales or rhonchi, no respiratory distress. HEART: Regular rate and rhythm, no murmurs, gallops, rubs. ABDOMEN: Soft, minimal mild diffuse tenderness to palpation, nondistended, bowel sounds present in all 4 quadrants. EXTREMITIES: Moves all 4 extremities spontaneously, no edema, radial and dorsalis pedis pulses 2/4 bilaterally. No cyanosis. NEUROLOGICAL: Alert and oriented x3, normal speech, biceps and patellar DTRs 2+ bilaterally. PSYCH: Normal mood, normal affect. SKIN: Warm, Dry, normal turgor, no rashes or lesions noted. Course - Re-evaluation Re-evalutation: 05/20/19 01:41 CBC shows mild anemia with hemoglobin 10.2, no leukocytosis, CMP shows elevated glucose at 248, patient is a known diabetic, states that she tends to run into the 200s and she had steroids about 2 weeks ago, cardiac enzymes negative, chest x-ray suggested possibility of pulmonary edema however she is not having any orthopnea, I do not hear crackles on her lung exam and her proBNP is normal at 52. Do not suspect pulmonary edema at this time, legs are also normal. Flu swabs are negative as a strep swab, chest x-ray does not show pneumonia. Concerning the venous blood gas does show markedly elevated PCO2 at 74.2. Discussed with patient that I would like to turn down her oxygen to see how she does, while here in the bed she was able to be turned down to 2 L and she still remained 98 to 99%. Discussed with patient that I would like her to decrease her oxygen at home while she is at rest, she may increase it back to her usual 3-1/2 L while walking around. Discussed that I would like her to continue to follow-up with her primary care physician as an outpatient regarding this elevated CO2 and appropriate levels of oxygen after this viral illness has passed. Discussed with patient why do truly feel this is a viral illness, we will prescribe supportive care medications and discharge her to home. - Vital Signs Vital signs: Temp Pulse Resp BP Pulse Ox 98.1 F 86 18 128/74 H 99 05/19/19 20:00 05/19/19 20:00 05/19/19 20:00 05/19/19 20:00 05/19/19 20:00 - Laboratory Result Diagrams: 05/19/19 23:14 05/19/19 23:14 Laboratory results interpreted by me: 05/19/19 05/19/19 05/19/19 23:14 23:14 23:14 RBC 3.64 L Hgb 10.2 L Hct 31.3 L Lymph % (Auto) 55.3 H Absolute Neuts (auto) 1.5 L Seg Neutrophils % 32.8 L VBG pCO2 74.2 H* VBG HCO3 37.0 H Chloride 95 L Carbon Dioxide 36 H Glucose 248 H Calcium 10.4 H AST 13 L - EKG Interpretation by Me Additional EKG results interpreted by me: 05/20/19 01:41 EKG shows sinus rhythm at a rate of 82, normal axis, normal intervals, no ST segment elevations or depressions, no T wave inversions per my interpretation. Discharge - Discharge Clinical Impression: Upper respiratory infection with cough and congestion, CO2 retention COPD (chronic obstructive pulmonary disease) Qualifiers: COPD type: chronic bronchitis Chronic bronchitis type: unspecified Qualified Code(s): J42 - Unspecified chronic bronchitis Condition: Stable Disposition: HOME, SELF-CARE Additional Instructions: Today I do not see any sign of bacterial infection. Her infection appears to be viral. Antibiotics will not help. Please use nasal saline rinses such as a NetiPot or NeilMed Sinus Rinses. Please use nasal steroid such as Nasonex 1 squirt per nostril twice a day to decrease inflammation and swelling. Please also use [id number] decongestants according to their directions on the box such as Sudafed during the day and Benadryl at night. In the evening you may use 1 tablespoon of honey to decrease evening cough. I have also prescribed you Tessalon Perles to help with cough, Zofran and Phenergan to help with nausea and vomiting, you should buy Imodium [id number] to help with diarrhea. Today we discussed that you have an elevated carbon dioxide on your venous blood gas. This can be from using too much oxygen at home. While you are in the emergency department we turned her oxygen down to 2 L/min via nasal cannula and her oxygen saturation stayed between 9899%. Please only use 2 L at home while laying down and resting. While you are walking around you may increase it to your usual 3 to 4 L but you should decrease it again when you lay down. Continue to use your BiPAP as directed. Please return to the emergency department for any new or concerning symptoms. Prescriptions: Ondansetron [Zofran Odt 4 mg Tablet] 1 - 2 tab PO Q4HP PRN #10 tab.rapdis PRN Reason: Benzonatate [Tessalon Perles 100 mg Capsule] 100 mg PO Q8HP PRN #40 capsule PRN Reason: Promethazine HCl [Phenergan 25 mg Tablet] 25 - 50 mg PO ASDIR PRN #12 tablet PRN Reason: Referrals: PAULINA FLORES, [employer] [Primary Care Provider] - Follow up as needed
[2019-05-19 22:05] LABS: A TYPE INFLUENZA AG NEGATIVE (NEGATIVE); B INFLUENZA AG NEGATIVE (NEGATIVE)
[2019-05-19 23:32] LABS: VENOUS BLOOD BASE EXCESS 8.4 mmol/L; VENOUS BLOOD PH 7.32 (7.30-7.42)
[2019-05-19 23:33] LABS: ABSOLUTE EOSINOPHILS # (AUTO) 0.1 10^3/uL (0.0-0.6); ABSOLUTE LYMPHOCYTES (AUTO) 2.6 10^3/uL (0.5-4.7); ABSOLUTE MONOCYTES (AUTO) 0.4 10^3/uL (0.1-1.4); ABSOLUTE NEUT (AUTO) 1.5 10^3/uL (1.7-8.2); BASOPHILS % (AUTO) 0.3 % (0-2); EOSINOPHILS % (AUTO) 2.1 % (0-6); HEMATOCRIT 31.3 % (36.0-47.0); HEMOGLOBIN 10.2 g/dL (12.0-15.5); LYMPHOCYTES % (AUTO) 55.3 % (13-45); MEAN CORPUSCULAR HEMOGLOBIN 28.1 pg (27.0-33.4); MEAN CORPUSCULAR HGB CONC 32.6 g/dL (32.0-36.0); MEAN CORPUSCULAR VOLUME 86 fl (80-97); MONOCYTES % (AUTO) 9.5 % (3-13); PLATELET COUNT 229 10^3/uL (150-450); RED BLOOD COUNT 3.64 10^6/uL (3.72-5.28); RED CELL DISTRIBUTION WIDTH 12.9 % (11.5-14.0); SEGMENTED NEUTROPHILS % (AUTO) 32.8 % (42-78); TOTAL CELLS COUNTED % (AUTO) 100 %; WHITE BLOOD COUNT 4.7 10^3/uL (4.0-10.5)
[2019-05-19 23:35] LABS: VENOUS BLOOD PCO2 74.2 mmHg (35-63)
[2019-05-19 23:50] LABS: ALBUMIN 3.7 g/dL (3.5-5.0); ALKALINE PHOSPHATASE 46 U/L (38-126); ANION GAP 8 (5-19); ASPARTATE AMINO TRANSFERASE 13 U/L (14-36); BILIRUBIN,DIRECT 0.1 mg/dL (0.0-0.4); BILIRUBIN,TOTAL 0.3 mg/dL (0.2-1.3); BLOOD UREA NITROGEN 10 mg/dL (7-20); CALCIUM 10.4 mg/dL (8.4-10.2); CARBON DIOXIDE 36 mmol/L (22-30); CHLORIDE 95 mmol/L (98-107); CREATINE KINASE 111 U/L (30-135); GLUCOSE 248 mg/dL (75-110); POTASSIUM 4.4 mmol/L (3.6-5.0); TOTAL PROTEIN 6.8 g/dL (6.3-8.2)
[2019-05-20 00:08] LABS: NT PRO BNP 52 pg/mL (<125)
[2019-05-20 00:09] LABS: TROPONIN I < 0.012 ng/mL
[2019-05-20 02:03] VITALS: BP 158/93
--- NOTE | 2019-05-20 11:14 | EKG REPORT ---
SEVERITY:- NORMAL ECG - SINUS RHYTHM : Confirmed by: Reji Casarez MD 20-May-2019 11:13:55
== END 2019-05-20 02:03 | disposition home or self-care (01) ==
LOC: ER 19:27
DX: J06.9 Acute upper respiratory infection, unspecified (principal); J42 Unspecified chronic bronchitis; E87.2 Acidosis; R11.0 Nausea; R19.7 Diarrhea, unspecified; Z88.6 Allergy status to analgesic agent; Z88.0 Allergy status to penicillin
CPT/HCPCS: 93005; 99284; 96361; 96374; 36415; 87070; 87880; 82550; 83690; 85025; 80053; 84484; 82803; 87804; 83880; 71045; 93010; J2405; J7040

== ENCOUNTER 2019-05-26 02:41 | Emergency (ER) | payer MEDICAID ==
--- NOTE | 2019-05-26 03:29 | ER Document Report ---
ED GI/ - General Chief Complaint: Upper Abdominal Pain Stated Complaint: ABDOMINAL PAIN Time Seen by Provider: 05/26/19 03:19 Primary Care Provider: PAULINA FLORES NP [Primary Care Provider] - Follow up as needed Notes: Patient is a 54-year-old female that comes to the emergency department for chief complaint of mid upper abdominal pain that is intermittent, occasionally sharp, crampy. She also states that every time she eats or drinks anything she has diarrhea, she has had 6 episodes of diarrhea, nonbloody. She denies fever, vomiting, flank pain, chest pain, recent antibiotics, suspicious food, or recent sick contacts. She states she has had C-sections but no other abdominal surgeries. TRAVEL OUTSIDE OF THE [place] IN LAST 30 DAYS: No - Related Data Allergies/Adverse Reactions: codeine [Codeine] Allergy (Severe, Verified 02/10/18 11:30) reacts with invega Penicillins Allergy (Severe, Verified 02/10/18 11:30) Hives Home Medications: ecasa 81mg po qd. diltiazem 180mg po bid. divalproex er 500 qhs. gabapentin 300mg 1 po qd and 2 qhs. glipizide 10mg po qd. metformin 1000mg bid with meals. myrbetriq er 50mg po qd. paliperidone er 6mg po qd. metoprolol er 50 mg po bid. zantac 150mg po bid. requip 0.5mg po qhs. crestor 5mg poqd. zoloft 100mg 2 tabs po daily. theophylline er 300mg po bid. zanaflex 4mg po q8 hrs prn. torsemide 20mg po daily. B 12 1000mcg po daily Past Medical History - General Information source: Patient - Social History Smoking Status: Former Smoker Chew tobacco use (# tins/day): No Frequency of alcohol use: None Drug Abuse: None Lives with: Family Family History: Arthritis, CAD, CVA, DM, Hyperlipidemia, Hypertension, Malignancy Patient has suicidal ideation: No Patient has homicidal ideation: No - Past Medical History Cardiac Medical History: Reports: Hx Congestive Heart Failure, Hx Hypercholesterolemia, Hx Hypertension Denies: Hx DVT, Hx Heart Attack, Hx Pulmonary Embolism Pulmonary Medical History: Reports: Hx Asthma, Hx COPD, Hx Pneumonia, Hx Sleep Apnea - CPAP of 16. Neurological Medical History: Denies: Hx Seizures Endocrine Medical History: Reports: Hx Diabetes Mellitus Type 2. Denies: Hx Hyperthyroidism, Hx Hypothyroidism Renal/ Medical History: Denies: Hx Peritoneal Dialysis GI Medical History: Reports: Hx Gastroesophageal Reflux Disease. Denies: Hx Cirrhosis, Hx Hepatitis Musculoskeletal Medical History: Reports Hx Arthritis - rt knee, Reports Hx Musculoskeletal Trauma Psychiatric Medical History: Reports: Hx Anxiety, Hx Bipolar Disorder, Hx Depression, Hx Schizoaffective Disorder, Hx Schizophrenia Traumatic Medical History: Reports: Hx Fractures - Ankle right Infectious Medical History: Denies: Hx Hepatitis Past Surgical History: Reports: Hx Section - 3, Hx Tubal Ligation - Immunizations Immunizations up to date: Yes Hx Diphtheria, Pertussis, Tetanus Vaccination: Yes Hx Pneumococcal Vaccination: 04/30/16 Review of Systems - Review of Systems Constitutional: No symptoms reported EENT: No symptoms reported Cardiovascular: No symptoms reported Respiratory: No symptoms reported Gastrointestinal: See HPI Genitourinary: No symptoms reported Female Genitourinary: No symptoms reported Musculoskeletal: No symptoms reported Skin: No symptoms reported Hematologic/Lymphatic: No symptoms reported Neurological/Psychological: No symptoms reported Physical Exam - Vital signs Vitals: BP 163/95 H 05/26/19 02:45 - Notes Notes: GENERAL: Alert, interacts well. No acute distress. HEAD: Normocephalic, atraumatic. EYES: Pupils equal, round, and reactive to light. Extraocular movements intact. ENT: Oral mucosa moist, tongue midline. Oropharynx unremarkable. Airway patent. NECK: Full range of motion. Supple. Trachea midline. LUNGS: Somewhat decreased bilaterally. Clear to auscultation bilaterally, no wheezes, rales, or rhonchi. No respiratory distress. HEART: Regular rate and rhythm. No murmur ABDOMEN: There is tenderness over the mid abdomen, no overt epigastric or lower abdominal tenderness. No noted hernia, no guarding or rigidity, bowel sounds present. Exam somewhat limited because of body habitus GENITOURINARY: Deferred EXTREMITIES: Moves all 4 extremities spontaneously. No edema, normal radial and dorsalis pedis pulses bilaterally. No cyanosis. BACK: no cervical, thoracic, lumbar midline tenderness. No saddle anesthesia, normal distal neurovascular exam. Moves all extremities in full range of motion. NEUROLOGICAL: Alert and oriented x3. Normal speech. Cranial nerves II through XII grossly intact. PSYCH: Normal affect, normal mood. SKIN: Warm, dry, normal turgor. No rashes or lesions noted. Course - Re-evaluation Re-evalutation: Patient talkative, comfortable appearing, nontoxic. Vital signs nonspecific. There is mid abdominal tenderness on exam, exam is limited by body habitus. Patient does wince with palpation however. She was able to provide a stool sample which has no white blood cells in it. CBC, chemistry nonspecific, lipase unremarkable. Discussed with patient. Decision was made to proceed with CAT scan because her exam is very difficult to rule out any acute etiology or infection. Possible gallbladder versus colitis versus viral etiology. CT with no acute findings. Patient able to tolerate p.o. and is comfortable on reevaluation. She was given IV fluids here. Stool culture pending. Discussed results, patient is very satisfied with this, states she is ready to leave, states she will return if she worsens and she will follow-up with primary care. Stable at time of discharge. - Vital Signs Vital signs: Temp Pulse Resp BP Pulse Ox 99 F 19 164/97 H 100 05/26/19 06:35 05/26/19 06:22 05/26/19 06:22 05/26/19 06:22 - Laboratory Result Diagrams: 05/26/19 03:10 05/26/19 03:10 Laboratory results interpreted by me: 05/26/19 05/26/19 03:10 03:10 Hgb 11.0 L Hct 33.6 L Lymph % (Auto) 51.6 H Seg Neutrophils % 37.4 L Chloride 94 L Carbon Dioxide 34 H Glucose 134 H Calcium 10.4 H AST 12 L Discharge - Discharge Clinical Impression: Abdominal pain Qualifiers: Abdominal location: generalized Qualified Code(s): R10.84 - Generalized abdominal pain Diarrhea Qualifiers: Diarrhea type: unspecified type Qualified Code(s): R19.7 - Diarrhea, unspecified Condition: Stable Disposition: HOME, SELF-CARE Additional Instructions: Your general work-up is reassuring. We do have stool tests pending, you will be contacted if there are any concerning findings for additional treatment. I recommend you take cucq-qhy-sbyqmwf probiotics, start with bland food, drink plenty fluids. Symptoms will most likely resolve with time. Follow-up with primary care. Return if you worsen including vomiting, fever, returned or severe pain, or any other concerning or worsening symptoms. Referrals: PAULINA FLORES [employer] [Primary Care Provider] - Follow up as needed
[2019-05-26 03:35] LABS: ABSOLUTE EOSINOPHILS # (AUTO) 0.1 10^3/uL (0.0-0.6); ABSOLUTE LYMPHOCYTES (AUTO) 3.1 10^3/uL (0.5-4.7); ABSOLUTE MONOCYTES (AUTO) 0.5 10^3/uL (0.1-1.4); ABSOLUTE NEUT (AUTO) 2.3 10^3/uL (1.7-8.2); BASOPHILS % (AUTO) 0.5 % (0-2); EOSINOPHILS % (AUTO) 1.8 % (0-6); HEMATOCRIT 33.6 % (36.0-47.0); LYMPHOCYTES % (AUTO) 51.6 % (13-45); MEAN CORPUSCULAR HEMOGLOBIN 27.9 pg (27.0-33.4); MEAN CORPUSCULAR HGB CONC 32.6 g/dL (32.0-36.0); MEAN CORPUSCULAR VOLUME 86 fl (80-97); MONOCYTES % (AUTO) 8.7 % (3-13); PLATELET COUNT 309 10^3/uL (150-450); RED BLOOD COUNT 3.93 10^6/uL (3.72-5.28); RED CELL DISTRIBUTION WIDTH 13.1 % (11.5-14.0); SEGMENTED NEUTROPHILS % (AUTO) 37.4 % (42-78); TOTAL CELLS COUNTED % (AUTO) 100 %
[2019-05-26 04:01] LABS: ALBUMIN 4.1 g/dL (3.5-5.0); ALKALINE PHOSPHATASE 58 U/L (38-126); ANION GAP 9 (5-19); ASPARTATE AMINO TRANSFERASE 12 U/L (14-36); BILIRUBIN,DIRECT 0.2 mg/dL (0.0-0.4); BILIRUBIN,TOTAL 0.3 mg/dL (0.2-1.3); BLOOD UREA NITROGEN 11 mg/dL (7-20); CALCIUM 10.4 mg/dL (8.4-10.2); CARBON DIOXIDE 34 mmol/L (22-30); CHLORIDE 94 mmol/L (98-107); GLUCOSE 134 mg/dL (75-110); POTASSIUM 4.3 mmol/L (3.6-5.0); TOTAL PROTEIN 7.4 g/dL (6.3-8.2)
[2019-05-26 04:17] LABS: APPEARANCE,URINE SLIGHTLY-CLOUDY; BILIRUBIN,URINE NEGATIVE (NEGATIVE); COLOR,URINE YELLOW; GLUCOSE, URINE NEGATIVE (NEGATIVE); KETONES,URINE NEGATIVE (NEGATIVE); LEUKOCYTE ESTERASE,URINE NEGATIVE (NEGATIVE); NITRITE,URINE NEGATIVE (NEGATIVE); PROTEIN,URINE NEGATIVE (NEGATIVE); URINE SPECIFIC GRAVITY 1.011; UROBILINOGEN,URINE NEGATIVE mg/dL (<2.0)
[2019-05-26] MEDS ORDERED: NORMAL SALINE 1000 ML 1,000 ML IV ONE (04:35)
[2019-05-26] MEDS ORDERED: ONDANSETRON HCL INJ/PF 4 MG/2 ML SDV IV ONE (05:31)
[2019-05-26] MEDS ORDERED: MORPHINE SULFATE 10 MG/ML INJ IV ONE (05:31)
--- NOTE | 2019-05-26 05:46 | RADIOLOGY REPORT (SQ) ---
CLINICAL HISTORY: mid abd pain, DIARRHEA AFTER EATING. CREAT 0.95 COMPARISON: None. 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 FINDINGS: Lower lungs are clear. Abdomen: Liver is enlarged and mildly fatty in attenuation. There is no biliary dilatation. Gallbladder is decompressed. The pancreas and spleen are normal in appearance. The adrenal glands are normal. Kidneys are mildly atrophic. There is a small lower pole left renal cyst. Abdominal aorta is normal in course and caliber without aneurysm. There is no free air. There is no retroperitoneal adenopathy. Pelvis: There is no bowel obstruction. Urinary bladder is unremarkable. There is no free fluid. Uterus is normal in size. Appendix is somewhat poorly seen with no pericecal inflammation. Skeleton: There are no acute osseous findings. No suspicious bony lesions. IMPRESSION: No definite acute inflammatory process.
[2019-05-26 06:35] VITALS: BP 164/97
[2019-05-26 10:45] LABS: C DIFFICILE GDH NEGATIVE (NEGATIVE)
== END 2019-05-26 06:45 | disposition home or self-care (01) ==
LOC: ER 02:41
DX: R10.84 Generalized abdominal pain (principal); R10.819 Abdominal tenderness, unspecified site; R19.7 Diarrhea, unspecified; J44.9 Chronic obstructive pulmonary disease, unspecified; E11.9 Type 2 diabetes mellitus without complications; I11.0 Hypertensive heart disease with heart failure; I50.9 Heart failure, unspecified; E78.00 Pure hypercholesterolemia, unspecified; F31.9 Bipolar disorder, unspecified; F25.9 Schizoaffective disorder, unspecified; F41.9 Anxiety disorder, unspecified; Z79.899 Other long term (current) drug therapy; Z79.4 Long term (current) use of insulin
CPT/HCPCS: 99284; 96361; 96374; 96375; 36415; 87045; 89055; 87205; 83690; 85025; 80053; 81001; 87324; 87449; 74177; J2270; J2405; J7030

== ENCOUNTER 2019-07-28 10:02 | Emergency (ER) | payer MEDICAID ==
--- NOTE | 2019-07-28 11:09 | ER Document Report ---
ED Medical Screen (RME) - General Chief Complaint: Nausea/Vomiting Stated Complaint: SORE THROAT Time Seen by Provider: 07/28/19 11:05 Primary Care Provider: PAULINA FLORES NP [Primary Care Provider] - Follow up as needed Mode of Arrival: Wheelchair Information source: Patient Notes: 54-year-old female presented to ED for complaint of nausea vomiting and diarrhea for week. She states she has had a cough cold and sore throat for 3 weeks. She states she went to the primary doctor yesterday they did an x-ray and told her that she had pneumonia and she needed to come to the emergency room to be examined. Lungs are little on the tested side. She does have some rhonchi. She is alert oriented respirations are regular. He denies smoking drinking or use of illicit drugs. I have greeted and performed a rapid initial assessment of this patient. A comprehensive ED assessment and evaluation of the patient, analysis of test results and completion of medical decision making process will be conducted by an additional ED providers. TRAVEL OUTSIDE OF THE [place] IN LAST 30 DAYS: No - Related Data Allergies/Adverse Reactions: codeine [Codeine] Allergy (Severe, Verified 07/28/19 10:40) reacts with invega Penicillins Allergy (Severe, Verified 07/28/19 10:40) Hives Past Medical History - Past Medical History Cardiac Medical History: Reports: Hx Congestive Heart Failure, Hx Hypercholesterolemia, Hx Hypertension Denies: Hx DVT, Hx Heart Attack, Hx Pulmonary Embolism Pulmonary Medical History: Reports: Hx Asthma, Hx COPD, Hx Pneumonia, Hx Sleep Apnea - CPAP of 16. Neurological Medical History: Denies: Hx Seizures Endocrine Medical History: Reports: Hx Diabetes Mellitus Type 1, Hx Diabetes Mellitus Type 2. Denies: Hx Hyperthyroidism, Hx Hypothyroidism Renal/ Medical History: Denies: Hx Peritoneal Dialysis GI Medical History: Reports: Hx Gastroesophageal Reflux Disease. Denies: Hx Cir rhosis, Hx Hepatitis Musculoskeltal Medical History: Reports Hx Arthritis - rt knee, Reports Hx Musculoskeletal Trauma Psychiatric Medical History: Reports: Hx Anxiety, Hx Bipolar Disorder, Hx Depression, Hx Schizoaffective Disorder, Hx Schizophrenia Traumatic Medical History: Reports: Hx Fractures - Ankle right Infectious Medical History: Denies: Hx Hepatitis Past Surgical History: Reports: Hx Section - 3, Hx Tubal Ligation - Immunizations Immunizations up to date: Yes Hx Diphtheria, Pertussis, Tetanus Vaccination: Yes Physical Exam - Vital signs Vitals: Temp Pulse Resp BP Pulse Ox 98.3 F 80 16 144/91 H 100 07/28/19 10:17 07/28/19 10:17 07/28/19 10:17 07/28/19 10:17 07/28/19 10:17 Course - Vital Signs Vital signs: Temp Pulse Resp BP Pulse Ox 98.3 F 80 16 144/91 H 100 07/28/19 10:17 07/28/19 10:17 07/28/19 10:17 07/28/19 10:17 07/28/19 10:17 Doctor's Discharge - Discharge Referrals: PAULINA FLORES NP [Primary Care Provider] - Follow up as needed
--- NOTE | 2019-07-28 11:09 | ER Document Report ---
ED ENT - General Chief Complaint: Nausea/Vomiting Stated Complaint: SORE THROAT Time Seen by Provider: 07/28/19 11:05 Primary Care Provider: PAULINA FLORES NP [Primary Care Provider] - Follow up as needed Mode of Arrival: Wheelchair Information source: Patient Notes: 54-year-old female presented to ED for complaint of nausea vomiting and diarrhea for week. She states she has had a cough cold and sore throat for 3 weeks. She states she went to the primary doctor yesterday they did an x-ray and told her that she had pneumonia and she needed to come to the emergency room to be examined. Lungs are little on the tested side. She does have some rhonchi. She is alert oriented respirations are regular. He denies smoking drinking or use of illicit drugs. I have greeted and performed a rapid initial assessment of this patient. A comprehensive ED assessment and evaluation of the patient, analysis of test results and completion of medical decision making process will be conducted by an additional ED providers. TRAVEL OUTSIDE OF THE [place] IN LAST 30 DAYS: No - Related Data Allergies/Adverse Reactions: codeine [Codeine] Allergy (Severe, Verified 07/28/19 10:40) reacts with invega Penicillins Allergy (Severe, Verified 07/28/19 10:40) Hives Past Medical History - Social History Family History: Arthritis, CAD, CVA, DM, Hyperlipidemia, Hypertension, Malignancy - Past Medical History Cardiac Medical History: Reports: Hx Congestive Heart Failure, Hx Hypercholesterolemia, Hx Hypertension Denies: Hx DVT, Hx Heart Attack, Hx Pulmonary Embolism Pulmonary Medical History: Reports: Hx Asthma, Hx COPD, Hx Pneumonia, Hx Sleep Apnea - CPAP of 16. Neurological Medical History: Denies: Hx Seizures Endocrine Medical History: Reports: Hx Diabetes Mellitus Type 1, Hx Diabetes Mellitus Type 2. Denies: Hx Hyperthyroidism, Hx Hypothyroidism Renal/ Medical History: Denies: Hx Peritoneal Dialysis GI Medical History: Reports: Hx Gastroesophageal Reflux Disease. Denies: Hx Cirrhosis, Hx Hepatitis Musculoskeletal Medical History: Reports Hx Arthritis - rt knee, Reports Hx Musculoskeletal Trauma Psychiatric Medical History: Reports: Hx Anxiety, Hx Bipolar Disorder, Hx Depression, Hx Schizoaffective Disorder, Hx Schizophrenia Traumatic Medical History: Reports: Hx Fractures - Ankle right Infectious Medical History: Denies: Hx Hepatitis Past Surgical History: Reports: Hx Section - 3, Hx Tubal Ligation - Immunizations Immunizations up to date: Yes Hx Diphtheria, Pertussis, Tetanus Vaccination: Yes Hx Pneumococcal Vaccination: 04/30/16 Physical Exam - Vital signs Vitals: Temp Pulse Resp BP Pulse Ox 98.3 F 80 16 144/91 H 100 07/28/19 10:17 07/28/19 10:17 07/28/19 10:17 07/28/19 10:17 07/28/19 10:17 Course - Vital Signs Vital signs: Temp Pulse Resp BP Pulse Ox 98.3 F 80 16 144/91 H 100 07/28/19 10:17 07/28/19 10:17 07/28/19 10:17 07/28/19 10:17 07/28/19 10:17 Discharge - Discharge Referrals: PAULINA FLORES NP [Primary Care Provider] - Follow up as needed
--- NOTE | 2019-07-28 11:52 | RADIOLOGY REPORT (SQ) ---
EXAM DESCRIPTION: CHEST 2 VIEWS COMPLETED DATE/TIME: 07/28/2019 11:38 am REASON FOR STUDY: Cough cold congestion COMPARISON: 05/19/2019 EXAM PARAMETERS: NUMBER OF VIEWS: two views TECHNIQUE: Digital Frontal and Lateral radiographic views of the chest acquired. RADIATION DOSE: NA LIMITATIONS: none FINDINGS: LUNGS AND PLEURA: Mild ill-defined right basilar opacities. No dense consolidation. No p leural effusion. No pneumothorax. MEDIASTINUM AND HILAR STRUCTURES: No masses or contour abnormalities. HEART AND VASCULAR STRUCTURES: Heart normal size. No evidence for failure. BONES: No acute findings. HARDWARE: None in the chest. OTHER: No other significant finding. IMPRESSION: Mild ill-defined right basilar opacities possibly atelectasis or infection. TECHNICAL DOCUMENTATION: JOB ID: [id number] [employer]- All Rights Reserved Reading location - IP/workstation name: [email or web address]
[2019-07-28 12:02] LABS: ABSOLUTE EOSINOPHILS # (AUTO) 0.1 10^3/uL (0.0-0.6); ABSOLUTE LYMPHOCYTES (AUTO) 2.4 10^3/uL (0.5-4.7); ABSOLUTE MONOCYTES (AUTO) 0.5 10^3/uL (0.1-1.4); ABSOLUTE NEUT (AUTO) 2.1 10^3/uL (1.7-8.2); BASOPHILS % (AUTO) 0.7 % (0-2); EOSINOPHILS % (AUTO) 1.6 % (0-6); HEMATOCRIT 32.9 % (36.0-47.0); HEMOGLOBIN 10.7 g/dL (12.0-15.5); LYMPHOCYTES % (AUTO) 46.9 % (13-45); MEAN CORPUSCULAR HEMOGLOBIN 28.3 pg (27.0-33.4); MEAN CORPUSCULAR HGB CONC 32.6 g/dL (32.0-36.0); MEAN CORPUSCULAR VOLUME 87 fl (80-97); MONOCYTES % (AUTO) 8.9 % (3-13); PLATELET COUNT 262 10^3/uL (150-450); RED BLOOD COUNT 3.78 10^6/uL (3.72-5.28); SEGMENTED NEUTROPHILS % (AUTO) 41.9 % (42-78); TOTAL CELLS COUNTED % (AUTO) 100 %; WHITE BLOOD COUNT 5.1 10^3/uL (4.0-10.5)
[2019-07-28 12:03] LABS: APPEARANCE,URINE CLOUDY; BILIRUBIN,URINE NEGATIVE (NEGATIVE); COLOR,URINE YELLOW; GLUCOSE, URINE NEGATIVE (NEGATIVE); KETONES,URINE NEGATIVE (NEGATIVE); PROTEIN,URINE 30 mg/dL (NEGATIVE); URINE SPECIFIC GRAVITY 1.021; UROBILINOGEN,URINE NEGATIVE mg/dL (<2.0)
[2019-07-28] MEDS ORDERED: NORMAL SALINE 1000 ML 1,000 ML IV ONE (12:05)
[2019-07-28 12:20] LABS: ALBUMIN 4.3 g/dL (3.5-5.0); ALKALINE PHOSPHATASE 48 U/L (38-126); ANION GAP 7 (5-19); ASPARTATE AMINO TRANSFERASE 17 U/L (14-36); BILIRUBIN,TOTAL 0.2 mg/dL (0.2-1.3); BLOOD UREA NITROGEN 8 mg/dL (7-20); CALCIUM 10.1 mg/dL (8.4-10.2); CARBON DIOXIDE 39 mmol/L (22-30); CHLORIDE 94 mmol/L (98-107); GLUCOSE 75 mg/dL (75-110); POTASSIUM 4.4 mmol/L (3.6-5.0); TOTAL PROTEIN 7.8 g/dL (6.3-8.2)
[2019-07-28] MEDS ORDERED: ONDANSETRON 4 MG TAB.RAPDIS PO ONE ×2 (12:45→14:23)
[2019-07-28] MEDS ORDERED: ALBUTEROL SULFATE 0.083% NEB 2.5 MG/3 ML AMPUL NEB ONE (12:46)
--- NOTE | 2019-07-28 12:52 | ER Document Report ---
ED General - General Chief Complaint: Nausea/Vomiting Stated Complaint: SORE THROAT Time Seen by Provider: 07/28/19 11:05 Mode of Arrival: Wheelchair Information source: Patient Notes: 54-year-old female with history of diabetes COPD CHF presents emergency department for complaints of cough congestion nausea vomiting diarrhea for weeks. Patient was sent over here by her primary care provider. She had x-ray done yesterday and pneumonia was noted. Patient reports she has been unable to hold any fluids down. She reports she was vomiting and having diarrhea at the same time early this morning. She reports she has had the vomiting diarrhea for weeks. She reports she is had a cough and congestion. The congestion is worse but the cough is better. She is used Robitussin Tussend without relief of symptoms. Patient reports that she is on home oxygen. Also reports she is on BiPAP at night she has not been able to use that because when she lays down she feels like she cannot breathe. Reports fever off and on up to 100. She reports she is just feeling tired and weak. She has not picked up her prescriptions yet. TRAVEL OUTSIDE OF THE [place] IN LAST 30 DAYS: No - HPI Onset: Other Onset/Duration: Persistent Associated symptoms: Nonproductive cough, Diarrhea, Fever, Nausea, Vomiting Exacerbated by: Supine Relieved by: Denies Similar symptoms previously: Yes Recently seen / treated by doctor: Yes - Related Data Allergies/Adverse Reactions: codeine [Codeine] Allergy (Severe, Verified 07/28/19 10:40) reacts with invega Penicillins Allergy (Severe, Verified 07/28/19 10:40) Hives Past Medical History - General Information source: Patient - Social History Smoking Status: Former Smoker - quit 4 years ago Cigarette use (# per day): No Chew tobacco use (# tins/day): No Frequency of alcohol use: None Drug Abuse: None Occupation: disabled- bipolar depression Lives with: Family Family History: Arthritis, CAD, CVA, DM, Hyperlipidemia, Hypertension, Malignancy Patient has suicidal ideation: No Patient has homicidal ideation: No - Past Medical History Cardiac Medical History: Reports: Hx Congestive Heart Failure, Hx Hypertension Denies: Hx DVT, Hx Heart Attack, Hx Hypercholesterolemia, Hx Pulmonary Embolism Pulmonary Medical History: Reports: Hx Asthma, Hx COPD, Hx Pneumonia, Hx Sleep Apnea - CPAP of 16. Neurological Medical History: Denies: Hx Seizures Endocrine Medical History: Reports: Hx Diabetes Mellitus Type 1, Hx Diabetes Mellitus Type 2. Denies: Hx Hyperthyroidism, Hx Hypothyroidism Renal/ Medical History: Denies: Hx Peritoneal Dialysis GI Medical History: Reports: Hx Gastroesophageal Reflux Disease. Denies: Hx Cirrhosis, Hx Hepatitis Musculoskeletal Medical History: Reports Hx Arthritis - rt knee, Reports Hx Musculoskeletal Trauma Psychiatric Medical History: Reports: Hx Anxiety, Hx Bipolar Disorder, Hx Depression, Hx Schizoaffective Disorder, Hx Schizophrenia Traumatic Medical History: Reports: Hx Fractures - Ankle right Infectious Medical History: Denies: Hx Hepatitis Past Surgical History: Reports: Hx Section - 3, Hx Tubal Ligation - Immunizations Immunizations up to date: Yes Hx Diphtheria, Pertussis, Tetanus Vaccination: Yes Hx Pneumococcal Vaccination: 04/30/16 Review of Systems - Review of Systems Notes: Review HPI for review of systems., All other systems negative Physical Exam - Vital signs Vitals: Temp Pulse Resp BP Pulse Ox 98.3 F 80 16 144/91 H 100 07/28/19 10:17 07/28/19 10:17 07/28/19 10:17 07/28/19 10:17 07/28/19 10:17 - General General appearance: Appears well, Alert In distress: None - HEENT Head: Normocephalic Eyes: Normal Conjunctiva: Normal Extraocular movements intact: Yes Eyelashes: Normal Ears: Normal External canal: Normal Tympanic membrane: Normal Mouth/Lips: Normal Mucous membranes: Normal, Moist Pharynx: Normal. No: Erythema Neck: Normal, Supple. No: Lymphadenopathy - Respiratory Respiratory status: No respiratory distress Chest status: Nontender Breath sounds: Normal. No: Rhonchi, Wheezing Chest palpation: Normal - Cardiovascular Rhythm: Regular Heart sounds: Normal auscultation Murmur: No - Abdominal Inspection: Normal, Morbidly Obese Distension: No distension Bowel sounds: Normal Tenderness: Nontender Organomegaly: No organomegaly - Extremities General upper extremity: Normal ROM General lower extremity: Normal ROM Ankle: No: Edema - Neurological Neuro grossly intact: Yes Cognition: Normal Orientation: AAOx4 Derrick Coma Scale Eye Opening: Spontaneous Derrick Coma Scale Verbal: Oriented Derrick Coma Scale Motor: Obeys Commands [place] Coma Scale Total: 15 Speech: Normal Cranial nerves: Normal - Psychological Associated symptoms: Normal affect, Normal mood - Skin Skin Temperature: Warm Skin Moisture: Dry Skin Color: Normal Course - Re-evaluation Re-evalutation: 07/28/19 16:11 54-year-old female with history of COPD CHF diabetes presents to the emergency department for complaints of pneumonia nausea vomiting and diarrhea. Patient was evaluated by her primary care provider yesterday. X-ray was done. Primary care provider notified the ER today that patient had bilateral pneumonia. Also was instructed that patient reports she has been having nausea vomiting diarrhea and unable to take her medications. Patient labs unremarkable. Chest x-ray shows ill-defined right basilar opacities. Patient was given p.o. fluids applesauce and crackers. She seemed to be doing okay plans on discharging home when she started vomiting. Very little emesis noted in a Styrofoam cup. Hospitalist was consulted for admission for hydration and pneumonia. Keely Bruner did assess the patient and after conversation patient requested to go home. - Vital Signs Vital signs: Temp Pulse Resp BP Pulse Ox 98.6 F 100 17 154/97 H 100 07/28/19 16:09 07/28/19 16:09 07/28/19 16:09 07/28/19 16:09 07/28/19 16:09 - Laboratory Result Diagrams: 07/28/19 11:19 07/28/19 11:19 Laboratory results interpreted by me: 07/28/19 07/28/19 07/28/19 11:19 11:19 11:19 Hgb 10.7 L Hct 32.9 L Lymph % (Auto) 46.9 H Seg Neutrophils % 41.9 L Chloride 94 L Carbon Dioxide 39 H Urine Protein 30 H - Diagnostic Test Radiology reviewed: Reports reviewed - Consults keely bruner Reason for consultation: 07/28/19 16:21 n/v pneumonia Consulted provider: will come to ER Discharge - Discharge Clinical Impression: Pneumonia Qualifiers: Pneumonia type: due to unspecified organism Laterality: right Lung location: lower lobe of lung Qualified Code(s): J18.9 - Pneumonia, unspecified organism Nausea & vomiting Qualifiers: Vomiting type: unspecified Vomiting Intractability: unspecified Qualified Code(s): R11.2 - Nausea with vomiting, unspecified Diarrhea Qualifiers: Diarrhea type: unspecified type Qualified Code(s): R19.7 - Diarrhea, unspecified Condition: Stable Disposition: HOME, SELF-CARE Admitting Provider: Venita (Hospitalist)
[2019-07-28] MEDS ORDERED: NORMAL SALINE 1000 ML 500 ML IV ONE (14:58)
[2019-07-28 16:10] VITALS: BP 154/97
--- NOTE | 2019-07-28 18:06 | PDOC CONSULTATION ---
Consultation Consult Date: 07/28/19 Provider Consulted: FABIO RIVERA History of Present Illness Admission Date/PCP: 07/28/19 15:14 PAULINA FLORES NP Patient complains of: Cough, nausea vomiting History of Present Illness: LILI HA is a 54 year old female with a past medical history hypertension, CHF, COPD, diabetes mellitus, chronic respiratory failure (home O2 dependent with BiPAP at night), schizoaffective disorder, and morbid obesity who presented to the emergency department today with complaint of 1 month of nightly nausea and vomiting, increased dyspnea from baseline, and nonproductive cough. She reports that she had intermittent low-grade fevers earlier this month but last fever was over 1 week ago. She does report adequate p.o. fluid intake during the day and notes that she is typically able to eat lunch without difficulty. Patient was seen by her primary care provider yesterday with chest x-ray demonstrating pneumonia; provider sent prescriptions to her pharmacy but had not yet started them. She presented today due to persistent cough. Evaluation in the emergency department was essentially unremarkable with normal vital signs, unremarkable CBC (other than baseline anemia), and unremarkable chemistry. Of note there is no evidence of dehydration with a normal sodium, potassium, BUN, creatinine, and LFTs. The patient's bicarb is elevated to 39, however, when reviewing historic labs this also appears to be her baseline. proBNP is 37. Urinalysis is also benign and does not suggest acute or chronic dehydration with a specific gravity of 1.021 and no ketones present. Chest x-ray demonstrated a mild, ill-defined right basilar opacity (atelectasis versus infection). The ED provider offered IV fluids, antiemetics, and discharge to home, however patient was hesitant. Therefore hospitalist service was consulted. Upon my evaluation and discussion with the patient she felt comfortable with discharge to home with refill of her Xopenex, antiemetics, once daily antibiotic, and cough syrup. Past Medical History Cardiac Medical History: Reports: Congestive Heart Failure, Hypertension Denies: DVT, Myocardial Infarction, Hyperlipidema, Pulmonary Embolism Pulmonary Medical History: Reports: Asthma, Chronic Obstructive Pulmonary Disease (COPD), Pneumonia, Respiratory Failure - Chronic; home O2 dependent, Sleep Apnea - BiPAP EENT Medical History: Reports: None Neurological Medical History: Denies: Seizures Endocrine Medical History: Reports: Diabetes Mellitus Type 2, Obesity Denies: Hyperthyroidism, Hypothyroidism Renal/ Medical History: Reports: None Malignancy Medical History: Reports: None GI Medical History: Reports: Gastroesophageal Reflux Disease Denies: Cirrhosis, Hepatitis Musculoskeltal Medical History: Reports: Arthritis - rt knee Psychiatric Medical History: Reports: Bipolar Disorder, Depression, Schizoaffective Disorder Hematology: Reports: Anemia Infectious Medical History: Reports: None Past Surgical History Past Surgical History: Reports: Section - 3, Tubal Ligation Social History Information Source: Patient Lives with: Family Smoking Status: Former Smoker Electronic Cigarette use?: No Last Time Smoked: 2015 Frequency of Alcohol Use: None Hx Recreational Drug Use: No Drugs: None Hx Prescription Drug Abuse: No - Advance Directive Resuscitation Status: Full Code Family History Family History: Arthritis, CAD, CVA, DM, Hyperlipidemia, Hypertension, Malignancy Parental Family History Reviewed: Yes Children Family History Reviewed: Yes Sibling(s) Family History Reviewed.: Yes Medication/Allergy Home Medications: Diltiazem HCl [Diltiazem 24Hr ER] 180 mg PO BID 07/28/19 Divalproex Sodium 500 mg PO QHS 07/28/19 Gabapentin [Neurontin 300 mg Capsule] 300 mg PO QID 07/28/19 Glipizide [Glucotrol 10 mg Tablet] 10 mg PO DAILY 07/28/19 Insulin Detemir [Levemir Insulin 100 units/mL Insulin Pen] 55 units SUBCUT QHS 07/28/19 Levalbuterol HCl [Xopenex Neb 1.25 mg/3 ml Ampul] 1.25 mg NEB RTQ4HP PRN #120 vial.neb 07/28/19 Levofloxacin [Levaquin 750 mg Tablet] 750 mg PO DAILY #7 tab 07/28/19 Loratadine [Claritin 10 mg Tablet] 10 mg PO DAILY 07/28/19 Metformin HCl 1,000 mg PO BID 07/28/19 Metoprolol Succinate [Toprol Xl 50 mg Tab.sr] 50 mg PO BID 07/28/19 Mirabegron [Myrbetriq] 50 mg PO DAILY 07/28/19 Ondansetron [Zofran Odt 4 mg Tablet] 4 mg PO Q4HP PRN #30 tab.rapdis 07/28/19 Oxycodone HCl [Oxy-Ir 5 mg Tablet] 5 mg PO QID 07/28/19 Paliperidone [Paliperidone ER] 6 mg PO DAILY 07/28/19 Promethazine HCl [Phenergan 25 mg Supp.rect] 1 supp NM Q6H #12 supp.rect 07/28/19 Promethazine/Dextromethorphan [Promethazine-Dm Solution] 5 ml PO Q6HP PRN #240 syrup 07/28/19 Ranitidine HCl 150 mg PO DAILY 07/28/19 Rosuvastatin Calcium 5 mg PO DAILY 07/28/19 Sertraline HCl 200 mg PO DAILY 07/28/19 Theophylline Anhydrous [Williams-Dur 300 mg Tab.sr] 300 mg PO DAILY 07/28/19 Allergies/Adverse Reactions: codeine [Codeine] Allergy (Severe, Verified 07/28/19 10:40) reacts with invega Penicillins Allergy (Severe, Verified 07/28/19 10:40) Hives Review of Systems Constitutional: PRESENT: fatigue. ABSENT: chills, fever(s), headache(s), weight gain, weight loss Eyes: ABSENT: visual disturbances Ears: ABSENT: hearing changes Cardiovascular: PRESENT: orthropnea. ABSENT: chest pain, dyspnea on exertion, edema, palpitations Respiratory: PRESENT: cough, dyspnea. ABSENT: hemoptysis Gastrointestinal: PRESENT: diarrhea, nausea, vomiting. ABSENT: abdominal pain, constipation, hematemesis, hematochezia Genitourinary: ABSENT: dysuria, hematuria Musculoskeletal: ABSENT: joint swelling Integumentary: ABSENT: rash, wounds Neurological: ABSENT: abnormal gait, abnormal speech, confusion, dizziness, focal weakness, syncope Psychiatric: ABSENT: anxiety, depression, homidical ideation, suicidal ideation Endocrine: ABSENT: cold intolerance, heat intolerance, polydipsia, polyuria Hematologic/Lymphatic: ABSENT: easy bleeding, easy bruising Physical Exam Vital Signs: Temp Pulse Resp BP Pulse Ox 98.3 F 98 16 143/76 H 100 07/28/19 14:47 07/28/19 14:47 07/28/19 10:17 07/28/19 14:47 07/28/19 14:47 Intake & Output 07/27/19 07/28/19 07/29/19 06:59 06:59 06:59 Weight 161.025 kg General appearance: PRESENT: no acute distress, cooperative, morbidly obese, well-developed, well-nourished, other - Well-appearing Head exam: PRESENT: atraumatic, normocephalic Eye exam: PRESENT: conjunctiva pink, EOMI, PERRLA. ABSENT: scleral icterus Ear exam: PRESENT: normal external ear exam Mouth exam: PRESENT: moist, tongue midline Respiratory exam: PRESENT: clear to auscultation jacek, symmetrical, unlabored, other - Baseline oxygen requirement. ABSENT: rales, rhonchi, wheezes Cardiovascular exam: PRESENT: RRR, +S1, +S2. ABSENT: diastolic murmur, rubs, systolic murmur Pulses: PRESENT: normal dorsalis pedis pul Vascular exam: PRESENT: normal capillary refill GI/Abdominal exam: PRESENT: normal bowel sounds, soft. ABSENT: distended, guarding, mass, organolmegaly, rebound, tenderness Rectal exam: PRESENT: deferred Extremities exam: PRESENT: full ROM. ABSENT: calf tenderness, clubbing, pedal edema Neurological exam: PRESENT: alert, awake, oriented to person, oriented to place, oriented to time, oriented to situation, CN II-XII grossly intact. ABSENT: motor sensory deficit Psychiatric exam: PRESENT: appropriate affect, normal mood. ABSENT: homicidal ideation, suicidal ideation Skin exam: PRESENT: dry, intact, warm. ABSENT: cyanosis, rash Results Laboratory Results: 07/28/19 11:19 07/28/19 11:19 07/28/19 07/28/19 07/28/19 11:19 11:19 11:19 WBC 5.1 RBC 3.78 Hgb 10.7 L Hct 32.9 L MCV 87 MCH 28.3 MCHC 32.6 RDW 14.0 Plt Count 262 Seg Neutrophils % 41.9 L Sodium 139.6 Potassium 4.4 Chloride 94 L Carbon Dioxide 39 H Anion Gap 7 BUN 8 Creatinine 0.75 Est GFR ( Amer) > 60 Glucose 75 Calcium 10.1 Total Bilirubin 0.2 AST 17 Alkaline Phosphatase 48 Total Protein 7.8 Albumin 4.3 Urine Color YELLOW Urine Appearance CLOUDY Urine pH 7.0 Ur Specific Fenton 1.021 Urine Protein 30 H Urine Glucose (UA) NEGATIVE Urine Ketones NEGATIVE Urine Blood NEGATIVE Urine RBC (Auto) 1 07/28/19 11:19 NT-Pro-B Natriuret Pep 37 Impressions: Chest X-Ray 07/28/19 11:10 IMPRESSION: Mild ill-defined right basilar opacities possibly atelectasis or infection. Assessment and Plan - Diagnosis (1) Pneumonia Qualifiers: Pneumonia type: due to unspecified organism Laterality: right Lung location: lower lobe of lung Qualified Code(s): J18.9 - Pneumonia, unspecified organism Is this a current diagnosis for this admission?: Yes Plan: Chest x-ray demonstrates a subtle right lower lobe consolidation; atelectasis versus pneumonia. Patient is afebrile, WBCs normal, maintaining oxygen saturations on her baseline oxygen requirement. Blood cultures are pending. Discussed option of observational admission versus discharge to home. Patient feels comfortable with discharged home. She is provided refill of her Xopenex prescription. She is provided prescription for Promethazine/dextromethorphan cough syrup which may help with both her cough and nausea. She is provided antiemetics and instructed to take her Zofran 1 hour prior to her Levaquin dose. Her PCP had already called in a prescription to for doxycycline; I did contact her pharmacy and request that they discontinue this medication in lieu of the Levaquin. I feel that once daily dosing may improve patient compliance and tolerance. Patient is encouraged to return to the emergency department as needed for any concerning symptoms. (2) Chronic respiratory failure Qualifiers: Respiratory failure complication: hypoxia and hypercapnia Qualified Code(s): J96.11 - Chronic respiratory failure with hypoxia; J96.12 - Chronic respiratory failure with hypercapnia Is this a current diagnosis for this admission?: Yes Plan: At time of my assessment, patient was found sitting up in bed, on supplemental oxygen via nasal cannula at 3 L/min. She reports that this is her normal oxygen utilization. SPO2 is 100% at this time. She is speaking full sentences without increased work of breathing. Lung sounds are clear throughout. Patient is encouraged to continue her home regiment of supplemental oxygen and BiPAP use. She was provided a refill of her Xopenex nebulizer solution for management of her underlying COPD and subtle community-acquired pneumonia as needed. She was instructed to follow-up with her primary care provider within 1 week and with her youth liaison officer as scheduled. She is further advised to return to the emergency department as needed for concerning symptoms. (3) Diarrhea Qualifiers: Diarrhea type: unspecified type Qualified Code(s): R19.7 - Diarrhea, unspecified Is this a current diagnosis for this admission?: Yes Plan: Patient reports history nightly diarrheal bowel movements. She reports that she only has loose stools overnight. She denies associated fever or abdominal discomfort. She has not had diarrhea during this emergency department visit. Laboratory evaluation is negative for dehydration. Patient is advised to keep a food and symptom journal. Bring this to your follow-up visit with your primary care provider. Loose stools may possibly be related to her metformin 1000 mg twice daily; will defer medication dose reduction or change to her PCP. May benefit from outpatient GI consultation. (4) Nausea & vomiting Qualifiers: Vomiting type: unspecified Vomiting Intractability: unspecified Qualified Code(s): R11.2 - Nausea with vomiting, unspecified Is this a current diagnosis for this admission?: Yes Plan: Patient reports 1 month of nausea and vomiting; again only occurring at night. I am curious as to whether or not this may be precipitated by a hiatal hernia as the patient is morbidly obese and has a history of sleep apnea and is BiPAP dependent. Laboratory evaluation is negative for evidence of infectious process or dehydration. Long discussion had with the patient regarding p.o. fluids and PRN antiemetics. She does feel comfortable with discharged home today. Again, patient may benefit from outpatient GI follow-up if symptoms persist. (5) Schizo-affective schizophrenia Is this a current diagnosis for this admission?: Yes Plan: Continue outpatient medication regiment. - Plan Summary Summary: Patient is discharged home with self-care from the emergency department. - Time Time Spent with patient: 35 or more minutes
== END 2019-07-28 16:17 | disposition home or self-care (01) ==
LOC: ER 10:02 → UNDOADMIN 15:14 → EH 15:14 → UNDODISIN 16:36
DX: J18.9 Pneumonia, unspecified organism (principal); R11.2 Nausea with vomiting, unspecified; R19.7 Diarrhea, unspecified; J02.9 Acute pharyngitis, unspecified; R05 Cough; R09.81 Nasal congestion; R50.9 Fever, unspecified; R53.1 Weakness; R53.83 Other fatigue; Z88.8 Allergy status to other drugs, medicaments and biological substances; Z88.0 Allergy status to penicillin; Z87.891 Personal history of nicotine dependence; I50.9 Heart failure, unspecified; E11.9 Type 2 diabetes mellitus without complications; J44.9 Chronic obstructive pulmonary disease, unspecified; I11.0 Hypertensive heart disease with heart failure
CPT/HCPCS: 94640; 99284; 36415; 87040; 85025; 80053; 81001; 83880; 71046; S0119

== ENCOUNTER 2019-08-26 16:17 | Emergency (ER) | payer MEDICAID ==
--- NOTE | 2019-08-26 16:52 | ER Document Report ---
ED Medical Screen (RME) - General Stated Complaint: ABDOMINAL PAIN Time Seen by Provider: 08/26/19 16:45 Primary Care Provider: PAULINA FLORES NP [Primary Care Provider] - Follow up as needed Notes: HPI: 54-year-old morbidly obese female presenting for evaluation of abdominal pain, fever, diarrhea. Patient states that she began feeling poorly 3 to 4 days ago, saw her PCP, had negative flu negative chest x-ray with the PCP. States that she began having increasing episodes of nausea with diarrhea. States that she has a copious watery diarrhea. States this occurs anytime she tries to eat or drink. Patient states she recently was on 2 different courses of antibiotics for pneumonia most recently finished 8 days ago. Patient states that she does have COPD and CHF history, states she is on home oxygen normally I have greeted and performed a rapid initial assessment of this patient. A comprehensive ED assessment and evaluation of the patient, analysis of test results and completion of the medical decision making process will be conducted by additional ED providers PHYSICAL EXAMINATION: GENERAL: Well-appearing, well-nourished and in mild acute distress. HEAD: Atraumatic, normocephalic. EYES: sclera anicteric, conjunctiva are normal. ENT: Moist mucous membranes. NECK: Normal range of motion LUNGS: Normal work of breathing, decreased bilaterally HEART: 2+ radial pulses bilaterally, regular rate and rhythm ABD: limited by positioning for exam in triage. Morbidly obese. Mild tenderness bilateral lower quadrants EXTREMITIES: no pitting or edema. No cyanosis. NEUROLOGICAL: No focal neurological deficits. Moves all extremities spontaneously and on command. PSYCH: Normal mood, normal affect. SKIN: Warm, Dry, normal turgor, no rashes or lesions noted. TRAVEL OUTSIDE OF THE [place] 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 Denies: Hx Hyperthyroidism, Hx Hypothyroidism Renal/ Medical History: Denies: Hx Peritoneal Dialysis GI Medical History: Reports: Hx Gastroesophageal Reflux Disease. Denies: Hx Cirrhosis, Hx Hepatitis Musculoskeltal Medical History: Reports Hx Arthritis - rt knee, Reports Hx Musculoskeletal Trauma Psychiatric Medical History: Reports: Hx Anxiety, Hx Bipolar Disorder, Hx Depression, Hx Schizoaffective Disorder, Hx Schizophrenia Traumatic Medical History: Reports: Hx Fractures - Ankle right Infectious Medical History: Denies: Hx Hepatitis Past Surgical History: Reports: Hx Section - 3, Hx Tubal Ligation - Immunizations Immunizations up to date: Yes Hx Diphtheria, Pertussis, Tetanus Vaccination: Yes Physical Exam - Vital signs Vitals: Temp Pulse BP Pulse Ox 98.3 F 81 150/88 H 100 08/26/19 16:39 08/26/19 16:39 08/26/19 16:39 08/26/19 16:39 Course - Vital Signs Vital signs: Temp Pulse Resp BP Pulse Ox 98.3 F 81 150/88 H 100 08/26/19 16:39 08/26/19 16:39 08/26/19 16:39 08/26/19 16:39 Doctor's Discharge - Discharge Referrals: PAULINA FLORES NP [Primary Care Provider] - Follow up as needed
[2019-08-26 17:41] LABS: APPEARANCE,URINE CLEAR; BILIRUBIN,URINE NEGATIVE (NEGATIVE); COLOR,URINE YELLOW; GLUCOSE, URINE NEGATIVE (NEGATIVE); KETONES,URINE NEGATIVE (NEGATIVE); LEUKOCYTE ESTERASE,URINE NEGATIVE (NEGATIVE); NITRITE,URINE NEGATIVE (NEGATIVE); PROTEIN,URINE NEGATIVE (NEGATIVE); URINE SPECIFIC GRAVITY 1.008; UROBILINOGEN,URINE NEGATIVE mg/dL (<2.0)
[2019-08-26 18:48] LABS: ABSOLUTE EOSINOPHILS # (AUTO) 0.1 10^3/uL (0.0-0.6); ABSOLUTE LYMPHOCYTES (AUTO) 2.5 10^3/uL (0.5-4.7); ABSOLUTE MONOCYTES (AUTO) 0.4 10^3/uL (0.1-1.4); ABSOLUTE NEUT (AUTO) 2.4 10^3/uL (1.7-8.2); BASOPHILS % (AUTO) 0.2 % (0-2); EOSINOPHILS % (AUTO) 1.6 % (0-6); HEMATOCRIT 34.4 % (36.0-47.0); HEMOGLOBIN 11.1 g/dL (12.0-15.5); LYMPHOCYTES % (AUTO) 46.3 % (13-45); MEAN CORPUSCULAR HEMOGLOBIN 28.4 pg (27.0-33.4); MEAN CORPUSCULAR HGB CONC 32.2 g/dL (32.0-36.0); MEAN CORPUSCULAR VOLUME 88 fl (80-97); MONOCYTES % (AUTO) 7.7 % (3-13); PLATELET COUNT 290 10^3/uL (150-450); RED BLOOD COUNT 3.91 10^6/uL (3.72-5.28); RED CELL DISTRIBUTION WIDTH 13.9 % (11.5-14.0); SEGMENTED NEUTROPHILS % (AUTO) 44.2 % (42-78); TOTAL CELLS COUNTED % (AUTO) 100 %; WHITE BLOOD COUNT 5.4 10^3/uL (4.0-10.5)
[2019-08-26 19:07] LABS: ALBUMIN 4.4 g/dL (3.5-5.0); ALKALINE PHOSPHATASE 50 U/L (38-126); ASPARTATE AMINO TRANSFERASE 15 U/L (14-36); BILIRUBIN,DIRECT 0.1 mg/dL (0.0-0.4); BILIRUBIN,TOTAL 0.3 mg/dL (0.2-1.3); BLOOD UREA NITROGEN 8 mg/dL (7-20); CHLORIDE 93 mmol/L (98-107); GLUCOSE 91 mg/dL (75-110); POTASSIUM 4.5 mmol/L (3.6-5.0); TOTAL PROTEIN 8.3 g/dL (6.3-8.2)
[2019-08-26 19:13] LABS: ANION GAP 8 (5-19)
[2019-08-26 19:14] LABS: CARBON DIOXIDE 38 mmol/L (22-30)
[2019-08-26] MEDS ORDERED: METRONIDAZOLE 500 MG TABLET PO ONE (20:28)
--- NOTE | 2019-08-26 20:37 | ER Document Report ---
ED General - General Chief Complaint: Diarrhea Stated Complaint: ABDOMINAL PAIN Time Seen by Provider: 08/26/19 16:45 Primary Care Provider: PAULINA FLORES NP [Primary Care Provider] - Follow up as needed TRAVEL OUTSIDE OF THE [place] IN LAST 30 DAYS: No - HPI Notes: Patient is a 54-year-old female who presents to the emergency department for evaluation of diarrhea. She states is been ongoing since Friday or Friday. She states she is had profuse, watery diarrhea. She is not had any normal bowel movements. She states she is had some severe nausea, and a fever as high as 101 on Friday. Patient admits that she has been on multiple antibiotics in the last several weeks. At this point she denies any pain. She states that occasionally she has pain in the left upper and lower sides of her abdomen. It seems to precede her bowel movements. She has not had any diarrhea since arriving here in the emergency department. - Related Data Allergies/Adverse Reactions: codeine [Codeine] Allergy (Severe, Verified 07/28/19 10:40) reacts with invega Penicillins Allergy (Severe, Verified 07/28/19 10:40) Hives Home Medications: Aspirin 81 mg daily, Depakote 500 mg, 2500 mg at night, Neurontin 300 mg twice a day, 2 capsules in the evening, glipizide 10 mg daily, Pepcid 20 mg twice a day, metformin 1 g twice a day, metoprolol ER 50 mg twice a day, Myrbetriq 50 mg daily, paliperidone 9 mg daily, rosuvastatin 5 mg daily, Zoloft 200 mg daily, tizanidine 4 mg every 8 hours as needed, torsemide 20 mg daily, vitamin B12 1000 mcg daily, vitamin D 2000 units daily Past Medical History - General Information source: Patient - Social History Smoking Status: Former Smoker Family History: Arthritis, CAD, CVA, DM, Hyperlipidemia, Hypertension, Malignancy Patient has suicidal ideation: No Patient has homicidal ideation: No - Past Medical History Cardiac Medical History: Reports: Hx Congestive Heart Failure, Hx Hypercholesterolemia, Hx Hypertension Denies: Hx DVT, Hx Heart Attack, Hx Pulmonary Embolism Pulmonary Medical History: Reports: Hx Asthma, Hx COPD, Hx Pneumonia, Hx Respiratory Failure - Chronic; 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 Denies: Hx Hyperthyroidism, Hx Hypothyroidism Renal/ Medical History: Denies: Hx Peritoneal Dialysis GI Medical History: Reports: Hx Gastroesophageal Reflux Disease. Denies: Hx Cirrhosis, Hx Hepatitis Musculoskeletal Medical History: Reports Hx Arthritis - rt knee, Reports Hx Musculoskeletal Trauma Psychiatric Medical History: Reports: Hx Anxiety, Hx Bipolar Disorder, Hx Depression, Hx Schizoaffective Disorder, Hx Schizophrenia Traumatic Medical History: Reports: Hx Fractures - Ankle right Infectious Medical History: Denies: Hx Hepatitis Past Surgical History: Reports: Hx Section - 3, Hx Tubal Ligation - Immunizations Immunizations up to date: Yes Hx Diphtheria, Pertussis, Tetanus Vaccination: Yes Hx Pneumococcal Vaccination: 04/30/16 Review of Systems - Review of Systems Constitutional: See HPI Gastrointestinal: See HPI -: Yes All other systems reviewed and negative Physical Exam - Vital signs Vitals: Temp Pulse BP Pulse Ox 98.3 F 81 150/88 H 100 08/26/19 16:39 08/26/19 16:39 08/26/19 16:39 08/26/19 16:39 - Notes Notes: This is an obese 54-year-old female who appears her stated age in no acute distress. When I walked into the room she is eating, is not having any apparent distress or discomfort. Vital signs reviewed, please refer to chart. Head is normocephalic, atraumatic. Pupils equal round, reactive to light. Neck is supple without meningismus. Heart is regular rate and rhythm. Lungs are clear to auscultation bilaterally. Abdomen is soft, nontender, normoactive bowel sounds throughout. Extremities without cyanosis, clubbing. Posterior calves are nontender. Peripheral pulses are equal. Skin is warm and dry. Patient is awake, alert, neurological exam is nonfocal. Course - Re-evaluation Re-evalutation: 08/26/19 20:31 Patient presents to the emergency department for evaluation. She is had multiple episodes of diarrhea, has been on multiple antibiotics as of late. She is nontoxic. She does not have a significant leukocytosis. She is not febrile here. She is not tachycardic here. She has chronic electrolyte changes secondary to her COPD, but no acute changes secondary to the dehydration or diarrhea. At this point I believe it is appropriate to empirically treat her for possible C. difficile infection. She was unable to produce a stool sample. I will go and treat her with Flagyl. She is warned that she should not drink any alcohol with this medication. She voiced understanding. She is to follow- up with her primary care provider next week, return to the ED with worsening or new concerning symptoms of any sort. - Vital Signs Vital signs: Temp Pulse Resp BP Pulse Ox 98.3 F 81 150/88 H 100 08/26/19 16:39 08/26/19 16:39 08/26/19 16:39 08/26/19 16:39 - Laboratory Result Diagrams: 08/26/19 18:30 08/26/19 18:30 Laboratory results interpreted by me: 08/26/19 08/26/19 18:30 18:30 Hgb 11.1 L Hct 34.4 L Lymph % (Auto) 46.3 H Chloride 93 L Carbon Dioxide 38 H Total Protein 8.3 H Discharge - Discharge Clinical Impression: Diarrhea, Possible C. difficile Condition: Stable Disposition: HOME, SELF-CARE Instructions: Diarrhea, Nonspecific ([facility]) Additional Instructions: You are being treated for an infection called C. difficile. Please take all the antibiotic as prescribed. Avoid alcohol as discussed. Follow-up with your primary care provider next week. Return to the emergency department with worsening or new concerning symptoms of any sort. Referrals: PAULINA FLORES NP [Primary Care Provider] - Follow up as needed
[2019-08-26 20:44] VITALS: BP 151/79
== END 2019-08-26 21:09 | disposition home or self-care (01) ==
LOC: ER 16:17
DX: R19.7 Diarrhea, unspecified (principal); R11.0 Nausea; E86.0 Dehydration; K21.9 Gastro-esophageal reflux disease without esophagitis; J44.9 Chronic obstructive pulmonary disease, unspecified; E11.9 Type 2 diabetes mellitus without complications; E78.00 Pure hypercholesterolemia, unspecified; F31.9 Bipolar disorder, unspecified; F20.9 Schizophrenia, unspecified; F41.9 Anxiety disorder, unspecified; I11.0 Hypertensive heart disease with heart failure; I50.9 Heart failure, unspecified; Z79.82 Long term (current) use of aspirin; Z79.899 Other long term (current) drug therapy; Z79.84 Long term (current) use of oral hypoglycemic drugs; Z88.6 Allergy status to analgesic agent; Z88.5 Allergy status to narcotic agent; Z88.0 Allergy status to penicillin
CPT/HCPCS: 99284; 36415; 83690; 85025; 80053; 81001; J3490

== ENCOUNTER 2019-12-14 19:38 | Emergency (ER) | payer MEDICAID ==
--- NOTE | 2019-12-14 20:16 | ER Document Report ---
ED General - General Chief Complaint: Breathing Difficulty Stated Complaint: DIFFICULTY BREATHING Time Seen by Provider: 12/14/19 20:03 Primary Care Provider: PAULINA FLORES NP [Primary Care Provider] - Follow up as needed Mode of Arrival: Medic Information source: Patient, Emergency Med Personnel TRAVEL OUTSIDE OF THE [place] IN LAST 30 DAYS: No - HPI Onset: Other - over the last 2 days Onset/Duration: Gradual Quality of pain: Sharp - off and on chest pains Severity: Moderate Pain Level: 2 Associated symptoms: Nonproductive cough, Nausea, Vomiting, Shortness of breath, Other - trouble sleeping Exacerbated by: Other - laying flat, exertion Relieved by: Remaining still Similar symptoms previously: No Recently seen / treated by doctor: No Notes: 54 year old female with a history of COPD on 3L home O2, HTN, HLD, CHF, [place], GERD, Depression, Anxiety, Bipolar here in the ER for shortness of breath, dry cough, mild chest pains, nausea, and vomiting for the last few days. The patient denies fevers, chills, sweats, productive cough, sick contacts, recent travel. The patient says she has noticed some swelling in her legs and she has had to sleep more upright over the last few nights. - Related Data Allergies/Adverse Reactions: codeine [Codeine] Allergy (Severe, Verified 07/28/19 10:40) reacts with invega Penicillins Allergy (Severe, Verified 07/28/19 10:40) Hives Past Medical History - General Information source: Patient - Social History Smoking Status: Former Smoker Frequency of alcohol use: None Drug Abuse: None Lives with: Family Family History: Arthritis, CAD, CVA, DM, Hyperlipidemia, Hypertension, Malignanc y - Past Medical History Cardiac Medical History: Reports: Hx Congestive Heart Failure, Hx Hypercholesterolemia, Hx Hypertension Denies: Hx DVT, Hx Heart Attack, Hx Pulmonary Embolism Pulmonary Medical History: Reports: Hx Asthma, Hx COPD, Hx Pneumonia, Hx Respiratory Failure - Chronic; 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 Denies: Hx Hyperthyroidism, Hx Hypothyroidism Renal/ Medical History: Denies: Hx Peritoneal Dialysis GI Medical History: Reports: Hx Gastroesophageal Reflux Disease. Denies: Hx Cirrhosis, Hx Hepatitis Musculoskeletal Medical History: Reports Hx Arthritis - rt knee, Reports Hx Musculoskeletal Trauma Psychiatric Medical History: Reports: Hx Anxiety, Hx Bipolar Disorder, Hx Depression, Hx Schizoaffective Disorder, Hx Schizophrenia Traumatic Medical History: Reports: Hx Fractures - Ankle right Infectious Medical History: Denies: Hx Hepatitis Past Surgical History: Reports: Hx Section - 3, Hx Tubal Ligation - Immunizations Immunizations up to date: Yes Hx Diphtheria, Pertussis, Tetanus Vaccination: Yes Hx Pneumococcal Vaccination: 04/30/16 Review of Systems - Review of Systems Constitutional: No symptoms reported EENT: No symptoms reported Cardiovascular: Chest pain Respiratory: Cough - nonproductive, Short of breath Gastrointestinal: No symptoms reported Genitourinary: No symptoms reported Female Genitourinary: No symptoms reported Musculoskeletal: Other - bilateral leg swelling Skin: No symptoms reported Hematologic/Lymphatic: No symptoms reported Neurological/Psychological: No symptoms reported -: Yes All other systems reviewed and negative Physical Exam - Vital signs Vitals: Temp 99.1 F 12/14/19 19:38 - Notes Notes: GENERAL: Well-appearing, well-nourished, vomiting on my arrival to her room. Patient is Obese. HEAD: Atraumatic, normocephalic. EYES: Pupils equal round and reactive to light, extraocular movements intact, sclera anicteric, conjunctiva are normal. ENT: External ears normal, nares patent, oropharynx clear without exudates. Moist mucous membranes. NECK: Normal range of motion, supple without lymphadenopathy or JVD. LUNGS: Breath sounds clear to auscultation bilaterally and equal. No wheezes rales or rhonchi. HEART: Regular rate and rhythm without murmurs, rubs or gallops. ABDOMEN: Soft, nontender, normoactive bowel sounds. No guarding, no rebound. No masses appreciated. EXTREMITIES: Normal range of motion, no pitting or edema. No clubbing or cyanosis. NEUROLOGICAL: Cranial nerves II through XII grossly intact. Normal speech, normal gait. PSYCH: Normal mood, normal affect. SKIN: Warm, Dry, normal turgor, no rashes or lesions noted. Course - Re-evaluation Re-evalutation: 12/14/19 22:07 The patient is here for nausea, vomiting, shortness of breath and mild chest pain. Her chest xray is clear, her bnp is within normal limits, her Trop is negative, and she felt better after Zofran. Patient could have a viral syndrome causing her symptoms. Patient has no wheezing on physical exam today. Patient did not want to stay for a D-Dimer blood test or a CT chest. The patient tells me she wanted to make sure she didnt have pneumonia or heart failure which she does not. Patient told to follow up with her PCP in the next few days if symptoms persist. Patient given Zofran to be used PRN for her nausea/vomiting. Strict ER return instructions given for worsening symptoms. - Vital Signs Vital signs: Temp Pulse Resp BP Pulse Ox 99.1 F 12/14/19 19:38 - Laboratory Result Diagrams: 12/14/19 20:40 12/14/19 20:40 Laboratory results interpreted by me: 12/14/19 12/14/19 20:40 20:40 Hgb 11.0 L Hct 34.3 L Sodium 135.9 L Chloride 91 L Carbon Dioxide 39 H Glucose 185 H Calcium 10.9 H AST 13 L - Diagnostic Test Radiology reviewed: Image reviewed, Reports reviewed - EKG Interpretation by Me EKG shows normal: Sinus rhythm, [place], Intervals, QRS Complexes, ST-T Waves Rate: Normal Rhythm: NSR When compared to previous EKG there are: No significant change Discharge - Discharge Clinical Impression: Shortness of breath Nausea & vomiting Qualifiers: Vomiting type: unspecified Vomiting Intractability: unspecified Qualified Code(s): R11.2 - Nausea with vomiting, unspecified Condition: Stable Disposition: HOME, SELF-CARE Instructions: Nausea or Vomiting, Nonspecific ([facility]) Additional Instructions: Follow up with your primary care doctor and tell him/her about your ER visit for shortness of breath, nausea, and vomiting. Use the prescribed Zofran as needed for nausea. Return to an ER for persistent trouble breathing, shortness of breath, chest pain or if you are worse in any way. Continue using your home oxygen and CPAP machine. Prescriptions: Ondansetron [Zofran Odt 4 mg Tablet] 1 tab PO Q8H PRN #15 tab.rapdis PRN Reason: For Nausea/Vomiting Referrals: PAULINA FLORES, [facility] [Primary Care Provider] - Follow up as needed
[2019-12-14] MEDS ORDERED: ONDANSETRON HCL INJ/PF 4 MG/2 ML SDV IV ONE (20:18)
[2019-12-14 20:59] LABS: ABSOLUTE BASOPHILS # (AUTO) 0.1 10^3/uL (0.0-0.2); ABSOLUTE EOSINOPHILS # (AUTO) 0.1 10^3/uL (0.0-0.6); ABSOLUTE LYMPHOCYTES (AUTO) 2.3 10^3/uL (0.5-4.7); ABSOLUTE MONOCYTES (AUTO) 0.3 10^3/uL (0.1-1.4); ABSOLUTE NEUT (AUTO) 2.5 10^3/uL (1.7-8.2); BASOPHILS % (AUTO) 1.3 % (0-2); EOSINOPHILS % (AUTO) 1.4 % (0-6); HEMATOCRIT 34.3 % (36.0-47.0); LYMPHOCYTES % (AUTO) 43.7 % (13-45); MEAN CORPUSCULAR HEMOGLOBIN 27.7 pg (27.0-33.4); MEAN CORPUSCULAR VOLUME 87 fl (80-97); MONOCYTES % (AUTO) 6.6 % (3-13); PLATELET COUNT 299 10^3/uL (150-450); RED BLOOD COUNT 3.96 10^6/uL (3.72-5.28); TOTAL CELLS COUNTED % (AUTO) 100 %; WHITE BLOOD COUNT 5.2 10^3/uL (4.0-10.5)
--- NOTE | 2019-12-14 21:14 | RADIOLOGY REPORT (SQ) ---
EXAM DESCRIPTION: X-ray, AP portable view the chest CLINICAL HISTORY: 54 years Female, eval for chest pain and shortness of breath COMPARISON: Two views of the chest May 19, 2019 FINDINGS: Lungs: Lungs are clear. No pneumonia or edema. No pneumothorax or pleural effusion. Mediastinum: Cardiac and mediastinal silhouette are normal. Bones: There is heterogeneous appearance of the osseous structures no focal lesions are seen. This is stable. IMPRESSION: No acute process. No significant interval change.
[2019-12-14 21:22] LABS: ALBUMIN 4.3 g/dL (3.5-5.0); ALKALINE PHOSPHATASE 45 U/L (38-126); ANION GAP 6 (5-19); ASPARTATE AMINO TRANSFERASE 13 U/L (14-36); BILIRUBIN,DIRECT 0.1 mg/dL (0.0-0.4); BILIRUBIN,TOTAL 0.4 mg/dL (0.2-1.3); BLOOD UREA NITROGEN 9 mg/dL (7-20); CALCIUM 10.9 mg/dL (8.4-10.2); CARBON DIOXIDE 39 mmol/L (22-30); CHLORIDE 91 mmol/L (98-107); GLUCOSE 185 mg/dL (75-110); POTASSIUM 4.4 mmol/L (3.6-5.0); TOTAL PROTEIN 7.8 g/dL (6.3-8.2)
[2019-12-14 21:31] LABS: TROPONIN I 0.018 ng/mL
[2019-12-14 23:12] VITALS: BP 136/77
--- NOTE | 2019-12-15 09:48 | EKG REPORT ---
SEVERITY:- NORMAL ECG - SINUS RHYTHM : Confirmed by: Reji Casarez MD 15-Dec-2019 09:48:01
== END 2019-12-14 23:54 | disposition home or self-care (01) ==
LOC: ER 19:38
DX: R11.2 Nausea with vomiting, unspecified (principal); R06.02 Shortness of breath; R05 Cough; J44.9 Chronic obstructive pulmonary disease, unspecified; Z99.81 Dependence on supplemental oxygen; I10 Essential (primary) hypertension; E78.5 Hyperlipidemia, unspecified; I11.0 Hypertensive heart disease with heart failure; I50.9 Heart failure, unspecified; F32.9 Major depressive disorder, single episode, unspecified; F41.9 Anxiety disorder, unspecified; R07.9 Chest pain, unspecified; Z88.8 Allergy status to other drugs, medicaments and biological substances; Z88.0 Allergy status to penicillin; Z87.891 Personal history of nicotine dependence
CPT/HCPCS: 93005; 99285; 96374; 36415; 85025; 80053; 84484; 83880; 71046; 93010; J2405

== ENCOUNTER 2020-07-27 04:33 | Emergency (ER) | payer MEDICAID ==
[2020-07-27] MEDS ORDERED: OXYCODONE HCL SR 10 MG TABLET PO ONE (04:57)
--- NOTE | 2020-07-27 04:59 | ER Document Report ---
ED General - General Chief Complaint: Fall Stated Complaint: RIGHT KNEE PAIN AND SWELLING Time Seen by Provider: 07/27/20 04:40 Primary Care Provider: PAULINA FLORES NP [Primary Care Provider] - Follow up as needed Notes: 55-year-old female past medical history significant for hypertension, diabetes, COPD oxygen dependent, CHF was brought to the emergency room by EMS after a fall at home. Patient states she was attempting to get to her bedside commode to have a bowel movement when she lost her balance twisting her right foot falling and landing on her right knee. She denies hitting her head. She denies any loss of consciousness. States she was unable to ambulate on her own. She denies any previous history of trauma or injury to her right knee or right foot. Per EMS she was able to ambulate with assistance but could not bear any weight to her right leg. No medications were given prior to arrival. TRAVEL OUTSIDE OF THE [place] IN LAST 30 DAYS: No - Related Data Allergies/Adverse Reactions: codeine [Codeine] Allergy (Severe, Verified 07/28/19 10:40) reacts with invega Penicillins Allergy (Severe, Verified 07/28/19 10:40) Hives Past Medical History - General Information source: Patient - Social History Smoking Status: Never Smoker Chew tobacco use (# tins/day): No Frequency of alcohol use: None Drug Abuse: None Family History: Arthritis, CAD, CVA, DM, Hyperlipidemia, Hypertension, Malignancy Patient has homicidal ideation: No - Past Medical History Cardiac Medical History: Reports: Hx Congestive Heart Failure, Hx Hypercholesterolemia, Hx Hypertension Denies: Hx DVT, Hx Heart Attack, Hx Pulmonary Embolism Pulmonary Medical History: Reports: Hx Asthma, Hx COPD, Hx Pneumonia, Hx Respiratory Failure - Chronic; 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 Denies: Hx Hyperthyroidism, Hx Hypothyroidism Renal/ Medical History: Denies: Hx Peritoneal Dialysis GI Medical History: Reports: Hx Gastroesophageal Reflux Disease. Denies: Hx Cirrhosis, Hx Hepatitis Musculoskeletal Medical History: Reports Hx Arthritis - rt knee, Reports Hx Musculoskeletal Trauma Psychiatric Medical History: Reports: Hx Anxiety, Hx Bipolar Disorder, Hx Depression, Hx Schizoaffective Disorder, Hx Schizophrenia Traumatic Medical History: Reports: Hx Fractures - Ankle right Infectious Medical History: Denies: Hx Hepatitis Past Surgical History: Reports: Hx Section - 3, Hx Tubal Ligation - Immunizations Immunizations up to date: Yes Hx Diphtheria, Pertussis, Tetanus Vaccination: Yes Hx Pneumococcal Vaccination: 04/30/16 Review of Systems - Review of Systems Constitutional: No symptoms reported EENT: No symptoms reported Cardiovascular: No symptoms reported Respiratory: No symptoms reported Gastrointestinal: No symptoms reported Musculoskeletal: Joint pain Skin: No symptoms reported Neurological/Psychological: No symptoms reported -: Yes All other systems reviewed and negative Physical Exam - Vital signs Vitals: Temp 98.8 F 07/27/20 04:33 - General General appearance: Appears well, Alert In distress: Mild - HEENT Head: Normocephalic, Atraumatic Eyes: Normal Pupils: PERRL - Respiratory Respiratory status: No respiratory distress Chest status: Nontender Breath sounds: Normal Chest palpation: Normal - Extremities General upper extremity: Normal inspection Knee: Tender - Tender on palpation to the right patella. Painful range of motion with flexion extension to the right knee. No obvious deformity noted. No obvious effusion palpated, Pain with ROM, Unable to bear weight Foot: Tender - Tenderness on palpation to the right lateral mid foot. Painful range of motion with flexion, extension eversion and inversion to the right foot. There is no obvious deformity noted. No obvious swelling., Unable to bear weight - Neurological Neuro grossly intact: Yes Cognition: Normal Orientation: AAOx4 [place] Coma Scale Eye Opening: Spontaneous [place] Coma Scale Verbal: Oriented [place] Coma Scale Motor: Obeys Commands Derrick Coma Scale Total: 15 Speech: Normal Motor strength normal: LUE, RUE, LLE, RLE Sensory: Normal Course - Re-evaluation Re-evalutation: 07/27/20 06:11 Patient is resting comfortably with decreased pain reviewed knee and foot x-ray results with patient and family. Knee shows osteoarthritis with a small joint effusion, foot degenerative changes with a bone spur. No acute fractures are noted. Patient was counseled to rest, ice, elevate her right knee and right foot, use ice 20 minutes 3 times a day. Outpatient follow-up with orthopedics if not improving in 2 to 3 days. Patient states she usually sees Dr. Stafford for Ortho. Tylenol as needed for pain. Patient was given strict return to the emergency room guidelines. Return for any new or worsening symptoms. All questions were answered. Patient verbalized understanding and agrees with plan of care. Transportation will be arranged through family secondary to patient on continuous oxygen and unable to ambulate without assistance. Patient does have a walker at home which he uses for ambulation. - Vital Signs Vital signs: Temp Pulse Resp BP Pulse Ox 98.8 F 129/76 H 94 07/27/20 04:33 07/27/20 06:01 07/27/20 06:02 - Laboratory Results Critical Laboratory Results Reviewed: No Critical Results - Radiology Results Critical Radiology Results Reviewed: No Critical Results Discharge - Discharge Clinical Impression: Effusion, right knee, Bone spur of right foot, Contusion of right foot, initial encounter Osteoarthritis of right knee Qualifiers: Osteoarthritis type: unspecified Qualified Code(s): M17.11 - Unilateral primary osteoarthritis, right knee Degenerative joint disease of right foot Qualifiers: Osteoarthritis type: unspecified Qualified Code(s): M19.071 - Primary osteoarthritis, right ankle and foot Condition: Stable Disposition: HOME, SELF-CARE Instructions: Contusion ([facility]), Knee Effusion ([facility]), Osteoarthritis ([facility]), Plantar Fasciitis or Heel Spur ([facility]) Additional Instructions: Rest, ice, elevate your right leg. Ice 20 minutes 3 times a day. Follow-up with your orthopedist if not improving in 2 to 3 days. Tylenol as needed for pain. Return to emergency room for any new or worsening symptoms. Referrals: PAULINA FLORES NP [Primary Care Provider] - Follow up as needed
--- NOTE | 2020-07-27 06:00 | RADIOLOGY REPORT (SQ) ---
Right foot x-ray two views on 07/27/2020 at 5:15 AM CLINICAL INDICATION: Pain after fall COMPARISON: None FINDINGS: Mild hallux valgus deformity of the great toe is noted. Minimal degenerative changes are noted in the first MTP joint. Tiny plantar calcaneal spur is noted. There are no fractures. Visualized joints are well aligned. IMPRESSION: No acute abnormality.
--- NOTE | 2020-07-27 06:01 | RADIOLOGY REPORT (SQ) ---
Right knee x-ray three views on 07/27/2020 at 5:12 AM CLINICAL INDICATION: Pain after fall COMPARISON: 07/02/2015 FINDINGS: There is joint space narrowing and osteophyte formation in all three compartments worse in the medial compartment consistent with changes of osteoarthritis. Suprapatellar joint effusion is likely present. There are no fractures. Visualized joints are well aligned. IMPRESSION: 1. Moderate changes of osteoarthritis in the knee worse in the medial compartment with no acute bony abnormality. 2. Probable joint effusion, if clinically indicated follow up MRI could better evaluate for internal derangement of the joint.
[2020-07-27] MEDS ORDERED: HYDROCODONE/ACETAMINOPHEN 5-325 MG (6 TAB/ER DISP) PO PRN (06:19)
[2020-07-27 06:51] VITALS: BP 129/76
== END 2020-07-27 08:15 | disposition home or self-care (01) ==
LOC: ER 04:33
DX: S90.31XA Contusion of right foot, initial encounter (principal); W18.11XA Fall from or off toilet without subsequent striking against object, initial encounter; Y93.89 Activity, other specified; Y92.003 Bedroom of unspecified non-institutional (private) residence as the place of occurrence of the external cause; M17.11 Unilateral primary osteoarthritis, right knee; M19.071 Primary osteoarthritis, right ankle and foot; M25.461 Effusion, right knee; M25.561 Pain in right knee; M77.31 Calcaneal spur, right foot; I10 Essential (primary) hypertension; E11.9 Type 2 diabetes mellitus without complications; J44.9 Chronic obstructive pulmonary disease, unspecified; J96.10 Chronic respiratory failure, unspecified whether with hypoxia or hypercapnia; Z99.81 Dependence on supplemental oxygen; Z88.6 Allergy status to analgesic agent; Z88.5 Allergy status to narcotic agent; Z88.0 Allergy status to penicillin
CPT/HCPCS: 99284; 73620; 73562; J3490